=== PATIENT | male | born 1935 | race Caucasian/White ===

== ENCOUNTER → 2016-06-14 | Outpatient (CLI) | payer BC, MEDICARE ==
[2016-06-14 10:26] LABS: Calcium 9.3 mg/dL (8.4-10.2); Potassium 5.4 mmol/L (3.5-5.1)
== END | disposition home or self-care (01) ==
LOC: LABWHC1 09:25
PROVIDERS: ATTEND Internal Medicine
DX: E87.8 Other disorders of electrolyte and fluid balance, not elsewhere classified (principal)
CPT/HCPCS: 36415; 80048

== ENCOUNTER → 2016-09-10 | Outpatient (CLI) | payer MEDICARE ==
[2016-09-10 10:35] LABS: CH 29.8; HCT 34.2 % (39.0-53.0); HDW 2.62; HGB 11.4 gm/dL (13.0-17.5); MCH 29.5 pg (25.0-35.0); MCHC 33.5 g/dL (31.0-37.0); MCV 88.1 fL (80.0-100.0); Mean Platelet Volume 6.4; RBC 3.88 m/uL (4.30-5.90); WBC 6.5 k/uL (3.8-10.6)
[2016-09-10 10:54] LABS: Calcium 9.4 mg/dL (8.4-10.2); Potassium 4.5 mmol/L (3.5-5.1); Uric Acid 8.8 mg/dL (3.5-8.5)
[2016-09-10 13:24] LABS: Hemoglobin A1C 7.6 % (4.2-6.1)
== END | disposition home or self-care (01) ==
LOC: LABWHC1 09:38
PROVIDERS: ATTEND Internal Medicine
DX: E11.69 Type 2 diabetes mellitus with other specified complication (principal); E87.8 Other disorders of electrolyte and fluid balance, not elsewhere classified; R53.83 Other fatigue; R79.9 Abnormal finding of blood chemistry, unspecified
CPT/HCPCS: 36415; 80048; 83036; 84550; 85027

== ENCOUNTER → 2016-10-26 | Outpatient (CLI) | payer MEDICARE ==
[2016-10-26 12:44] LABS: Potassium 4.6 mmol/L (3.5-5.1)
== END ==
LOC: LABWHC1 11:23
PROVIDERS: ATTEND Internal Medicine Cardiovascular Disease
DX: R60.0 Localized edema (principal)
CPT/HCPCS: 36415; 80051; 82565; 83880; 84443; 84520

== ENCOUNTER → 2017-09-05 | Outpatient (CLI) | payer MEDICARE ==
[2017-09-05 10:54] LABS: Calcium 9.7 mg/dL (8.4-10.2); Potassium 4.7 mmol/L (3.5-5.1); Uric Acid 8.7 mg/dL (3.5-8.5)
== END | disposition home or self-care (01) ==
LOC: LABWHC1 09:07
PROVIDERS: ATTEND Internal Medicine
DX: E78.4 Other hyperlipidemia (principal); E87.8 Other disorders of electrolyte and fluid balance, not elsewhere classified; E11.69 Type 2 diabetes mellitus with other specified complication; M10.9 Gout, unspecified
CPT/HCPCS: 36415; 80048; 80061; 83036; 84550

== ENCOUNTER 2017-09-23 17:30 | Observation (INO) | payer MEDICARE ==
[2017-09-23] MEDS ORDERED: methylPREDNISolone SOD SUCCI 125 MG/2 ML VIAL IV STA ×2 (18:07→19:59)
[2017-09-23] MEDS ORDERED: FAMOTIDINE 20 MG/2 ML VIAL IV STA (18:08)
--- NOTE | 2017-09-23 18:15 | ED ---
General Adult HPI - General Chief complaint: Skin/Abscess/Foreign Body Stated complaint: Rash Time Seen by Provider: 09/23/17 17:42 Source: patient, RN notes reviewed Mode of arrival: ambulatory Limitations: no limitations - History of Present Illness Initial comments: Patient is an 82-year-old male presenting to the emergency room today with a chief complaint of a rash over the last 3 days. Patient does admit that he had a wound to the right garcia that he was started on antibiotics by the family doctor. He states he started clindamycin. He states that approximately 3 days ago noticed a small spot to his chest and some redness to the lower extremity. Patient states that the redness is increased. He states he now has diffuse rash throughout the body. He states it is a little itchy. He states is no pain. He denies any other complaints or symptoms. Patient denies any recent fever, chills, shortness of breath, chest pain, back pain, abdominal pain, nausea or vomiting, numbness or tingling, dysuria or hematuria, constipation or diarrhea, headaches or visual changes, or any other complaints. - Related Data Home Medications Medication Instructions Recorded Confirmed Allopurinol [Zyloprim] 100 mg PO DAILY 12/02/14 09/23/17 Aspirin 81 mg PO HS 12/02/14 09/23/17 Brimonidine Tartrate/Timolol 1 drop BOTH EYES Q12HR 12/02/14 09/23/17 [Combigan 0.2%/0.5% Ophth Soln] Doxazosin Mesylate 8 mg PO DAILY 12/02/14 09/23/17 Felodipine [Felodipine ER] 10 mg PO DAILY 12/02/14 09/23/17 Furosemide [Lasix] 20 mg PO DAILY 12/02/14 09/23/17 Lovastatin [Mevacor] 40 mg PO HS 12/02/14 09/23/17 Metolazone [Zaroxolyn] 2.5 mg PO DAILY 12/02/14 09/23/17 Ascorbic Acid [Vitamin C with [place] 500 mg PO DAILY 03/14/16 09/23/17 Hips] B Complex-Vit C-Vit E-Zinc [Z-Bec] 1 tab PO DAILY 03/14/16 09/23/17 Calcium Carbonate/Vitamin D3 1 each PO DAILY 03/14/16 09/23/17 [Calcium 600-Vit D3 800 Tab] Cinnamon Bark [Cinnamon] 500 mg PO DAILY 03/14/16 09/23/17 Krill/Om-3/Dha/Epa/Phospho/Ast 1 each PO DAILY 03/14/16 09/23/17 [[place]-3 Krill Oil 300 mg Sfgl] Multivit-Min/FA/Lycopen/Lutein 1 each PO DAILY 03/14/16 09/23/17 [Centrum Silver Tablet] Oral Chelation 1 tab PO DAILY 03/14/16 09/23/17 prednisoLONE ACETATE 1% OPHTH 1 drops RIGHT EYE WEEKLY 03/14/16 09/23/17 [Pred Forte 1%] Furosemide [Lasix] 40 mg PO DAILY 09/23/17 09/23/17 cloNIDine HCL 0.3 mg PO BID 09/23/17 09/23/17 Allergies Allergy/AdvReac Type Severity Reaction Status Date / Time cephalexin Allergy Rash/Hives Verified 03/14/16 08:12 clindamycin Allergy Rash/Hives Verified 09/23/17 17:38 sulfamethoxazole Allergy Unknown Verified 03/14/16 08:12 [From Bactrim] trimethoprim [From Bactrim] Allergy Unknown Verified 03/14/16 08:12 Review of Systems ROS Statement: Those systems with pertinent positive or pertinent negative responses have been documented in the HPI. ROS Other: All systems not noted in ROS Statement are negative. Past Medical History Past Medical History: Cancer, Hyperlipidemia, Hypertension, Prostate Disorder History of Any Multi-Drug Resistant Organisms: None Reported Past Surgical History: No Surgical Hx Reported Past Psychological History: No Psychological Hx Reported Smoking Status: Never smoker General Exam - General Exam Comments Initial Comments: General: The patient is awake and alert, in no distress, and does not appear acutely ill. Neck: The neck is supple, there is no tenderness or JVD. Cardiovascular: There is a regular rate and rhythm. No murmur, rub or gallop is appreciated. Respiratory: Lungs are clear to auscultation, respirations are non-labored, breath sounds are equal. No wheezes, stridor, rales, or rhonchi. Musculoskeletal: Full range motion. Sensation intact. Pulses equal bilaterally 2+. Strength 5/5 in all areas. Neurological: A&O x 3. CN II-XII intact, There are no obvious motor or sensory deficits. Coordination appears grossly intact. Speech is normal. Skin: Diffuse red raised rash throughout body worse to the lower extremities spreading up to the upper extremities and anterior trunk. Rash to the left lower extremity does not tony is petechial in nature. Rash to the remaining areas of body does tony. Psychiatric: Normal mood and affect. Limitations: no limitations Course Vital Signs 09/23/17 09/23/17 17:34 19:38 Temperature 100.5 F H 100.6 F H Pulse Rate 105 H 82 Respiratory 18 20 Rate Blood Pressure 151/70 165/78 O2 Sat by Pulse 98 96 Oximetry Medical Decision Making - Medical Decision Making Patient's labs been reviewed does show mild elevation of kidney function from previous. Patient's platelets stable. Coag stable. Patient does have a low grade fever here the emergency room. Given Tylenol. Patient ran started after taking clindamycin. Patient nontoxic appearing. Doing well at this time. Case discussed and seen by [facility] physician Dr. Bunn did discuss the case with Dr. Rosenbaum on-call for Dr. Sangita christopher but the patient. Will continue on steroids, Benadryl, Pepcid. - Lab Data Result diagrams: 09/23/17 18:35 09/23/17 18:35 Lab Results 09/23/17 09/23/17 09/23/17 Range/Units 18:35 18:35 18:35 WBC 8.7 (3.8-10.6) k/uL RBC 3.69 L (4.30-5.90) m/uL Hgb 10.7 L (13.0-17.5) gm/dL Hct 32.2 L (39.0-53.0) % MCV 87.3 (80.0-100.0) fL MCH 29.1 (25.0-35.0) pg MCHC 33.3 (31.0-37.0) g/dL RDW 14.3 (11.5-15.5) % Plt Count 251 (150-450) k/uL Neutrophils % 76 % Lymphocytes % 11 % Monocytes % 4 % Eosinophils % 7 % Basophils % 0 % Neutrophils # 6.6 (1.3-7.7) k/uL Lymphocytes # 0.9 L (1.0-4.8) k/uL Monocytes # 0.4 (0-1.0) k/uL Eosinophils # 0.6 (0-0.7) k/uL Basophils # 0.0 (0-0.2) k/uL PT 10.6 (9.0-12.0) sec INR 1.1 (<1.2) APTT 24.4 (22.0-30.0) sec Sodium 135 L (137-145) mmol/L Potassium 4.1 (3.5-5.1) mmol/L Chloride 99 (98-107) mmol/L Carbon Dioxide 22 (22-30) mmol/L Anion Gap 14 mmol/L BUN 68 H (9-20) mg/dL Creatinine 2.50 H (0.66-1.25) mg/dL Est GFR (CKD-EPI)AfAm 27 (>60 ml/min/1.73 sqM) Est GFR (CKD-EPI)NonAf 23 (>60 ml/min/1.73 sqM) Glucose 252 H (74-99) mg/dL Calcium 8.6 (8.4-10.2) mg/dL Total Bilirubin 1.0 (0.2-1.3) mg/dL AST 31 (17-59) U/L ALT 37 (21-72) U/L Alkaline Phosphatase 101 (38-126) U/L Total Protein 6.1 L (6.3-8.2) g/dL Albumin 3.6 (3.5-5.0) g/dL Disposition Clinical Impression: Allergic reaction caused by a drug Disposition: [facility] Condition: Stable Is patient prescribed a controlled substance at d/c from ED?: No Referrals: Gino Saxena MD [Primary Care Provider] - 1-2 days Time of Disposition: 19:58
[2017-09-23 19:04] LABS: Basophils % (A) 0 %; Eosinophils # (A) 0.6 k/uL (0-0.7); Eosinophils % (A) 7 %; HCT 32.2 % (39.0-53.0); HGB 10.7 gm/dL (13.0-17.5); Lymphocytes # (A) 0.9 k/uL (1.0-4.8); Lymphocytes % (A) 11 %; MCH 29.1 pg (25.0-35.0); MCHC 33.3 g/dL (31.0-37.0); MCV 87.3 fL (80.0-100.0); Mean Platelet Volume 6.1; Monocytes # (A) 0.4 k/uL (0-1.0); Monocytes % (A) 4 %; Neutrophils # (A) 6.6 k/uL (1.3-7.7); Neutrophils % (A) 76 %; Platelet Count 251 k/uL (150-450); RBC 3.69 m/uL (4.30-5.90); RDW 14.3 % (11.5-15.5); WBC 8.7 k/uL (3.8-10.6)
[2017-09-23 19:13] LABS: Albumin 3.6 g/dL (3.5-5.0); Calcium 8.6 mg/dL (8.4-10.2); Potassium 4.1 mmol/L (3.5-5.1); Total Protein 6.1 g/dL (6.3-8.2)
[2017-09-23] MEDS ORDERED: ACETAMINOPHEN TAB 325 MG TAB PO STA (19:38)
[2017-09-23 19:53] LABS: INR 1.1 (<1.2); Partial Thromboplastin Time 24.4 sec (22.0-30.0); Prothrombin Time 10.6 sec (9.0-12.0)
[2017-09-23] MEDS ORDERED: HYDROcodone/APAP 5-325MG 1 EACH TAB PO PRN (19:58)
[2017-09-23] MEDS ORDERED: SODIUM CHLORIDE 0.9% 1,000 ML IV ONE (19:58)
[2017-09-23] MEDS ORDERED: ACETAMINOPHEN TAB 325 MG TAB PO PRN (19:58)
[2017-09-23] MEDS ORDERED: NALOXONE 0.4 MG/ML 1 ML VIAL IV PRN (19:58)
[2017-09-23] MEDS ORDERED: ONDANSETRON 4 MG/2 ML VIAL IVP PRN (19:58)
[2017-09-23] MEDS: BRIMONIDINE TARTRATE 0.2% DROPS 5 ML BTL BOTH EYES SCH (22:37)
[2017-09-23] MEDS: TIMOLOL 0.5% OPHTH DROPS 5 ML BTL BOTH EYES SCH (22:37)
[2017-09-23 22:48] VITALS: BMI 34.7
--- NOTE | 2017-09-23 23:42 | HP ---
HISTORY AND PHYSICAL ATTENDING PHYSICIAN: Dr. Saxena. ADMITTING PHYSICIAN: Dr. Anibal Rosenbaum. CHIEF COMPLAINT: Rash. HISTORY OF PRESENT ILLNESS: This 82-year-old gentleman presents to the emergency room because of an itchy rash covering his body. His predominant lower legs. The patient has some swelling of the lower extremities. He does have a history of some chronic edema and chronic venous hypertension affecting the legs. He says he was admitted to the hospital for 9 days few years ago for swelling of the left leg. He does not know if he had a blood clot in that leg. The patient is a poor historian. His provides some of the details. The patient has had a skin lesion, nonhealing eschar on the right garcia for the past about 2-3 months. The patient was seen last week by Dr. Saxena and placed on clindamycin. The patient apparently had some drainage prior to that. He does not have any drainage now. It is a dried up area. Not much erythema around the Eschars. The patient, however, with this rash predominantly in the left leg and the whole body. Only the face is spared. He does have some rash on the palms. The patient denies any associated symptoms of wheezing, headaches, dizziness. No diarrhea. He has never had a rash like this previously. He has had rashes with other antibiotic allergies. He had a severe urticarial rash with bee stings. PAST MEDICAL HISTORY: Significant for aortic valve, mitral valve disease. 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 History of carcinoma of the prostate for which he had radiation therapy 3 years ago. Denies any history of liver disease, kidney disease, ulcers, TB, hepatitis. No history of any rheumatic fever, myocardial infarction or CVA. PAST SURGICAL HISTORY: Significant for cataracts only. PERSONAL HISTORY: Nonsmoker, had smoked for only a few years when he was in his 20s. Alcohol occasional. ALLERGIES: TO SULFA, KEFLEX, AND BEE STINGS. MEDICATIONS: Medications at present include: 1. Catapres 0.3 mg b.i.d. 2. Multivitamin daily. 3. Zaroxolyn 2.5 mg daily. 4. Mevacor 40 mg daily. 5. [place]-3 daily. 6. Lasix 60 mg daily. 7. Felodipine 10 mg daily. 8. 8 mg daily. 9. Cinnamon daily. 10.Calcium with vitamin D3. 11.He takes eye drops. 12.Aspirin 81 daily. 13.Vitamin C daily 500 mg daily. 14.Allopurinol 100 mg daily. SOCIAL HISTORY: Patient is , lives with his spouse. [place]. FAMILY MEDICAL HISTORY: Father in his 80s. He had a history of alcoholism. Mother in the 80s. Also, she had a history of CVA. The patient had 7 brothers, 5 , 1 had coronary artery disease. Other details not available. Two other brothers living in adequate health. One sister who had of cancer of the lung. He has 6 other sisters living. Health fair. He has 2 sons and 2 daughters living in good health. REVIEW OF SYSTEMS: NEURO: Denies any headaches, dizziness. No double vision blurred vision. No symptoms of TIA, syncope or seizures. Psych: No anxiety or depression. Cardiac: Denies chest pain, angina or palpitations. Respiratory: Denies shortness of breath. Does have chronic mild cough and chronic shortness of breath and chronic dyspnea on exertion, which is stable. GI: No nausea, vomiting, abdominal pain, diarrhea, constipation, hematochezia, melena. : Denies symptoms of dysuria, hematuria, urgency, frequency. EXTREMITIES: Denies pain. Does have edema. Constitutional: Feels feverish. No chills. Feels feverish and cold. Skin: Present rash. Musculoskeletal: Mild chronic arthritic pain. GI no nausea, vomiting, abdominal pain, diarrhea, constipation. no symptoms of dysuria or hematuria. No urgency or frequency. Extremities: Some edema. PHYSICAL EXAMINATION: Pleasant gentleman in no distress. Vital signs reveals a temperature 100.5, pulse rate 105, respiration 18, blood pressure 151/78, pulse ox 98% on room air. HEENT: Normocephalic. Neck no JVD. Pupils are reactive. Nostrils clear. Oral cavity dry. No lesions. Ears reveal no drainage. NECK reveals no JVD, carotid bruits, thyromegaly. CHEST EXAMINATION: Increased AP diameter. Generalized decreased air flow. No rhonchi or wheezing. CARDIAC distant heart sounds S1, S2 with no gallops. Regular rhythm. Systolic murmur 2/6, right second intercostal space radiating to the carotids. ABDOMEN: Soft. No palpable masses. Bowel sounds normal. No organomegaly. No abdominal bruits. EXTREMITIES: Revealed edema. Left leg greater than right. Hip is chronic edema, mild pitting edema. NEUROLOGICAL: Awake, alert, oriented x3 with well-coordinated movements both upper and lower extremities. Joints reveal no effusion. SKIN reveals diffuse macular rash including on the palms. The patient has lower extremities reveal some petechial areas, especially in the left lower leg. Right garcia has an eschar. Neurological awake, alert, oriented x3. Moves both upper and lower extremities well. LABORATORY ASSESSMENT: CBC which showed hemoglobin of 10.7, normal white count, platelet count, INR, PTT are normal. Sodium 135, BUN 68, creatinine 2.5, glucose was 252. ASSESSMENT: 1. Rash, suspect allergic reaction to clindamycin. 2. Anemia. 3. Acute on chronic renal failure. 4. Elevated blood sugars with no history of diabetes mellitus. 5. Hypertension. 6. Chronic obstructive pulmonary disease. 7. History of cancer of the prostate. PLAN: The patient is admitted to the hospital. This started on some steroids, antihistamines and Clindamycin discontinued. Monitor blood sugars control and cover with insulin as needed. The patient's general condition discussed with the patient. Prognosis guarded. MMODL / IJN: [id number] /
[2017-09-24] MEDS: methylPREDNISolone SOD SUCCI 40 MG/ML 1 ML VIAL IV SCH ×4 (02:30→23:04)
[2017-09-24 07:22] LABS: Basophils % (A) 0 %; Eosinophils % (A) 1 %; HCT 34.8 % (39.0-53.0); HGB 11.6 gm/dL (13.0-17.5); Lymphocytes # (A) 1.1 k/uL (1.0-4.8); Lymphocytes % (A) 15 %; MCH 29.7 pg (25.0-35.0); MCHC 33.4 g/dL (31.0-37.0); MCV 88.7 fL (80.0-100.0); Mean Platelet Volume 6.2; Monocytes # (A) 0.1 k/uL (0-1.0); Monocytes % (A) 1 %; Neutrophils # (A) 6.1 k/uL (1.3-7.7); Neutrophils % (A) 83 %; Platelet Count 267 k/uL (150-450); RBC 3.92 m/uL (4.30-5.90); RDW 14.3 % (11.5-15.5); WBC 7.3 k/uL (3.8-10.6)
[2017-09-24 07:27] LABS: Albumin 3.9 g/dL (3.5-5.0); Calcium 8.8 mg/dL (8.4-10.2); Potassium 4.1 mmol/L (3.5-5.1); Total Bilirubin 0.9 mg/dL (0.2-1.3); Total Protein 6.6 g/dL (6.3-8.2)
--- NOTE | 2017-09-24 08:02 | P.PN ---
Progress Note - Text The patient is a 82-year-old gentleman who was admitted yesterday with a diffuse erythematous rash covering most of his body. Patient had been prescribed clindamycin for a right leg ulceration and cellulitis prior to the rash developing. Patient does have other ALLERGIES to cephalexin and sulfa/ Bactrim. Patient did receive some corticosteroids. He does have other comorbidities that include his underlying diabetes, history of valvular heart disease, hypertension and COPD. He has had chronic venous insufficiency and has developed ulcerations in the past. This morning he states he does feel somewhat better. He denies any chest pain or shortness of breath. No nausea or vomiting. Vital signs reveal temperature 98.2 with a pulse of 80 and respirations 16. Temperature was elevated on admission. Blood pressure this morning is 181/81 and he is 93% saturated on room air. Lung and heart exam was clear. No wheezing. Abdomen is soft and nontender. He does have peripheral edema more on the left side than the right lower extremity. There is a 3-5 cm superficial ulceration with some eschar on the right garcia. No marked cellulitis associated with this at this time. There is a diffuse erythematous nonblanching rash which is not raised. More prominent on the lower extremities but does cover the trunk. He is alert and oriented without any neurological changes at this time. Laboratory White count 7.3 with a hemoglobin 11.6 and a platelet count of 267. Electrolytes unremarkable. BUN is 59 with creatinine of 2.26 given him a GFR of 26 which is mildly improved. Blood sugars 246. Impressions and plans Continue at this time with IV corticosteroids. Continue to monitor his blood sugars. Further recommendations pending clinical response as discussed with patient at bedside this morning.
[2017-09-24 08:16] LABS: Glucose,Whole Blood 351 mg/dL (75-99)
[2017-09-24] MEDS: amLODIPine 10 MG TAB PO SCH (08:17)
[2017-09-24] MEDS: B COMPLEX-VIT C-VIT E-ZINC 1 EACH TAB PO SCH (08:17)
[2017-09-24] MEDS: cloNIDine HCL 0.1 MG TAB PO SCH ×2 (08:18→20:28)
[2017-09-24] MEDS: DOXAZOSIN 4 MG TAB PO SCH (08:18)
[2017-09-24] MEDS: CALCIUM CARB-VIT D 500MG-200UN 1 EACH TAB PO SCH (08:18)
[2017-09-24] MEDS: FAMOTIDINE 20 MG/2 ML VIAL IV SCH (08:18)
[2017-09-24] MEDS: ASCORBIC ACID 500 MG TAB PO SCH (08:18)
[2017-09-24] MEDS: METOLAZONE 2.5 MG TAB PO SCH (08:18)
[2017-09-24] MEDS: ALLOPURINOL 100 MG TAB PO SCH (08:18)
[2017-09-24] MEDS: INSULIN ASPART 100 UNIT/ML 1 ML 10 ML VIAL SQ SCH ×4 (08:19→20:34)
[2017-09-24] MEDS: BRIMONIDINE TARTRATE 0.2% DROPS 5 ML BTL BOTH EYES SCH ×2 (08:32→20:27)
[2017-09-24] MEDS ORDERED: NON-FORMULARY DRUG (Cinnamon Bark [Cinnamon] 500 MG) PO SCH (09:00)
[2017-09-24] MEDS ORDERED: FUROSEMIDE 20 MG TAB PO SCH ×2 (09:00)
[2017-09-24] MEDS ORDERED: NON-FORMULARY DRUG (Krill/Om-3/Dha/Epa/Phospho/Ast [Omega-3 Krill Oil 300 Mg Sfgl] 1 EACH) PO SCH (09:00)
[2017-09-24] MEDS ORDERED: CHELATION PO SCH (09:00)
[2017-09-24 12:11] LABS: Iron Saturation 10.91 (15.00-50.00)
[2017-09-24 12:12] LABS: Glucose,Whole Blood 219 mg/dL (75-99)
[2017-09-24] MEDS: TIMOLOL 0.5% OPHTH DROPS 5 ML BTL BOTH EYES SCH ×2 (12:19→20:35)
[2017-09-24] MEDS: MULTIVITAMINS, THERA 1 EACH TAB PO SCH (12:19)
[2017-09-24] MEDS: FUROSEMIDE 40 MG TAB PO SCH (16:27)
[2017-09-24 18:04] LABS: Glucose,Whole Blood 236 mg/dL (75-99)
[2017-09-24] MEDS: diphenhydrAMINE 25 MG CAP PO PRN (20:27)
[2017-09-24 20:36] LABS: Glucose,Whole Blood 333 mg/dL (75-99)
[2017-09-24] MEDS ORDERED: ASPIRIN 81 MG PO SCH (21:00)
[2017-09-24] MEDS ORDERED: ATORVASTATIN 10 MG TAB PO SCH (21:00)
[2017-09-25 07:00] LABS: Glucose,Whole Blood 302 mg/dL (75-99)
[2017-09-25 07:16] LABS: Calcium 9.2 mg/dL (8.4-10.2); Potassium 4.6 mmol/L (3.5-5.1)
[2017-09-25 08:24] VITALS: BP 163/73; PULSE 85; RESP 18; TEMP 97.5
--- NOTE | 2017-09-25 08:24 | P.DS ---
Providers Date of admission: 09/23/17 20:59 Attending physician: Jose Miguel Rosenbaum Primary care physician: Gino Saxena The patient is a 82-year-old gentleman who presented to the emergency room 2 days previous a diffuse rash and elevated temperatures. Patient had been on clindamycin for a skin right lower leg ulceration with some surrounding cellulitis. He does have a previous history of ALLERGIES to cephalexin and sulfa. The rash involved all areas of the body. It was erythematous and not blanching. Temperatures were elevated up to 100.5 and 100.6 on a couple determinations. Patient also has multiple comorbidities with underlying chronic kidney disease stage 3-4 with a GFR presentation here down to 25. Patient also had elevated blood sugars in the 2-300 range. Other labs showed a sodium 139 with a potassium 4.1 and a CO2 content of 22. White count 7.3 with hemoglobin 11.6 and a platelet count of 267. Liver function tests were generally unremarkable. Iron saturation was slightly low at 10.9 with an INR of 30 and iron binding capacity of 275. Ferritin level elevated at 190. Blood culture has been no growth at 24 hours. Patient was treated with IV corticosteroids with improvement in his rash. It is still somewhat extensive but appears to be fading and is not pruritic or ulcerating at this time. The patient will remain off antibiotics as his cellulitis appears markedly improved from previous outpatient evaluation. Plans are for him to continue his previous home medications. Please see list. Prednisone 20 mg daily for 10 days will be sent in to his local [facility] pharmacy. He will continue to monitor his blood sugars and blood pressure at home and return to office and call if any concerns or problems. Discharge diagnoses. Acute ALLERGIC dermatitis associated with clindamycin. Also associated with elevated temperatures and weakness. Acute on chronic kidney disease stage IV Diabetes with hyperglycemia related to the skin rash and corticosteroids. Ulceration of the right lower garcia. History of ALLERGIES to Keflex, sulfa and bee stings. Hypertension Hyperlipidemia Obesity History of COPD History of prostate cancer History of mild aortic sclerosis based on transesophageal echocardiogram of 2016. Patient Condition at Discharge: Stable Plan - Discharge Summary New Discharge Prescriptions: No Action Aspirin 81 mg PO HS Doxazosin Mesylate 8 mg PO DAILY Allopurinol [Zyloprim] 100 mg PO DAILY Metolazone [Zaroxolyn] 2.5 mg PO DAILY Lovastatin [Mevacor] 40 mg PO HS Felodipine [Felodipine ER] 10 mg PO DAILY B Complex-Vit C-Vit E-Zinc [Z-Bec] 1 tab PO DAILY Oral Chelation 1 tab PO DAILY Multivit-Min/FA/Lycopen/Lutein [Centrum Silver Tablet] 1 tab PO DAILY Krill/Om-3/Dha/Epa/Phospho/Ast [[place]-3 Krill Oil 300 mg Sfgl] 1 each PO DAILY Cinnamon Bark [Cinnamon] 500 mg PO DAILY Calcium Carbonate/Vitamin D3 [Calcium 600-Vit D3 800 Tab] 1 tab PO DAILY Ascorbic Acid [Vitamin C with [place] Hips] 500 mg PO DAILY Furosemide [Lasix] 40 mg PO DAILY cloNIDine HCL 0.3 mg PO BID EPINEPHrine (Auto Inject) [Epipen] 0.3 mg IM ONCE PRN PRN Reason: Anaphylaxis Glimepiride [Amaryl] 1 mg PO AC-BRKFST Hydrocortisone Cream [Hydrocortisone 2.5% Cream] 1 applic TOPICAL BID PRN PRN Reason: Itching Discharge Medication List Allopurinol [Zyloprim] 100 mg PO DAILY 12/02/14 [History] Aspirin 81 mg PO HS 12/02/14 [History] Doxazosin Mesylate 8 mg PO DAILY 12/02/14 [History] Felodipine [Felodipine ER] 10 mg PO DAILY 12/02/14 [History] Lovastatin [Mevacor] 40 mg PO HS 12/02/14 [History] Metolazone [Zaroxolyn] 2.5 mg PO DAILY 12/02/14 [History] Ascorbic Acid [Vitamin C with [place] Hips] 500 mg PO DAILY 03/14/16 [History] B Complex-Vit C-Vit E-Zinc [Z-Bec] 1 tab PO DAILY 03/14/16 [History] Calcium Carbonate/Vitamin D3 [Calcium 600-Vit D3 800 Tab] 1 tab PO DAILY [History] Cinnamon Bark [Cinnamon] 500 mg PO DAILY 03/14/16 [History] Krill/Om-3/Dha/Epa/Phospho/Ast [[place]-3 Krill Oil 300 mg Sfgl] 1 each PO DAILY 03/14/16 [History] Multivit-Min/FA/Lycopen/Lutein [Centrum Silver Tablet] 1 tab PO DAILY 03/14/16 [ History] Oral Chelation 1 tab PO DAILY 03/14/16 [History] Furosemide [Lasix] 40 mg PO DAILY 09/23/17 [History] cloNIDine HCL 0.3 mg PO BID 09/23/17 [History] EPINEPHrine (Auto Inject) [Epipen] 0.3 mg IM ONCE PRN 09/24/17 [History] Glimepiride [Amaryl] 1 mg PO AC-BRKFST 09/24/17 [History] Hydrocortisone Cream [Hydrocortisone 2.5% Cream] 1 applic TOPICAL BID PRN [History] Follow up Appointment(s)/Referral(s): Gino Saxena MD [Primary Care Provider] - 1-2 days
[2017-09-25] MEDS: TIMOLOL 0.5% OPHTH DROPS 5 ML BTL BOTH EYES SCH (08:30)
[2017-09-25] MEDS: DOXAZOSIN 4 MG TAB PO SCH (08:31)
[2017-09-25] MEDS: METOLAZONE 2.5 MG TAB PO SCH (08:31)
[2017-09-25] MEDS: CALCIUM CARB-VIT D 500MG-200UN 1 EACH TAB PO SCH (08:31)
[2017-09-25] MEDS: B COMPLEX-VIT C-VIT E-ZINC 1 EACH TAB PO SCH (08:31)
[2017-09-25] MEDS: cloNIDine HCL 0.1 MG TAB PO SCH (08:31)
[2017-09-25] MEDS: ALLOPURINOL 100 MG TAB PO SCH (08:31)
[2017-09-25] MEDS: MULTIVITAMINS, THERA 1 EACH TAB PO SCH (08:31)
[2017-09-25] MEDS: amLODIPine 10 MG TAB PO SCH (08:31)
[2017-09-25] MEDS: FUROSEMIDE 40 MG TAB PO SCH (08:31)
[2017-09-25] MEDS: INSULIN ASPART 100 UNIT/ML 1 ML 10 ML VIAL SQ SCH ×2 (08:32→14:33)
[2017-09-25] MEDS: FAMOTIDINE 20 MG/2 ML VIAL IV SCH (08:32)
[2017-09-25] MEDS: methylPREDNISolone SOD SUCCI 40 MG/ML 1 ML VIAL IV SCH (08:32)
[2017-09-25] MEDS: BRIMONIDINE TARTRATE 0.2% DROPS 5 ML BTL BOTH EYES SCH (08:33)
[2017-09-25] MEDS: diphenhydrAMINE 25 MG CAP PO PRN (08:58)
[2017-09-25] MEDS: ASCORBIC ACID 500 MG TAB PO SCH (11:27)
[2017-09-25 12:09] LABS: Glucose,Whole Blood 275 mg/dL (75-99)
[2017-09-26] MEDS ORDERED: FAMOTIDINE 20 MG TAB PO SCH (09:00)
[2017-09-30] MEDS ORDERED: prednisoLONE ACETATE 1% OPHTH DROPS 5 ML BTL RIGHT EYE SCH (09:00)
== END 2017-09-25 14:50 | disposition home or self-care (01) ==
LOC: EC 17:30 → 3OBS 20:59
PROVIDERS: ADMIT Internal Medicine; ATTEND Internal Medicine
DX: L27.0 Generalized skin eruption due to drugs and medicaments taken internally (principal); T36.8X5A Adverse effect of other systemic antibiotics, initial encounter; D64.9 Anemia, unspecified; N17.9 Acute kidney failure, unspecified; I12.9 Hypertensive chronic kidney disease with stage 1 through stage 4 chronic kidney disease, or unspecified chronic kidney disease; N18.4 Chronic kidney disease, stage 4 (severe); E11.65 Type 2 diabetes mellitus with hyperglycemia; E11.22 Type 2 diabetes mellitus with diabetic chronic kidney disease; J44.9 Chronic obstructive pulmonary disease, unspecified; L97.919 Non-pressure chronic ulcer of unspecified part of right lower leg with unspecified severity; I87.311 Chronic venous hypertension (idiopathic) with ulcer of right lower extremity; L97.819 Non-pressure chronic ulcer of other part of right lower leg with unspecified severity; E78.5 Hyperlipidemia, unspecified; I08.0 Rheumatic disorders of both mitral and aortic valves; R53.1 Weakness; R50.9 Fever, unspecified; I70.0 Atherosclerosis of aorta; E66.9 Obesity, unspecified; Z68.34 Body mass index [BMI] 34.0-34.9, adult; I87.2 Venous insufficiency (chronic) (peripheral); Z79.82 Long term (current) use of aspirin; Z79.84 Long term (current) use of oral hypoglycemic drugs; Z79.52 Long term (current) use of systemic steroids; Z79.899 Other long term (current) drug therapy; Z88.1 Allergy status to other antibiotic agents; Z88.2 Allergy status to sulfonamides; Z91.030 Bee allergy status; Z87.891 Personal history of nicotine dependence; Z85.46 Personal history of malignant neoplasm of prostate; Z92.3 Personal history of irradiation; Z82.49 Family history of ischemic heart disease and other diseases of the circulatory system; Z81.1 Family history of alcohol abuse and dependence; Z80.1 Family history of malignant neoplasm of trachea, bronchus and lung; Z82.3 Family history of stroke
CPT/HCPCS: 99284 ×2; 96374 ×2; 96375 ×2; 96361 ×4; 96376 ×2; 36415; 80053 ×2; 80048; 82728; 83540; 83550; 85025 ×2; 85610; 85730; 87040; G0378 ×3; J2920 ×2; J2930

== ENCOUNTER 2017-10-14 11:43 | Emergency (ER) | payer MEDICARE ==
[2017-10-14 11:51] VITALS: RESP 18
--- NOTE | 2017-10-14 12:13 | ED ---
General Adult HPI - General Chief complaint: Extremity Problem,Nontraumatic Stated complaint: bilat leg weakness Time Seen by Provider: 10/14/17 12:02 Source: patient, family, RN notes reviewed Mode of arrival: wheelchair Limitations: no limitations - History of Present Illness Initial comments: Patient 82-year-old male presents to the emergency room today with multiple complaints. He does admit that he has had increased pain to the right lower extremity was some swelling. Does admit that there was an infection that he was on antibiotics for. States he had a reaction to the antibiotic was on steroids. She is currently not on any antibiotics. The last 2 days has had pain to the right leg with increased swelling. States he's had a use a cane when walking due to the pain in the right calf and behind the knee area. Patient also admits that since being on steroids approximately 2 weeks ago when he was admitted in the hospital he feels like he is not himself. States he's been confused at times. Gives example that when he was driving girlfriend's house he thought he was on the right road and being completely different road. States that he's had more of a temper lately. States had a difficult time sleeping. Patient denies any other complaints or symptoms. Patient denies any recent fever, chills, shortness of breath, chest pain, back pain, abdominal pain , nausea or vomiting, numbness or tingling, dysuria or hematuria, headaches or visual changes, or any other complaints. - Related Data Home Medications Medication Instructions Recorded Confirmed Allopurinol [Zyloprim] 100 mg PO DAILY 12/02/14 10/14/17 Aspirin 81 mg PO HS 12/02/14 10/14/17 Doxazosin Mesylate 8 mg PO DAILY 12/02/14 10/14/17 Felodipine [Felodipine ER] 10 mg PO DAILY 12/02/14 10/14/17 Lovastatin [Mevacor] 40 mg PO 12/02/14 10/14/17 Metolazone [Zaroxolyn] 2.5 mg PO DAILY 12/02/14 10/14/17 Ascorbic Acid [Vitamin C with [place] 500 mg PO DAILY 03/14/16 10/14/17 Hips] B Complex-Vit C-Vit E-Zinc [Z-Bec] 1 tab PO DAILY 03/14/16 10/14/17 Calcium Carbonate/Vitamin D3 1 tab PO DAILY 03/14/16 10/14/17 [Calcium 600-Vit D3 800 Tab] Cinnamon Bark [Cinnamon] 500 mg PO DAILY 03/14/16 10/14/17 Krill/Om-3/Dha/Epa/Phospho/Ast 1 each PO DAILY 03/14/16 10/14/17 [[place]-3 Krill Oil 300 mg Sfgl] Multivit-Min/FA/Lycopen/Lutein 1 tab PO DAILY 03/14/16 10/14/17 [Centrum Silver Tablet] Oral Chelation 1 tab PO DAILY 03/14/16 10/14/17 Furosemide [Lasix] 40 mg PO DAILY 09/23/17 10/14/17 cloNIDine HCL 0.3 mg PO BID 09/23/17 10/14/17 EPINEPHrine (Auto Inject) [Epipen] 0.3 mg IM ONCE PRN 09/24/17 10/14/17 Glimepiride [Amaryl] 1 mg PO AC-BRKFST 09/24/17 10/14/17 Hydrocortisone Cream 1 applic TOPICAL BID PRN 09/24/17 10/14/17 [Hydrocortisone 2.5% Cream] Allergies Allergy/AdvReac Type Severity Reaction Status Date / Time cephalexin Allergy Rash/Hives Verified 10/14/17 12:41 clindamycin Allergy Rash/Hives Verified 10/14/17 12:41 sulfamethoxazole Allergy Unknown Verified 10/14/17 12:41 [From Bactrim] trimethoprim [From Bactrim] Allergy Unknown Verified 10/14/17 12:41 Review of Systems ROS Statement: Those systems with pertinent positive or pertinent negative responses have been documented in the HPI. ROS Other: All systems not noted in ROS Statement are negative. Past Medical History Past Medical History: Cancer, Hyperlipidemia, Hypertension, Prostate Disorder Additional Past Medical History / Comment(s): prostate cancer History of Any Multi-Drug Resistant Organisms: None Reported Past Surgical History: Tonsillectomy Additional Past Surgical History / Comment(s): laser eye surgery Past Anesthesia/Blood Transfusion Reactions: No Reported Reaction Past Psychological History: No Psychological Hx Reported Smoking Status: Never smoker Past Alcohol Use History: Rare Past Drug Use History: None Reported General Exam - General Exam Comments Initial Comments: General: The patient is awake and alert, in no distress, and does not appear acutely ill. Eye: Pupils are equal, round and reactive to light, extra-ocular movements are intact. No nystagmus. There is normal conjunctiva bilaterally. No signs of icterus. Ears, nose, mouth and throat: There are moist mucous membranes and no oral lesions. Neck: The neck is supple, there is no tenderness or JVD. Cardiovascular: There is a regular rate and rhythm. No murmur, rub or gallop is appreciated. Respiratory: Lungs are clear to auscultation, respirations are non-labored, breath sounds are equal. No wheezes, stridor, rales, or rhonchi. Musculoskeletal: Normal ROM. Patient does have some moderate swelling located right lower extremity compared to left. There is a chronic wound and some chronic redness. No tenderness on exam. Negative Homans. Strength 5/5. Sensation intact. Pedal Pulses equal bilaterally 2+. Neurological: A&O x 3. CN II-XII intact, There are no obvious motor or sensory deficits. Coordination appears grossly intact. Speech is normal. Skin: Skin is warm and dry and no rashes or lesions are noted. Psychiatric: Cooperative, appropriate mood & affect, normal judgment. Limitations: no limitations Course Vital Signs 10/14/17 11:47 Temperature 98.5 F Pulse Rate 91 Respiratory 18 Rate Blood Pressure 171/88 O2 Sat by Pulse 97 Oximetry Medical Decision Making - Medical Decision Making The patient's labs been reviewed. His kidney function is stable compared to previous values. Patient's ultrasound is negative for any evidence of a DVT. Results were discussed with the patient. Case discussed in detail and seen by [facility] physician Dr. Lowery who did discuss the case with patient's PCP who recommended a psychiatric consult. Psych services has seen the patient and recommends outpatient therapy. There is concern that this is possibly related back to steroids that he was previously on. At this time patient soaks patient some discomfort to the right leg. Will be given information for both wound clinic and also Dr. Oneill as recommended by PCP. - Lab Data Result diagrams: 10/14/17 12:31 10/14/17 12:31 Lab Results 10/14/17 10/14/17 10/14/17 Range/Units 12:31 12:31 12:31 WBC 5.3 (3.8-10.6) k/uL RBC 4.01 L (4.30-5.90) m/uL Hgb 11.6 L (13.0-17.5) gm/dL Hct 34.2 L (39.0-53.0) % MCV 85.3 (80.0-100.0) fL MCH 29.0 (25.0-35.0) pg MCHC 33.9 (31.0-37.0) g/dL RDW 14.0 (11.5-15.5) % Plt Count 289 (150-450) k/uL Neutrophils % 59 % Lymphocytes % 27 % Monocytes % 7 % Eosinophils % 5 % Basophils % 1 % Neutrophils # 3.1 (1.3-7.7) k/uL Lymphocytes # 1.5 (1.0-4.8) k/uL Monocytes # 0.3 (0-1.0) k/uL Eosinophils # 0.3 (0-0.7) k/uL Basophils # 0.0 (0-0.2) k/uL PT 9.9 (9.0-12.0) sec INR 1.0 (<1.2) APTT 22.7 (22.0-30.0) sec Sodium 139 (137-145) mmol/L Potassium 4.5 (3.5-5.1) mmol/L Chloride 100 (98-107) mmol/L Carbon Dioxide 23 (22-30) mmol/L Anion Gap 16 mmol/L BUN 57 H (9-20) mg/dL Creatinine 2.18 H (0.66-1.25) mg/dL Est GFR (CKD-EPI)AfAm 32 (>60 ml/min/1.73 sqM) Est GFR (CKD-EPI)NonAf 28 (>60 ml/min/1.73 sqM) Glucose 123 H (74-99) mg/dL Calcium 9.8 (8.4-10.2) mg/dL Total Bilirubin 0.6 (0.2-1.3) mg/dL AST 46 (17-59) U/L ALT 49 (21-72) U/L Alkaline Phosphatase 98 (38-126) U/L Total Protein 7.3 (6.3-8.2) g/dL Albumin 4.4 (3.5-5.0) g/dL Urine Color Urine Appearance (Clear) Urine pH (5.0-8.0) Ur Specific [place] (1.001-1.035) Urine Protein (Negative) Urine Glucose (UA) (Negative) Urine Ketones (Negative) Urine Blood (Negative) Urine Nitrite (Negative) Urine Bilirubin (Negative) Urine Urobilinogen (<2.0) mg/dL Ur Leukocyte Esterase (Negative) 10/14/17 Range/Units 12:33 WBC (3.8-10.6) k/uL RBC (4.30-5.90) m/uL Hgb (13.0-17.5) gm/dL Hct (39.0-53.0) % MCV (80.0-100.0) fL MCH (25.0-35.0) pg MCHC (31.0-37.0) g/dL RDW (11.5-15.5) % Plt Count (150-450) k/uL Neutrophils % % Lymphocytes % % Monocytes % % Eosinophils % % Basophils % % Neutrophils # (1.3-7.7) k/uL Lymphocytes # (1.0-4.8) k/uL Monocytes # (0-1.0) k/uL Eosinophils # (0-0.7) k/uL Basophils # (0-0.2) k/uL PT (9.0-12.0) sec INR (<1.2) APTT (22.0-30.0) sec Sodium (137-145) mmol/L Potassium (3.5-5.1) mmol/L Chloride (98-107) mmol/L Carbon Dioxide (22-30) mmol/L Anion Gap mmol/L BUN (9-20) mg/dL Creatinine (0.66-1.25) mg/dL Est GFR (CKD-EPI)AfAm (>60 ml/min/1.73 sqM) Est GFR (CKD-EPI)NonAf (>60 ml/min/1.73 sqM) Glucose (74-99) mg/dL Calcium (8.4-10.2) mg/dL Total Bilirubin (0.2-1.3) mg/dL AST (17-59) U/L ALT (21-72) U/L Alkaline Phosphatase (38-126) U/L Total Protein (6.3-8.2) g/dL Albumin (3.5-5.0) g/dL Urine Color Light Yellow Urine Appearance Clear (Clear) Urine pH 5.5 (5.0-8.0) Ur Specific [place] 1.006 (1.001-1.035) Urine Protein Negative (Negative) Urine Glucose (UA) Negative (Negative) Urine Ketones Negative (Negative) Urine Blood Negative (Negative) Urine Nitrite Negative (Negative) Urine Bilirubin Negative (Negative) Urine Urobilinogen <2.0 (<2.0) mg/dL Ur Leukocyte Esterase Negative (Negative) Disposition Clinical Impression: Right leg pain, Adverse drug reaction Disposition: HOME SELF-CARE Condition: Good Instructions: Leg Pain (ED) Additional Instructions: Please follow-up the family doctor also vascular surgeon as discussed. Please return here to emergency room if any symptoms increase worsen or fail concerns. Is patient prescribed a controlled substance at d/c from ED?: No Referrals: Gino Saxena MD [Primary Care Provider] - 1-2 days Curtis Oneill DO [Doctor of Osteopathic Medicine] - 1-2 days Time of Disposition: 16:30
[2017-10-14 12:47] LABS: Basophils % (A) 1 %; Eosinophils # (A) 0.3 k/uL (0-0.7); Eosinophils % (A) 5 %; HCT 34.2 % (39.0-53.0); HGB 11.6 gm/dL (13.0-17.5); Lymphocytes # (A) 1.5 k/uL (1.0-4.8); Lymphocytes % (A) 27 %; MCHC 33.9 g/dL (31.0-37.0); MCV 85.3 fL (80.0-100.0); Mean Platelet Volume 6.4; Monocytes # (A) 0.3 k/uL (0-1.0); Monocytes % (A) 7 %; Neutrophils # (A) 3.1 k/uL (1.3-7.7); Neutrophils % (A) 59 %; Platelet Count 289 k/uL (150-450); RBC 4.01 m/uL (4.30-5.90); WBC 5.3 k/uL (3.8-10.6)
[2017-10-14 12:48] LABS: Appearance,Urine Clear (Clear); Bilirubin,Urine Negative (Negative); Blood,Urine Negative (Negative); Color,Urine Light Yellow; Glucose,Urine (UA) Negative (Negative); Ketones,Urine Negative (Negative); Leukocyte Esterase,Urine Negative (Negative); Nitrite,Urine Negative (Negative); PH, Urine 5.5 (5.0-8.0); Protein,Urine Negative (Negative); Specific Gravity,Urine 1.006 (1.001-1.035); Urobilinogen,Urine <2.0 mg/dL (<2.0)
[2017-10-14 12:55] LABS: Albumin 4.4 g/dL (3.5-5.0); Calcium 9.8 mg/dL (8.4-10.2); Potassium 4.5 mmol/L (3.5-5.1); Total Bilirubin 0.6 mg/dL (0.2-1.3); Total Protein 7.3 g/dL (6.3-8.2)
[2017-10-14 12:57] LABS: Partial Thromboplastin Time 22.7 sec (22.0-30.0); Prothrombin Time 9.9 sec (9.0-12.0)
--- NOTE | 2017-10-14 13:01 | CT ---
EXAMINATION TYPE: CT brain wo con DATE OF EXAM: 10/14/2017 HISTORY: Patient complains of right leg weakness. CT DLP: 797.5 mGycm. Automated Exposure Control for Dose Reduction was Utilized. TECHNIQUE: CT scan of the head is performed without contrast. COMPARISON: None. FINDINGS: There is no acute intracranial hemorrhage or midline shift identified. There is diffuse v entricular and sulcal prominence consistent with diffuse age-related cerebral atrophy. There is low- attenuation in the periventricular white matter consistent with chronic small vessel ischemic change. The globes are intact and the visualized sinuses are clear. IMPRESSION: No acute intracranial hemorrhage or midline shift. There is mild to moderate diffuse ag e-related cerebral atrophy and chronic small vessel ischemic change noted. If clinical concern for a cute stroke persists further investigation with MRI study may be warranted.
--- NOTE | 2017-10-14 14:04 | US ---
EXAMINATION TYPE: US venous doppler duplex LE RT DATE OF EXAM: 10/14/2017 12:10 PM COMPARISON: NONE CLINICAL HISTORY: Pain. SIDE PERFORMED: Right TECHNIQUE: The lower extremity deep venous system is examined utilizing real time linear array sonog rayne with graded compression, doppler sonography and color-flow sonography. VESSELS IMAGED: External Iliac Vein (EIV) Common Femoral Vein Deep Femoral Vein Greater Saphenous Vein * Femoral Vein Popliteal Vein Small Saphenous Vein * Proximal Calf Veins (* superficial vessels) Right Leg: Negative for DVT Grayscale, color doppler, spectral doppler imaging performed of the deep veins of the right lower ext remity. There is normal flow, compressibility, vascular waveforms. IMPRESSION: No ultrasound evidence for acute DVT in the right lower extremity.
[2017-10-14 17:05] VITALS: BP 189/81; PULSE 96; TEMP 98.4
== END 2017-10-14 17:02 | disposition home or self-care (01) ==
LOC: EC 11:43
DX: M79.604 Pain in right leg (principal); T50.905A Adverse effect of unspecified drugs, medicaments and biological substances, initial encounter; E78.5 Hyperlipidemia, unspecified; I10 Essential (primary) hypertension; Z85.46 Personal history of malignant neoplasm of prostate; Z79.82 Long term (current) use of aspirin; Z79.84 Long term (current) use of oral hypoglycemic drugs; Z79.899 Other long term (current) drug therapy; Z88.1 Allergy status to other antibiotic agents; Z88.2 Allergy status to sulfonamides
CPT/HCPCS: 36415; 70450; 80053; 81003; 82075; 85025; 85610; 85730; 99284

== ENCOUNTER → 2017-11-13 | Outpatient (CLI) | payer MEDICARE ==
[2017-11-13 16:24] LABS: HCT 33.6 % (39.0-53.0); HGB 11.1 gm/dL (13.0-17.5); MCH 29.2 pg (25.0-35.0); MCHC 33.2 g/dL (31.0-37.0); MCV 88.1 fL (80.0-100.0); Mean Platelet Volume 6.5; Platelet Count 257 k/uL (150-450); RBC 3.81 m/uL (4.30-5.90); WBC 7.3 k/uL (3.8-10.6)
[2017-11-13 16:36] LABS: Albumin 3.7 g/dL (3.5-5.0); Calcium 9.1 mg/dL (8.4-10.2); Potassium 4.6 mmol/L (3.5-5.1); Total Bilirubin 0.5 mg/dL (0.2-1.3); Total Protein 6.3 g/dL (6.3-8.2)
[2017-11-14 01:56] LABS: Hemoglobin A1C 7.5 % (4.0-6.0)
== END | disposition home or self-care (01) ==
LOC: LABWHC1 15:49
PROVIDERS: ATTEND Thoracic Surgery (Cardiothoracic Vascular Surgery)
DX: E13.621 Other specified diabetes mellitus with foot ulcer (principal); E63.8 Other specified nutritional deficiencies
CPT/HCPCS: 36415; 80053; 83036; 84134; 85027

== ENCOUNTER 2018-03-09 10:32 | Inpatient (IN) | payer MEDICARE ==
[2018-03-09] MEDS ORDERED: SODIUM CHLORIDE 0.9% 1,000 ML IV STA ×3 (10:35→11:47)
[2018-03-09 11:05] LABS: Basophils % (A) 0 %; Eosinophils # (A) 0.2 k/uL (0-0.7); Eosinophils % (A) 2 %; HCT 42.3 % (39.0-53.0); HGB 14.3 gm/dL (13.0-17.5); Lymphocytes % (A) 21 %; MCH 29.6 pg (25.0-35.0); MCHC 33.8 g/dL (31.0-37.0); MCV 87.5 fL (80.0-100.0); Monocytes # (A) 0.4 k/uL (0-1.0); Monocytes % (A) 4 %; Neutrophils # (A) 6.8 k/uL (1.3-7.7); Neutrophils % (A) 71 %; Platelet Count 230 k/uL (150-450); RBC 4.83 m/uL (4.30-5.90); RDW 14.6 % (11.5-15.5); WBC 9.5 k/uL (3.8-10.6)
--- NOTE | 2018-03-09 11:13 | ED ---
Weakness HPI - General Chief complaint: Weakness Stated complaint: weakness Time Seen by Provider: 03/09/18 10:35 Source: patient, RN notes reviewed, old records reviewed Mode of arrival: EMS Limitations: no limitations - History of Present Illness Initial comments: This is an 82-year-old male the ER for evaluation. Patient resents today for evaluation weakness generalized weakness not feeling well. Patient admits to mostly just depression, has not been feeling very happy for a few weeks now with resisted on antidepressants by family doctor does not know name. Patient is here with family today, denies homicidal or suicidal thoughts, no recent drug or alcohol use MD Complaint: generalized weakness, lack of energy -: week(s) Location: generalized Severity: mild Severity scale (1-10): 3 Quality: other (No pain) Consistency: intermittent Improves with: none Worsens with: none Context: depression Associated Symptoms: denies other symptoms - Related Data Home Medications Medication Instructions Recorded Confirmed Allopurinol [Zyloprim] 100 mg PO DAILY 12/02/14 03/09/18 Aspirin 81 mg PO HS 12/02/14 03/09/18 Doxazosin Mesylate 8 mg PO DAILY 12/02/14 03/09/18 Lovastatin [Mevacor] 40 mg PO HS 12/02/14 03/09/18 Metolazone [Zaroxolyn] 2.5 mg PO DAILY 12/02/14 03/09/18 Furosemide [Lasix] 40 mg PO DAILY 09/23/17 03/09/18 cloNIDine HCL 0.3 mg PO BID 09/23/17 03/09/18 EPINEPHrine (Auto Inject) [Epipen] 0.3 mg IM ONCE PRN 09/24/17 03/09/18 Brimonidine Tartrate [Alphagan P 1 drops LEFT EYE Q8H 11/13/17 03/09/18 0.2% Ophth Soln] Gatifloxacin/Prednisolone 1 drop BOTH EYES PERALTA 11/13/17 03/09/18 [prednisoLONE 1%-Gatiflox 0.5%] Glimepiride [Amaryl] 1 mg PO AC-BRKFST 11/13/17 03/09/18 PARoxetine [Paxil] 10 mg PO DAILY 03/09/18 03/09/18 Allergies Allergy/AdvReac Type Severity Reaction Status Date / Time cephalexin Allergy Rash/Hives Verified 03/09/18 10:58 clindamycin Allergy Rash/Hives Verified 03/09/18 10:58 sulfamethoxazole Allergy Unknown Verified 03/09/18 10:58 [From Bactrim] trimethoprim [From Bactrim] Allergy Unknown Verified 03/09/18 10:58 Review of Systems ROS Statement: Those systems with pertinent positive or pertinent negative responses have been documented in the HPI. ROS Other: All systems not noted in ROS Statement are negative. Past Medical History Past Medical History: Cancer, Diabetes Mellitus, Hyperlipidemia, Hypertension, Prostate Disorder Additional Past Medical History / Comment(s): prostate cancer,leg wounds,venous ulcers History of Any Multi-Drug Resistant Organisms: None Reported Past Surgical History: Tonsillectomy Additional Past Surgical History / Comment(s): laser eye surgery Past Anesthesia/Blood Transfusion Reactions: No Reported Reaction Past Psychological History: No Psychological Hx Reported Smoking Status: Former smoker Past Alcohol Use History: Rare Past Drug Use History: None Reported - Past Family History Mother Family Medical History: Diabetes Mellitus Father Additional Family Medical History / Comment(s): alcohol & due to liver issues General Exam Limitations: no limitations General appearance: alert, in no apparent distress Head exam: Present: atraumatic, normocephalic, normal inspection Eye exam: Present: normal appearance, PERRL, EOMI. Absent: scleral icterus, conjunctival injection, periorbital swelling ENT exam: Present: normal exam, mucous membranes moist Neck exam: Present: normal inspection. Absent: tenderness, meningismus, lymphadenopathy Respiratory exam: Present: normal lung sounds bilaterally. Absent: respiratory distress, wheezes, rales, rhonchi, stridor Cardiovascular Exam: Present: regular rate, normal rhythm, normal heart sounds. Absent: systolic murmur, diastolic murmur, rubs, gallop, clicks GI/Abdominal exam: Present: soft, normal bowel sounds. Absent: distended, tenderness, guarding, rebound, rigid Extremities exam: Present: normal inspection, full ROM, normal capillary refill. Absent: tenderness, pedal edema, joint swelling, calf tenderness Back exam: Present: normal inspection Neurological exam: Present: alert, oriented X3, CN II-XII intact Psychiatric exam: Present: normal affect, normal mood Skin exam: Present: warm, dry, intact, normal color. Absent: rash Course Vital Signs 03/09/18 03/09/18 03/09/18 10:35 11:10 11:30 Temperature 97.8 F Pulse Rate 91 69 70 Respiratory 16 13 15 Rate Blood Pressure 164/108 151/76 151/76 O2 Sat by Pulse 96 94 L 94 L Oximetry 03/09/18 03/09/18 03/09/18 12:30 13:30 14:00 Temperature Pulse Rate 69 65 64 Respiratory 10 L 17 10 L Rate Blood Pressure 164/78 150/76 142/70 O2 Sat by Pulse 96 96 93 L Oximetry 03/09/18 14:30 Temperature Pulse Rate 64 Respiratory 12 Rate Blood Pressure 136/66 O2 Sat by Pulse 95 Oximetry EKG Findings - EKG Comments: EKG Findings:: EKG shows sinus rhythm rate of 76, AR 160, QRS 96, QTc 418. EKG shows sinus rhythm rate of 72, AR 164, QRS 76, QTc 435, patient has no EKG changes or morphology changes Medical Decision Making - Medical Decision Making 82-year-old male the ER for evaluation of weakness, patient is weak dehydrated elevated troponin with elevated renal failure. Patient be admitted for IV hydration and further evaluation and management - Lab Data Result diagrams: 03/10/18 06:50 03/10/18 06:50 Lab Results 03/09/18 03/09/18 03/09/18 Range/Units 10:53 10:53 10:53 WBC 9.5 (3.8-10.6) k/uL RBC 4.83 (4.30-5.90) m/uL Hgb 14.3 (13.0-17.5) gm/dL Hct 42.3 (39.0-53.0) % MCV 87.5 (80.0-100.0) fL MCH 29.6 (25.0-35.0) pg MCHC 33.8 (31.0-37.0) g/dL RDW 14.6 (11.5-15.5) % Plt Count 230 (150-450) k/uL Neutrophils % 71 % Lymphocytes % 21 % Monocytes % 4 % Eosinophils % 2 % Basophils % 0 % Neutrophils # 6.8 (1.3-7.7) k/uL Lymphocytes # 2.0 (1.0-4.8) k/uL Monocytes # 0.4 (0-1.0) k/uL Eosinophils # 0.2 (0-0.7) k/uL Basophils # 0.0 (0-0.2) k/uL PT (9.0-12.0) sec INR (<1.2) APTT (22.0-30.0) sec Sodium 139 (137-145) mmol/L Potassium 3.9 (3.5-5.1) mmol/L Chloride 98 (98-107) mmol/L Carbon Dioxide 26 (22-30) mmol/L Anion Gap 15 mmol/L BUN 98 H (9-20) mg/dL Creatinine 3.31 H (0.66-1.25) mg/dL Est GFR (CKD-EPI)AfAm 19 (>60 ml/min/1.73 sqM) Est GFR (CKD-EPI)NonAf 17 (>60 ml/min/1.73 sqM) Glucose 164 H (74-99) mg/dL Plasma Lactic Acid Karlos (0.7-2.0) mmol/L Calcium 10.4 H (8.4-10.2) mg/dL Phosphorus 4.3 (2.5-4.5) mg/dL Magnesium 2.6 H (1.6-2.3) mg/dL Total Bilirubin 1.3 (0.2-1.3) mg/dL AST 34 (17-59) U/L ALT 57 (21-72) U/L Alkaline Phosphatase 129 H (38-126) U/L Total Creatine Kinase 26 L (55-170) U/L CK-MB (CK-2) 1.2 (0.0-2.4) ng/mL CK-MB (CK-2) Rel Index 4.6 Troponin I 0.167 H* (0.000-0.034) ng/mL Total Protein 7.4 (6.3-8.2) g/dL Albumin 4.1 (3.5-5.0) g/dL TSH 1.050 (0.465-4.680) mIU/L Urine Color Urine Appearance (Clear) Urine pH (5.0-8.0) Ur Specific [place] (1.001-1.035) Urine Protein (Negative) Urine Glucose (UA) (Negative) Urine Ketones (Negative) Urine Blood (Negative) Urine Nitrite (Negative) Urine Bilirubin (Negative) Urine Urobilinogen (<2.0) mg/dL Ur Leukocyte Esterase (Negative) 03/09/18 03/09/18 03/09/18 Range/Units 10:53 10:53 13:10 WBC (3.8-10.6) k/uL RBC (4.30-5.90) m/uL Hgb (13.0-17.5) gm/dL Hct (39.0-53.0) % MCV (80.0-100.0) fL MCH (25.0-35.0) pg MCHC (31.0-37.0) g/dL RDW (11.5-15.5) % Plt Count (150-450) k/uL Neutrophils % % Lymphocytes % % Monocytes % % Eosinophils % % Basophils % % Neutrophils # (1.3-7.7) k/uL Lymphocytes # (1.0-4.8) k/uL Monocytes # (0-1.0) k/uL Eosinophils # (0-0.7) k/uL Basophils # (0-0.2) k/uL PT 10.2 (9.0-12.0) sec INR 1.0 (<1.2) APTT 21.3 L (22.0-30.0) sec Sodium (137-145) mmol/L Potassium (3.5-5.1) mmol/L Chloride (98-107) mmol/L Carbon Dioxide (22-30) mmol/L Anion Gap mmol/L BUN (9-20) mg/dL Creatinine (0.66-1.25) mg/dL Est GFR (CKD-EPI)AfAm (>60 ml/min/1.73 sqM) Est GFR (CKD-EPI)NonAf (>60 ml/min/1.73 sqM) Glucose (74-99) mg/dL Plasma Lactic Acid Karlos 1.5 (0.7-2.0) mmol/L Calcium (8.4-10.2) mg/dL Phosphorus (2.5-4.5) mg/dL Magnesium (1.6-2.3) mg/dL Total Bilirubin (0.2-1.3) mg/dL AST (17-59) U/L ALT (21-72) U/L Alkaline Phosphatase (38-126) U/L Total Creatine Kinase (55-170) U/L CK-MB (CK-2) (0.0-2.4) ng/mL CK-MB (CK-2) Rel Index Troponin I (0.000-0.034) ng/mL Total Protein (6.3-8.2) g/dL Albumin (3.5-5.0) g/dL TSH (0.465-4.680) mIU/L Urine Color Yellow Urine Appearance Clear (Clear) Urine pH 5.5 (5.0-8.0) Ur Specific [place] 1.011 (1.001-1.035) Urine Protein Trace H (Negative) Urine Glucose (UA) Negative (Negative) Urine Ketones Trace H (Negative) Urine Blood Negative (Negative) Urine Nitrite Negative (Negative) Urine Bilirubin Negative (Negative) Urine Urobilinogen <2.0 (<2.0) mg/dL Ur Leukocyte Esterase Negative (Negative) Disposition Clinical Impression: Dehydration, Acute renal failure, Anorexia, Elevated troponin Disposition: ADMITTED IP TO THIS HOSP Condition: Fair Is patient prescribed a controlled substance at d/c from ED?: No
[2018-03-09 11:17] LABS: Albumin 4.1 g/dL (3.5-5.0); Calcium 10.4 mg/dL (8.4-10.2); Magnesium 2.6 mg/dL (1.6-2.3); Phosphorus 4.3 mg/dL (2.5-4.5); Potassium 3.9 mmol/L (3.5-5.1); Total Bilirubin 1.3 mg/dL (0.2-1.3); Total Protein 7.4 g/dL (6.3-8.2)
[2018-03-09 11:33] LABS: Prothrombin Time 10.2 sec (9.0-12.0)
[2018-03-09 11:38] LABS: Creatine Kinase MB 1.2 ng/mL (0.0-2.4)
[2018-03-09 11:39] LABS: Partial Thromboplastin Time 21.3 sec (22.0-30.0)
[2018-03-09 11:42] LABS: Troponin I 0.167 ng/mL (0.000-0.034)
[2018-03-09] MEDS ORDERED: SODIUM CHLORIDE 0.9% 500 ML 500 ML IV STA (11:47)
[2018-03-09 13:21] LABS: Appearance,Urine Clear (Clear); Bilirubin,Urine Negative (Negative); Blood,Urine Negative (Negative); Color,Urine Yellow; Glucose,Urine (UA) Negative (Negative); Ketones,Urine Trace (Negative); Leukocyte Esterase,Urine Negative (Negative); Nitrite,Urine Negative (Negative); PH, Urine 5.5 (5.0-8.0); Protein,Urine Trace (Negative); Specific Gravity,Urine 1.011 (1.001-1.035); Urobilinogen,Urine <2.0 mg/dL (<2.0)
[2018-03-09] MEDS ORDERED: NITROGLYCERIN SL TABS 0.4 MG TAB SUBLINGUAL PRN (13:58)
[2018-03-09] MEDS ORDERED: HEPARIN SODIUM,PORCINE 5,000 UNIT/ML 1 ML VIAL IV PRN (13:58)
[2018-03-09] MEDS ORDERED: HEPARIN SODIUM,PORCINE 5,000 UNIT/ML 1 ML VIAL IV ONE (13:58)
[2018-03-09] MEDS ORDERED: HEPARIN SOD,PORK IN 0.45% NACL 25,000 UNIT in 0.45% NACL 1 500ML.BAG IV SCH (14:00)
[2018-03-09] MEDS: CARVEDILOL 3.125 MG TAB PO SCH (17:56)
[2018-03-09 18:46] LABS: Troponin I 0.348 ng/mL (0.000-0.034)
[2018-03-09] MEDS: cloNIDine HCL 0.1 MG TAB PO SCH (20:17)
[2018-03-09 20:37] LABS: Glucose,Whole Blood 236 mg/dL (75-99)
[2018-03-09] MEDS ORDERED: NON-FORMULARY DRUG (Lovastatin 40 MG) PO SCH (21:00)
[2018-03-09] MEDS ORDERED: CLONIDINE HCL 0.3 MG PO SCH (21:00)
[2018-03-09] MEDS: BRIMONIDINE TARTRATE 0.2% DROPS 5 ML BTL LEFT EYE SCH ×2 (21:26→23:25)
--- NOTE | 2018-03-09 22:23 | HP ---
HISTORY AND PHYSICAL ATTENDING PHYSICIAN: Dr. Saxena. ADMITTING PHYSICIAN: Dr. Anibal Rosenbaum. CHIEF COMPLAINT: Weakness. HISTORY OF PRESENT ILLNESS: This 82-year-old gentleman who is a poor historian, presents to the emergency room with his and son. The and son provided some of the history. The patient apparently has been exhibiting some depression for the past few months. Prior to that, he was quite manic. He spent a lot of money, over $100,000.00. He bought a mobile home for about $106,000.00. He created significant debt. When he realized that he went into depression. The patient has been on antidepressant with not much change so far. There is no dragan at present. The patient has not been eating much and not drinking much. He is on diuretics. The patient has gotten quite weak in the past few days and in view of this, he was brought into the emergency room. The says every time he got up he got unsteady and lightheaded, and she could not hold onto him. No fall though. PAST MEDICAL HISTORY: Mainly significant for history of cardiac murmur. No clear history regarding cardiac status. He had significant edema of the lower extremities with venostasis ulcerations for which he said he had to go to the wound center for quite a while. Those are healed. He wears support stockings with help. His legs are not as swollen. He is, however, on 2 diuretics, both Zaroxolyn and Lasix. The patient denies any history of any renal disease. The does not know of any renal disease at all. The patient does have a history of carcinoma of the prostate for which he has been treated with radiation. No recurrence. He has a history of cardiac murmur as mentioned above. 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 No history of any lung disease, liver disease, kidney disease that the patient knows of, no history of any ulcers, TB, hepatitis. No history of any rheumatic fever, myocardial infarction or CVA. PAST SURGICAL HISTORY: Significant for cataract surgery only. PERSONAL HISTORY: Smoked when he was a young man, about 50 to 55 years ago. Alcohol none, he only drinks an occasional beer. ALLERGIES: KEFLEX, CLINDAMYCIN, which both cause a rash, BACTRIM, with unknown reactions. MEDICATIONS: At home include: 1. Aspirin 325 daily. 2. Atorvastatin 80 mg daily. 3. Nitrostat p.r.n. 4. Catapres 0.3 b.i.d. 5. Paxil 10 mg daily. 6. Metolazone 2.5 mg daily. 7. Lovastatin 40 mg daily. 8. Amaryl 5 mg daily. 9. Eye drops. 10.Gatifloxacin. 11.Prednisone both eyes. 12.Lasix 40 mg daily. 13.He has epinephrine at home for I am sure what exact reason. 14.Doxazosin 8 mg daily. 15.Alphagan 0.2% ophthalmic solution 1 drop each left eye every 8 hours. 16.Aspirin 81 mg daily. 17.Allopurinol 100 mg daily. SOCIAL HISTORY: The patient is , lives with his spouse. FAMILY MEDICAL HISTORY: Father at the age of 87. He had cirrhosis of the liver. Mother at the age of 85 of complications of diabetes mellitus. He had 7 brothers and 7 sisters, 2 of his brothers committed suicide, 1 sister has a history of bipolar disorder. Some of his siblings otherwise have passed. The patient himself has 2 sons, 1 son has a history a history of heart condition and multiple sclerosis, the other son is in adequate health except obesity, 2 daughters, 1 with chronic diarrhea. REVIEW OF SYSTEMS: NEURO: Denies any headaches, dizziness. No double vision or blurred vision. No symptoms of TIA, syncope, seizure. Does get episodes of dizziness. CARDIAC: Denies chest pain, angina, palpitations. RESPIRATORY: Denies shortness of breath, cough, hemoptysis. No orthopnea. GI: No nausea, vomiting, abdominal pain, diarrhea. Decreased appetite. : No symptoms of dysuria, hematuria. He has decreased urine output for the past few days. EXTREMITIES: Denies pain. Does have a history of chronic edema. CONSTITUTIONAL: No fevers or chills. HEMATOLOGICAL: No bleeding disorder. SKIN: No breakdown or rash. CONSTITUTIONAL: No fevers or chills. PHYSICAL EXAMINATION: An 82-year-old gentleman who appears younger than stated age. Vital signs reveals temperature 97.8, pulse 91, respirations 16, blood pressure was 164/108, pulse ox 96% on room air. Blood pressure at the time of evaluation was down to 136/66, pulse 64, respirations 12, pulse ox 95% on room air. HEENT: Normocephalic. NECK: Supple. Pupils are reactive. Nostrils clear. Oral cavity is dry. Ears reveal no drainage. NECK: Reveals no JVD. Left carotid bruit. No thyromegaly. No supraclavicular lymphadenopathy. CHEST: Clear to auscultation and percussion. CARDIAC: Normal S1, S2 with no gallop. Systolic murmur 2/6 at apex. ABDOMEN: Soft. Bowel sounds normal. No organomegaly. No bruits. EXTREMITIES: Trace edema. Chronic venostasis changes with no ulcerations. NEUROLOGIC: Awake, alert, oriented x3 with well-coordinated movements both upper and lower extremities. Plantars are equivocal. LABORATORY ASSESSMENT: CBC is normal. PT and PTT low at 21.3. Electrolytes are normal. BUN 98, creatinine 3.31, glucose 164, calcium was 10.4, magnesium 2.60, alkaline phosphatase 129. CK was 26, normal MB. Troponin 0.167. Thyroid functions are normal. Albumin 4.1. Urinalysis unremarkable. EKG reveals no acute changes. Occasional PVCs. Suggestion of possible previous anteroseptal UT. ASSESSMENT: 1. Acute on chronic renal failure. 2. Chronic kidney disease stage 3. 3. History of hypertension. 4. Major depression. 5. Mitral regurg murmur. 6. Elevated troponin, felt to be partly related to the renal failure. PLAN: Continue present medical regimen. We will obtain an echocardiogram of the patient. Ultrasound of the kidneys done and a chest x-ray obtained. The patient will be cautiously hydrated. Follow up renal status. The patient may require further evaluation by Nephrology. Meanwhile, prognosis remains guarded. The patient's condition is discussed with the patient, spouse and son. The patient is on Catapres, which may contribute significantly to the depression. Would recommend possible switching the medication. The patient also may require psych evaluation. MMODL / IJN: [id number] /
[2018-03-09] MEDS: HEPARIN SODIUM,PORCINE 5,000 UNIT/ML 1 ML VIAL SQ SCH (23:23)
[2018-03-09 23:48] LABS: Troponin I 0.344 ng/mL (0.000-0.034)
[2018-03-10 06:13] LABS: Glucose,Whole Blood 138 mg/dL (75-99)
[2018-03-10] MEDS: CARVEDILOL 3.125 MG TAB PO SCH ×2 (06:26→17:01)
[2018-03-10 07:25] LABS: Mean Platelet Volume 7.1; Platelet Count 230 k/uL (150-450)
[2018-03-10 07:34] LABS: Cholesterol 124 mg/dL (<200); HDL Cholesterol 37 mg/dL (40-60); LDL Cholesterol,Calculated 64 mg/dL (0-99); Triglycerides 114 mg/dL (<150)
--- NOTE | 2018-03-10 07:49 | P.PN ---
Progress Note - Text Mr. Ríos is a 82-year-old gentleman who was admitted yesterday. History and physical performed by Dr. Rosenbaum who was covering for me. The patient has been brought in for not eating or taking in much fluids. Apparently he has been very depressed. He had no prior history of psychiatric disorder but apparently a couple months ago he went through what appeared to be a manic phase. Spending a lot of money. Subsequently he became very depressed. He is not eating or drinking much fluids. He does have chronic kidney disease and that appears to have worsened over the interim. As mentioned he does have history of chronic kidney disease with a creatinine around 2.0. He does have chronic venous stasis. History of hypertension. History of a cardiac murmur. This morning he is lying in bed. States he feels somewhat better. Denies any chest pain or shortness of breath. States he has been passing some gas. Denies any abdominal pain. Last vital signs reveal a temperature 98.3 with a pulse of 72 and respirations 16. Blood pressure 142/70 and he is 95% saturated on room air. Lung and heart examination is clear except for a soft systolic murmur at the left sternal border. Abdomen is soft and nontender without rebound guarding or masses detected. Grade 2 edema bilaterally. That he is overall alert. Responds well to questioning. No focal weakness noted. Laboratory Blood sugars 138. Cholesterol was 124 with an LDL cholesterol 64. Troponins have been in the 0.34 range. Urinalysis was negative for infection. CBC unremarkable with a white count of 9.5 and hemoglobin 14.3 and a platelet count of 230. BUN on admission was 98 with a creatinine of 3.31 given him a GFR of 17. Calcium was 10.4. EKG showed a normal sinus rhythm. Chest x-ray report pending but I do not see any acute process. Impressions and plans This gentleman overall appears to have acute on chronic renal failure likely secondary to prerenal azotemia and acute tubular necrosis due to poor intake and dehydration. Do not see any evidence for sepsis. Troponins are elevated but no evidence of acute EKG changes. He does have underlying history of cardiac murmur. Hypertension and hypertensive heart disease. Venous insufficiency. Plan to be continuing hydration. Ultrasound the kidneys pending. Cardiology and nephrology consults. Repeat basic metabolic panel has been ordered for today. Further recommendations to follow. Psychiatric consult also has been place for his underlining depression. Echocardiogram also has been ordered.
--- NOTE | 2018-03-10 08:13 | XR ---
EXAMINATION TYPE: XR chest 2V DATE OF EXAM: 03/10/2018 COMPARISON: 04/01/2012 INDICATION: ASHD TECHNIQUE: Frontal and lateral views of the chest are obtained. FINDINGS: The heart size is normal. The pulmonary vasculature is slightly prominent. Some subsegmental atelectasis at the left base. Right perihilar vascular markings appear stable. IMPRESSION: 1. Mild subsegmental atelectasis left base.
[2018-03-10] MEDS: ASPIRIN 325 MG TAB PO SCH (08:18)
[2018-03-10 08:19] LABS: Calcium 9.4 mg/dL (8.4-10.2); Potassium 3.6 mmol/L (3.5-5.1)
[2018-03-10] MEDS: ALLOPURINOL 100 MG TAB PO SCH (08:19)
[2018-03-10] MEDS: ATORVASTATIN 80 MG TAB PO SCH (08:19)
[2018-03-10] MEDS: DOXAZOSIN 4 MG TAB PO SCH (08:19)
[2018-03-10] MEDS: HEPARIN SODIUM,PORCINE 5,000 UNIT/ML 1 ML VIAL SQ SCH ×2 (08:19→17:01)
--- NOTE | 2018-03-10 08:58 | P.CRDCN ---
History of Present Illness Consult date: 03/10/18 Requesting physician: Gino Saxena Reason for Consult (text): Abnormal troponin Chief complaint: Depression History of present illness: This is an 82-year-old gentleman who follows with Dr. Kelley in the office. He has known history of hypertension, hyperlipidemia and prior history of smoking, history of carcinoma prostate, who apparently has been quite depressed over the past couple of months. According to the patient he has not been eating or drinking at home for at least a month, is been feeling unsteady and lightheaded. Troponins were drawn in the emergency room which came back to be mildly abnormal and for this reason a cardiology consultation was requested. Patient states he does intermittently get a pressure sensation in the chest, and states that he feels short of breath at times but he says this has been going on for years, recently centers been no overt change in his symptoms. EKG on arrival here showed normal sinus rhythm with no acute changes. Subsequent EKG showed normal sinus rhythm with occasional PVCs. Chest x-ray showed mild atelectasis at the left base. Blood pressure on arrival here 164/108 with a heart rate in the 90s, temperature 97.8, 96% on room air. White blood cell count 9.5, hemoglobin 14.3, platelet count 2:30. Sodium 139, potassium 3.9, BUN 98 and creatinine 3.3 on admission, this morning sodium 142, potassium 3.6, BUN 74, and creatinine 2.4. Troponin .167, 0.34,.34. TSH 1.05. At the time of my examination this morning, patient denies any chest discomfort, breathing overall is stable. He does still appear to be quite depressed. Upon review of prior records, patient did have an echo performed in January 2016 which revealed an ejection fraction of 50-55%, moderate aortic stenosis subsequent to that at [facility] was performed which revealed a 3 leaflet aortic valve which is calcified with mild restriction in leaflet mobility, normal left ventricular systolic function, evidence of right to left shunt across into arterial septum. Past Medical History Past Medical History: Cancer, Diabetes Mellitus, Hyperlipidemia, Hypertension, Prostate Disorder Additional Past Medical History / Comment(s): prostate cancer 4 years ago,leg wounds,venous ulcers History of Any Multi-Drug Resistant Organisms: None Reported Past Surgical History: Tonsillectomy Additional Past Surgical History / Comment(s): laser eye surgery Past Anesthesia/Blood Transfusion Reactions: No Reported Reaction Past Psychological History: Anxiety, Depression Additional Psychological History / Comment(s): For 3 months depression Smoking Status: Former smoker Past Alcohol Use History: Rare Past Drug Use History: None Reported - Past Family History Mother Family Medical History: Diabetes Mellitus Father Additional Family Medical History / Comment(s): alcohol & due to liver issues Medications and Allergies Home Medications Medication Instructions Recorded Confirmed Type Allopurinol [Zyloprim] 100 mg PO DAILY 12/02/14 03/09/18 History Aspirin 81 mg PO HS 12/02/14 03/09/18 History Doxazosin Mesylate 8 mg PO DAILY 12/02/14 03/09/18 History Lovastatin [Mevacor] 40 mg PO HS 12/02/14 03/09/18 History Metolazone [Zaroxolyn] 2.5 mg PO DAILY 12/02/14 03/09/18 History Furosemide [Lasix] 40 mg PO DAILY 09/23/17 03/09/18 History cloNIDine HCL 0.3 mg PO BID 09/23/17 03/09/18 History EPINEPHrine (Auto Inject) [Epipen] 0.3 mg IM ONCE PRN 09/24/17 03/09/18 History Brimonidine Tartrate [Alphagan P 1 drops LEFT EYE Q8H 11/13/17 03/09/18 History 0.2% Ophth Soln] Gatifloxacin/Prednisolone 1 drop BOTH EYES PERALTA 11/13/17 03/09/18 History [prednisoLONE 1%-Gatiflox 0.5%] Glimepiride [Amaryl] 1 mg PO [id number]-[id number] 11/13/17 03/09/18 History PARoxetine [Paxil] 10 mg PO DAILY 03/09/18 03/09/18 History Allergies Allergy/AdvReac Type Severity Reaction Status Date / Time cephalexin Allergy Rash/Hives Verified 03/09/18 10:58 clindamycin Allergy Rash/Hives Verified 03/09/18 10:58 sulfamethoxazole Allergy Unknown Verified 03/09/18 10:58 [From Bactrim] trimethoprim [From Bactrim] Allergy Unknown Verified 03/09/18 10:58 Physical Exam Vitals: Vital Signs Temp Pulse Pulse Resp BP BP Pulse Ox 03/10/18 04:14 98.3 F 72 16 142/70 95 03/09/18 23:20 99.0 F 68 16 125/65 94 L 03/09/18 20:10 98.7 F 66 15 124/61 95 03/09/18 15:25 98.1 F 65 16 151/70 96 03/09/18 14:30 64 12 136/66 95 03/09/18 14:00 64 10 L 142/70 93 L 03/09/18 13:30 65 17 150/76 96 03/09/18 12:30 69 10 L 164/78 96 03/09/18 11:30 70 15 151/76 94 L 03/09/18 11:10 69 13 151/76 94 L 03/09/18 10:35 97.8 F 91 16 164/108 96 Intake and Output 03/09/18 03/10/18 03/10/18 22:59 06:59 14:59 Output Total 675 Balance -675 Output: Urine 675 Other: Voiding Method Urinal Urinal # Voids 1 1 Weight 86.5 kg PHYSICAL EXAMINATION: GENERAL: 82-year-old gentleman, appears quite depressed, in no acute distress at the time of my examination. HEENT: Head is atraumatic, normocephalic. Pupils equal, round. Sclera anicteric. Conjunctiva are clear. Mucous membranes of the mouth are moist. Neck is supple. There is no elevated jugular venous pressure. No carotid bruit is heard. HEART EXAMINATION: Heart S1 and S2 systolic ejection murmur is heard in the aortic valve area. CHEST EXAMINATION: Lungs are clear to auscultation and precussion. No chest wall tenderness is noted on palpation or with deep breathing. ABDOMEN: Soft, nontender. Bowel sounds are heard. No organomegaly noted. EXTREMITIES: 2+ peripheral pulses with trace edema, chronic venous stasis changes with no ulceration noted.. NEUROLOGIC patient is awake, alert and oriented X3. . Results 03/10/18 06:50 03/10/18 06:50 Cardiac Enzymes 03/09/18 03/09/18 03/09/18 Range/Units 10:53 10:53 17:31 AST 34 (17-59) U/L CK-MB (CK-2) 1.2 2.0 (0.0-2.4) ng/mL Troponin I 0.167 H* 0.348 H* (0.000-0.034) ng/mL 03/09/18 Range/Units 22:54 AST (17-59) U/L CK-MB (CK-2) 2.0 (0.0-2.4) ng/mL Troponin I 0.344 H* (0.000-0.034) ng/mL Coagulation 03/09/18 Range/Units 10:53 PT 10.2 (9.0-12.0) sec APTT 21.3 L (22.0-30.0) sec Lipids 03/10/18 Range/Units 06:50 Triglycerides 114 (<150) mg/dL Cholesterol 124 (<200) mg/dL HDL Cholesterol 37 L (40-60) mg/dL CBC 03/09/18 03/10/18 Range/Units 10:53 06:50 WBC 9.5 (3.8-10.6) k/uL RBC 4.83 (4.30-5.90) m/uL Hgb 14.3 (13.0-17.5) gm/dL Hct 42.3 (39.0-53.0) % Plt Count 230 230 (150-450) k/uL Comprehensive Metabolic Panel 03/09/18 03/10/18 Range/Units 10:53 06:50 Sodium 139 142 (137-145) mmol/L Potassium 3.9 3.6 (3.5-5.1) mmol/L Chloride 98 107 (98-107) mmol/L Carbon Dioxide 26 27 (22-30) mmol/L BUN 98 H 74 H (9-20) mg/dL Creatinine 3.31 H 2.42 H (0.66-1.25) mg/dL Glucose 164 H 150 H (74-99) mg/dL Calcium 10.4 H 9.4 (8.4-10.2) mg/dL AST 34 (17-59) U/L ALT 57 (21-72) U/L Alkaline Phosphatase 129 H (38-126) U/L Total Protein 7.4 (6.3-8.2) g/dL Albumin 4.1 (3.5-5.0) g/dL Current Medications Generic Name Dose Route Start Last Admin Trade Name Freq PRN Reason Stop Dose Admin Allopurinol 100 mg 03/10/18 09:00 03/10/18 08:19 Zyloprim PO 100 mg DAILY NESTOR Administration Aspirin 325 mg 03/10/18 09:00 03/10/18 08:18 Aspirin PO 325 mg DAILY NESTOR Administration Atorvastatin Calcium 80 mg 03/10/18 09:00 03/10/18 08:19 Lipitor PO 80 mg DAILY NETSOR Administration Brimonidine Tartrate 1 drops 03/09/18 16:45 03/09/18 23:25 Alphagan P 0.2% Ophth Soln LEFT EYE Not Given Q8H NESTOR Carvedilol 3.125 mg 03/09/18 17:30 03/10/18 06:26 Coreg PO 3.125 mg BID-W/MEALS NESTOR Administration Clonidine 0.1 mg 03/09/18 21:00 03/09/18 20:17 Catapres PO 0.1 mg HS NESTOR Administration Doxazosin Mesylate 8 mg 03/10/18 09:00 03/10/18 08:19 Cardura PO 8 mg DAILY NESTOR Administration Heparin Sodium (Porcine) 5,000 unit 03/10/18 00:00 03/10/18 08:19 Heparin SQ 5,000 unit Q8HR NESTOR Administration Nitroglycerin 0.4 mg 03/09/18 13:58 Nitrostat SUBLINGUAL Q5M PRN Chest Pain Intake and Output 03/09/18 03/10/18 03/10/18 22:59 06:59 14:59 Output Total 675 Balance -675 Output: Urine 675 Other: Voiding Method Urinal Urinal # Voids 1 1 Weight 86.5 kg 03/10/18 06:50 03/10/18 06:50 EKG Interpretations (text) EKG shows normal sinus rhythm with no acute changes. Assessment and Plan Plan: Assessment and plan #1 depression #2 acute on chronic renal failure #3 abnormal troponin, could be secondary to abnormal renal function. #4 aortic stenosis #5 hypertension #6 history of prostate cancer Plan We will obtain an echocardiogram with Doppler study. Patient is cautiously being hydrated and nephrology consultation is requested. We will decrease the aspirin to 81 mg daily. Further recommendations to follow. DNP note has been reviewed, I agree with a documented findings and plan of care. Patient was seen and examined.
[2018-03-10] MEDS ORDERED: ENOXAPARIN 40 MG/0.4 ML SYRINGE SQ SCH (09:00)
[2018-03-10] MEDS: BRIMONIDINE TARTRATE 0.2% DROPS 5 ML BTL LEFT EYE SCH ×2 (09:30→17:01)
--- NOTE | 2018-03-10 10:56 | ECHOF ---
Referral Reason:murmur MEASUREMENTS -------- HEIGHT: 175.3 cm WEIGHT: 83.0 kg BP: 142/70 RVIDd: 2.8 cm (< 3.3) IVSd: 1.4 cm (0.6 - 1.1) LVIDd: 4.0 cm (3.9 - 5.3) LVPWd: 1.8 cm (0.6 - 1.1) IVSs: 2.0 cm LVIDs: 3.0 cm LVPWs: 1.5 cm LA Diam: 4.2 cm (2.7 - 3.8) LAESV Index (A-L): 39.86 ml/m Ao Diam: 3.0 cm (2.0 - 3.7) LA Diam: 4.7 cm (2.7 - 3.8) MV EXCURSION: 19.783 mm (> 18.000) MV EF SLOPE: 71 mm/s (70 - 150) EPSS: 0.5 cm MV E Eusebio: 0.67 m/s MV DecT: 312 ms MV A Eusebio: 1.14 m/s MV E/A Ratio: 0.59 AV maxP.67 mmHg AV meanP.50 mmHg AR PHT: 356 ms RAP: 5.00 mmHg RVSP: 22.55 mmHg FINDINGS -------- Sinus rhythm. This was a technically adequate study. The left ventricular size is normal. There is moderate concentric left ventricular hypertrophy. O verall left ventricular systolic function is low-normal with, an EF between 50 - 55 %. The right ventricle is normal in size. The left atrium is mildly dilated. LA is moderately dilated 34-39 ml/m2 The right atrial size is normal. There is mild to moderate aortic valve sclerosis. There is mild aortic regurgitation. There is mo derate aortic stenosis present. Peak/mean gradient across the Aortic Valve is 46.67mmHg / 23.50mmHg . Mild mitral annular calcification present. Mild mitral regurgitation is present. Mild tricuspid regurgitation present. There is no evidence of pulmonary hypertension. The right v entricular systolic pressure, as measured by Doppler, is 22.55mmHg. Trace/mild (physiologic) pulmonic regurgitation. The aortic root size is normal. There is no pericardial effusion. CONCLUSIONS -------- 1. The left ventricular size is normal. 2. There is moderate concentric left ventricular hypertrophy. 3. Overall left ventricular systolic function is low-normal with, an EF between 50 - 55 %. 4. The right ventricle is normal in size. 5. The left atrium is mildly dilated. 6. LA is moderately dilated 34-39 ml/m2 7. The right atrial size is normal. 8. There is mild to moderate aortic valve sclerosis. 9. There is mild aortic regurgitation. 10. There is moderate aortic stenosis present. 11. Peak/mean gradient across the Aortic Valve is 46.67mmHg / 23.50mmHg. 12. Mild mitral annular calcification present. 13. Mild mitral regurgitation is present. 14. Mild tricuspid regurgitation present. 15. There is no evidence of pulmonary hypertension. 16. The right ventricular systolic pressure, as measured by Doppler, is 22.55mmHg. 17. Trace/mild (physiologic) pulmonic regurgitation. 18. The aortic root size is normal. 19. There is no pericardial effusion. GROUP SALES REPRESENTATIVE: Nisa Hilliard RDCS
[2018-03-10 11:41] LABS: Glucose,Whole Blood 253 mg/dL (75-99)
[2018-03-10] MEDS: INSULIN ASPART 100 UNIT/ML 1 ML 10 ML VIAL SQ SCH ×3 (12:20→21:39)
[2018-03-10 14:34] VITALS: BMI 28.1
--- NOTE | 2018-03-10 15:25 | P.CN ---
Psychiatric Consult - . Consult date: 03/10/18 Consult:: 03/10/18 14:27 Depression?? Assessment and Plan Assessment: This is an 82-year-old male the ER for evaluation. Patient resents today for evaluation weakness generalized weakness not feeling well. Patient admits to mostly just depression, has not been feeling very happy for a few weeks now with resisted on antidepressants by family doctor does not know name. Patient is here with family today, denies homicidal or suicidal thoughts, no recent drug or alcohol use. 03/09/18 note: Mr. Ríos is a 82-year-old gentleman who was admitted yesterday. History and physical performed by Dr. Rosenbaum who was covering for me. The patient has been brought in for not eating or taking in much fluids. Apparently he has been very depressed. He had no prior history of psychiatric disorder but apparently a couple months ago he went through what appeared to be a manic phase. Spending a lot of money. Subsequently he became very depressed. He is not eating or drinking much fluids. He does have chronic kidney disease and that appears to have worsened over the interim. This is an 82-year-old gentleman who follows with Dr. Kelley in the office. He has known history of hypertension, hyperlipidemia and prior history of smoking, history of carcinoma prostate, who apparently has been quite depressed over the past couple of months. According to the patient he has not been eating or drinking at home for at least a month, is been feeling unsteady and lightheaded. After talking with the and patient it appears that last summer so that in September what other people concerning manic episode is not. 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 Since he is not taking steroids now that's why does not look like he is hypomanic or manic. After the steroids psychosis after going to his family practice doctor who is trying to evaluate him he stormed out and decided to cope by a motor home. He put $20,000 down and motor home was repossessed due to lack of funds to pay for this item. Past Medical History Past Medical History: Cancer, Diabetes Mellitus, Hyperlipidemia, Hypertension, Prostate Disorder Additional Past Medical History / Comment(s): prostate cancer 4 years ago,leg wounds,venous ulcers History of Any Multi-Drug Resistant Organisms: None Reported Past Surgical History: Tonsillectomy Additional Past Surgical History / Comment(s): laser eye surgery Past Anesthesia/Blood Transfusion Reactions: No Reported Reaction Past Psychological History: Anxiety, Depression Additional Psychological History / Comment(s): For 3 months depression Smoking Status: Former smoker Past Alcohol Use History: Rare Past Drug Use History: None Reported - Past Family History Mother Family Medical History: Diabetes Mellitus Father Additional Family Medical History / Comment(s): alcohol & due to liver issues Medications and Allergies Home Medications Medication Instructions Recorded Confirmed Type Allopurinol [Zyloprim] 100 mg PO DAILY 12/02/14 03/09/18 History Aspirin 81 mg PO HS 12/02/14 03/09/18 History Doxazosin Mesylate 8 mg PO DAILY 12/02/14 03/09/18 History Lovastatin [Mevacor] 40 mg PO HS 12/02/14 03/09/18 History Metolazone [Zaroxolyn] 2.5 mg PO DAILY 12/02/14 03/09/18 History Furosemide [Lasix] 40 mg PO DAILY 09/23/17 03/09/18 History cloNIDine HCL 0.3 mg PO BID 09/23/17 03/09/18 History EPINEPHrine (Auto Inject) [Epipen] 0.3 mg IM ONCE PRN 09/24/17 03/09/18 History Brimonidine Tartrate [Alphagan P 1 drops LEFT EYE Q8H 11/13/17 03/09/18 History 0.2% Ophth Soln] Gatifloxacin/Prednisolone 1 drop BOTH EYES PERALTA 11/13/17 03/09/18 History [prednisoLONE 1%-Gatiflox 0.5%] Glimepiride [Amaryl] 1 mg PO AC-BRKFST 11/13/17 03/09/18 History PARoxetine [Paxil] 10 mg PO DAILY 03/09/18 03/09/18 History Mental Status Examination - General Appearance: [casual, bizarre, appears stated age] Speech/Language: [ slow, soft] Attitude/Behavior: [cooperative, Mood: [depressed 8 out of 10 with 10 being the worst depression, anxious, fearful, hopelessness] Affect: [ flat, blunted constricted] Orientation: [time, person, place situation] Thought Content: [wnl Risk Factors: [He is not suicidal (ideations, plan), and/or Homicidal (ideations , plan), other] Perception: [wnl, denies hallucinations (auditory, visual, tactile), other] Thought Processes: [goal-oriented] Concentration/Attention Span: [wnl] [Per observation and interview with the patient] Recent Memory: [wnl] [ 3 out of 3 in 3 minutes] Remote Memory: [wnl] [past events, as related history] Intelligence: [be average] [based on history, based on vocabulary, syntax, grammar, and content] Judgement: [fair] [per patient's behavior/history of present illness] Insight: [fair] [understanding severity of illness/history of present illness] Psychiatric impression and diagnosis: Major depressive disorder single episode moderate Psychiatric recommendations: Highly recommend not using Paxil since is not indicated an elderly. I wrote for Zoloft 12.5 mg at bedtime. He does not need a sitter and his is very supportive. He needs to be followed by psychiatry and outpatient basis. Thank you for the consult Augusto Herron D.O. PhD attending psychiatrist Sarah Grimm Time with Patient: Less than 30
[2018-03-10 16:20] LABS: Glucose,Whole Blood 81 mg/dL (75-99)
[2018-03-10] MEDS: SODIUM CHLORIDE 0.9% 1,000 ML IV SCH (17:02)
--- NOTE | 2018-03-10 20:14 | CONS ---
CONSULTATION REASON FOR CONSULT: Renal failure. HISTORY OF PRESENT ILLNESS: Patient is an 82-year-old male who was admitted to the hospital with complaints of feeling weak. The patient had apparently not been eating much for the past week or so. He has been feeling depressed. is concerned that there may be a component of a bipolar disorder as she stated that he had spent a large amount of money in the summer and since he has been in debt he has been feeling very depressed. She stated that there is a strong family history of bipolar disorder and she wants him to be checked out. There is no prior history of kidney disease. The patient had not had urine output for about 24 hours prior to admission. Serum creatinine was 3.3 on admission. Patient is maintained on IV fluids. His creatinine is down to 2.42. Previous creatinine was 1.7 in October and about 2.1 in September of 2017. Serum creatinine was elevated at 1.3 and 1.7 in in 2014. The patient denies use of any nonsteroidal anti- inflammatory agents prior to admission. He was maintained on diuretics including Lasix and Zaroxolyn prior to his admission, blood pressure was not low at admission. Currently patient is voiding. PAST MEDICAL HISTORY: Significant for type 2 diabetes, hypertension, history of prostatic of prostatic cancer status post radiation therapy. PAST SURGICAL HISTORY: Tonsillectomy, laser eye surgery. SOCIAL HISTORY: Patient is a former smoker. No history of drug abuse or alcohol abuse. MEDICATIONS: Prior to admission included Zyloprim, aspirin, Mevacor, doxazosin, Zaroxolyn, Lasix, clonidine, Amaryl, Paxil. ALLERGIES: Include CEPHALEXIN, CLINDAMYCIN, both of which cause rash and hives. BACTRIM, unknown. REVIEW OF SYSTEMS: As per HPI. Other systems negative. EXAMINATION: Patient is currently comfortable. He is awake. He is not in any acute distress. Blood pressure this morning when patient was seen was 126/65, heart rate 67 per minute. He is afebrile. Examination of the heart S1, S2. Examination lungs bilateral breath sounds are heard. Abdomen is soft, nontender. Examination lower extremities shows no significant edema. 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 LAB: Shows sodium 142, potassium 3.6, chloride 107, BUN 74, serum creatinine 2.42. Troponin 0.344 which is up from 0.167 on initial admission. UA shows trace protein, trace ketones, no blood is noted. ASSESSMENT: 1. Acute kidney injury, prerenal, currently improving with IV fluids. The patient has been voiding. I will continue with the IV hydration. There are no nephrotoxic agents on board. 2. Chronic kidney disease and NKF stage III, with previous creatinine about 1.5 to 1.7 mg/dL in August of 2017. Etiology is likely nephrosclerosis. 3. Moderate concentric LVH noted on echocardiogram with ejection fraction 50%-55%. 4. Hypertension, currently controlled. Blood pressure slightly on the lower side. Consider decreasing dose of Cardura. 5. History of prostatic cancer, status post radiation therapy. 6. Dyslipidemia. 7. Elevated troponin, being followed by Cardiology. 8. Possible underlying mood disorder. The patient has been evaluated by Psychiatry. The patient has been started on Zoloft and the Paxil has been discontinued. PLAN: Continue with IV fluids and repeat labs in a.m. Decrease Cardura if blood pressure remains low and continue to encourage increased oral intake. Thank you for this consultation. We will continue to follow the patient with you during his hospitalization. MMODL / IJN: [id number] /
[2018-03-10] MEDS: SERTRALINE 25 MG TAB PO SCH (20:23)
[2018-03-10] MEDS: cloNIDine HCL 0.1 MG TAB PO SCH (20:23)
[2018-03-10 21:27] LABS: Glucose,Whole Blood 226 mg/dL (75-99)
[2018-03-10 22:57] LABS: Hemoglobin A1C 7.6 % (4.0-6.0)
[2018-03-11] MEDS: HEPARIN SODIUM,PORCINE 5,000 UNIT/ML 1 ML VIAL SQ SCH ×3 (00:46→17:13)
[2018-03-11] MEDS: BRIMONIDINE TARTRATE 0.2% DROPS 5 ML BTL LEFT EYE SCH ×3 (00:46→17:14)
[2018-03-11 06:27] LABS: Basophils % (A) 1 %; Eosinophils # (A) 0.3 k/uL (0-0.7); Eosinophils % (A) 5 %; HCT 33.7 % (39.0-53.0); Lymphocytes # (A) 1.6 k/uL (1.0-4.8); Lymphocytes % (A) 23 %; MCHC 32.6 g/dL (31.0-37.0); MCV 88.8 fL (80.0-100.0); Monocytes # (A) 0.4 k/uL (0-1.0); Monocytes % (A) 6 %; Neutrophils # (A) 4.6 k/uL (1.3-7.7); Neutrophils % (A) 65 %; Platelet Count 233 k/uL (150-450); RBC 3.79 m/uL (4.30-5.90); RDW 14.9 % (11.5-15.5); WBC 7.1 k/uL (3.8-10.6)
[2018-03-11 06:29] LABS: Glucose,Whole Blood 151 mg/dL (75-99)
[2018-03-11] MEDS: CARVEDILOL 3.125 MG TAB PO SCH ×2 (06:29→17:14)
[2018-03-11] MEDS: INSULIN ASPART 100 UNIT/ML 1 ML 10 ML VIAL SQ SCH ×4 (06:29→21:14)
[2018-03-11] MEDS: SODIUM CHLORIDE 0.9% 1,000 ML IV SCH ×2 (06:29→21:37)
[2018-03-11 06:37] LABS: Potassium 3.8 mmol/L (3.5-5.1)
--- NOTE | 2018-03-11 07:21 | US ---
EXAMINATION TYPE: US kidneys/renal and bladder DATE OF EXAM: 03/10/2018 COMPARISON: US 12/14/2014 CLINICAL HISTORY: renal failure. EXAM MEASUREMENTS: Right Kidney: 9.7 x 5.1 x 5.2 cm Left Kidney: 9.6 x 5.4 x 5.1 cm Right Kidney: No hydronephrosis. Diminished corticomedullary differentiation. Small cystic areas, too small to classify, are visualized, largest measuring 0.8 x 0.8 x 0.8 cm. Possible small amount of f ree fluid visualized adjacent to the kidney Left Kidney: No hydronephrosis. Simple cystic area visualized, largest measuring 1.5 x 1.6 x 1.7 cm mid pole. Echogenic foci visualized measuring 1.0 cm upper pole may be a nonobstructing renal stone. Bladder: wnl Bilateral Jets seen: Left jet visualized IMPRESSION: 1. Bilateral renal cysts. The right renal cysts are 2 small classify as simple. 2. Nonobstructing renal stone mid pole left kidney.
--- NOTE | 2018-03-11 08:17 | P.PN ---
Progress Note - Text The patient is a 82-year-old gentleman was admitted 2 days ago over the weekend with acute on chronic renal failure. Apparently he is becoming more depressed at home and not eating or drinking. He was apparently still taking his medications at home including his diuretic and blood pressure pills. These have been held and he has been hydrated. He is growing gram-negative bacilli in his urine with final identification to follow. This morning he is easily aroused. States he feels somewhat better. Denies any chest pain or shortness of breath. No nausea or vomiting. Vital signs reveal a temperature of 98.6 with a pulse of 72 and respirations 16. Blood pressure 148/70 and he is 94% saturated on room air. Lung and heart examination is clear. Abdomen is soft and nontender. Extremities reveal no unusual edema. Neurologically he is alert and oriented without focal deficits. Laboratory White count 7.1 with a hemoglobin 11 and a platelet count of 233. Sodium is 143 with potassium 3.8. BUN is 60 with a creatinine 1.89 given him a GFR of 33. Improved from yesterday's value of 24. Calcium was 9.0 Echocardiogram Revealed an ejection fraction between 50 and 55%. Left Atrium upper limit of 39. Moderate aortic stenosis was present. Peak gradient across aortic valve was 46.67 Renal ultrasound Bilateral renal cysts. 2 small cysts classified as simple. Nonobstructing left mid pole renal stone. Kidney size appears unremarkable. No hydronephrosis. Impressions and plans Patient appeared to do well with physical therapy. Psychiatric, cardiology and nephrology notes were regarded. Patient has been started on Zoloft per psychiatry. Overall patient's renal function appears to be improving and we will continue with hydration. Levaquin for gram-negative rods will be added at a reduced dose. The patient clinically continues to improve today and if no further needed evaluation per specialists will anticipate likely discharge tomorrow back to home.
[2018-03-11] MEDS: ASPIRIN 325 MG TAB PO SCH (09:31)
[2018-03-11] MEDS: ALLOPURINOL 100 MG TAB PO SCH (09:31)
[2018-03-11] MEDS: LEVOFLOXACIN 250 MG TAB PO SCH (09:31)
[2018-03-11] MEDS: DOXAZOSIN 4 MG TAB PO SCH (09:31)
[2018-03-11] MEDS: ATORVASTATIN 80 MG TAB PO SCH (09:34)
[2018-03-11 11:19] LABS: Glucose,Whole Blood 218 mg/dL (75-99)
--- NOTE | 2018-03-11 12:59 | P.PN ---
Subjective Progress Note Date: 03/11/18 This is an 82-year-old gentleman who follows with Dr. Kelley in the office. He has known history of hypertension, hyperlipidemia and prior history of smoking, history of carcinoma prostate, who apparently has been quite depressed over the past couple of months. According to the patient he has not been eating or drinking at home for at least a month, is been feeling unsteady and lightheaded. Troponins were drawn in the emergency room which came back to be mildly abnormal and for this reason a cardiology consultation was requested. Patient states he does intermittently get a pressure sensation in the chest, and states that he feels short of breath at times but he says this has been going on for years, recently centers been no overt change in his symptoms. EKG on arrival here showed normal sinus rhythm with no acute changes. Subsequent EKG showed normal sinus rhythm with occasional PVCs. Chest x-ray showed mild atelectasis at the left base. Blood pressure on arrival here 164/108 with a heart rate in the 90s, temperature 97.8, 96% on room air. White blood cell count 9.5, hemoglobin 14.3, platelet count 2:30. Sodium 139, potassium 3.9, BUN 98 and creatinine 3.3 on admission, this morning sodium 142, potassium 3.6, BUN 74, and creatinine 2.4. Troponin .167, 0.34,.34. TSH 1.05. At the time of my examination this morning, patient denies any chest discomfort, breathing overall is stable. He does still appear to be quite depressed. Upon review of prior records, patient did have an echo performed in January 2016 which revealed an ejection fraction of 50-55%, moderate aortic stenosis subsequent to that at [facility] was performed which revealed a 3 leaflet aortic valve which is calcified with mild restriction in leaflet mobility, normal left ventricular systolic function, evidence of right to left shunt across into arterial septum. 03/11/2018 Patient was seen and examined this morning, appears much less depressed today. Eating and drinking more. Blood pressure 140/70 with a heart rate in the 70s, 94% on room air. White blood cell count 7.1, hemoglobin 11, platelet count 233. Sodium 143, potassium 3.8, BUN 60, creatinine 1.8. Objective - Vital Signs Vital signs: Vital Signs Temp 98.6 F 03/11/18 00:44 Pulse 72 03/11/18 03:55 Resp 16 03/11/18 03:55 BP 148/70 03/11/18 03:55 Pulse Ox 94 L 03/11/18 03:55 Intake & Output 03/10/18 03/11/18 03/11/18 18:59 06:59 18:59 Intake Total 1110 600 240 Output Total 225 400 500 Balance 885 200 -260 Weight 86.5 kg 88 kg Intake: Intake, IV Titration 450 600 Amount Sodium Chloride 0.9% 1, 600 000 ml @ 75 mls/hr IV . [id number] [facility] Rx#:[id number] Sodium Chloride 0.9% 1, 450 000 ml @ 75 mls/hr IV . [id number] [facility] Rx#:[id number] Oral 660 240 Output: Urine 225 400 500 Other: Voiding Method Urinal Urinal # Voids 1 - Exam PHYSICAL EXAMINATION: GENERAL: 82-year-old gentleman, appears quite depressed, in no acute distress at the time of my examination. HEENT: Head is atraumatic, normocephalic. Pupils equal, round. Sclera anicteric. Conjunctiva are clear. Mucous membranes of the mouth are moist. Neck is supple. There is no elevated jugular venous pressure. No carotid bruit is heard. HEART EXAMINATION: Heart S1 and S2 systolic ejection murmur is heard in the aortic valve area. CHEST EXAMINATION: Lungs are clear to auscultation and precussion. No chest wall tenderness is noted on palpation or with deep breathing. ABDOMEN: Soft, nontender. Bowel sounds are heard. No organomegaly noted. EXTREMITIES: 2+ peripheral pulses with trace edema, chronic venous stasis changes with no ulceration noted.. NEUROLOGIC patient is awake, alert and oriented X3. . - Labs CBC & Chem 7: 03/11/18 05:46 03/11/18 05:46 Labs: Abnormal Lab Results - Last 24 Hours (Table) 03/10/18 03/10/18 03/11/18 Range/Units 06:50 21:16 05:46 RBC 3.79 L (4.30-5.90) m/uL Hgb 11.0 L D (13.0-17.5) gm/dL Hct 33.7 L (39.0-53.0) % Chloride (98-107) mmol/L BUN (9-20) mg/dL Creatinine (0.66-1.25) mg/dL Glucose (74-99) mg/dL POC Glucose (mg/dL) 226 H (75-99) mg/dL Hemoglobin A1c 7.6 H (4.0-6.0) % 03/11/18 03/11/18 03/11/18 Range/Units 05:46 06:23 11:18 RBC (4.30-5.90) m/uL Hgb (13.0-17.5) gm/dL Hct (39.0-53.0) % Chloride 109 H (98-107) mmol/L BUN 60 H (9-20) mg/dL Creatinine 1.89 H (0.66-1.25) mg/dL Glucose 170 H (74-99) mg/dL POC Glucose (mg/dL) 151 H 218 H (75-99) mg/dL Hemoglobin A1c (4.0-6.0) % Microbiology - Last 24 Hours (Table) 03/09/18 13:10 Urine Culture - Final Urine,Voided Escherichia coli Assessment and Plan Plan: Assessment and plan #1 depression #2 acute on chronic renal failure #3 abnormal troponin, could be secondary to abnormal renal function. #4 aortic stenosis #5 hypertension #6 history of prostate cancer Plan Echocardiogram with Doppler study revealed a normal left ventricular systolic function. Moderate aortic stenosis. Creatinine is improving today. From cardiology's perspective, we'll follow this patient with you now on an as- needed basis only, please don't hesitate to call with any questions. DNP note has been reviewed, I agree with a documented findings and plan of care. Patient was seen and examined.
[2018-03-11 16:37] LABS: Glucose,Whole Blood 210 mg/dL (75-99)
[2018-03-11 21:12] LABS: Glucose,Whole Blood 144 mg/dL (75-99)
[2018-03-11] MEDS: SERTRALINE 25 MG TAB PO SCH (21:14)
[2018-03-11] MEDS: cloNIDine HCL 0.1 MG TAB PO SCH (21:14)
--- NOTE | 2018-03-11 21:55 | PN ---
PROGRESS NOTE HISTORY: Patient is seen for followup for acute kidney injury. His renal function has improved significantly. He is maintained on IV fluids. Serum creatinine is down to 1.89 from 3.31 on admission. Previous creatinine were about 1.5 to 1.6 mg/dL and about 2 in September of 2017. Currently the patient is voiding. PHYSICAL EXAMINATION: Blood pressure this morning was at 140/66, heart rate of 69 per minute. Patient is afebrile. Examination of the heart S1, S2. Exam of the lungs, bilateral breath sounds are heard. Abdomen is soft, nontender. Examination lower extremities shows no significant edema. 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 LABS: Sodium of 143, potassium 3.8, BUN 60, serum creatinine 1.89, hemoglobin 11.0 g/dL. ASSESSMENT: 1. Acute kidney injury, mainly prerenal, currently improving. 2. Chronic kidney disease, most likely secondary to nephrosclerosis with previous creatinine about 1.6 in 2017 and 2.1 in September of 2017. NKF stage 3B to 4. 3. Intravascular volume depletion. Currently maintained on IV fluids and improved. 4. History of prostatic cancer. 5. Status post radiation therapy. PLAN: Continue IV fluids. Maintain good oral intake. Repeat labs in a.m. Continue to avoid GHANSHYAM inhibitors and NSAIDs. MMODL / IJN: [id number] /
[2018-03-12] MEDS: BRIMONIDINE TARTRATE 0.2% DROPS 5 ML BTL LEFT EYE SCH ×2 (00:07→08:22)
[2018-03-12] MEDS: HEPARIN SODIUM,PORCINE 5,000 UNIT/ML 1 ML VIAL SQ SCH ×2 (00:07→08:21)
[2018-03-12 04:38] VITALS: PULSE 78; RESP 18
[2018-03-12 06:06] LABS: Glucose,Whole Blood 162 mg/dL (75-99)
[2018-03-12 06:25] LABS: Basophils % (A) 1 %; Eosinophils # (A) 0.3 k/uL (0-0.7); Eosinophils % (A) 5 %; HCT 35.2 % (39.0-53.0); HGB 11.3 gm/dL (13.0-17.5); Lymphocytes # (A) 1.5 k/uL (1.0-4.8); Lymphocytes % (A) 24 %; MCH 28.6 pg (25.0-35.0); MCV 89.5 fL (80.0-100.0); Mean Platelet Volume 6.9; Monocytes # (A) 0.3 k/uL (0-1.0); Monocytes % (A) 5 %; Neutrophils # (A) 3.9 k/uL (1.3-7.7); Neutrophils % (A) 64 %; Platelet Count 226 k/uL (150-450); RBC 3.94 m/uL (4.30-5.90); RDW 14.8 % (11.5-15.5); WBC 6.1 k/uL (3.8-10.6)
[2018-03-12] MEDS: CARVEDILOL 3.125 MG TAB PO SCH (06:36)
[2018-03-12] MEDS: INSULIN ASPART 100 UNIT/ML 1 ML 10 ML VIAL SQ SCH ×2 (06:36→12:13)
[2018-03-12] MEDS: DOXAZOSIN 4 MG TAB PO SCH (08:21)
[2018-03-12] MEDS: ATORVASTATIN 80 MG TAB PO SCH (08:21)
[2018-03-12] MEDS: ALLOPURINOL 100 MG TAB PO SCH (08:21)
[2018-03-12 08:26] VITALS: BP 159/76; TEMP 97.7
--- NOTE | 2018-03-12 08:35 | P.DS ---
Providers Date of admission: 03/09/18 13:58 Attending physician: Gino Saxena Consults: 03/09/18 13:58 Consult Physician Routine Consulting Provider: Augusto Herron Consult Reason/Comments: depression Do you want consulting provider notified?: Yes Consult Physician Stat Consulting Provider: Nadir Wagner Consult Reason/Comments: elevTrop Do you want consulting provider notified?: Yes 03/10/18 07:38 Consult Physician Routine Consulting Provider: Afua Nunn Consult Reason/Comments: acute on CKD Do you want consulting provider notified?: Yes Primary care physician: Gino Saxena The patient is an 82-year-old gentleman who was admitted with weakness. Not eating or drinking much fluid. Patient had been taking his Lasix and metolazone for his chronic lower extremity edema. Recent worsening of his depression. Found to be in acute on chronic renal failure on presentation as stage IV. Also found to have a urinary tract infection with gram-negative E. coli organisms. Hospital course: Initial laboratory revealed a blood sugar 134. White count of 9.5 with a hemoglobin 14.3 and a platelet count of 230. His BUN was 98 with a creatinine of 3.31 given him a GFR 17 and calcium was also elevated with his dehydration up to 10.4. Chest x-ray did not show any acute changes. Patient was treated with IV fluids and also antibiotics in the form of Levaquin. Consultation was obtained with nephrology, cardiology and psychiatric services, Dr Augusto Herron. Please refer to their notes. The patient was found to have some mild to moderate aortic stenosis with a peak gradient of 46.6/23.5 mmHg. Ejection fraction was 50-55%. Abdominal ultrasound showed rather normal kidney size with bilateral renal cysts felt to be simple and a nonobstructing left kidney stone. The patient was seen by psych services and his Paxil switched over to Zoloft 12.5 mg. Patient clinically improved. Appetite improved. He was stronger and able to ambulate in his room. His Lasix and metolazone was held. At this time we anticipate discharge to home. He will have follow-up with psych services along with follow-up with cardiology and nephrology as an outpatient. BUN improved to 60 with a creatinine 1.89 given him a GFR of 33. Calcium decreased on the 9.0. CBC remained stable. Today he is alert and oriented. Denies any chest pain or shortness of breath. Has been up ambulating in the room without difficulties. Vital signs reveal temperature of 97.7 with a pulse of 78 and respirations 18. Blood pressure 159/76 and he is 96% saturated on room air. Lung and heart examination is clear with a soft systolic murmur. Abdomen is soft and nontender. Patient has compression stockings in place without much slower edema. Neurologically he is alert and oriented without focal deficits. The patient will resume his home medications although he is to remain off of minoxidil and Lasix for now. He is also to hold his allopurinol. He will take clonidine 0.3 mg just once a day at night for his blood pressure. Continue doxazosin 8 mg daily Lovastatin 40 mg at at bedtime Amaryl 1 mg before breakfast Resume his eyedrops Alphagan P.2 percent one drop in the left eye 3 times a day Prednisolone 1% one drop both eyes Aspirin 81 mg daily. He will also be taken Levaquin 250 mg every other day for 4 more dosages. Sertraline 12.5 mg daily Carvedilol 3.125 twice a day with meals. [facility] Patient resume diet. Patient will have home nursing for follow-up. Also follow-up in the office next week. Outpatient follow-up with psychiatry, cardiology and nephrology. Discharge diagnoses 1. Acute on chronic renal failure stage 3-4 with underlying prerenal azotemia related to dehydration prehospitalization also associated with E. coli urinary tract infection associated with sepsis. 2. History of underlying depression 3. History of hypertension 4. Aortic sclerosis and stenosis. 5. Chronic venous insufficiency 6. Type 2 diabetes 7. History of previous prostate cancer treated with radiation. Previous cataract surgery. Patient Condition at Discharge: Fair Plan - Discharge Summary Discharge Rx Participant: No New Discharge Prescriptions: No Action Aspirin 81 mg PO HS Doxazosin Mesylate 8 mg PO DAILY Allopurinol [Zyloprim] 100 mg PO DAILY Lovastatin [Mevacor] 40 mg PO HS cloNIDine HCL 0.3 mg PO BID EPINEPHrine (Auto Inject) [Epipen] 0.3 mg IM ONCE PRN PRN Reason: Anaphylaxis Gatifloxacin/Prednisolone [prednisoLONE 1%-Gatiflox 0.5%] 1 drop BOTH EYES PERALTA Brimonidine Tartrate [Alphagan P 0.2% Ophth Soln] 1 drops LEFT EYE Q8H Glimepiride [Amaryl] 1 mg PO AC-BRKFST Discharge Medication List Allopurinol [Zyloprim] 100 mg PO DAILY 12/02/14 [History] Aspirin 81 mg PO HS 12/02/14 [History] Doxazosin Mesylate 8 mg PO DAILY 12/02/14 [History] Lovastatin [Mevacor] 40 mg PO HS 12/02/14 [History] cloNIDine HCL 0.3 mg PO BID 09/23/17 [History] EPINEPHrine (Auto Inject) [Epipen] 0.3 mg IM ONCE PRN 09/24/17 [History] Brimonidine Tartrate [Alphagan P 0.2% Ophth Soln] 1 drops LEFT EYE Q8H 11/13/17 [History] Gatifloxacin/Prednisolone [prednisoLONE 1%-Gatiflox 0.5%] 1 drop BOTH EYES PERALTA [History] Glimepiride [Amaryl] 1 mg PO AC-BRKFST 11/13/17 [History] Follow up Appointment(s)/Referral(s): [facility], [NON-STAFF] - Gino Saxena MD [Primary Care Provider] - 1-2 days
[2018-03-12] MEDS ORDERED: ASPIRIN 81 MG PO SCH (09:00)
[2018-03-12 10:29] LABS: Calcium 9.3 mg/dL (8.4-10.2)
[2018-03-12 11:15] LABS: Glucose,Whole Blood 228 mg/dL (75-99)
[2018-03-12] MEDS: LEVOFLOXACIN 250 MG TAB PO SCH (12:12)
--- NOTE | 2018-03-13 23:33 | PN ---
PROGRESS NOTE DATE OF SERVICE: 03/12/2018 Patient is seen for followup for acute kidney injury. He is currently doing well. Patient will likely be discharged today. His serum creatinine is down to 1.5 from 3.3 on initial admission. On examination this morning, patient is awake, comfortable. Blood pressure was 159/76, heart rate 78 per minute. He is afebrile. EXAMINATION OF THE HEART: S1, S2. EXAMINATION OF LUNGS: Bilateral breath sounds are heard. ABDOMEN: Soft, non-tender. Examination of lower extremities shows no significant edema. HUMAN RESOURCES DIRECTOR exam is grossly intact. Labs show sodium 145, potassium 4.0, chloride 114, BUN 39, serum creatinine 1.56. ASSESSMENT: 1. Acute kidney injury, mainly prerenal, currently improved. 2. Chronic kidney disease secondary to nephrosclerosis, NKF stage IIIB to IV. Baseline creatinine around 1.6 to 2.1 secondary to nephrosclerosis. 3. History of prostatic cancer, status post radiation therapy. PLAN: Patient is stable for discharge from nephrology standpoint. Follow up as outpatient for CKD. MMODL / IJN: [id number] /
--- NOTE | 2018-03-14 14:46 | CDI ---
Last Revision, March 2017 Documentation Clarification Form Date: 03/14/18 From: Erica Ritchie Phone: If you have question, contact Ninfa Graham, Marking Machine Tender at [phone] M-F 8:30 am to 6pm. Admit Date: 03/09/2018 1:58:00 PM Patient Name: Charles Ríos Visit Number: [id number] Discharge Date: 03/12/18 ATTENTION: The Clinical Documentation Specialists (CDI) and [facility] Coding Staff appreciate your assistance in clarifying documentation. Please respond to the clarification below the line at the bottom and electronically sign. The CDI & [facility] Coding staff will review the response and follow-up if needed. Please note: Queries are made part of the Legal Health Record. If you have any questions, please contact the author of this message via ITS. Dr. GAMBOA, Gino Rivera MD Conflicting documentation has been found in the medical record. Per the progress note dated 03/10 Impression do not see any evidence for sepsis . Vitals per the ED: T 97.8, Pulse 91, RR 16, WBC 9.5 Discharge summary diagnosis states: E. Coli urinary tract infection associated with sepsis. In your opinion what is the most clinically appropriate diagnosis for this patient? Sepsis, ruled in and POA Sepsis, ruled in and not POA Sepsis, ruled out Other explanation of clinical findings Unable to determine (no explanation for clinical findings) Sepsis ruled in and POA with ecoli UTI, associated with acute on chronic kidney disease and weakness. RRD. MTDD
== END 2018-03-12 12:56 | disposition home or self-care (01) | DRG 872 ==
LOC: EC 10:32 → 3SCARD 13:58
PROVIDERS: ADMIT Internal Medicine; ATTEND Internal Medicine
DX: A41.51 Sepsis due to Escherichia coli [E. coli] (principal); N17.9 Acute kidney failure, unspecified; N39.0 Urinary tract infection, site not specified; I12.9 Hypertensive chronic kidney disease with stage 1 through stage 4 chronic kidney disease, or unspecified chronic kidney disease; E86.0 Dehydration; E11.22 Type 2 diabetes mellitus with diabetic chronic kidney disease; E78.5 Hyperlipidemia, unspecified; F32.9 Major depressive disorder, single episode, unspecified; N20.0 Calculus of kidney; N28.1 Cyst of kidney, acquired; I08.0 Rheumatic disorders of both mitral and aortic valves; I49.3 Ventricular premature depolarization; I87.2 Venous insufficiency (chronic) (peripheral); I87.8 Other specified disorders of veins; I08.3 Combined rheumatic disorders of mitral, aortic and tricuspid valves; N18.3 Chronic kidney disease, stage 3 (moderate); Z79.82 Long term (current) use of aspirin; Z79.84 Long term (current) use of oral hypoglycemic drugs; Z82.0 Family history of epilepsy and other diseases of the nervous system; Z83.3 Family history of diabetes mellitus; Z85.46 Personal history of malignant neoplasm of prostate; Z87.891 Personal history of nicotine dependence; Z92.3 Personal history of irradiation
CPT/HCPCS: 36415; 71046; 76770; 80048; 80053; 80061; 81003; 82550; 82553; 83036; 83605; 83735; 84100; 84443; 84484; 85025; 85049; 85610; 85730; 87077; 87086; 87186; 93005; 93306; 96361; 96365; 96376; 99285

== ENCOUNTER 2018-07-05 18:06 | Inpatient (IN) | payer MEDICARE ==
[2018-07-05] MEDS ORDERED: SODIUM CHLORIDE 0.9% 500 ML 500 ML IV STA (19:01)
--- NOTE | 2018-07-05 19:13 | ED ---
GI Bleed HPI - General Chief complaint: GI Bleed Stated complaint: Rectal bleeding Time Seen by Provider: 07/05/18 18:39 Source: patient Mode of arrival: ambulatory Limitations: no limitations - History of Present Illness Initial comments: Patient is an 83-year-old male presenting for GI bleeding. The patient states that he does not take any blood thinners and since this morning, he has been has some dark red blood clots in it. He states that he does not have any significant abdominal discomfort but maybe every once a while, he'll get a little twinge of pain in the lower abdomen.. He had one episode of nausea and vomiting but no fevers or chills. Her cough/shortness breath. - Related Data Home Medications Medication Instructions Recorded Confirmed Allopurinol [Zyloprim] 100 mg PO DAILY 12/02/14 07/05/18 Aspirin 81 mg PO HS 12/02/14 07/05/18 Doxazosin Mesylate 8 mg PO HS 12/02/14 07/05/18 Lovastatin [Mevacor] 40 mg PO HS 12/02/14 07/05/18 cloNIDine HCL 0.3 mg PO BID 09/23/17 07/05/18 EPINEPHrine (Auto Inject) [Epipen] 0.3 mg IM ONCE PRN 09/24/17 07/05/18 Brimonidine Tartrate [Alphagan P 1 drops LEFT EYE Q8H 11/13/17 07/05/18 0.2% Ophth Soln] Gatifloxacin/Prednisolone 1 drop RIGHT EYE PERALTA 11/13/17 07/05/18 [prednisoLONE 1%-Gatiflox 0.5%] Glimepiride [Amaryl] 1 mg PO AC-BRKFST 11/13/17 07/05/18 Calcium Carbonate/Vitamin D3 1 tab PO DAILY 07/05/18 07/05/18 [Calcium 600-Vit D3 200 Tablet] Cyanocobalamin (Vitamin B-12) 5,000 mcg PO DAILY 07/05/18 07/05/18 [Vitamin B-12] Krill Oil 500 mg PO DAILY 07/05/18 07/05/18 Multivitamins, Thera [Multivitamin 1 tab PO DAILY 07/05/18 07/05/18 (formulary)] Sertraline [Zoloft] 50 mg PO HS 07/05/18 07/05/18 Super B-Comples W/ Biotin 1 tab PO DAILY 07/05/18 07/05/18 Ubidecarenone [Co Q-10] 400 mg PO DAILY 07/05/18 07/05/18 Previous Rx's Medication Instructions Recorded Carvedilol [Coreg] 3.125 mg PO BID #60 tablet 03/12/18 Allergies Allergy/AdvReac Type Severity Reaction Status Date / Time cephalexin Allergy Rash/Hives Verified 07/05/18 18:50 clindamycin Allergy Rash/Hives Verified 07/05/18 18:50 sulfamethoxazole Allergy Unknown Verified 07/05/18 18:50 [From Bactrim] trimethoprim [From Bactrim] Allergy Unknown Verified 07/05/18 18:50 Review of Systems ROS Statement: Those systems with pertinent positive or pertinent negative responses have been documented in the HPI. Constitutional: Negative for chills, fatigue and fever. HENT: Negative for congestion. Respiratory: Negative for chest tightness, shortness of breath and wheezing. Negative for cough Cardiovascular: Negative for chest pain and palpitations. Gastrointestinal: Positive for abdominal pain. Negative for abdominal distention, diarrhea, nausea and vomiting. Positive for blood in stools Genitourinary: Negative for dysuria. Musculoskeletal: Negative for back pain, neck pain and neck stiffness. Skin: Negative for color change. Neurological: Negative for dizziness, speech difficulty, weakness and light- headedness. Psychiatric/Behavioral: Negative for agitation and confusion. Negative for anxiety ROS Other: All systems not noted in ROS Statement are negative. Past Medical History Past Medical History: Cancer, Diabetes Mellitus, Hyperlipidemia, Hypertension, Prostate Disorder, Renal Disease Additional Past Medical History / Comment(s): prostate cancer,leg wounds,venous ulcers History of Any Multi-Drug Resistant Organisms: None Reported Past Surgical History: Tonsillectomy Additional Past Surgical History / Comment(s): laser eye surgery Past Anesthesia/Blood Transfusion Reactions: No Reported Reaction Past Psychological History: No Psychological Hx Reported Smoking Status: Former smoker Past Alcohol Use History: Rare Past Drug Use History: None Reported - Past Family History Mother Family Medical History: Diabetes Mellitus Father Additional Family Medical History / Comment(s): alcohol & due to liver issues General Exam - General Exam Comments Initial Comments: Constitutional: Pt appears well-developed and well-nourished. No distress. Head: Normocephalic and atraumatic. Eyes: EOM are normal. Neck: Normal range of motion. Neck supple. Cardiovascular: Normal rate, regular rhythm, S1 normal, S2 normal and normal heart sounds. Exam reveals no gallop and no friction rub. No murmur heard. Pulmonary/Chest: Effort normal and breath sounds normal. No tachypnea and no bradypnea. No respiratory distress. No wheezes or rales noted. Abdominal: Soft. Bowel sounds are normal. Pt exhibits no shifting dullness, no distension, no pulsatile liver, no fluid wave, no abdominal bruit and no ascite s. There is no rigidity, no rebound, no guarding, no tenderness at McBurney's point and negative Hahn's sign. There is no tenderness. Negative guaiac Musculoskeletal: Normal range of motion. Neurological: Pt is alert and oriented to person, place, and time. No cranial nerve deficit. Skin: Skin is warm and dry. No rash noted. Pt is not diaphoretic. No erythema. No pallor. Psychiatric: Pt has a normal mood and affect. Pt behavior is normal. Thought content normal. Limitations: no limitations Course Vital Signs 07/05/18 18:08 Temperature 97.6 F Pulse Rate 72 Respiratory 18 Rate Blood Pressure 154/63 O2 Sat by Pulse 98 Oximetry Medical Decision Making - Medical Decision Making Laboratory studies showed that there was no significant leukocytosis and electrolytes were relatively within normal limits. In regards to GI bleed, hemoglobin was at baseline and digital rectal exam was unremarkable as there is not a significant stool sample which could provide a reliable result. However, troponin was elevated 0.06 and therefore the patient will need to be admitted to hospital. Patient was not given aspirin as the story is reliable for GI bleed. Patient will also be given Protonix as it is assumed that there is an underlying GI bleed. Advance imaging such as computed tomography scan was not performed because there is no tenderness to palpation on physical exam. Explained all labs and diagnostic test results and that we will admit patient to hospital. Pt is agreeable to plan and case has been discussed with Dr. Saxena and they agree to accept the pt. - Lab Data Result diagrams: 07/05/18 19:45 07/05/18 19:45 Lab Results 07/05/18 07/05/18 07/05/18 Range/Units 19:45 19:45 19:45 WBC 8.5 (3.8-10.6) k/uL RBC 3.54 L (4.30-5.90) m/uL Hgb 10.3 L (13.0-17.5) gm/dL Hct 31.4 L (39.0-53.0) % MCV 88.6 (80.0-100.0) fL MCH 29.0 (25.0-35.0) pg MCHC 32.7 (31.0-37.0) g/dL RDW 14.2 (11.5-15.5) % Plt Count 202 (150-450) k/uL Neutrophils % 74 % Lymphocytes % 16 % Monocytes % 7 % Eosinophils % 2 % Basophils % 0 % Neutrophils # 6.3 (1.3-7.7) k/uL Lymphocytes # 1.4 (1.0-4.8) k/uL Monocytes # 0.6 (0-1.0) k/uL Eosinophils # 0.1 (0-0.7) k/uL Basophils # 0.0 (0-0.2) k/uL PT 11.6 (9.0-12.0) sec INR 1.1 (<1.2) APTT 24.7 (22.0-30.0) sec Sodium 132 L (137-145) mmol/L Potassium 4.5 (3.5-5.1) mmol/L Chloride 100 (98-107) mmol/L Carbon Dioxide 25 (22-30) mmol/L Anion Gap 7 mmol/L BUN 29 H (9-20) mg/dL Creatinine 1.44 H (0.66-1.25) mg/dL Est GFR (CKD-EPI)AfAm 52 (>60 ml/min/1.73 sqM) Est GFR (CKD-EPI)NonAf 45 (>60 ml/min/1.73 sqM) Glucose 140 H (74-99) mg/dL Calcium 9.3 (8.4-10.2) mg/dL Magnesium 1.6 (1.6-2.3) mg/dL Total Bilirubin 1.0 (0.2-1.3) mg/dL AST 21 (17-59) U/L ALT 32 (21-72) U/L Alkaline Phosphatase 79 (38-126) U/L Troponin I (0.000-0.034) ng/mL Total Protein 5.9 L (6.3-8.2) g/dL Albumin 3.4 L (3.5-5.0) g/dL Lipase 172 (23-300) U/L Blood Type Blood Type Confirm Blood Type Recheck Antibody Screen Spec Expiration Date 07/05/18 07/05/18 07/05/18 Range/Units 19:45 19:45 19:50 WBC (3.8-10.6) k/uL RBC (4.30-5.90) m/uL Hgb (13.0-17.5) gm/dL Hct (39.0-53.0) % MCV (80.0-100.0) fL MCH (25.0-35.0) pg MCHC (31.0-37.0) g/dL RDW (11.5-15.5) % Plt Count (150-450) k/uL Neutrophils % % Lymphocytes % % Monocytes % % Eosinophils % % Basophils % % Neutrophils # (1.3-7.7) k/uL Lymphocytes # (1.0-4.8) k/uL Monocytes # (0-1.0) k/uL Eosinophils # (0-0.7) k/uL Basophils # (0-0.2) k/uL PT (9.0-12.0) sec INR (<1.2) APTT (22.0-30.0) sec Sodium (137-145) mmol/L Potassium (3.5-5.1) mmol/L Chloride (98-107) mmol/L Carbon Dioxide (22-30) mmol/L Anion Gap mmol/L BUN (9-20) mg/dL Creatinine (0.66-1.25) mg/dL Est GFR (CKD-EPI)AfAm (>60 ml/min/1.73 sqM) Est GFR (CKD-EPI)NonAf (>60 ml/min/1.73 sqM) Glucose (74-99) mg/dL Calcium (8.4-10.2) mg/dL Magnesium (1.6-2.3) mg/dL Total Bilirubin (0.2-1.3) mg/dL AST (17-59) U/L ALT (21-72) U/L Alkaline Phosphatase (38-126) U/L Troponin I 0.062 H* (0.000-0.034) ng/mL Total Protein (6.3-8.2) g/dL Albumin (3.5-5.0) g/dL Lipase (23-300) U/L Blood Type O Negative Blood Type Confirm O Negative Blood Type Recheck CABO Indicated Antibody Screen NEGATIVE Spec Expiration Date 07/08/2018 - 2345 - EKG Data EKG Comments: EKG shows first-degree AV block with frequent PVCs. Rate of 86 bpm, CT interval 218, QRS 94, QTC 459. There are no significant ST depressions or elevations. Disposition Clinical Impression: GI bleed, Elevated troponin Disposition: ADMITTED IP TO THIS [facility] Condition: Fair Referrals: Gino Saxena MD [Primary Care Provider] - 1-2 days Time of Disposition: 20:59 Decision to Admit Reason: Admit from EC Decision Date: 07/05/18 Decision Time: 20:59
[2018-07-05 20:03] LABS: Basophils % (A) 0 %; Eosinophils # (A) 0.1 k/uL (0-0.7); Eosinophils % (A) 2 %; HCT 31.4 % (39.0-53.0); HGB 10.3 gm/dL (13.0-17.5); Lymphocytes # (A) 1.4 k/uL (1.0-4.8); Lymphocytes % (A) 16 %; MCHC 32.7 g/dL (31.0-37.0); MCV 88.6 fL (80.0-100.0); Mean Platelet Volume 6.8; Monocytes # (A) 0.6 k/uL (0-1.0); Monocytes % (A) 7 %; Neutrophils # (A) 6.3 k/uL (1.3-7.7); Neutrophils % (A) 74 %; Platelet Count 202 k/uL (150-450); RBC 3.54 m/uL (4.30-5.90); RDW 14.2 % (11.5-15.5); WBC 8.5 k/uL (3.8-10.6)
[2018-07-05 20:13] LABS: Albumin 3.4 g/dL (3.5-5.0); Calcium 9.3 mg/dL (8.4-10.2); Magnesium 1.6 mg/dL (1.6-2.3); Potassium 4.5 mmol/L (3.5-5.1); Total Protein 5.9 g/dL (6.3-8.2)
[2018-07-05 20:16] LABS: INR 1.1 (<1.2); Prothrombin Time 11.6 sec (9.0-12.0)
[2018-07-05 20:17] LABS: Partial Thromboplastin Time 24.7 sec (22.0-30.0)
[2018-07-05] MEDS ORDERED: MORPHINE SULFATE 4 MG/ML SYRINGE IV PRN (21:11)
[2018-07-05] MEDS ORDERED: ONDANSETRON 4 MG/2 ML VIAL IVP PRN (21:11)
[2018-07-05] MEDS ORDERED: NALOXONE 0.4 MG/ML 1 ML VIAL IV PRN (21:11)
[2018-07-05] MEDS ORDERED: PANTOPRAZOLE 40 MG/10 ML VIAL IVP ONE (21:24)
[2018-07-05] MEDS: SODIUM CHLORIDE 0.9% 1,000 ML IV SCH (22:23)
[2018-07-05 23:11] LABS: Glucose,Whole Blood 115 mg/dL (75-99)
[2018-07-06] MEDS ORDERED: GATIFLOXACIN RIGHT EYE SCH (00:15)
[2018-07-06] MEDS ORDERED: PREDNISOLONE RIGHT EYE SCH (00:15)
[2018-07-06] MEDS: DOXAZOSIN 4 MG TAB PO SCH ×2 (00:51→20:43)
[2018-07-06] MEDS: SERTRALINE 50 MG TAB PO SCH ×2 (00:51→20:43)
[2018-07-06] MEDS: cloNIDine HCL 0.1 MG TAB PO SCH ×3 (00:52→20:43)
[2018-07-06] MEDS: BRIMONIDINE TARTRATE 0.2% DROPS 5 ML BTL LEFT EYE SCH ×4 (01:25→23:31)
[2018-07-06 03:38] LABS: Basophils % (A) 0 %; Eosinophils # (A) 0.3 k/uL (0-0.7); Eosinophils % (A) 3 %; HCT 29.8 % (39.0-53.0); HGB 9.9 gm/dL (13.0-17.5); Lymphocytes # (A) 1.5 k/uL (1.0-4.8); Lymphocytes % (A) 19 %; MCH 29.7 pg (25.0-35.0); MCHC 33.3 g/dL (31.0-37.0); MCV 89.1 fL (80.0-100.0); Mean Platelet Volume 6.2; Monocytes # (A) 0.5 k/uL (0-1.0); Monocytes % (A) 7 %; Neutrophils # (A) 5.4 k/uL (1.3-7.7); Neutrophils % (A) 69 %; Platelet Count 195 k/uL (150-450); RBC 3.35 m/uL (4.30-5.90); WBC 7.9 k/uL (3.8-10.6)
[2018-07-06 06:18] LABS: Glucose,Whole Blood 132 mg/dL (75-99)
[2018-07-06] MEDS: GLIMEPIRIDE 1 MG TAB PO SCH (06:25)
[2018-07-06] MEDS: CARVEDILOL 3.125 MG TAB PO SCH ×2 (06:26→17:02)
[2018-07-06] MEDS ORDERED: [UNRECOGNIZED DRUG - OTHER] PO SCH (09:00)
[2018-07-06] MEDS ORDERED: NON-FORMULARY DRUG (Ubidecarenone [Co Q-10] 400 MG) PO SCH (09:00)
[2018-07-06] MEDS ORDERED: NON-FORMULARY DRUG (Krill Oil [Krill Oil] 500 MG) PO SCH (09:00)
[2018-07-06] MEDS ORDERED: EPINEPHrine 1 MG/ML 1 ML AMP IM PRN (09:00)
[2018-07-06] MEDS ORDERED: BIOTIN PO SCH (09:00)
[2018-07-06] MEDS: CYANOCOBALAMIN 500 MCG TAB PO SCH (09:30)
[2018-07-06] MEDS: ALLOPURINOL 100 MG TAB PO SCH (09:31)
[2018-07-06] MEDS: CALCIUM CARB-VIT D 500MG-200UN 1 EACH TAB PO SCH (09:31)
--- NOTE | 2018-07-06 09:55 | P.HPIM ---
History of Present Illness Chief complaint Blood per rectum History of present illness The patient is an 83-year-old gentleman who stated yesterday he had passed a lot of blood per rectum filling up at the toilet bowl at one point. He has felt somewhat weak. Some nausea but no hematemesis. Apparently he also had another bloody bowel movement while in the emergency room. He states he has had some abdominal discomfort but no marked pain. No fever or chills. The patient did have a previous colonoscopy by Dr. Alexey baker in 2013. At that time a small polyp was removed in the proximal ascending colon. The patient also did have some diverticular disease. The colon biopsy was positive for adenoma. Past medical history Patient was hospitalized here last year with acute on chronic renal failure associated with an E. coli urinary tract infection and sepsis at that time. History of chronic kidney disease stage III Hypertension Aortic sclerosis with heart murmur Type 2 diabetes Chronic venous insufficiency bilateral lower extremities. Prostate cancer with radiation treatments. History of gout and hyperuricemia Hyperlipidemia History of depression History of glaucoma Obesity ALLERGIES Cephalexin and clindamycin with rash and hives Reactions to Bactrim/sulfa unknown Home medications Zoloft 50 mg at at bedtime Lovastatin 40 mg at at bedtime Prednisolone eyedrops 1% with gatifloxacin 0.5% one drop in the right eye Cardura 8 mg at at bedtime Aspirin 81 mg at at bedtime Krill oil 500 mg daily Vitamin B12 5000 g daily Coenzyme Q 400 mg daily Super B complex vitamins 1 daily Clonidine 0.3 twice a day Multiple vitamin 1 daily Calcium carbonate with vitamin D 600/200 one daily Alphagan 0.2% one drop in the left eye every 8 hours Glimepiride 1 mg before breakfast Carvedilol 3.125 twice a day Allopurinol 100 mg daily Review of systems As mentioned in history present illness. No complaints of headaches or visual disturbances. No chest pain, cough or shortness of breath of an unusual nature. No fever or chills. Abdomen is mentioned above. Patient has chronic venous stasis edema with some erythema of the right garcia. No focal weakness. Social history Patient lives locally with his and family. A remote history of smoking. Only occasional alcohol. He is retired. Family history Father at age 87. Cirrhosis. Mother at age 85 with diabetes. He has had 7 brothers and 7 sisters. 2 brothers apparently committed suicide. One sister has bipolar disorder. Patient has a daughter with multiple sclerosis. A son with COPD. Physical examination Temperature is 98.4 with a pulse of 57 respirations 18. Blood pressure 156/72 and he is 95% saturated on room air. Head and neck exam unremarkable. Neck is not stiff. No carotid bruits or adenopathy. Lungs were clear to auscultation. Heart reveals a systolic murmur. Slightly irregular rhythm. Abdomen is obese but soft and nontender without rebound, guarding or masses detected. No organomegaly. Rectal exam per emergency room doctor was unremarkable. Chronic stasis edema with some erythema in the mid right garcia is noted. Not tender. He is alert and oriented. No cranial nerve deficits. No focal weakness noted. Laboratory Initial hemoglobin was 10.3 and did drop a bit to 9.9 this morning. White count was approximately 8 with a platelet count of 195,000. INR is 1.1 with a PTT of 24.7 Sodium is 132 with potassium 4.5. BUN of 29 with a creatinine 1.4 for given him a GFR 45. Initial blood sugar 140. Initial troponin was 0.062 and radha to 0.089. Albumin 3.4 with a total protein of 5.9. Lipase was 172. Occult blood is positive. EKG shows a sinus rhythm with frequent PACs. No definite acute ischemic changes noted. Impressions 1. Gastrointestinal bleeding. Likely lower GI bleeding. Could possibly be from diverticular disease seen previously. He did have a polyp in the ascending colon back in 2013. He does have problems with chronic constipation that has been getting worse. 2. Symptomatic anemia secondary to blood loss. Also component of anemia of chronic kidney disease. 3. Chronic kidney disease stage III. 4. Elevated troponin levels. No recent symptoms. Question related to underlying chronic kidney disease. 5. Other comorbidities as stated in the past medical history above. Plans At this time we'll continue to monitor his CBC. Consultation with gastroenterology. Consultation with cardiology in light of the elevated troponin levels. Await further recommendations from GI regarding further endoscopic workup. Will continue diet as clinically liquids for now. Continue most of his home medications but will hold on antiplatelet a gents/aspirin. Past Medical History Past Medical History: Cancer, Diabetes Mellitus, Hyperlipidemia, Hypertension, Prostate Disorder, Renal Disease Additional Past Medical History / Comment(s): prostate cancer,leg wounds,venous ulcers. GI bleed (06/2018) left eye almost blind History of Any Multi-Drug Resistant Organisms: None Reported Past Surgical History: Tonsillectomy Additional Past Surgical History / Comment(s): laser eye surgery Past Anesthesia/Blood Transfusion Reactions: No Reported Reaction Smoking Status: Former smoker - Past Family History Mother Family Medical History: Diabetes Mellitus Additional Family Medical History / Comment(s): "heart problems" Father Additional Family Medical History / Comment(s): alcohol & due to liver issues Medications and Allergies Home Medications Medication Instructions Recorded Confirmed Type Allopurinol [Zyloprim] 100 mg PO DAILY 12/02/14 07/05/18 History Aspirin 81 mg PO HS 12/02/14 07/05/18 History Doxazosin Mesylate 8 mg PO HS 12/02/14 07/05/18 History Lovastatin [Mevacor] 40 mg PO HS 12/02/14 07/05/18 History cloNIDine HCL 0.3 mg PO BID 09/23/17 07/05/18 History EPINEPHrine (Auto Inject) [Epipen] 0.3 mg IM ONCE PRN 09/24/17 07/05/18 History Brimonidine Tartrate [Alphagan P 1 drops LEFT EYE Q8H 11/13/17 07/05/18 History 0.2% Ophth Soln] Gatifloxacin/Prednisolone 1 drop RIGHT EYE PERALTA 11/13/17 07/05/18 History [prednisoLONE 1%-Gatiflox 0.5%] Glimepiride [Amaryl] 1 mg PO AC-BRKFST 11/13/17 07/05/18 History Carvedilol [Coreg] 3.125 mg PO BID #60 tablet 03/12/18 07/05/18 Rx Calcium Carbonate/Vitamin D3 1 tab PO DAILY 07/05/18 07/05/18 History [Calcium 600-Vit D3 200 Tablet] Cyanocobalamin (Vitamin B-12) 5,000 mcg PO DAILY 07/05/18 07/05/18 History [Vitamin B-12] Krill Oil 500 mg PO DAILY 07/05/18 07/05/18 History Multivitamins, Thera [Multivitamin 1 tab PO DAILY 07/05/18 07/05/18 History (formulary)] Sertraline [Zoloft] 50 mg PO HS 07/05/18 07/05/18 History Super B-Comples W/ Biotin 1 tab PO DAILY 07/05/18 07/05/18 History Ubidecarenone [Co Q-10] 400 mg PO DAILY 07/05/18 07/05/18 History Allergies Allergy/AdvReac Type Severity Reaction Status Date / Time cephalexin Allergy Rash/Hives Verified 07/05/18 18:50 clindamycin Allergy Rash/Hives Verified 07/05/18 18:50 sulfamethoxazole Allergy Unknown Verified 07/05/18 18:50 [From Bactrim] trimethoprim [From Bactrim] Allergy Unknown Verified 07/05/18 18:50 Physical Exam Vitals: Vital Signs Temp Pulse Pulse Resp BP BP Pulse Ox 07/06/18 03:45 60 18 07/06/18 03:44 98.2 F 60 18 161/80 96 07/06/18 00:00 98.5 F 62 17 152/80 95 07/05/18 23:35 98.5 F 63 18 171/77 93 L 07/05/18 21:37 60 20 161/75 94 L 07/05/18 18:08 97.6 F 72 18 154/63 98 Intake and Output 07/05/18 07/06/18 07/06/18 21:59 06:59 14:59 Intake Total Output Total Balance Intake: Amount of Fluid Infused ( ml) Intake, IV Titration Amount Sodium Chloride 0.9% 1, 000 ml @ 20 mls/hr IV . Q24H [facility] Rx#:[id number] Oral Output: Urine Other: Voiding Method Weight Results CBC & Chem 7: 07/06/18 03:07 07/05/18 19:45 Labs: Abnormal Lab Results - Last 24 Hours (Table) 07/05/18 07/05/18 07/05/18 Range/Units 19:45 19:45 19:45 RBC 3.54 L (4.30-5.90) m/uL Hgb 10.3 L (13.0-17.5) gm/dL Hct 31.4 L (39.0-53.0) % Sodium 132 L (137-145) mmol/L BUN 29 H (9-20) mg/dL Creatinine 1.44 H (0.66-1.25) mg/dL Glucose 140 H (74-99) mg/dL POC Glucose (mg/dL) (75-99) mg/dL Troponin I 0.062 H* (0.000-0.034) ng/mL Total Protein 5.9 L (6.3-8.2) g/dL Albumin 3.4 L (3.5-5.0) g/dL 07/05/18 07/06/18 07/06/18 Range/Units 23:10 03:07 03:07 RBC 3.35 L (4.30-5.90) m/uL Hgb 9.9 L (13.0-17.5) gm/dL Hct 29.8 L (39.0-53.0) % Sodium (137-145) mmol/L BUN (9-20) mg/dL Creatinine (0.66-1.25) mg/dL Glucose (74-99) mg/dL POC Glucose (mg/dL) 115 H (75-99) mg/dL Troponin I 0.089 H* (0.000-0.034) ng/mL Total Protein (6.3-8.2) g/dL Albumin (3.5-5.0) g/dL 07/06/18 Range/Units 06:16 RBC (4.30-5.90) m/uL Hgb (13.0-17.5) gm/dL Hct (39.0-53.0) % Sodium (137-145) mmol/L BUN (9-20) mg/dL Creatinine (0.66-1.25) mg/dL Glucose (74-99) mg/dL POC Glucose (mg/dL) 132 H (75-99) mg/dL Troponin I (0.000-0.034) ng/mL Total Protein (6.3-8.2) g/dL Albumin (3.5-5.0) g/dL Thrombosis Risk Factor Assmnt - Choose All That Apply Each Factor Represents 1 point: Swollen legs (current) Each Risk Factor Represents 3 Points: Age 75 years or older Other congenital or acquired thrombophilia - If yes, enter type in comment: No Thrombosis Risk Factor Assessment Total Risk Factor Score: 4 Thrombosis Risk Factor Assessment Level: Moderate Risk
[2018-07-06 11:28] LABS: Glucose,Whole Blood 165 mg/dL (75-99)
[2018-07-06] MEDS: MULTIVITAMINS, THERA 1 EACH TAB PO SCH (12:30)
[2018-07-06 16:26] LABS: Glucose,Whole Blood 124 mg/dL (75-99)
[2018-07-06] MEDS: PANTOPRAZOLE 40 MG TABLET PO SCH (17:02)
[2018-07-06 20:31] LABS: Glucose,Whole Blood 161 mg/dL (75-99)
[2018-07-06] MEDS: ATORVASTATIN 10 MG TAB PO SCH (20:43)
[2018-07-06] MEDS: SODIUM CHLORIDE 0.9% 1,000 ML IV SCH (20:44)
[2018-07-07 06:00] LABS: Glucose,Whole Blood 136 mg/dL (75-99)
[2018-07-07] MEDS: GLIMEPIRIDE 1 MG TAB PO SCH (06:34)
[2018-07-07] MEDS: CARVEDILOL 3.125 MG TAB PO SCH ×2 (06:34→17:05)
[2018-07-07] MEDS: PANTOPRAZOLE 40 MG TABLET PO SCH ×2 (06:34→17:05)
--- NOTE | 2018-07-07 08:08 | P.PN ---
Progress Note - Text The patient is a 83-year-old gentleman who was admitted over the weekend with gastrointestinal bleeding. Blood per rectum. The patient had some worsening of his anemia secondary to blood loss along with anemia of chronic kidney disease. Also had elevated troponins but has been asymptomatic. Has history of chronic kidney disease, hypertension, aortic valve sclerosis with murmur Type 2 diabetes Venous insufficiency History of prostate cancer Gout Hyperlipidemia Depression Obesity Of this morning he is sitting up in bed. Alert. Denies any chest pain or shortness of breath. Has not had any further blood per rectum through the night. Vital signs show temperature 98.2 with a pulse of 55 and respirations 18. Blood pressure 170/80 and a set saturation of 97 on room air. Lung and heart examination is clear and regular. Positive systolic murmur. Abdomen is generally soft and nontender without rebound, guarding or masses. No unusual neurological deficits. Laboratory Blood sugar 136. CBC and CMP are pending. Impressions and plans Patient with gastrointestinal bleeding. Blood per rectum. Possible lower GI site such as diverticular versus polyp this patient does have history of an ascending colon polyp about 5 years ago. Also possibility of upper GI bleed with rapid transit time. Asymptomatic elevated troponin values. Awaiting further consultation with gastroenterology and cardiology. Echocardiogram pending. Labs pending. Discussed with patient and staff this morning at bedside.
[2018-07-07] MEDS: BRIMONIDINE TARTRATE 0.2% DROPS 5 ML BTL LEFT EYE SCH ×2 (08:11→15:04)
[2018-07-07] MEDS: CALCIUM CARB-VIT D 500MG-200UN 1 EACH TAB PO SCH (08:12)
[2018-07-07] MEDS: ALLOPURINOL 100 MG TAB PO SCH (08:12)
[2018-07-07] MEDS: CYANOCOBALAMIN 500 MCG TAB PO SCH (08:13)
[2018-07-07] MEDS: cloNIDine HCL 0.1 MG TAB PO SCH ×2 (08:13→20:06)
--- NOTE | 2018-07-07 09:29 | ECHOF ---
Referral Reason:elevated troponins MEASUREMENTS -------- HEIGHT: 175.3 cm WEIGHT: 122.5 kg BP: 135/83 RVIDd: 3.5 cm (< 3.3) IVSd: 1.5 cm (0.6 - 1.1) LVIDd: 4.6 cm (3.9 - 5.3) LVPWd: 1.5 cm (0.6 - 1.1) IVSs: 1.8 cm LVIDs: 3.4 cm LVPWs: 1.8 cm LA Diam: 4.5 cm (2.7 - 3.8) LAESV Index (A-L): 41.05 ml/m Ao Diam: 3.1 cm (2.0 - 3.7) AV Cusp: 1.9 cm (1.5 - 2.6) MV EXCURSION: 21.866 mm (> 18.000) MV EF SLOPE: 84 mm/s (70 - 150) EPSS: 0.5 cm MV E Eusebio: 1.35 m/s MV DecT: 133 ms MV A Eusebio: 0.80 m/s MV E/A Ratio: 1.68 AV maxP.40 mmHg AV meanP.05 mmHg AR PHT: 503 ms RAP: 5.00 mmHg RVSP: 25.88 mmHg FINDINGS -------- Sinus rhythm. This was a technically good study. The left ventricular size is normal. There is moderate concentric left ventricular hypertrophy. O verall left ventricular systolic function is normal with, an EF between 55 - 60 %. The right ventricle is mildly enlarged. LA is severely dilated >40 ml/m2 The right atrium is normal in size. There is mild to moderate aortic valve sclerosis. There is moderate aortic regurgitation. There i s moderate aortic stenosis present. Peak/mean gradient across the Aortic Valve is 40.40mmHg / 23.05 mmHg. The mitral valve leaflets are mildly thickened. Mild mitral regurgitation is present. Mild tricuspid regurgitation present. Right ventricular systolic pressure is normal at < 35 mmHg. There is no evidence of pulmonary hypertension. There is no pulmonic regurgitation present. The aortic root size is normal. Normal inferior vena cava with normal inspiratory collapse consistent with estimated right atrial pre ssure of 5 mmHg. The inferior vena cava is mildly dilated. There is no pericardial effusion. CONCLUSIONS -------- 1. Sinus rhythm. 2. This was a technically good study. 3. The left ventricular size is normal. 4. There is moderate concentric left ventricular hypertrophy. 5. Overall left ventricular systolic function is normal with, an EF between 55 - 60 %. 6. The right ventricle is mildly enlarged. 7. LA is severely dilated >40 ml/m2 8. There is mild to moderate aortic valve sclerosis. 9. There is moderate aortic regurgitation. 10. There is moderate aortic stenosis present. 11. Peak/mean gradient across the Aortic Valve is 40.40mmHg / 23.05mmHg. 12. The mitral valve leaflets are mildly thickened. 13. Mild mitral regurgitation is present. 14. Mild tricuspid regurgitation present. 15. Right ventricular systolic pressure is normal at < 35 mmHg. 16. There is no pulmonic regurgitation present. 17. The aortic root size is normal. 18. Normal inferior vena cava with normal inspiratory collapse consistent with estimated right atrial pressure of 5 mmHg. 19. The inferior vena cava is mildly dilated. 20. There is no pericardial effusion. COURT STENOGRAPHER: Sharona Vazquez RDCS
[2018-07-07 09:51] LABS: HCT 29.6 % (39.0-53.0); HGB 9.9 gm/dL (13.0-17.5); MCH 29.8 pg (25.0-35.0); MCHC 33.3 g/dL (31.0-37.0); MCV 89.5 fL (80.0-100.0); Mean Platelet Volume 6.3; Platelet Count 203 k/uL (150-450); RBC 3.31 m/uL (4.30-5.90); WBC 7.1 k/uL (3.8-10.6)
[2018-07-07 10:02] LABS: Albumin 2.9 g/dL (3.5-5.0); Calcium 9.2 mg/dL (8.4-10.2); Potassium 4.3 mmol/L (3.5-5.1); Total Bilirubin 1.1 mg/dL (0.2-1.3); Total Protein 5.4 g/dL (6.3-8.2)
[2018-07-07 11:29] LABS: Glucose,Whole Blood 154 mg/dL (75-99)
[2018-07-07] MEDS: MULTIVITAMINS, THERA 1 EACH TAB PO SCH (12:25)
--- NOTE | 2018-07-07 12:34 | P.CRDCN ---
<Nicole Sargent E - Last Filed: 07/07/18 12:07> History of Present Illness Consult date: 07/07/18 Requesting physician: Gino Saxena Reason for Consult (text): Abnormal troponin Consult reason: hypertension Chief complaint: Lower GI bleed and weakness History of present illness: This is an 83-year-old gentleman who follows with Dr. Kelley in the office. He has a known history of hypertension, hyperlipidemia, diabetes, prior history of smoking, history of carcinoma of the prostate, depression, presented to the hospital on this occasion because of lower GI bleeding. Patient states that his stool was very dark in color, and he also noted clots in it. Cardiology consultation was requested because of abnormality in troponin as well as accelerated hypertension. Patient had an echo cardiac gram with Doppler study performed which revealed an ejection fraction of 55-60%. Moderate aortic stenosis. Blood pressure this morning 170/80 at 4 AM, 155/60 8 AM. Hemoglobin on admission 10.3, 9.9 this morning, platelet count 203. Sodium 134, potassium 4.3, BUN 20 and creatinine 1.3. Mag level I.6 ,troponin 0.062 and 0.08. At the time of my examination, patient patient is sitting up in the chair, his is at bedside. He denies having any chest discomfort, breathing overall is stable. He does state that he has a little more swelling in his legs than his usual, there is some redness noted to the right lower extremity as well to be chronic according to the . Past Medical History Past Medical History: Cancer, Diabetes Mellitus, Hyperlipidemia, Hypertension, Prostate Disorder, Renal Disease Additional Past Medical History / Comment(s): prostate cancer,leg wounds,venous ulcers. GI bleed (06/2018) left eye almost blind History of Any Multi-Drug Resistant Organisms: None Reported Past Surgical History: Tonsillectomy Additional Past Surgical History / Comment(s): laser eye surgery Past Anesthesia/Blood Transfusion Reactions: No Reported Reaction Smoking Status: Former smoker - Past Family History Mother Family Medical History: Diabetes Mellitus Additional Family Medical History / Comment(s): "heart problems" Father Additional Family Medical History / Comment(s): alcohol & due to liver issues Medications and Allergies Home Medications Medication Instructions Recorded Confirmed Type Allopurinol [Zyloprim] 100 mg PO DAILY 12/02/14 07/05/18 History Aspirin 81 mg PO HS 12/02/14 07/05/18 History Doxazosin Mesylate 8 mg PO HS 12/02/14 07/05/18 History Lovastatin [Mevacor] 40 mg PO HS 12/02/14 07/05/18 History cloNIDine HCL 0.3 mg PO BID 09/23/17 07/05/18 History EPINEPHrine (Auto Inject) [Epipen] 0.3 mg IM ONCE PRN 09/24/17 07/05/18 History Brimonidine Tartrate [Alphagan P 1 drops LEFT EYE Q8H 11/13/17 07/05/18 History 0.2% Ophth Soln] Gatifloxacin/Prednisolone 1 drop RIGHT EYE PERALTA 11/13/17 07/05/18 History [prednisoLONE 1%-Gatiflox 0.5%] Glimepiride [Amaryl] 1 mg PO AC-BRKFST 11/13/17 07/05/18 History Carvedilol [Coreg] 3.125 mg PO BID #60 tablet 03/12/18 07/05/18 Rx Calcium Carbonate/Vitamin D3 1 tab PO DAILY 07/05/18 07/05/18 History [Calcium 600-Vit D3 200 Tablet] Cyanocobalamin (Vitamin B-12) 5,000 mcg PO DAILY 07/05/18 07/05/18 History [Vitamin B-12] Krill Oil 500 mg PO DAILY 07/05/18 07/05/18 History Multivitamins, Thera [Multivitamin 1 tab PO DAILY 07/05/18 07/05/18 History (formulary)] Sertraline [Zoloft] 50 mg PO HS 07/05/18 07/05/18 History Super B-Comples W/ Biotin 1 tab PO DAILY 07/05/18 07/05/18 History Ubidecarenone [Co Q-10] 400 mg PO DAILY 07/05/18 07/05/18 History Allergies Allergy/AdvReac Type Severity Reaction Status Date / Time cephalexin Allergy Rash/Hives Verified 07/05/18 18:50 clindamycin Allergy Rash/Hives Verified 07/05/18 18:50 sulfamethoxazole Allergy Unknown Verified 07/05/18 18:50 [From Bactrim] trimethoprim [From Bactrim] Allergy Unknown Verified 07/05/18 18:50 Physical Exam Vitals: Vital Signs Temp Pulse Resp BP Pulse Ox 07/07/18 08:00 97.6 F 67 18 155/68 95 07/07/18 04:00 98.2 F 55 L 18 170/80 97 07/07/18 00:00 97.9 F 53 L 17 161/96 97 07/06/18 20:00 98.3 F 56 L 17 188/86 95 07/06/18 16:00 98.9 F 56 L 18 190/85 96 Intake and Output 07/06/18 07/07/18 07/07/18 22:59 06:59 14:59 Intake Total 500 820 240 Output Total 300 700 Balance 200 120 240 Intake: Intake, IV Titration 220 Amount Sodium Chloride 0.9% 1, 220 000 ml @ 20 mls/hr IV . Q24H [facility] Rx#:[id number] Oral 500 600 240 Output: Urine 300 700 Other: Voiding Method Urinal Urinal Urinal Weight 89.4 kg PHYSICAL EXAMINATION: GENERAL: 82-year-old gentleman, appears quite depressed, in no acute distress at the time of my examination. HEENT: Head is atraumatic, normocephalic. Pupils equal, round. Sclera anicteric. Conjunctiva are clear. Mucous membranes of the mouth are moist. Neck is supple. There is no elevated jugular venous pressure. No carotid bruit is heard. HEART EXAMINATION: Heart S1 and S2 systolic ejection murmur is heard in the aortic valve area. CHEST EXAMINATION: Lungs are clear to auscultation and precussion. No chest wall tenderness is noted on palpation or with deep breathing. ABDOMEN: Soft, nontender. Bowel sounds are heard. No organomegaly noted. EXTREMITIES: 2+ peripheral pulses with 1+ edema noted to the right lower extremity, chronic venous stasis changes redness to the right lower extremity with no ulceration noted. Race edema to the left lower extremity. NEUROLOGIC patient is awake, alert and oriented X3. Results 07/07/18 09:21 07/07/18 09:21 Cardiac Enzymes 07/07/18 Range/Units 09:21 AST 14 L (17-59) U/L CBC 07/07/18 Range/Units 09:21 WBC 7.1 (3.8-10.6) k/uL RBC 3.31 L (4.30-5.90) m/uL Hgb 9.9 L (13.0-17.5) gm/dL Hct 29.6 L (39.0-53.0) % Plt Count 203 (150-450) k/uL Comprehensive Metabolic Panel 07/07/18 Range/Units 09:21 Sodium 134 L (137-145) mmol/L Potassium 4.3 (3.5-5.1) mmol/L Chloride 103 (98-107) mmol/L Carbon Dioxide 25 (22-30) mmol/L BUN 20 (9-20) mg/dL Creatinine 1.37 H (0.66-1.25) mg/dL Glucose 186 H (74-99) mg/dL Calcium 9.2 (8.4-10.2) mg/dL AST 14 L (17-59) U/L ALT 28 (21-72) U/L Alkaline Phosphatase 67 (38-126) U/L Total Protein 5.4 L (6.3-8.2) g/dL Albumin 2.9 L (3.5-5.0) g/dL Current Medications Generic Name Dose Route Start Last Admin Trade Name Freq PRN Reason Stop Dose Admin Allopurinol 100 mg 07/06/18 09:00 07/07/18 08:12 Zyloprim PO 100 mg DAILY NESTOR Administration Atorvastatin Calcium 10 mg 07/06/18 21:00 07/06/18 20:43 Lipitor PO 10 mg HS NESTOR Administration Brimonidine Tartrate 1 drops 07/06/18 00:15 07/07/18 08:11 Alphagan P 0.2% Ophth Soln LEFT EYE 1 drops Q8HR NESTOR Administration Calcium Carbonate 1 each 07/06/18 09:00 07/07/18 08:12 Oscal 500+D PO 1 each DAILY NESTOR Administration Carvedilol 3.125 mg 07/06/18 07:30 07/07/18 06:34 Coreg PO 3.125 mg BID-W/MEALS NESTOR Administration Clonidine 0.3 mg 07/06/18 00:30 07/07/18 08:13 Catapres PO 0.3 mg BID NESTOR Administration Cyanocobalamin 5,000 mcg 07/06/18 09:00 07/07/18 08:13 Vitamin B-12 PO 5,000 mcg DAILY NESTOR Administration Doxazosin Mesylate 8 mg 07/06/18 00:15 07/06/18 20:43 Cardura PO 8 mg HS NESTOR Administration Epinephrine HCl 0.3 mg 07/06/18 09:00 Adrenalin IM ONCE PRN Anaphylaxis Glimepiride 1 mg 07/06/18 07:30 07/07/18 06:34 Amaryl PO 1 mg AC-BRKFST NESTOR Administration Sodium Chloride 1,000 mls @ 20 mls/hr 07/05/18 21:15 07/06/18 20:44 Saline 0.9% IV 20 mls/hr .Q24H NESTOR Administration Morphine Sulfate 4 mg 07/05/18 21:11 Morphine Sulfate (Inj) IV Q4HR PRN Severe Pain Multivitamins 1 each 07/06/18 12:00 07/06/18 12:30 Theragran PO 1 each DAILY@1200 NESTOR Administration Naloxone HCl 0.2 mg 07/05/18 21:11 Narcan IV Q2M PRN Opioid Reversal Non-Formulary Medication 1 drop 07/06/18 00:15 07/06/18 01:25 Gatifloxacin/Prednisolone [Prednisolone 1%-Gatiflox 0.5%] RIGHT EYE Not Given PERALTA NESTOR Ondansetron HCl 4 mg 07/05/18 21:11 Zofran IVP Q8HR PRN Nausea And Vomiting Pantoprazole Sodium 40 mg 07/06/18 17:30 07/07/18 06:34 Protonix PO 40 mg AC-BID NESTOR Administration Sertraline HCl 50 mg 07/06/18 00:15 07/06/18 20:43 Zoloft PO 50 mg HS NESTOR Administration Intake and Output 07/06/18 07/07/18 07/07/18 22:59 06:59 14:59 Intake Total 500 820 240 Output Total 300 700 Balance 200 120 240 Intake: Intake, IV Titration 220 Amount Sodium Chloride 0.9% 1, 220 000 ml @ 20 mls/hr IV . Q24H [facility] Rx#:[id number] Oral 500 600 240 Output: Urine 300 700 Other: Voiding Method Urinal Urinal Urinal Weight 89.4 kg 07/07/18 09:21 07/07/18 09:21 EKG Interpretations (text) EKG shows normal sinus rhythm with first-degree AV block and occasional PACs and PVCs, right bundle branch block pattern Assessment and Plan Plan: Assessment and plan #1 lower GI bleeding, could possibly be from diverticulitis. #2 acute on chronic kidney disease stage III #3 abnormal troponin , likely secondary to abnormal renal function. #4 hypertension #5 aortic I #6 diabetes #7 hyperlipidemia #8 chronic venous insufficiency of bilateral lower extremities #9 history of prostate cancer #10 history of depression #11 obesity Plan Echocardiogram with Doppler study revealed an ejection fraction of 55-60%, moderate aortic valve sclerosis with moderate aortic regurgitation. Troponin abnormality not consistent with acute coronary syndrome with no significant rise and fall pattern, likely secondary to abnormal renal function. Blood pressure 150/60 at this time, we'll continue current medications. DNP note has been reviewed, I agree with a documented findings and plan of care. Patient was seen and examined. <Demetrius Perez - Last Filed: 07/07/18 13:52> Physical Exam Vitals: Vital Signs Temp Pulse Resp BP Pulse Ox 07/07/18 12:00 97.6 F 59 L 16 169/65 96 07/07/18 08:00 97.6 F 67 18 155/68 95 07/07/18 04:00 98.2 F 55 L 18 170/80 97 07/07/18 00:00 97.9 F 53 L 17 161/96 97 07/06/18 20:00 98.3 F 56 L 17 188/86 95 07/06/18 16:00 98.9 F 56 L 18 190/85 96 Intake and Output 07/06/18 07/07/18 07/07/18 22:59 06:59 14:59 Intake Total 500 820 240 Output Total 300 700 300 Balance 200 120 -60 Intake: Intake, IV Titration 220 Amount Sodium Chloride 0.9% 1, 220 000 ml @ 20 mls/hr IV . Q24H [facility] Rx#:[id number] Oral 500 600 240 Output: Urine 300 700 300 Other: Voiding Method Urinal Urinal Urinal Weight 89.4 kg Results 07/07/18 09:21 07/07/18 09:21 Cardiac Enzymes 07/07/18 Range/Units 09:21 AST 14 L (17-59) U/L CBC 07/07/18 Range/Units 09:21 WBC 7.1 (3.8-10.6) k/uL RBC 3.31 L (4.30-5.90) m/uL Hgb 9.9 L (13.0-17.5) gm/dL Hct 29.6 L (39.0-53.0) % Plt Count 203 (150-450) k/uL Comprehensive Metabolic Panel 07/07/18 Range/Units 09:21 Sodium 134 L (137-145) mmol/L Potassium 4.3 (3.5-5.1) mmol/L Chloride 103 (98-107) mmol/L Carbon Dioxide 25 (22-30) mmol/L BUN 20 (9-20) mg/dL Creatinine 1.37 H (0.66-1.25) mg/dL Glucose 186 H (74-99) mg/dL Calcium 9.2 (8.4-10.2) mg/dL AST 14 L (17-59) U/L ALT 28 (21-72) U/L Alkaline Phosphatase 67 (38-126) U/L Total Protein 5.4 L (6.3-8.2) g/dL Albumin 2.9 L (3.5-5.0) g/dL Current Medications Generic Name Dose Route Start Last Admin Trade Name Freq PRN Reason Stop Dose Admin Allopurinol 100 mg 07/06/18 09:00 07/07/18 08:12 Zyloprim PO 100 mg DAILY NESTOR Administration Amlodipine Besylate 5 mg 07/08/18 09:00 Norvasc PO DAILY NESTOR Atorvastatin Calcium 10 mg 07/06/18 21:00 07/06/18 20:43 Lipitor PO 10 mg HS NESTOR Administration Brimonidine Tartrate 1 drops 07/06/18 00:15 07/07/18 08:11 Alphagan P 0.2% Ophth Soln LEFT EYE 1 drops Q8HR [facility] Administration Calcium Carbonate 1 each 07/06/18 09:00 07/07/18 08:12 Oscal 500+D PO 1 each DAILY NESTOR Administration Carvedilol 3.125 mg 07/06/18 07:30 07/07/18 06:34 Coreg PO 3.125 mg BID-W/MEALS NESTOR Administration Clonidine 0.3 mg 07/06/18 00:30 07/07/18 08:13 Catapres PO 0.3 mg BID NESTOR Administration Cyanocobalamin 5,000 mcg 07/06/18 09:00 07/07/18 08:13 Vitamin B-12 PO 5,000 mcg DAILY NESTOR Administration Doxazosin Mesylate 8 mg 07/06/18 00:15 07/06/18 20:43 Cardura PO 8 mg HS NESTOR Administration Epinephrine HCl 0.3 mg 07/06/18 09:00 Adrenalin IM ONCE PRN Anaphylaxis Glimepiride 1 mg 07/06/18 07:30 07/07/18 06:34 Amaryl PO 1 mg AC-BRKFST NESTOR Administration Sodium Chloride 1,000 mls @ 20 mls/hr 07/05/18 21:15 07/06/18 20:44 Saline 0.9% IV 20 mls/hr .Q24H [facility] Administration Morphine Sulfate 4 mg 07/05/18 21:11 Morphine Sulfate (Inj) IV Q4HR PRN Severe Pain Multivitamins 1 each 07/06/18 12:00 07/07/18 12:25 Theragran PO 1 each DAILY@1200 NESTOR Administration Naloxone HCl 0.2 mg 07/05/18 21:11 Narcan IV Q2M PRN Opioid Reversal Non-Formulary Medication 1 drop 07/06/18 00:15 07/06/18 01:25 Gatifloxacin/Prednisolone [Prednisolone 1%-Gatiflox 0.5%] RIGHT EYE Not Given PERALTA NESTOR Ondansetron HCl 4 mg 07/05/18 21:11 Zofran IVP Q8HR PRN Nausea And Vomiting Pantoprazole Sodium 40 mg 07/06/18 17:30 07/07/18 06:34 Protonix PO 40 mg AC-BID NESTOR Administration Sertraline HCl 50 mg 07/06/18 00:15 07/06/18 20:43 Zoloft PO 50 mg HS NESTOR Administration Intake and Output 07/06/18 07/07/18 07/07/18 22:59 06:59 14:59 Intake Total 500 820 240 Output Total 300 700 300 Balance 200 120 -60 Intake: Intake, IV Titration 220 Amount Sodium Chloride 0.9% 1, 220 000 ml @ 20 mls/hr IV . Q24H [facility] Rx#:[id number] Oral 500 600 240 Output: Urine 300 700 300 Other: Voiding Method Urinal Urinal Urinal Weight 89.4 kg 07/07/18 09:21 07/07/18 09:21 Assessment and Plan Plan: Patient's blood pressure is not well controlled. I will add Norvasc 5 mg once daily
[2018-07-07 16:56] LABS: Glucose,Whole Blood 145 mg/dL (75-99)
[2018-07-07] MEDS: DOXAZOSIN 4 MG TAB PO SCH (20:06)
[2018-07-07] MEDS: ATORVASTATIN 10 MG TAB PO SCH (20:06)
[2018-07-07] MEDS: SERTRALINE 50 MG TAB PO SCH (20:06)
[2018-07-07 20:52] LABS: Glucose,Whole Blood 129 mg/dL (75-99)
[2018-07-07] MEDS: SODIUM CHLORIDE 0.9% 1,000 ML IV SCH (21:00)
--- NOTE | 2018-07-07 21:15 | P.CONS ---
History of Present Illness - Reason for Consult Consult date: 07/06/18 Blood in stools - History of Present Illness The patient is an 83-year-old male with history of hypertension, hyperlipidemia, diabetes, prior history of smoking, history of carcinoma of the prostate, depression, presented to the hospital because of lower GI bleeding. Patient states that his stool was very dark in color, and he also noted clots in it. Hb on admission 10.3, 9.9 this morning, platelet count 203. Sodium 134, potassium 4.3, BUN 20 and creatinine 1.3. Mag level I.6 ,troponin 0.062 and 0.08. He denies having any chest discomfort or SOB. He does state that he has a little more swelling in his legs than his usual, there is some redness noted to the right lower extremity as well to be chronic according to the . The patient had colonoscopy and polypectomy with Dr. Blackburn 2013. He denied dysphagia, odynophagia or hematemesis. He did have some nausea during this illness but did not vomit. Review of Systems Constitutional: Denied fever, chills or unintentional weight loss Neurologic: No headaches, double vision or other sensory or motor changes Cardiopulmonary: No chest pains, shortness of breath or palpitations Gastrointestinal: See present illness above Genitourinary: No hematuria, dysuria or frequency Endocrine: No history of diabetes or thyroid disease Hematologic: No history of anemia or bleeding tendency Musculoskeletal: No joint pains or swelling Skin: No rashes Psychiatric: No anxiety or depression Past Medical History Past Medical History: Cancer, Diabetes Mellitus, Hyperlipidemia, Hypertension, Prostate Disorder, Renal Disease Additional Past Medical History / Comment(s): prostate cancer,leg wounds,venous ulcers. GI bleed (06/2018) left eye almost blind History of Any Multi-Drug Resistant Organisms: None Reported Past Surgical History: Tonsillectomy Additional Past Surgical History / Comment(s): laser eye surgery Past Anesthesia/Blood Transfusion Reactions: No Reported Reaction Smoking Status: Former smoker - Past Family History Mother Family Medical History: Diabetes Mellitus Additional Family Medical History / Comment(s): "heart problems" Father Additional Family Medical History / Comment(s): alcohol & due to liver issues Medications and Allergies Home Medications Medication Instructions Recorded Confirmed Type Allopurinol [Zyloprim] 100 mg PO DAILY 12/02/14 07/05/18 History Aspirin 81 mg PO HS 12/02/14 07/05/18 History Doxazosin Mesylate 8 mg PO HS 12/02/14 07/05/18 History Lovastatin [Mevacor] 40 mg PO HS 12/02/14 07/05/18 History cloNIDine HCL 0.3 mg PO BID 09/23/17 07/05/18 History EPINEPHrine (Auto Inject) [Epipen] 0.3 mg IM ONCE PRN 09/24/17 07/05/18 History Brimonidine Tartrate [Alphagan P 1 drops LEFT EYE Q8H 11/13/17 07/05/18 History 0.2% Ophth Soln] Gatifloxacin/Prednisolone 1 drop RIGHT EYE PERALTA 11/13/17 07/05/18 History [prednisoLONE 1%-Gatiflox 0.5%] Glimepiride [Amaryl] 1 mg PO AC-BRKFST 11/13/17 07/05/18 History Carvedilol [Coreg] 3.125 mg PO BID #60 tablet 03/12/18 07/05/18 Rx Calcium Carbonate/Vitamin D3 1 tab PO DAILY 07/05/18 07/05/18 History [Calcium 600-Vit D3 200 Tablet] Cyanocobalamin (Vitamin B-12) 5,000 mcg PO DAILY 07/05/18 07/05/18 History [Vitamin B-12] Krill Oil 500 mg PO DAILY 07/05/18 07/05/18 History Multivitamins, Thera [Multivitamin 1 tab PO DAILY 07/05/18 07/05/18 History (formulary)] Sertraline [Zoloft] 50 mg PO HS 07/05/18 07/05/18 History Super B-Comples W/ Biotin 1 tab PO DAILY 07/05/18 07/05/18 History Ubidecarenone [Co Q-10] 400 mg PO DAILY 07/05/18 07/05/18 History Allergies Allergy/AdvReac Type Severity Reaction Status Date / Time cephalexin Allergy Rash/Hives Verified 07/05/18 18:50 clindamycin Allergy Rash/Hives Verified 07/05/18 18:50 sulfamethoxazole Allergy Unknown Verified 07/05/18 18:50 [From Bactrim] trimethoprim [From Bactrim] Allergy Unknown Verified 07/05/18 18:50 Physical Exam Vitals: Vital Signs Temp Pulse Pulse Resp BP BP Pulse Ox 07/06/18 08:00 98.4 F 57 L 18 156/72 95 07/06/18 03:45 60 18 07/06/18 03:44 98.2 F 60 18 161/80 96 07/06/18 00:00 98.5 F 62 17 152/80 95 07/05/18 23:35 98.5 F 63 18 171/77 93 L 07/05/18 21:37 60 20 161/75 94 L 07/05/18 18:08 97.6 F 72 18 154/63 98 Intake and Output 07/05/18 07/06/18 07/06/18 21:59 06:59 14:59 Intake Total 200 Output Total Balance 200 Intake: Amount of Fluid Infused ( ml) Intake, IV Titration Amount Sodium Chloride 0.9% 1, 000 ml @ 20 mls/hr IV . Q24H [facility] Rx#:[id number] Oral 200 Output: Urine Other: Voiding Method Urinal Weight General: Appeared stated age, very pleasant in no acute distress Head and neck: Normocephalic and atraumatic, conjunctivae pink and sclerae not icteric, mucous membranes moist and pink. No masses in the neck or tracheal shifts Lungs: Clear to auscultation with no dullness to percussion Heart: Regular, no abnormal sounds, murmurs, gallops or friction rubs ABDOMEN: Soft no masses, organomegalies or tenderness. Bowel sounds present Extremities: No clubbing, cyanosis or edema Neurologic: Alert and oriented 3. Cranial nerves grossly intact. No gross sensory or motor other abnormalities Results CBC & Chem 7: 07/07/18 09:21 07/07/18 09:21 Labs: Abnormal Lab Results - Last 24 Hours (Table) 07/05/18 07/05/18 07/05/18 Range/Units 19:45 19:45 19:45 RBC 3.54 L (4.30-5.90) m/uL Hgb 10.3 L (13.0-17.5) gm/dL Hct 31.4 L (39.0-53.0) % Sodium 132 L (137-145) mmol/L BUN 29 H (9-20) mg/dL Creatinine 1.44 H (0.66-1.25) mg/dL Glucose 140 H (74-99) mg/dL POC Glucose (mg/dL) (75-99) mg/dL Troponin I 0.062 H* (0.000-0.034) ng/mL Total Protein 5.9 L (6.3-8.2) g/dL Albumin 3.4 L (3.5-5.0) g/dL 07/05/18 07/06/18 07/06/18 Range/Units 23:10 03:07 03:07 RBC 3.35 L (4.30-5.90) m/uL Hgb 9.9 L (13.0-17.5) gm/dL Hct 29.8 L (39.0-53.0) % Sodium (137-145) mmol/L BUN (9-20) mg/dL Creatinine (0.66-1.25) mg/dL Glucose (74-99) mg/dL POC Glucose (mg/dL) 115 H (75-99) mg/dL Troponin I 0.089 H* (0.000-0.034) ng/mL Total Protein (6.3-8.2) g/dL Albumin (3.5-5.0) g/dL 07/06/18 07/06/18 Range/Units 06:16 11:23 RBC (4.30-5.90) m/uL Hgb (13.0-17.5) gm/dL Hct (39.0-53.0) % Sodium (137-145) mmol/L BUN (9-20) mg/dL Creatinine (0.66-1.25) mg/dL Glucose (74-99) mg/dL POC Glucose (mg/dL) 132 H 165 H (75-99) mg/dL Troponin I (0.000-0.034) ng/mL Total Protein (6.3-8.2) g/dL Albumin (3.5-5.0) g/dL Assessment and Plan Assessment: GI bleeding could be related to upper GI source such as peptic ulcer disease. Certainly, with his history of polyps a lower GI source to be considered. The patient and his family appears to prefer that we approaches workup by first performing an upper endoscopy and deferring the colonoscopy until after we find out that this is not an upper GI source. Plan: I agree with your current management. He will continue on Protonix. We will plan on upper endoscopy Saturday or Saturday and plan accordingly.
[2018-07-08] MEDS: BRIMONIDINE TARTRATE 0.2% DROPS 5 ML BTL LEFT EYE SCH ×4 (00:02→23:09)
[2018-07-08] MEDS: cloNIDine HCL 0.1 MG TAB PO SCH ×2 (04:14→19:57)
[2018-07-08 06:13] LABS: Glucose,Whole Blood 150 mg/dL (75-99)
[2018-07-08 06:51] LABS: HCT 31.9 % (39.0-53.0); HGB 10.6 gm/dL (13.0-17.5); MCH 29.5 pg (25.0-35.0); MCHC 33.2 g/dL (31.0-37.0); Platelet Count 209 k/uL (150-450); RBC 3.59 m/uL (4.30-5.90)
[2018-07-08] MEDS: CARVEDILOL 3.125 MG TAB PO SCH ×2 (07:02→17:14)
[2018-07-08] MEDS: PANTOPRAZOLE 40 MG TABLET PO SCH ×2 (07:03→17:14)
[2018-07-08] MEDS: GLIMEPIRIDE 1 MG TAB PO SCH (07:03)
[2018-07-08] MEDS ORDERED: FUROSEMIDE 10 MG/ML 2 ML VIAL IV ONE (08:06)
[2018-07-08] MEDS: hydrALAZINE HCL 50 MG TAB PO SCH ×2 (08:21→19:57)
--- NOTE | 2018-07-08 08:37 | P.PN ---
Progress Note - Text The patient is an 83-year-old gentleman who presented with gastrointestinal bleeding with blood per rectum and anemia secondary to blood loss and anemia of chronic kidney disease. He has had some nausea but no vomiting. No further hematochezia. Patient also had elevated troponins on presentation. He does have comorbidities with chronic kidney disease, type 2 diabetes, venous insufficiency, history of prostate cancer and gout, hyperlipidemia and hypertension, depression and obesity. This morning he is sitting up in bed. Denies any chest pain or shortness of breath. No unusual abdominal pain at this time. Vital signs show temperature 97.5 with a pulse of 59 and blood pressure 194/84. He is 95% saturated on room air. Lung and heart exam is generally clear with a systolic murmur. Abdomen nontender. Chronic grade 1-2 edema. No new focal neurological changes. Laboratory White count is 7.0 with a hemoglobin 10.6 and a platelet count of 209. Blood sugar was 150. Echocardiogram Showed sinus rhythm. Normal LV size. Ejection fraction of 55-60%. Enlarged LA greater than 40 mm Moderate aortic which are just agitation moderate aortic stenosis present. Impressions and plans A cardiology note regarded. Echocardiogram appears stable. They do not feel troponins are indicative of any new ischemic changes. Gastroenterology anticipates upper endoscopy today. May also consider lower endoscopy if no apparent source of blood loss seen on upper. Norvasc has been added for blood pressure. In the past though calcium channel blockers seem to increase patient's lower leg edema. We will add Lasix and hydralazine. IV has been decreased to heparin well. Hopefully discharge over next 24 hours pending results of upper endoscopy and stabilization of blood pressure.
[2018-07-08] MEDS ORDERED: amLODIPine 5 MG TAB PO SCH (09:00)
[2018-07-08 11:45] LABS: Glucose,Whole Blood 151 mg/dL (75-99)
--- NOTE | 2018-07-08 14:12 | P.PN ---
Subjective Progress Note Date: 07/08/18 This is an 83-year-old gentleman who follows with Dr. Kelley in the office. He has a known history of hypertension, hyperlipidemia, diabetes, prior history of smoking, history of carcinoma of the prostate, depression, presented to the hospital on this occasion because of lower GI bleeding. Patient states that his stool was very dark in color, and he also noted clots in it. Cardiology consultation was requested because of abnormality in troponin as well as accelerated hypertension. Patient had an echo cardiac gram with Doppler study performed which revealed an ejection fraction of 55-60%. Moderate aortic stenosis. Blood pressure this morning 170/80 at 4 AM, 155/60 8 AM. Hemoglobin on admission 10.3, 9.9 this morning, platelet count 203. Sodium 134, potassium 4.3, BUN 20 and creatinine 1.3. Mag level I.6 ,troponin 0.062 and 0.08. At the time of my examination, patient patient is sitting up in the chair, his is at bedside. He denies having any chest discomfort, breathing overall is stable. He does state that he has a little more swelling in his legs than his usual, th ere is some redness noted to the right lower extremity as well to be chronic according to the . 07/08/2018 Patient seen and examined today, overall feeling well. Continues to have elevated blood pressure in the 200, 190 systolic range. Patient was initiated on 5 mg of Norvasc which we will increase today to 10 mg. Objective - Vital Signs Vital signs: Vital Signs Temp 97.5 F L 07/08/18 11:28 Pulse 55 L 07/08/18 11:28 Resp 18 07/08/18 11:28 BP 180/70 07/08/18 11:28 Pulse Ox 96 07/08/18 11:28 Intake & Output 07/07/18 07/08/18 07/08/18 18:59 06:59 18:59 Intake Total 480 160 Output Total 746 613 4270 Balance 180 -490 -1200 Weight 88.5 kg Intake: Intake, IV Titration 160 Amount Sodium Chloride 0.9% 1, 160 000 ml @ 20 mls/hr IV . Q24H [facility] Rx#:[id number] Oral 480 Output: Urine 526 [id number] Other: Voiding Method Urinal Urinal # Voids 1 2 # Bowel Movements 0 - Exam PHYSICAL EXAMINATION: GENERAL: 82-year-old gentleman, appears quite depressed, in no acute distress at the time of my examination. HEENT: Head is atraumatic, normocephalic. Pupils equal, round. Sclera anicteric. Conjunctiva are clear. Mucous membranes of the mouth are moist. Neck is supple. There is no elevated jugular venous pressure. No carotid bruit is heard. HEART EXAMINATION: Heart S1 and S2 systolic ejection murmur is heard in the aortic valve area. CHEST EXAMINATION: Lungs are clear to auscultation and precussion. No chest wall tenderness is noted on palpation or with deep breathing. ABDOMEN: Soft, nontender. Bowel sounds are heard. No organomegaly noted. EXTREMITIES: 2+ peripheral pulses with 1+ edema noted to the right lower extremity, chronic venous stasis changes redness to the right lower extremity with no ulceration noted. Race edema to the left lower extremity. NEUROLOGIC patient is awake, alert and oriented X3. - Labs CBC & Chem 7: 07/08/18 06:15 07/07/18 09:21 Labs: Abnormal Lab Results - Last 24 Hours (Table) 07/07/18 07/07/18 07/08/18 Range/Units 16:50 20:49 06:10 RBC (4.30-5.90) m/uL Hgb (13.0-17.5) gm/dL Hct (39.0-53.0) % POC Glucose (mg/dL) 145 H 129 H 150 H (75-99) mg/dL 07/08/18 07/08/18 Range/Units 06:15 11:33 RBC 3.59 L (4.30-5.90) m/uL Hgb 10.6 L (13.0-17.5) gm/dL Hct 31.9 L (39.0-53.0) % POC Glucose (mg/dL) 151 H (75-99) mg/dL Assessment and Plan Plan: Assessment and plan #1 lower GI bleeding, could possibly be from diverticulitis. #2 acute on chronic kidney disease stage III #3 abnormal troponin , likely secondary to abnormal renal function. #4 hypertension #5 aortic I #6 diabetes #7 hyperlipidemia #8 chronic venous insufficiency of bilateral lower extremities #9 history of prostate cancer #10 history of depression #11 obesity Plan Echocardiogram with Doppler study revealed an ejection fraction of 55-60%, moderate aortic valve sclerosis with moderate aortic regurgitation. Troponin abnormality not consistent with acute coronary syndrome with no significant rise and fall pattern, likely secondary to abnormal renal function. Blood pressure 200/90, we will increase the Norvasc to 10 mg daily, giving an additional dose of 5 now. Continue the rest of the patient's medications.
[2018-07-08] MEDS ORDERED: PROPOFOL 10 MG/ML 20 ML VIAL IV ONE (14:36)
[2018-07-08] MEDS ORDERED: LIDOCAINE 1% INJ 10MG/ML (20 ML MDV) ONE (14:36)
[2018-07-08] MEDS ORDERED: LACTATED RINGERS 1,000 ML IV ONE (14:39)
--- NOTE | 2018-07-08 15:04 | P.PCN ---
Date of Procedure: 07/08/18 Procedure(s) Performed: Procedure: Esophagogastroduodenoscopy and biopsy. Preoperative diagnosis: GI bleeding. Postoperative diagnosis: 1. Sliding hiatal hernia but no obvious esophagitis or complicated reflux disease. 2. Mild gastritis and duodenitis with no ulcers or active bleeding. Biopsies obtained from the antrum. Preparation and sedation: Was provided by anesthesia. Brief clinical history: The patient is an 83-year-old male with history of hypertension, hyperlipidemia, diabetes, prior history of smoking, history of carcinoma of the prostate, depression, presented to the hospital because of lower GI bleeding. Patient states that his stool was very dark in color, and he also noted clots in it. Hb on admission 10.3, 10.6 this morning, platelet count 203. Sodium 134, potassium 4.3, BUN 20 and creatinine 1.3. Mag level I.6 ,troponin 0.062 and 0.08. He denies having any chest discomfort or SOB. He does state that he has a little more swelling in his legs than his usual, there is some redness noted to the right lower extremity as well to be chronic according to the . The patient had colonoscopy and polypectomy with Dr. Blackburn 2013. He denied dysphagia, odynophagia or hematemesis. He did have some nausea during this illness but did not vomit. Other details are summarized in the history and physical and dictated consultation and progress notes. This evaluation is to assess for possible upper GI source of bleeding. Procedure: With the patient on his left lateral decubitus position and after informed consent and adequate sedation, I passed a Olympus-GIF H190 video upper endoscope through the cricopharyngeus down the esophagus. There was a small sliding hiatal hernia but no obvious esophagitis or complicated reflux disease. No mucosal tears, varices or bleeding. The endoscope was then passed into the stomach which was insufflated with air and inspected in detail including the retroflex view in the cardia. There was mottling, erythema and some friability especially in the antrum and prepyloric area but no ulcers or erosions. Pyloric channel did not show any ulcers. Duodenal bulb shows mottling, erythema and friability with no ulcers, erosions or bleeding. Post bulbar area and descending duodenum within normal limits. I obtained biopsies from the antrum then the endoscope was withdrawn. The patient tolerated the procedure well. Plan: Will restart clear liquid diet. I will consider performing a colonoscopy during this hospitalization once his overall cardiac status is stabilized. Otherwise, especially with his stable hemoglobin, consideration can be given for such an evaluation electively as outpatient after discharge. I will discuss fernando benitez.
[2018-07-08 17:04] LABS: Glucose,Whole Blood 132 mg/dL (75-99)
[2018-07-08] MEDS: MULTIVITAMINS, THERA 1 EACH TAB PO SCH (17:14)
[2018-07-08] MEDS: CYANOCOBALAMIN 500 MCG TAB PO SCH (17:14)
[2018-07-08] MEDS: ALLOPURINOL 100 MG TAB PO SCH (17:14)
[2018-07-08] MEDS: CALCIUM CARB-VIT D 500MG-200UN 1 EACH TAB PO SCH (17:14)
[2018-07-08 18:12] LABS: Calcium 9.9 mg/dL (8.4-10.2); Magnesium 1.2 mg/dL (1.6-2.3); Potassium 4.3 mmol/L (3.5-5.1)
[2018-07-08] MEDS ORDERED: Magnesium Replacement Protocol 1 EACH MISC MISCELLANE PRN (18:25)
[2018-07-08] MEDS: MAGNESIUM SULFATE-D5W PMX 1 GM in DEXTROSE/WATER 1 100ML.BAG IVPB SCH ×3 (18:51→22:02)
[2018-07-08] MEDS: DOXAZOSIN 4 MG TAB PO SCH (19:57)
[2018-07-08] MEDS: ATORVASTATIN 10 MG TAB PO SCH (19:57)
[2018-07-08] MEDS: SERTRALINE 50 MG TAB PO SCH (19:57)
[2018-07-08 20:36] LABS: Glucose,Whole Blood 167 mg/dL (75-99)
[2018-07-08] MEDS: SODIUM CHLORIDE 0.9% 1,000 ML IV SCH (22:03)
[2018-07-09 05:52] LABS: Glucose,Whole Blood 148 mg/dL (75-99)
[2018-07-09] MEDS: GLIMEPIRIDE 1 MG TAB PO SCH (06:27)
[2018-07-09] MEDS: CARVEDILOL 3.125 MG TAB PO SCH (06:27)
[2018-07-09] MEDS: PANTOPRAZOLE 40 MG TABLET PO SCH ×2 (06:27→17:28)
[2018-07-09 07:18] LABS: Basophils % (A) 1 %; Eosinophils # (A) 0.3 k/uL (0-0.7); Eosinophils % (A) 4 %; HCT 32.9 % (39.0-53.0); Lymphocytes # (A) 1.3 k/uL (1.0-4.8); Lymphocytes % (A) 19 %; MCH 29.6 pg (25.0-35.0); MCHC 33.5 g/dL (31.0-37.0); MCV 88.5 fL (80.0-100.0); Mean Platelet Volume 6.2; Monocytes # (A) 0.5 k/uL (0-1.0); Monocytes % (A) 7 %; Neutrophils # (A) 4.7 k/uL (1.3-7.7); Neutrophils % (A) 68 %; Platelet Count 217 k/uL (150-450); RBC 3.72 m/uL (4.30-5.90); RDW 14.1 % (11.5-15.5); WBC 6.8 k/uL (3.8-10.6)
[2018-07-09 07:30] LABS: Calcium 9.6 mg/dL (8.4-10.2); Magnesium 1.8 mg/dL (1.6-2.3); Potassium 4.1 mmol/L (3.5-5.1)
[2018-07-09] MEDS: cloNIDine HCL 0.1 MG TAB PO SCH ×2 (08:24→21:00)
[2018-07-09] MEDS: MULTIVITAMINS, THERA 1 EACH TAB PO SCH (08:24)
[2018-07-09] MEDS: amLODIPine 10 MG TAB PO SCH (08:24)
[2018-07-09] MEDS: ALLOPURINOL 100 MG TAB PO SCH (08:24)
[2018-07-09] MEDS: CALCIUM CARB-VIT D 500MG-200UN 1 EACH TAB PO SCH (08:24)
[2018-07-09] MEDS: hydrALAZINE HCL 50 MG TAB PO SCH ×2 (08:24→20:57)
[2018-07-09] MEDS: CYANOCOBALAMIN 500 MCG TAB PO SCH (08:24)
[2018-07-09] MEDS: BRIMONIDINE TARTRATE 0.2% DROPS 5 ML BTL LEFT EYE SCH ×3 (08:26→22:58)
--- NOTE | 2018-07-09 08:37 | P.PN ---
Progress Note - Text The patient is a 83-year-old gentleman who had the rectal bleeding and some element of blood loss anemia superimposed on anemia of chronic kidney disease. Initial troponins were elevated but this seemed to be related to his renal disease and not ischemic cardiac disease. The patient did have gastroscopy yesterday which did not reveal definitive source of bleeding. Plans are for colonoscopy. It appears that his cardiac status is stable for the procedure. Patient does have history of frequent PVCs and has some bigeminy but recent echocardiogram was good. This morning the patient is sitting up in bed. Denies any chest pain or shortness of breath. Patient does state he has been having some hallucinations. They are very difficult for him to describe. Patient has had them in the past. Likely a bit worsened by being in the hospital and out of his home environment. Vital signs show temperature 90.8 with a pulse of 63 and respirations 17. Blood pressure 180/70 and he is 94% saturated on room air. Lung and heart examination is clear. Abdomen nontender. Grade 2 edema but stasis changes are overall improved. No focal neurological deficits. Laboratory White count is 6.8 with a hemoglobin 11 and platelet count of 217. Sodium is 135 with potassium 4.1. BUN of 19 with creatinine 1.38 given him a GFR of 48. Blood sugar was 129. Magnesium has been replaced at 1.8. Impressions and plans Discussed with the cardiology nurse practitioner. Anticipate colonoscopy per gastroenterology. The patient does want to have this before going home. Concern regarding lower GI bleeding secondary to diverticular disease or recurrence of polyps in the lower area. Also patient bothered by worsening constipation. Blood pressure somewhat better controlled. Hopefully discharge soon after colonoscopy. Dr. Rosenbaum is medical transcription supervisor for me for today and tomorrow. Please call if any questions or concerns should arise.
--- NOTE | 2018-07-09 10:57 | P.PN ---
Subjective Progress Note Date: 07/09/18 Principal diagnosis: GI bleed Status post EGD for evaluation of anemia dark-colored bowel movements. Findings of a sliding hiatal hernia no evidence of complicated reflux disease no ulcers. Biopsies taken. Hemoglobin 11. Objective - Vital Signs Vital signs: Vital Signs Temp 98.0 F 07/09/18 08:00 Pulse 66 07/09/18 08:00 Resp 18 07/09/18 08:00 BP 196/86 07/09/18 08:00 Pulse Ox 93 L 07/09/18 08:00 Intake & Output 07/08/18 07/09/18 07/09/18 18:59 06:59 18:59 Intake Total 440 1220 Output Total 1750 700 Balance -1310 520 Weight 86.5 kg Intake: IV 200 Intake, IV Titration 520 Amount Magnesium Sulfate-D5w Pmx 300 1 gm In Dextrose/Water 1 100ml.bag @ 100 mls/hr IVPB Q1H [facility] Rx#: [id number] Sodium Chloride 0.9% 1, 220 000 ml @ 20 mls/hr IV . Q24H [facility] Rx#:[id number] Oral 240 700 Output: Urine 1750 700 Other: Voiding Method Toilet Urinal - Exam General appearance: The patient is alert, oriented, in no acute distress. HET: Head is normocephalic and atraumatic. Pupils are equal and reactive. Oropharynx is clear without lesions. Neck: Supple without lymphadenopathy. Trachea midline. Heart: S1 S2. Regular rate and rhythm. Lungs: No crackles or wheezes are heard. Abdomen: Soft, nontender, nondistended with bowel sounds. No peritoneal signs. No palpable organomegaly or masses. Extremities: Normal skin color and turgor. No cyanosis, rash, ulceration, clubbing, or edema. Radial and pedal pulses are 2/4 bilaterally. Neurological: No focal deficits. Strength and sensation are grossly intact. - Labs CBC & Chem 7: 07/09/18 05:48 07/09/18 05:48 Labs: Abnormal Lab Results - Last 24 Hours (Table) 07/08/18 07/08/18 07/08/18 Range/Units 11:33 16:54 17:43 RBC (4.30-5.90) m/uL Hgb (13.0-17.5) gm/dL Hct (39.0-53.0) % Sodium (137-145) mmol/L Creatinine 1.38 H (0.66-1.25) mg/dL Glucose 157 H (74-99) mg/dL POC Glucose (mg/dL) 151 H 132 H (75-99) mg/dL Magnesium 1.2 L (1.6-2.3) mg/dL 07/08/18 07/09/18 07/09/18 Range/Units 20:32 05:48 05:48 RBC 3.72 L (4.30-5.90) m/uL Hgb 11.0 L (13.0-17.5) gm/dL Hct 32.9 L (39.0-53.0) % Sodium 135 L (137-145) mmol/L Creatinine 1.38 H (0.66-1.25) mg/dL Glucose 129 H (74-99) mg/dL POC Glucose (mg/dL) 167 H (75-99) mg/dL Magnesium (1.6-2.3) mg/dL 07/09/18 Range/Units 05:50 RBC (4.30-5.90) m/uL Hgb (13.0-17.5) gm/dL Hct (39.0-53.0) % Sodium (137-145) mmol/L Creatinine (0.66-1.25) mg/dL Glucose (74-99) mg/dL POC Glucose (mg/dL) 148 H (75-99) mg/dL Magnesium (1.6-2.3) mg/dL Assessment and Plan (1) GI bleed Narrative/Plan: Status post EGD no evidence of complicated reflux disease no evidence of ulcers. Underlying colonic source cannot be excluded. Current Visit: Yes Status: Acute Code(s): K92.2 - GASTROINTESTINAL HEMORRHAGE, UNSPECIFIED SNOMED Code(s): 61575864 (2) History of carcinoma in situ of prostate Current Visit: Yes Status: Acute Code(s): Z86.008 - PERSONAL HISTORY OF IN- SITU NEOPLASM OF OTHER SITE SNOMED Code(s): 431576052 Plan: 1. Family patient requesting inpatient colonoscopy. Clear liquid diet. NPO after midnight. CBC monitoring. Colonoscopy tomorrow; cardiac clearance obtained. Assessment and plan a care discussed with Dr. Jain
[2018-07-09 11:36] LABS: Glucose,Whole Blood 125 mg/dL (75-99)
[2018-07-09] MEDS ORDERED: BISACODYL 5 MG TABLET.DR PO ONE (13:00)
--- NOTE | 2018-07-09 14:16 | P.PN ---
Subjective Progress Note Date: 07/09/18 This is an 83-year-old gentleman who follows with Dr. Kelley in the office. He has a known history of hypertension, hyperlipidemia, diabetes, prior history of smoking, history of carcinoma of the prostate, depression, presented to the hospital on this occasion because of lower GI bleeding. Patient states that his stool was very dark in color, and he also noted clots in it. Cardiology consultation was requested because of abnormality in troponin as well as accelerated hypertension. Patient had an echo cardiac gram with Doppler study performed which revealed an ejection fraction of 55-60%. Moderate aortic stenosis. Blood pressure this morning 170/80 at 4 AM, 155/60 8 AM. Hemoglobin on admission 10.3, 9.9 this morning, platelet count 203. Sodium 134, potassium 4.3, BUN 20 and creatinine 1.3. Mag level I.6 ,troponin 0.062 and 0.08. At the time of my examination, patient patient is sitting up in the chair, his is at bedside. He denies having any chest discomfort, breathing overall is stable. He does state that he has a little more swelling in his legs than his usual, th ere is some redness noted to the right lower extremity as well to be chronic according to the . 07/08/2018 Patient seen and examined today, overall feeling well. Continues to have elevated blood pressure in the 200, 190 systolic range. Patient was initiated on 5 mg of Norvasc which we will increase today to 10 mg. 07/09/2018 Patient seen and examined this morning, up ambulating in the hallway as tolerated. I pressure continues to be in the 200 systolic range. We will increase Coreg to 6.25 twice a day today. Patient will also be scheduled to undergo a colonoscopy tomorrow, we will continue to follow. Objective - Vital Signs Vital signs: Vital Signs Temp 98.0 F 07/09/18 08:00 Pulse 64 07/09/18 12:00 Resp 18 07/09/18 12:00 BP 198/76 07/09/18 12:00 Pulse Ox 96 07/09/18 12:00 Intake & Output 07/08/18 07/09/18 07/09/18 18:59 06:59 18:59 Intake Total 440 1220 240 Output Total 1750 700 Balance -1310 520 240 Weight 86.5 kg Intake: IV 200 Intake, IV Titration 520 Amount Magnesium Sulfate-D5w Pmx 300 1 gm In Dextrose/Water 1 100ml.bag @ 100 mls/hr IVPB Q1H [facility] B[facility]S AT [facility] Rx#: [id number] Sodium Chloride 0.9% 1, 220 000 ml @ 20 mls/hr IV . Q24H [facility] 234 [facility]S AT [facility] Rx#:[id number] Oral 240 700 240 Output: Urine 1750 700 Other: Voiding Method Toilet Urinal # Voids 2 # Bowel Movements 0 - Exam PHYSICAL EXAMINATION: GENERAL: 82-year-old gentleman, appears quite depressed, in no acute distress at the time of my examination. HEENT: Head is atraumatic, normocephalic. Pupils equal, round. Sclera anicteric. Conjunctiva are clear. Mucous membranes of the mouth are moist. Neck is supple. There is no elevated jugular venous pressure. No carotid bruit is heard. HEART EXAMINATION: Heart S1 and S2 systolic ejection murmur is heard in the aortic valve area. CHEST EXAMINATION: Lungs are clear to auscultation and precussion. No chest wall tenderness is noted on palpation or with deep breathing. ABDOMEN: Soft, nontender. Bowel sounds are heard. No organomegaly noted. EXTREMITIES: 2+ peripheral pulses with 1+ edema noted to the right lower extremity, chronic venous stasis changes redness to the right lower extremity with no ulceration noted. Race edema to the left lower extremity. NEUROLOGIC patient is awake, alert and oriented X3. - Labs CBC & Chem 7: 07/09/18 05:48 07/09/18 05:48 Labs: Abnormal Lab Results - Last 24 Hours (Table) 07/08/18 07/08/18 07/08/18 Range/Units 16:54 17:43 20:32 RBC (4.30-5.90) m/uL Hgb (13.0-17.5) gm/dL Hct (39.0-53.0) % Sodium (137-145) mmol/L Creatinine 1.38 H (0.66-1.25) mg/dL Glucose 157 H (74-99) mg/dL POC Glucose (mg/dL) 132 H 167 H (75-99) mg/dL Magnesium 1.2 L (1.6-2.3) mg/dL 07/09/18 07/09/18 07/09/18 Range/Units 05:48 05:48 05:50 RBC 3.72 L (4.30-5.90) m/uL Hgb 11.0 L (13.0-17.5) gm/dL Hct 32.9 L (39.0-53.0) % Sodium 135 L (137-145) mmol/L Creatinine 1.38 H (0.66-1.25) mg/dL Glucose 129 H (74-99) mg/dL POC Glucose (mg/dL) 148 H (75-99) mg/dL Magnesium (1.6-2.3) mg/dL 07/09/18 Range/Units 11:34 RBC (4.30-5.90) m/uL Hgb (13.0-17.5) gm/dL Hct (39.0-53.0) % Sodium (137-145) mmol/L Creatinine (0.66-1.25) mg/dL Glucose (74-99) mg/dL POC Glucose (mg/dL) 125 H (75-99) mg/dL Magnesium (1.6-2.3) mg/dL Assessment and Plan Plan: Assessment and plan #1 lower GI bleeding, could possibly be from diverticulitis. #2 acute on chronic kidney disease stage III #3 abnormal troponin , likely secondary to abnormal renal function. #4 hypertension #5 aortic I #6 diabetes #7 hyperlipidemia #8 chronic venous insufficiency of bilateral lower extremities #9 history of prostate cancer #10 history of depression #11 obesity Plan Echocardiogram with Doppler study revealed an ejection fraction of 55-60%, moderate aortic valve sclerosis with moderate aortic regurgitation. Troponin abnormality not consistent with acute coronary syndrome with no significant rise and fall pattern, likely secondary to abnormal renal function. Blood pressure 200/90, we'll increase dose of Coreg today. Patient may proceed with colonoscopy tomorrow. Continue the rest of the patient's medications. DNP note has been reviewed, I agree with a documented findings and plan of care. Patient was seen and examined.
[2018-07-09 14:35] VITALS: BMI 28.1
[2018-07-09] MEDS ORDERED: PEG 3350-NA SULF,BICARB,CL/KCL 4,000 ML BOTTLE PO ONE (15:00)
[2018-07-09 17:04] LABS: Glucose,Whole Blood 131 mg/dL (75-99)
[2018-07-09] MEDS: MAGNESIUM SULFATE-D5W PMX 1 GM in DEXTROSE/WATER 1 100ML.BAG IVPB SCH ×2 (17:25→18:30)
[2018-07-09] MEDS: CARVEDILOL 6.25 MG TAB PO SCH (17:28)
[2018-07-09 20:45] LABS: Glucose,Whole Blood 139 mg/dL (75-99)
[2018-07-09] MEDS: DOXAZOSIN 4 MG TAB PO SCH (20:59)
[2018-07-09] MEDS: ATORVASTATIN 10 MG TAB PO SCH (21:01)
[2018-07-09] MEDS: SODIUM CHLORIDE 0.9% 1,000 ML IV SCH (21:24)
[2018-07-09] MEDS: SERTRALINE 50 MG TAB PO SCH (22:58)
[2018-07-10 05:57] LABS: Glucose,Whole Blood 178 mg/dL (75-99)
[2018-07-10] MEDS: PANTOPRAZOLE 40 MG TABLET PO SCH ×2 (06:05→17:12)
[2018-07-10] MEDS: CARVEDILOL 6.25 MG TAB PO SCH ×2 (06:05→17:12)
[2018-07-10] MEDS: hydrALAZINE HCL 50 MG TAB PO SCH ×3 (09:08→22:51)
[2018-07-10] MEDS: cloNIDine HCL 0.1 MG TAB PO SCH (09:08)
[2018-07-10] MEDS: ALLOPURINOL 100 MG TAB PO SCH (09:09)
[2018-07-10] MEDS: amLODIPine 10 MG TAB PO SCH (09:09)
[2018-07-10 12:09] LABS: Glucose,Whole Blood 167 mg/dL (75-99)
[2018-07-10] MEDS ORDERED: PROPOFOL 10 MG/ML 20 ML VIAL IV ONE (13:36)
[2018-07-10] MEDS ORDERED: IV FLUID CONTINUATION 1,000 ML IV ONE (13:39)
--- NOTE | 2018-07-10 14:11 | P.PCN ---
Date of Procedure: 07/10/18 Procedure(s) Performed: Procedure: Total colonoscopy. Preoperative diagnosis: GI bleeding. Postoperative diagnosis: 1. 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 2. Poor preparation of the colon, otherwise, exam to the cecum showed no obvious abnormalities or bleeding. Preparation: GoLYTELY prep. Sedation: Was provided by anesthesia. Brief clinical history: The patient is an 83-year-old male with history of hypertension, hyperlipidemia, diabetes, prior history of smoking, history of carcinoma of the prostate, depression, presented to the hospital because of lower GI bleeding. Patient states that his stool was very dark in color, and he also noted clots in it. Hb on admission 10.3, 11 this morning, platelet count 203. Sodium 134, potassium 4.3, BUN 20 and creatinine 1.3. Mag level I.6 ,troponin 0.062 and 0.08. He denies having any chest discomfort or SOB. He does state that he has a little more swelling in his legs than his usual, there is some redness noted to the right lower extremity as well to be chronic according to the . The patient had colonoscopy and polypectomy with Dr. Blackburn 2013. He denied dysphagia, odynophagia or hematemesis. He did have some nausea during this illness but did not vomit. An upper endoscopy I performed July 08 showed minimal gastritis and duodenitis. Biopsies pending. Other details are summarized in the history and physical and dictated consultation and progress notes. This evaluation is to assess for possible the possibility lower GI source of bleeding. Procedure: With the patient on his left lateral decubitus position and after informed consent and adequate sedation, the perianal area was inspected and it did not show any fissures or fistulas. There were no masses felt on digital rectal examination. The Olympus CFH 190L video colonoscope was then inserted in the rectum in the usual fashion and advanced to the cecum. Unfortunately, the preparation was poor, however, there was no obvious tumors or bleeding. The rectum showed some erythema and telangiectasia and minimal friability consistent with radiation colitis but there was no spontaneous bleeding. The patient tolerated the procedure well. Plan: The patient and family were reassured. Will allow regular diet. Further plans based on his course. If he has any recurrence of fresh bleeding per rectum I would consider radiation proctitis as the cause and I would consider treating with argon plasma coagulation at that time.
[2018-07-10] MEDS: BRIMONIDINE TARTRATE 0.2% DROPS 5 ML BTL LEFT EYE SCH ×3 (15:11→22:51)
--- NOTE | 2018-07-10 15:14 | PN ---
PROGRESS NOTE Mr. Ríos is an 83-year-old gentleman with history of hypertension, hyperlipidemia, diabetes, and carcinoma of the prostate, who presented to the hospital with lower GI bleeding. Patient's blood pressure has been running high. We started him on Coreg 6.25 mg twice daily, yesterday. His blood pressure is still running in the 160 range. Patient had an upper endoscopy today, did not reveal any significant pathology. He is going to have colonoscopy. Patient has been stable. No complaints of any chest pain or shortness of breath. His echocardiogram showed normal LV function. His elevated troponins were felt to be noncardiac in nature. His blood pressure running about 130/60. Pulse is 86. His lab values showed a hemoglobin of 11 g yesterday. His creatinine was 1.38. IMPRESSION: 1. Lower gastrointestinal bleeding, waiting to have colonoscopy. 2. Hypertension, seem to be better controlled. 3. Renal failure. 4. Abnormal troponins, which appear to be noncardiac in nature. PLAN: Will continue current medical therapy. Continue monitor his blood pressure. Await further reports of the colonoscopy. MMODL / IJN: [id number] /
[2018-07-10 16:40] LABS: Glucose,Whole Blood 166 mg/dL (75-99)
[2018-07-10] MEDS: CYANOCOBALAMIN 500 MCG TAB PO SCH (17:12)
[2018-07-10] MEDS: GLIMEPIRIDE 1 MG TAB PO SCH (17:12)
[2018-07-10] MEDS: MULTIVITAMINS, THERA 1 EACH TAB PO SCH (17:12)
[2018-07-10] MEDS: CALCIUM CARB-VIT D 500MG-200UN 1 EACH TAB PO SCH (17:13)
[2018-07-10 20:54] LABS: Glucose,Whole Blood 313 mg/dL (75-99)
[2018-07-10] MEDS: SODIUM CHLORIDE 0.9% 1,000 ML IV SCH (21:06)
[2018-07-10] MEDS: ATORVASTATIN 10 MG TAB PO SCH (21:08)
[2018-07-10] MEDS: SERTRALINE 50 MG TAB PO SCH (21:08)
[2018-07-10] MEDS: DOXAZOSIN 4 MG TAB PO SCH (21:09)
[2018-07-10] MEDS: cloNIDine HCL 0.2 MG TAB PO SCH (21:09)
[2018-07-10] MEDS: INSULIN ASPART (NovoLOG) 100 UNIT/ML VIAL SQ SCH (21:21)
--- NOTE | 2018-07-10 23:00 | PN ---
PROGRESS NOTE Covering physician: Dr. Gayle Rosenbaum CHIEF COMPLAINT: Re-evaluation. HISTORY OF PRESENT ILLNESS: This 83-year-old gentleman was admitted to the hospital with lower GI bleeding. He was also noted to have elevated blood pressure, underlying chronic kidney disease. He also has a previous history of cancer of the prostate with radiation therapy. The patient had lower GI bleeding noted. He had an upper endoscopy done which did not reveal any significant bleeding. The patient in view of this is scheduled to have a colonoscopy done today. REVIEW OF SYSTEMS: NEURO: Denies any headaches, dizziness. PSYCH: No anxiety. CARDIAC: Denies chest pain, angina, palpitations. RESPIRATORY: Denies shortness of breath, cough. GI: No nausea, vomiting, abdominal pain, diarrhea. He had a preparation. Denied any blood in the stool. : No symptoms of dysuria or hematuria. EXTREMITIES: Denies pain, edema. CONSTITUTIONAL: No fever or chills. PHYSICAL EXAMINATION: [id number]-old gentleman who appears younger than his stated age, at present in no distress. Vital signs revealed temperature 97.9, pulse 63, respirations 20, blood pressure 162/72, 95% on room air. HEENT: Normocephalic. NECK: No JVD. CHEST: Clear to auscultation and percussion. CARDIAC: Normal S1, S2 with no gallop. Systolic murmur 2/6 at the right second intercostal space. ABDOMEN: Soft. No palpable masses. Bowel sounds normal. No organomegaly. Protuberant. Extremities reveal trace edema. NEUROLOGIC: Awake, alert, oriented to place. Moves both upper and lower extremities adequately. LABORATORY ASSESSMENT: Accu-Cheks: Blood sugar 170 this morning. The patient did have a colonoscopy done. Colonoscopy revealed evidence suggestive of radiation proctitis. No active bleeding. ASSESSMENT: 1. 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 2. History of carcinoma of the prostate. 3. Hypertension with elevated blood pressures. 4. Chronic kidney disease, stage III. 5. Diabetes mellitus. PLAN: The patient is stable. Continue present medical regimen. Patient's condition discussed with the patient. Prognosis remains guarded. Discharge planned for tomorrow. MMODL / IJN: [id number] /
[2018-07-11 05:53] LABS: Glucose,Whole Blood 80 mg/dL (75-99)
[2018-07-11] MEDS: INSULIN ASPART (NovoLOG) 100 UNIT/ML VIAL SQ SCH ×4 (06:01→21:00)
[2018-07-11 06:19] LABS: HGB 10.4 gm/dL (13.0-17.5); MCH 29.2 pg (25.0-35.0); MCHC 33.5 g/dL (31.0-37.0); MCV 87.1 fL (80.0-100.0); Mean Platelet Volume 6.3; Platelet Count 218 k/uL (150-450); RBC 3.57 m/uL (4.30-5.90); RDW 14.1 % (11.5-15.5); WBC 7.8 k/uL (3.8-10.6)
[2018-07-11 06:29] LABS: Calcium 9.5 mg/dL (8.4-10.2); Potassium 3.9 mmol/L (3.5-5.1)
[2018-07-11] MEDS: GLIMEPIRIDE 1 MG TAB PO SCH (06:54)
[2018-07-11] MEDS: PANTOPRAZOLE 40 MG TABLET PO SCH ×2 (06:54→16:52)
[2018-07-11] MEDS: CARVEDILOL 6.25 MG TAB PO SCH ×2 (06:54→16:52)
[2018-07-11] MEDS: CYANOCOBALAMIN 500 MCG TAB PO SCH (09:10)
[2018-07-11] MEDS: hydrALAZINE HCL 50 MG TAB PO SCH ×3 (09:10→20:59)
[2018-07-11] MEDS: CALCIUM CARB-VIT D 500MG-200UN 1 EACH TAB PO SCH (09:10)
[2018-07-11] MEDS: amLODIPine 10 MG TAB PO SCH (09:10)
[2018-07-11] MEDS: cloNIDine HCL 0.2 MG TAB PO SCH ×2 (09:10→20:59)
[2018-07-11] MEDS: ALLOPURINOL 100 MG TAB PO SCH (09:10)
[2018-07-11] MEDS: BRIMONIDINE TARTRATE 0.2% DROPS 5 ML BTL LEFT EYE SCH ×3 (09:10→23:22)
[2018-07-11] MEDS: SODIUM CHLORIDE 0.9% 1,000 ML IV SCH ×3 (09:39→21:03)
--- NOTE | 2018-07-11 10:21 | P.PN ---
Subjective Progress Note Date: 07/11/18 Principal diagnosis: GI bleed Status post EGD/colonoscopy for evaluation of anemia dark-colored bowel movements. Findings of a sliding hiatal hernia no evidence of complicated ref lux disease no ulcers, radiation proctitis no intervention necessary. Biopsies taken. Hemoglobin 10.4. Denies abdominal pain. No bleeding. Objective - Vital Signs Vital signs: Vital Signs Temp 96.9 F L 07/11/18 08:45 Pulse 73 07/11/18 08:45 Resp 16 07/11/18 08:45 BP 140/62 07/11/18 08:45 Pulse Ox 95 07/11/18 08:45 Intake & Output 07/10/18 07/11/18 07/11/18 18:59 06:59 18:59 Intake Total 500 480 Output Total 300 Balance 200 480 Weight 88.4 kg Intake: IV 300 Oral 200 480 Output: Urine 300 Other: Voiding Method Toilet Urinal # Voids 3 1 # Bowel Movements 1 - Exam General appearance: The patient is alert, oriented, in no acute distress. HET: Head is normocephalic and atraumatic. Pupils are equal and reactive. Oropharynx is clear without lesions. Neck: Supple without lymphadenopathy. Trachea midline. Heart: S1 S2. Regular rate and rhythm. Lungs: No crackles or wheezes are heard. Abdomen: Soft, nontender, nondistended with bowel sounds. No peritoneal signs. No palpable organomegaly or masses. Extremities: Normal skin color and turgor. No cyanosis, rash, ulceration, clubb ing, or edema. Radial and pedal pulses are 2/4 bilaterally. Neurological: No focal deficits. Strength and sensation are grossly intact. - Labs CBC & Chem 7: 07/11/18 06:04 07/11/18 06:04 Labs: Abnormal Lab Results - Last 24 Hours (Table) 07/10/18 07/10/18 07/10/18 Range/Units 12:08 16:28 20:52 RBC (4.30-5.90) m/uL Hgb (13.0-17.5) gm/dL Hct (39.0-53.0) % Sodium (137-145) mmol/L BUN (9-20) mg/dL Creatinine (0.66-1.25) mg/dL Glucose (74-99) mg/dL POC Glucose (mg/dL) 167 H 166 H 313 H (75-99) mg/dL 07/11/18 07/11/18 Range/Units 06:04 06:04 RBC 3.57 L (4.30-5.90) m/uL Hgb 10.4 L (13.0-17.5) gm/dL Hct 31.0 L (39.0-53.0) % Sodium 135 L (137-145) mmol/L BUN 28 H (9-20) mg/dL Creatinine 2.53 H (0.66-1.25) mg/dL Glucose 73 L (74-99) mg/dL POC Glucose (mg/dL) (75-99) mg/dL Assessment and Plan (1) GI bleed Narrative/Plan: Status post EGD colonoscopy no evidence of complicated reflux disease no evidence of ulcers. Radiation proctitis poor colonic prep. Current Visit: Yes Status: Acute Code(s): K92.2 - GASTROINTESTINAL HEMORRHAGE, UNSPECIFIED SNOMED Code(s): 76448728 (2) History of carcinoma in situ of prostate Current Visit: Yes Status: Acute Code(s): Z86.008 - PERSONAL HISTORY OF IN- SITU NEOPLASM OF OTHER SITE SNOMED Code(s): 671735103 (3) Radiation proctitis Current Visit: Yes Status: Acute Code(s): K62.7 - RADIATION PROCTITIS SNOMED Code(s): 117436361 Plan: 1. CBC monitoring. Diet as tolerated. Assessment and plan a care discussed with Dr. Jain
[2018-07-11 11:29] LABS: Glucose,Whole Blood 227 mg/dL (75-99)
[2018-07-11] MEDS: MULTIVITAMINS, THERA 1 EACH TAB PO SCH (12:22)
[2018-07-11 15:01] LABS: Hemoglobin A1C 5.2 % (4.0-6.0)
[2018-07-11 16:23] LABS: Glucose,Whole Blood 66 mg/dL (75-99)
[2018-07-11 16:32] LABS: Glucose,Whole Blood 72 mg/dL (75-99)
--- NOTE | 2018-07-11 18:49 | PN ---
PROGRESS NOTE Admitting physician Dr. Saxena. Covering physician Dr. Gayle Rosenbaum. CHIEF COMPLAINT: Re-evaluation. HISTORY OF PRESENT ILLNESS: This 83-year-old gentleman was admitted to the hospital because of GI bleeding. After workup it was found that the patient probably has lower GI bleeding from radiation proctitis. The patient has no active bleeding. He had colonoscopy yesterday. The patient actually feels fairly well. He is ready to go home. However, today's lab work came back showing that his creatinine has jumped up to 2.53. The patient has no associated symptoms of nausea or vomiting. He had a very good meal this morning. We will start the patient on IV hydration and repeat labs in the morning tomorrow to make sure the creatinine has not gone up any further. REVIEW OF SYSTEMS: NEURO: Denies any headaches, dizziness. PSYCH: No anxiety. CARDIAC: No chest pain, angina, palpitations. RESPIRATORY: Denies shortness of breath, cough. GI: No nausea, vomiting, abdominal pain, diarrhea. Does feel bloated. Has had no bowel movement, though, yet. : No symptoms of dysuria or hematuria. He says he has been voiding adequately. EXTREMITIES: Denies pain. Does have some trace edema. CONSTITUTIONAL: No fever or chills. PHYSICAL EXAMINATION: Pleasant gentleman in no distress. Vital signs reveal temperature 96.9, pulse 73, respirations 16, blood pressure 140/62, pulse ox 95% on room air. HEENT: Normocephalic. NECK: No JVD. Chest examination is clear to auscultation, percussion, with mild generalized decreased air flow. CARDIAC: Distant heart sounds S1, S2 with no gallop. Systolic murmur 2/6, right second intercostal space and the left sternal border. ABDOMEN: Soft. No palpable masses. Bowel sounds normal. No organomegaly. No abdominal bruits. EXTREMITIES: Trace edema. Neurologically awake, alert, oriented x3 with well-coordinated movements. LABORATORY ASSESSMENT: Sodium 135, potassium 3.9, CO2 content 26, anion gap 6, BUN of 28. Creatinine 2.53; significant jump up. Glucose was 73. GFR is 23. Hemoglobin 10.4, which is stable. ASSESSMENT: 1. Acute kidney injury. 2. Chronic kidney disease. 3. Anemia secondary to acute blood loss. 4. Radiation proctitis. 5. History of cancer of the prostate. 6. Aortic stenosis. 7. Diabetes mellitus. 8. Hypertension. PLAN: The patient at present is stable. Will start the patient on IV fluids. Repeat labs in the morning. The patient will not be discharged home today in view of his renal status. MMALYSHAL / SONYN: [id number] /
[2018-07-11 20:56] LABS: Glucose,Whole Blood 169 mg/dL (75-99)
[2018-07-11] MEDS: SERTRALINE 50 MG TAB PO SCH (20:59)
[2018-07-11] MEDS: DOXAZOSIN 4 MG TAB PO SCH (21:01)
[2018-07-11] MEDS: ATORVASTATIN 10 MG TAB PO SCH (21:02)
[2018-07-12 06:08] LABS: Glucose,Whole Blood 107 mg/dL (75-99)
[2018-07-12] MEDS: INSULIN ASPART (NovoLOG) 100 UNIT/ML VIAL SQ SCH ×2 (06:16→12:35)
[2018-07-12] MEDS: PANTOPRAZOLE 40 MG TABLET PO SCH (06:19)
[2018-07-12] MEDS: GLIMEPIRIDE 1 MG TAB PO SCH (06:19)
[2018-07-12] MEDS: CARVEDILOL 6.25 MG TAB PO SCH (06:19)
[2018-07-12 07:22] VITALS: PULSE 68; RESP 18
[2018-07-12] MEDS: CALCIUM CARB-VIT D 500MG-200UN 1 EACH TAB PO SCH (07:37)
[2018-07-12] MEDS: cloNIDine HCL 0.2 MG TAB PO SCH (07:37)
[2018-07-12] MEDS: ALLOPURINOL 100 MG TAB PO SCH (07:37)
[2018-07-12] MEDS: amLODIPine 10 MG TAB PO SCH (07:37)
[2018-07-12] MEDS: hydrALAZINE HCL 50 MG TAB PO SCH (07:37)
[2018-07-12 07:38] LABS: Calcium 8.8 mg/dL (8.4-10.2); Potassium 4.2 mmol/L (3.5-5.1)
[2018-07-12] MEDS: CYANOCOBALAMIN 500 MCG TAB PO SCH (07:40)
[2018-07-12] MEDS: BRIMONIDINE TARTRATE 0.2% DROPS 5 ML BTL LEFT EYE SCH (07:41)
[2018-07-12 11:36] LABS: Glucose,Whole Blood 242 mg/dL (75-99)
--- NOTE | 2018-07-12 11:43 | P.DS ---
Providers Date of admission: 07/05/18 21:00 Attending physician: Gino Saxena Consults: 07/06/18 07:00 Consult Physician Routine Consulting Provider: Duane Jain Consult Reason/Comments: blood in stool Do you want consulting provider notified?: Yes, Notify in am 07/06/18 07:52 Consult Physician Urgent Consulting Provider: Macario Kelley Consult Reason/Comments: elevated troponins Do you want consulting provider notified?: Yes Primary care physician: Gino Saxena The patient is a 83-year-old gentleman who presented with weakness and history of rectal bleeding with blood loss anemia superimposed on anemia of chronic kidney disease. Patient initially had also elevated troponin levels associated with marked ectopy with frequent PVCs on the monitor. He did not have chest pain. The patient was admitted. Monitored. Magnesium was found to be low and this was replaced. Laboratory values did reveal an initial drop in hemoglobin from 10.3 down to 9.9. Initial renal function revealed a BUN of 29 with creatinine 1.4 giving him a GFR of 45. Blood sugar was 140. Sodium was 132. Coagulation studies were normal. Albumin slightly low at 3.4. Liver function tests with enzymes were unremarkable. Initial troponin was 0.062 and radha to 0.089. The patient was seen in consult by cardiology and gastroenterology. Low magnesium was replaced. Initially because of the rectal bleeding blood pressure medications were held but these were reinstated as his blood pressures radha. Echocardiogram revealed sinus rhythm. Normal LV size. Ejection fraction of 55- 60%. LA was severely dilated greater than 40 mL. There was mild to moderate aortic valve sclerosis. Moderate aortic regurgitation. Moderate aortic stenosis present. Peak gradient 40/23 mmHg. RV systolic pressure was less than 35. After clearance from cardiology patient underwent upper gastroscopy which revealed mild chronic gastritis. No evidence for Helibacter pylori. Patient subsequently underwent total colonoscopy. The rectum showed some erythema and telangiectasias that were slightly friable and consistent with radiation colitis but no active bleeding. Patient's hemoglobin remained stable around the 10 range. He did not require t ransfusions. BUN radha to 42 with a creatinine 2.7 for a GFR of 21. This did stabilize with some IV rehydration. Patient generally is urinating satisfactory along with normal potassium and normal bowel movements without further bleeding. He is eating satisfactorily and plans are for patient to be discharged home today. He will call the office on Saturday and have follow-up appointment and follow-up labs during the week. I discussed at length with patient and . If recurrent episodes of bleeding persist he is to return to the emergency room. Home medications: Patient to hold aspirin for 1 more week before starting. 81 mg. Sertraline 50 mg at at bedtime Lovastatin 40 mg at at bedtime Gatifloxacin/prednisolone eyedrops 1 drop right eye on Saturday 1%-0.5% Dozazosin 8 mg at at bedtime to resume krill oil 50 mg daily Vitamin B12 500 g daily Patient takes co-every 10 400 mg daily Superimposed complex daily Clonidine 0.3 twice a day for blood pressure Multiple vitamin daily Calcium 600 with vitamin D3 200 one daily Patient has EpiPen 0.3 mg IM if needed for reaction/ALLERGIC Alphagan P eyedrops 0.2% one drop in the left eye every 8 hours Glimepiride 1 mg before breakfast Allopurinol 100 mg daily Hydralazine 50 mg 3 times a day Norvasc 10 mg daily Carvedilol 6.25 twice a day with meals. Discharge diagnoses 1. Acute lower gastrointestinal hemorrhage secondary to radiation proctitis. Resulting blood loss anemia. 2. 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 Also associated with anemia of chronic kidney disease. 3. Elevated troponin levels not related to ischemic cardiac injury. 4. Cardiac ectopy with frequent PVCs. 5. Hypertension 6. Aortic sclerosis with murmur 7. Type 2 diabetes 8. 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 History of gout and hyperuricemia 11. Hyperlipidemia 12. Glaucoma 13. History of depression 14. Obesity Patient to resume diet as tolerated. Gradual increase in activities as tolerated. Once again he will follow-up in the office by calling on Saturday to set up an appointment during the week. Return to emergency room if any persistent hemorrhage as discussed with patient and today. Patient Condition at Discharge: Fair Plan - Discharge Summary New Discharge Prescriptions: New hydrALAZINE HCL [Apresoline] 50 mg PO TID #90 tab Carvedilol [Coreg] 6.25 mg PO BID-W/MEALS #60 tab amLODIPine [Norvasc] 10 mg PO DAILY #30 tab Continue Aspirin 81 mg PO HS Doxazosin Mesylate 8 mg PO HS Allopurinol [Zyloprim] 100 mg PO DAILY Lovastatin [Mevacor] 40 mg PO HS cloNIDine HCL 0.3 mg PO BID EPINEPHrine (Auto Inject) [Epipen] 0.3 mg IM ONCE PRN PRN Reason: Anaphylaxis Gatifloxacin/Prednisolone [prednisoLONE 1%-Gatiflox 0.5%] 1 drop RIGHT EYE PERALTA Brimonidine Tartrate [Alphagan P 0.2% Ophth Soln] 1 drops LEFT EYE Q8H Glimepiride [Amaryl] 1 mg PO AC-BRKFST Krill Oil 500 mg PO DAILY Ubidecarenone [Co Q-10] 400 mg PO DAILY Super B-Comples W/ Biotin 1 tab PO DAILY Multivitamins, Thera [Multivitamin (formulary)] 1 tab PO DAILY Calcium Carbonate/Vitamin D3 [Calcium 600-Vit D3 200 Tablet] 1 tab PO DAILY Sertraline [Zoloft] 50 mg PO HS Cyanocobalamin (Vitamin B-12) [Vitamin B-12] 5,000 mcg PO DAILY Discontinued Carvedilol [Coreg] 3.125 mg PO BID #60 tablet Discharge Medication List Allopurinol [Zyloprim] 100 mg PO DAILY 12/02/14 [History] Aspirin 81 mg PO HS 12/02/14 [History] Doxazosin Mesylate 8 mg PO HS 12/02/14 [History] Lovastatin [Mevacor] 40 mg PO HS 12/02/14 [History] cloNIDine HCL 0.3 mg PO BID 09/23/17 [History] EPINEPHrine (Auto Inject) [Epipen] 0.3 mg IM ONCE PRN 09/24/17 [History] Brimonidine Tartrate [Alphagan P 0.2% Ophth Soln] 1 drops LEFT EYE Q8H 11/13/17 [History] Gatifloxacin/Prednisolone [prednisoLONE 1%-Gatiflox 0.5%] 1 drop RIGHT EYE PERALTA 11/13/17 [History] Glimepiride [Amaryl] 1 mg PO AC-BRKFST 11/13/17 [History] Calcium Carbonate/Vitamin D3 [Calcium 600-Vit D3 200 Tablet] 1 tab PO DAILY 07/05/18 [History] Cyanocobalamin (Vitamin B-12) [Vitamin B-12] 5,000 mcg PO DAILY 07/05/18 [History] Krill Oil 500 mg PO DAILY 07/05/18 [History] Multivitamins, Thera [Multivitamin (formulary)] 1 tab PO DAILY 07/05/18 [History] Sertraline [Zoloft] 50 mg PO HS 07/05/18 [History] Super B-Comples W/ Biotin 1 tab PO DAILY 07/05/18 [History] Ubidecarenone [Co Q-10] 400 mg PO DAILY 07/05/18 [History] Carvedilol [Coreg] 6.25 mg PO BID-W/MEALS #60 tab 07/11/18 [Rx] amLODIPine [Norvasc] 10 mg PO DAILY #30 tab 07/11/18 [Rx] hydrALAZINE HCL [Apresoline] 50 mg PO TID #90 tab 07/11/18 [Rx] Follow up Appointment(s)/Referral(s): [facility] [Provider Group] - 1 Week Duane Jain MD [STAFF PHYSICIAN] - 07/28/18 3:30 pm Gino Saxena MD [Primary Care Provider] - 07/17/18 11:00 am () Patient Instructions/Handouts: Gastrointestinal Bleeding (DC), Proctitis (DC), Diet for Stomach Ulcers and Gastritis (ED), Basic Carbohydrate Counting (DC), Hypertension (DC) Discharge Disposition: HOME SELF-CARE
[2018-07-12 12:10] VITALS: BP 131/58; TEMP 96.3
[2018-07-12] MEDS: MULTIVITAMINS, THERA 1 EACH TAB PO SCH (12:36)
--- NOTE | 2018-07-12 17:41 | PN ---
PROGRESS NOTE DATE OF SERVICE: 07/12/2018 Patient is an 83-year-old pleasant white male admitted to the hospital with GI bleed. He underwent an upper endoscopy by Dr. Jain on July 09 followed by a colonoscopy on July 10 that showed evidence of mild radiation proctitis. The patient is doing well. He denies any symptoms. No further episodes of bleeding. He had one bowel movement this morning that was brought in color. He reports no nausea, vomiting. On a regular diet, tolerating well. PHYSICAL EXAMINATION: Appears comfortable, in no apparent distress. Vital signs are stable, blood pressure is 150/68, pulse 59, temperature 98.6. HEENT examination unremarkable. Conjunctivae are pink, sclerae nonicteric. Oral cavity no lesions. NECK: No JVD or lymph node enlargement. Chest was clear to auscultation. HEART: Regular rate and rhythm. ABDOMEN: Soft. Bowel sounds are positive. No organomegaly. EXTREMITIES: No pedal edema. SKIN: No rashes. NEURO: Alert and oriented x3. No focal deficits. LABS: From yesterday, hemoglobin is 10.4, BUN is 42, creatinine is 2.75. IMPRESSION: 1. Acute gastrointestinal bleed, status post EGD colonoscopy by Dr. Jain 2 days ago that showed evidence of radiation proctitis. Patient clinically is stable. No further episodes of bleeding. Hemoglobin stable at 10.4 g/dL. 2. Acute kidney injury with mild elevation of BUN and creatinine, which are currently being followed closely. RECOMMENDATION: 1. Monitor hemoglobin. 2. Monitor CBC on a daily basis. 3. Advance diet as tolerated. 4. Repeat labs in the morning and will follow the patient closely during his hospital stay. Thank you for this consultation. MMODL / IJN: [id number] /
--- NOTE | 2018-07-12 18:50 | PN ---
PROGRESS NOTE Mr. Ríos is a gentleman who came in with GI bleed, elevated troponin which did not suggest myocardial ischemia, is doing well. Resting comfortably. Denies chest pain. Stable shortness of breath. S1, S2 heard normally. Ejection systolic murmur at the base is audible. Lungs are clear. Abdomen and lower extremity exam is unchanged. PLAN: Continue current medications and increase activity and hopefully he can be discharged soon. MMODL / IJN: [id number] /
[2018-07-13] MEDS ORDERED: CYANOCOBALAMIN 500 MCG TAB PO SCH ×2 (12:00)
== END 2018-07-12 14:00 | disposition home or self-care (01) | DRG 394 ==
LOC: EC 18:06 → 3SCARD 21:00
PROVIDERS: ADMIT Internal Medicine; ATTEND Internal Medicine
PROC: 0DB78ZX Excision of Stomach, Pylorus, Via Natural or Artificial Opening Endoscopic, Diagnostic (ICD-10-PCS; 2018-07-08)
PROC: 0DJD8ZZ Inspection of Lower Intestinal Tract, Via Natural or Artificial Opening Endoscopic (ICD-10-PCS; principal; 2018-07-10 12:55)
DX: K62.7 Radiation proctitis (principal); D62 Acute posthemorrhagic anemia; N17.9 Acute kidney failure, unspecified; K92.2 Gastrointestinal hemorrhage, unspecified; E11.22 Type 2 diabetes mellitus with diabetic chronic kidney disease; E11.39 Type 2 diabetes mellitus with other diabetic ophthalmic complication; I35.0 Nonrheumatic aortic (valve) stenosis; N18.3 Chronic kidney disease, stage 3 (moderate); D63.1 Anemia in chronic kidney disease; H42 Glaucoma in diseases classified elsewhere; E66.9 Obesity, unspecified; E78.5 Hyperlipidemia, unspecified; F32.9 Major depressive disorder, single episode, unspecified; H54.7 Unspecified visual loss; I12.9 Hypertensive chronic kidney disease with stage 1 through stage 4 chronic kidney disease, or unspecified chronic kidney disease; I49.3 Ventricular premature depolarization; I70.0 Atherosclerosis of aorta; I87.2 Venous insufficiency (chronic) (peripheral); K29.70 Gastritis, unspecified, without bleeding; K29.80 Duodenitis without bleeding; K44.9 Diaphragmatic hernia without obstruction or gangrene; K57.90 Diverticulosis of intestine, part unspecified, without perforation or abscess without bleeding; K59.09 Other constipation; M10.9 Gout, unspecified; R77.9 Abnormality of plasma protein, unspecified; Z79.82 Long term (current) use of aspirin; Z79.84 Long term (current) use of oral hypoglycemic drugs; Z79.899 Other long term (current) drug therapy; Z87.891 Personal history of nicotine dependence; Z85.46 Personal history of malignant neoplasm of prostate; Z92.3 Personal history of irradiation; Z88.1 Allergy status to other antibiotic agents; Z88.2 Allergy status to sulfonamides; Z68.29 Body mass index [BMI] 29.0-29.9, adult; Z81.8 Family history of other mental and behavioral disorders; Z83.3 Family history of diabetes mellitus; Z82.5 Family history of asthma and other chronic lower respiratory diseases; Z82.0 Family history of epilepsy and other diseases of the nervous system; Y84.2 Radiological procedure and radiotherapy as the cause of abnormal reaction of the patient, or of later complication, without mention of misadventure at the time of the procedure
CPT/HCPCS: 36415; 43239; 45378; 80048; 80053; 82272; 83036; 83690; 83735; 84484; 85025; 85027; 85610; 85730; 86850; 86900; 86901; 88305; 93005; 93306; 96361; 96374; 99285

== ENCOUNTER → 2019-03-11 | Outpatient (CLI) | payer MEDICARE | END | disposition home or self-care (01) | LOC: CPPFTMAIN 10:37 | PROVIDERS: ATTEND Internal Medicine Critical Care Medicine | DX: J44.9 Chronic obstructive pulmonary disease, unspecified (principal); R94.2 Abnormal results of pulmonary function studies | CPT/HCPCS: 94060; 94726; 94729 ==

== ENCOUNTER → 2019-11-28 | Outpatient (CLI) | payer MEDICARE ==
--- NOTE | 2019-11-28 12:23 | CT ---
EXAMINATION TYPE: CT chest wo con DATE OF EXAM: 11/28/2019 COMPARISON: 04/05/2012 HISTORY: ILD CT DLP: 697 mGycm High-resolution noncontrast CT of the chest was performed with the patient in the prone and supine po sitions. Lung and mediastinal window settings are submitted. Small bilateral pleural effusions noted right greater than left. Vague areas of groundglass density n oted within the upper lobes and midlung zones. Overall however there is significant improvement relat [place] to prior examination. Mild lower lobe bronchiectasis seen. I do not see evidence for fibrosis or significant emphysematous change. No evidence for airspace consolidation. Right lower lobe pulmonary nodule described previously is not reproduced on this examination. Moderately severe gynecomastia not ed bilaterally. Cardiomegaly with coronary artery calcifications. Ectasia thoracic aorta with atherom atous change. Small gallstones noted incidentally. IMPRESSION: 1. All pleural effusions right greater than left scattered vague groundglass densities noted much imp roved from prior study. 2. No evidence for pulmonary fibrosis. Mild lower lobe bronchiectasis persists.
== END | disposition home or self-care (01) ==
LOC: RADCTMAIN 11:31
PROVIDERS: ATTEND Internal Medicine Critical Care Medicine
DX: J90 Pleural effusion, not elsewhere classified (principal); J47.9 Bronchiectasis, uncomplicated; R91.8 Other nonspecific abnormal finding of lung field
CPT/HCPCS: 71250

== ENCOUNTER → 2020-01-26 | Outpatient (CLI) | payer MEDICARE | END | disposition home or self-care (01) | LOC: CPPFTMAIN 07:19 | PROVIDERS: ATTEND Internal Medicine Critical Care Medicine | DX: J44.9 Chronic obstructive pulmonary disease, unspecified (principal); R94.2 Abnormal results of pulmonary function studies | CPT/HCPCS: 94060; 94726; 94729 ==

== ENCOUNTER 2020-10-05 19:47 | Observation (INO) | payer MEDICARE ==
[2020-10-05] MEDS ORDERED: ONDANSETRON 4 MG/2 ML VIAL IVP STA (20:17)
--- NOTE | 2020-10-05 20:21 | ED ---
GI Bleed HPI - General Chief complaint: GI Bleed Stated complaint: rectal bleeding Time Seen by Provider: 10/05/20 19:54 Source: patient, family Mode of arrival: ambulatory Limitations: no limitations - History of Present Illness Initial comments: 85 year-old male patient presents to the emergency department today for evaluation of bloody stool. States he started this morning with watery diarrhea and dry heaves. States that he has been having frequent bowel movements with bright red blood and blood clots. States too many to count throughout the day. This evening symptoms persisted so he presented to be evaluated. He does take aspirin daily, denies any other blood thinners. States he has abdominal cramping prior to bowel movements. He reports associated weakness. Has history of chronic kidney disease and anemia. Did have GI bleed in the past. Last colonoscopy was 2018. Patient denies any recent rash, fever, chills, cough, shortness of breath, chest pain, abdominal pain, nausea, vomiting, diarrhea, constipation, back pain, numbness, tingling, dizziness, weakness, hematuria, dysuria, urinary urgency, urinary frequency, headache, visual changes, or any other complaints. - Related Data Home Medications Medication Instructions Recorded Confirmed Aspirin 81 mg PO HS 12/02/14 10/05/20 Doxazosin Mesylate 8 mg PO HS 12/02/14 10/05/20 Lovastatin [Mevacor] 40 mg PO HS 12/02/14 10/05/20 allopurinoL [Zyloprim] 100 mg PO DAILY 12/02/14 10/05/20 cloNIDine HCL [Catapres] 0.3 mg PO BID 09/23/17 10/05/20 EPINEPHrine (Auto Inject) [Epipen] 0.3 mg IM ONCE PRN 09/24/17 10/05/20 Glimepiride [Amaryl] 1 mg PO AC-BRKFST 11/13/17 10/05/20 Cyanocobalamin (Vitamin B-12) 5,000 mcg PO DAILY 07/05/18 10/05/20 [Vitamin B-12] Multivitamins, Thera [Multivitamin 1 tab PO DAILY 07/05/18 10/05/20 (formulary)] Ammonium Lactate Lotion 1 applic TOPICAL BID PRN 10/05/20 10/05/20 [Lac-Hydrin 12% Lotion] Cetirizine HCl [Zyrtec] 10 mg PO DAILY PRN 10/05/20 10/05/20 Docusate [Colace] 100 mg PO BID 10/05/20 10/05/20 Ergocalciferol (Vitamin D2) 1,250 mcg PO Q14D 10/05/20 10/05/20 [Drisdol (50,000 Iu)] Ferrous Sulfate [Feosol] 325 mg PO DAILY 10/05/20 10/05/20 Fluocinonide 0.05% Solution 1 applic TOPICAL HS PRN 10/05/20 10/05/20 Furosemide [Lasix] 20 mg PO DAILY 10/05/20 10/05/20 Ketoconazole 2% Shampoo [Nizoral] 1 applic TOPICAL DAILY PRN 10/05/20 10/05/20 Petrolatum, White [Aquaphor] 1 applic TOPICAL DAILY 10/05/20 10/05/20 Prednisolone Acetate/Pf 1 drop RIGHT EYE PERALTA 10/05/20 10/05/20 [Prednisolone Acet 1% Eye Drop] QUEtiapine FUMARATE [SEROquel XR] 50 mg PO HS 10/05/20 10/05/20 Sertraline HCl [Zoloft] 150 mg PO DAILY 10/05/20 10/05/20 amLODIPine [Norvasc] 5 mg PO DAILY 10/05/20 10/05/20 hydrALAZINE HCL [Apresoline] 50 mg PO TID-W/MEALS 10/05/20 10/05/20 Previous Rx's Medication Instructions Recorded carvediloL [Coreg] 6.25 mg PO BID-W/MEALS #60 tab 07/11/18 Allergies Allergy/AdvReac Type Severity Reaction Status Date / Time bee venom protein (honey bee) Allergy Unknown Verified 10/05/20 21:15 cephalexin Allergy Rash/Hives Verified 10/05/20 21:15 clindamycin Allergy Rash/Hives Verified 10/05/20 21:15 sulfamethoxazole Allergy Unknown Verified 10/05/20 21:15 [From Bactrim] trimethoprim [From Bactrim] Allergy Unknown Verified 10/05/20 21:15 Review of Systems ROS Statement: Those systems with pertinent positive or pertinent negative responses have been documented in the HPI. ROS Other: All systems not noted in ROS Statement are negative. Past Medical History Past Medical History: Cancer, Diabetes Mellitus, Hyperlipidemia, Hypertension, Prostate Disorder, Renal Disease Additional Past Medical History / Comment(s): prostate cancer,leg wounds,venous ulcers. GI bleed (06/2018) left eye almost blind History of Any Multi-Drug Resistant Organisms: None Reported Past Surgical History: Tonsillectomy Additional Past Surgical History / Comment(s): laser eye surgery Past Anesthesia/Blood Transfusion Reactions: No Reported Reaction Past Psychological History: Bipolar, Depression Smoking Status: Former smoker Past Alcohol Use History: Rare Past Drug Use History: None Reported - Past Family History Mother Family Medical History: Diabetes Mellitus Additional Family Medical History / Comment(s): "heart problems" Father Additional Family Medical History / Comment(s): alcohol & due to liver issues General Exam Limitations: no limitations General appearance: alert, in no apparent distress, other (Physical well- developed, well-nourished pale appearing adult male patient vital signs upon presentation temperature 97.6F, pulse 69, respirations 18, blood pressure 158/73, pulse ox 95% on room air.) Eye exam: Present: normal appearance, PERRL, EOMI. Absent: scleral icterus, conjunctival injection, periorbital swelling ENT exam: Present: normal exam, normal oropharynx, mucous membranes moist Respiratory exam: Present: normal lung sounds bilaterally. Absent: respiratory distress, wheezes, rales, rhonchi, stridor Cardiovascular Exam: Present: regular rate, normal rhythm, normal heart sounds. Absent: systolic murmur, diastolic murmur, rubs, gallop, clicks GI/Abdominal exam: Present: soft, tenderness (mild lower), normal bowel sounds. Absent: distended, guarding, rebound, rigid Neurological exam: Present: alert, oriented X3, CN II-XII intact Psychiatric exam: Present: normal affect, normal mood Skin exam: Present: warm, dry, intact, pallor. Absent: rash Course Vital Signs 10/05/20 10/05/20 19:48 21:01 Temperature 97.6 F Pulse Rate 69 Respiratory 18 Rate Blood Pressure 158/73 O2 Sat by Pulse 95 91 L Oximetry Medical Decision Making - Medical Decision Making 85-year-old male patient presents to the emergency department today for evaluation of multiple bloody bowel movements, generalized weakness, vomiting. Physical examination did reveal soft nontender abdomen. He did have a bowel movement while in the emergency department that did contain bright red blood. Labs reviewed and did reveal hemoglobin 11.5, platelets 195. Did have elevated BUN and creatinine which is consistent with his history of chronic kidney disease. Blood sugar is 201. Troponin 0.013. EKG showed sinus rhythm with no evidence for ischemia. He will be admitted to the hospital for serial CBCs and evaluation by GI. He is agreeable with this plan. Case discussed with my attending Dr. Valladares. - Lab Data Result diagrams: 10/05/20 20:33 10/05/20 20:33 Lab Results 10/05/20 10/05/20 10/05/20 Range/Units 20:33 20:33 20:33 WBC 7.9 (3.8-10.6) k/uL RBC 3.97 L (4.30-5.90) m/uL Hgb 11.5 L (13.0-17.5) gm/dL Hct 35.7 L (39.0-53.0) % MCV 90.0 (80.0-100.0) fL MCH 29.0 (25.0-35.0) pg MCHC 32.2 (31.0-37.0) g/dL RDW 15.7 H (11.5-15.5) % Plt Count 195 (150-450) k/uL MPV 6.8 Neutrophils % 80 % Lymphocytes % 13 % Monocytes % 5 % Eosinophils % 2 % Basophils % 0 % Neutrophils # 6.3 (1.3-7.7) k/uL Lymphocytes # 1.0 (1.0-4.8) k/uL Monocytes # 0.4 (0-1.0) k/uL Eosinophils # 0.1 (0-0.7) k/uL Basophils # 0.0 (0-0.2) k/uL PT 10.9 (9.0-12.0) sec INR 1.0 (<1.2) APTT 21.4 L (22.0-30.0) sec Sodium 135 L (137-145) mmol/L Potassium 4.9 (3.5-5.1) mmol/L Chloride 102 (98-107) mmol/L Carbon Dioxide 21 L (22-30) mmol/L Anion Gap 12 mmol/L BUN 61 H (9-20) mg/dL Creatinine 2.13 H (0.66-1.25) mg/dL Est GFR (CKD-EPI)AfAm 32 (>60 ml/min/1.73 sqM) Est GFR (CKD-EPI)NonAf 28 (>60 ml/min/1.73 sqM) Glucose 201 H (74-99) mg/dL Calcium 9.7 (8.4-10.2) mg/dL Total Bilirubin 0.6 (0.2-1.3) mg/dL AST 34 (17-59) U/L ALT 22 (4-49) U/L Alkaline Phosphatase 153 H (38-126) U/L Troponin I (0.000-0.034) ng/mL Total Protein 6.9 (6.3-8.2) g/dL Albumin 4.1 (3.5-5.0) g/dL Blood Type Blood Type Recheck Bld Type Recheck Status Antibody Screen Spec Expiration Date 10/05/20 10/05/20 Range/Units 20:33 20:33 WBC (3.8-10.6) k/uL RBC (4.30-5.90) m/uL Hgb (13.0-17.5) gm/dL Hct (39.0-53.0) % MCV (80.0-100.0) fL MCH (25.0-35.0) pg MCHC (31.0-37.0) g/dL RDW (11.5-15.5) % Plt Count (150-450) k/uL MPV Neutrophils % % Lymphocytes % % Monocytes % % Eosinophils % % Basophils % % Neutrophils # (1.3-7.7) k/uL Lymphocytes # (1.0-4.8) k/uL Monocytes # (0-1.0) k/uL Eosinophils # (0-0.7) k/uL Basophils # (0-0.2) k/uL PT (9.0-12.0) sec INR (<1.2) APTT (22.0-30.0) sec Sodium (137-145) mmol/L Potassium (3.5-5.1) mmol/L Chloride (98-107) mmol/L Carbon Dioxide (22-30) mmol/L Anion Gap mmol/L BUN (9-20) mg/dL Creatinine (0.66-1.25) mg/dL Est GFR (CKD-EPI)AfAm (>60 ml/min/1.73 sqM) Est GFR (CKD-EPI)NonAf (>60 ml/min/1.73 sqM) Glucose (74-99) mg/dL Calcium (8.4-10.2) mg/dL Total Bilirubin (0.2-1.3) mg/dL AST (17-59) U/L ALT (4-49) U/L Alkaline Phosphatase (38-126) U/L Troponin I 0.013 (0.000-0.034) ng/mL Total Protein (6.3-8.2) g/dL Albumin (3.5-5.0) g/dL Blood Type O Negative Blood Type Recheck O Neg Bld Type Recheck Status No Antibody Screen NEGATIVE Spec Expiration Date 10/08/20202332 - EKG Data -: EKG Interpreted by Ri EKG Comments: EKG obtained at 2018 shows normal sinus rhythm with a ventricular rate is 63, AK interval 184, QRS duration 96, QTc 412, QTC 421. No evidence of ST elevation or depression. Disposition Clinical Impression: GI bleed Disposition: ADMITTED IP TO THIS [facility] Condition: Good Decision to Admit Reason: Admit from EC Decision Date: 10/05/20 Decision Time: 22:08
[2020-10-05 20:44] LABS: Basophils % (A) 0 %; Eosinophils # (A) 0.1 k/uL (0-0.7); Eosinophils % (A) 2 %; HCT 35.7 % (39.0-53.0); HGB 11.5 gm/dL (13.0-17.5); Lymphocytes % (A) 13 %; MCHC 32.2 g/dL (31.0-37.0); Mean Platelet Volume 6.8; Monocytes # (A) 0.4 k/uL (0-1.0); Monocytes % (A) 5 %; Neutrophils # (A) 6.3 k/uL (1.3-7.7); Neutrophils % (A) 80 %; Platelet Count 195 k/uL (150-450); RBC 3.97 m/uL (4.30-5.90); RDW 15.7 % (11.5-15.5); WBC 7.9 k/uL (3.8-10.6)
[2020-10-05 20:55] LABS: Albumin 4.1 g/dL (3.5-5.0); Calcium 9.7 mg/dL (8.4-10.2); Total Bilirubin 0.6 mg/dL (0.2-1.3); Total Protein 6.9 g/dL (6.3-8.2)
[2020-10-05 20:58] LABS: Potassium 4.9 mmol/L (3.5-5.1)
[2020-10-05 21:19] LABS: Partial Thromboplastin Time 21.4 sec (22.0-30.0); Prothrombin Time 10.9 sec (9.0-12.0)
[2020-10-05] MEDS ORDERED: NALOXONE 0.4 MG/ML 1 ML VIAL IV PRN (22:02)
[2020-10-05] MEDS ORDERED: ONDANSETRON 4 MG/2 ML VIAL IVP PRN (22:02)
[2020-10-05 23:34] LABS: HGB 11.8 gm/dL (13.0-17.5); MCH 31.4 pg (25.0-35.0); MCHC 34.7 g/dL (31.0-37.0); MCV 90.6 fL (80.0-100.0); Mean Platelet Volume 7.3; Platelet Count 203 k/uL (150-450); RBC 3.75 m/uL (4.30-5.90); RDW 15.4 % (11.5-15.5); WBC 10.4 k/uL (3.8-10.6)
--- NOTE | 2020-10-06 00:16 | P.HPIM ---
History of Present Illness H&P Date: 10/06/20 The patient is an 82-year-old male with a PMH of type II DM, hypertension, hyperlipidemia, BPH, and chronic kidney disease presented to the emergency room with complaints of gently. The patient reports that after waking up this morning, he developed diarrhea along with some nausea. He initially had some watery stools which were then followed by grossly bloody stools. He reports having too many episodes to count, and subsequently became alarmed and came to the hospital. He reports that the abdominal pain is diffuse, cramping in nature, comes on with his bowel movements. He had an episode of GI bleeding back in 2019 where EGD and colonoscopies did not show any acute source. Reports that his last bloody bowel movement was an hour prior to the interview. He denied any abdominal pain at rest. Denied rectal pain at defecation. Denied history of hemorrhoids or anal fissures. Reports one episode of nonbloody vomiting earlier today. Denied being on any blood thinners. Does use baby aspirin daily at home Denied dizziness, chest pain, shortness of breath, fever, chills, cough. Also denied headaches, weakness, numbness, tingling, or visual disturbances. In the emergency room, EKG revealed normal sinus rhythm at [address]/T-wave changes noted and reviewed by me. Laboratory evaluation was remarkable for hemoglobin 11.8 (at baseline), sodium 135, BUN 61, creatinine 2.13, glucose 201, alk phos 153, and troponin 0.013. Review of systems: Pertinent positives and negatives as discussed in HPI, a complete review of systems was performed and all other systems are negative. Physical examination: General: non toxic, no distress, appears at stated age, normal weight Derm: no unusual rashes/lesions no unusual ecchymoses, warm, dry Head: atraumatic, normocephalic, symmetric Eyes: EOMI, no lid lag, anicteric sclera, pupils equal round reactive to light ENT: Nose and ears atraumatic, no thrush, no pharyngeal erythema Neck: No thyromegaly, no cervical lymphadenopathy, trachea midline, supple Mouth: no lip lesion, mucus membranes moist Cardiovascular: S1S2 reg, grade 4 systolic murmur appreciated, positive posterior tibial pulse bilateral, trace bilateral lower extremity pitting edema, capillary refill less than 2 seconds Lungs: CTA bilateral, no rhonchi, no rales , no accessory muscle use Abdominal: soft, nontender to palpation, no guarding, no appreciable org anomegaly, normal bowel sounds Ext: no gross muscle atrophy, muscle strength 5 out of 5 in all 4 extremities grossly, no contractures, Neuro: CN II-XI grossly intact, light touch intact all 4 extremities, finger to nose within normal limits, Psych: Alert, oriented, appropriate affect Assessment/plan Acute GI bleeding -Continue to monitor CBC -IV fluids -Continue Protonix IV -GI consult -Fall precautions Chronic conditions: Hypertension, hyperlipidemia, type II DM, BPH, chronic kidney disease -Continue with home medications -Insulin sliding scale and blood glucose monitoring -Check A1c DVT prophylaxis -IPCDs The patient is admitted with an anticipated less than 2 midnight stay for e valuation of acute GI bleeding CODE STATUS: FUll Code Discussed with: Patient Anticipated discharge date: in am Anticipated discharge place: Home A total of 40 minutes was spent on the care of this complex patient more than 50% of the time was spent in counseling and care coordination. Past Medical History Past Medical History: Cancer, Diabetes Mellitus, Hyperlipidemia, Hypertension, Prostate Disorder, Renal Disease Additional Past Medical History / Comment(s): prostate cancer,leg wounds,venous ulcers. GI bleed (06/2018) left eye almost blind History of Any Multi-Drug Resistant Organisms: None Reported Past Surgical History: Tonsillectomy Additional Past Surgical History / Comment(s): laser eye surgery Past Anesthesia/Blood Transfusion Reactions: No Reported Reaction Past Psychological History: Bipolar, Depression Smoking Status: Former smoker Past Alcohol Use History: Rare Past Drug Use History: None Reported - Past Family History Mother Family Medical History: Diabetes Mellitus Additional Family Medical History / Comment(s): "heart problems" Father Additional Family Medical History / Comment(s): alcohol & due to liver issues Medications and Allergies Home Medications Medication Instructions Recorded Confirmed Type Aspirin 81 mg PO HS 12/02/14 10/05/20 History Doxazosin Mesylate 8 mg PO HS 12/02/14 10/05/20 History Lovastatin [Mevacor] 40 mg PO HS 12/02/14 10/05/20 History allopurinoL [Zyloprim] 100 mg PO DAILY 12/02/14 10/05/20 History cloNIDine HCL [Catapres] 0.3 mg PO BID 09/23/17 10/05/20 History EPINEPHrine (Auto Inject) [Epipen] 0.3 mg IM ONCE PRN 09/24/17 10/05/20 History Glimepiride [Amaryl] 1 mg PO AC-BRKFST 11/13/17 10/05/20 History Cyanocobalamin (Vitamin B-12) 5,000 mcg PO DAILY 07/05/18 10/05/20 History [Vitamin B-12] Multivitamins, Thera [Multivitamin 1 tab PO DAILY 07/05/18 10/05/20 History (formulary)] carvediloL [Coreg] 6.25 mg PO BID-W/MEALS #60 tab 07/11/18 10/05/20 Rx Ammonium Lactate Lotion 1 applic TOPICAL BID PRN 10/05/20 10/05/20 History [Lac-Hydrin 12% Lotion] Cetirizine HCl [Zyrtec] 10 mg PO DAILY PRN 10/05/20 10/05/20 History Docusate [Colace] 100 mg PO BID 10/05/20 10/05/20 History Ergocalciferol (Vitamin D2) 1,250 mcg PO Q14D 10/05/20 10/05/20 History [Drisdol (50,000 Iu)] Ferrous Sulfate [Feosol] 325 mg PO DAILY 10/05/20 10/05/20 History Fluocinonide 0.05% Solution 1 applic TOPICAL HS PRN 10/05/20 10/05/20 History Furosemide [Lasix] 20 mg PO DAILY 10/05/20 10/05/20 History Ketoconazole 2% Shampoo [Nizoral] 1 applic TOPICAL DAILY PRN 10/05/20 10/05/20 History Petrolatum, White [Aquaphor] 1 applic TOPICAL DAILY 10/05/20 10/05/20 History Prednisolone Acetate/Pf 1 drop RIGHT EYE PERALTA 10/05/20 10/05/20 History [Prednisolone Acet 1% Eye Drop] QUEtiapine FUMARATE [SEROquel XR] 50 mg PO HS 10/05/20 10/05/20 History Sertraline HCl [Zoloft] 150 mg PO DAILY 10/05/20 10/05/20 History amLODIPine [Norvasc] 5 mg PO DAILY 10/05/20 10/05/20 History hydrALAZINE HCL [Apresoline] 50 mg PO TID-W/MEALS 10/05/20 10/05/20 History Allergies Allergy/AdvReac Type Severity Reaction Status Date / Time bee venom protein (honey bee) Allergy Unknown Verified 10/05/20 21:15 cephalexin Allergy Rash/Hives Verified 10/05/20 21:15 clindamycin Allergy Rash/Hives Verified 10/05/20 21:15 sulfamethoxazole Allergy Unknown Verified 10/05/20 21:15 [From Bactrim] trimethoprim [From Bactrim] Allergy Unknown Verified 10/05/20 21:15 Physical Exam Vitals: Vital Signs Temp Pulse Resp BP Pulse Ox 10/05/20 21:01 91 L 10/05/20 19:48 97.6 F 69 18 158/73 95 Intake and Output 10/05/20 10/05/20 10/06/20 14:59 22:59 06:59 Other: Weight 80.739 kg Results CBC & Chem 7: 10/05/20 22:48 10/05/20 20:33 Labs: Abnormal Lab Results - Last 24 Hours (Table) 10/05/20 10/05/20 10/05/20 Range/Units 20:33 20:33 20:33 RBC 3.97 L (4.30-5.90) m/uL Hgb 11.5 L (13.0-17.5) gm/dL Hct 35.7 L (39.0-53.0) % RDW 15.7 H (11.5-15.5) % APTT 21.4 L (22.0-30.0) sec Sodium 135 L (137-145) mmol/L Carbon Dioxide 21 L (22-30) mmol/L BUN 61 H (9-20) mg/dL Creatinine 2.13 H (0.66-1.25) mg/dL Glucose 201 H (74-99) mg/dL Alkaline Phosphatase 153 H (38-126) U/L 10/05/20 Range/Units 22:48 RBC 3.75 L (4.30-5.90) m/uL Hgb 11.8 L (13.0-17.5) gm/dL Hct 34.0 L (39.0-53.0) % RDW (11.5-15.5) % APTT (22.0-30.0) sec Sodium (137-145) mmol/L Carbon Dioxide (22-30) mmol/L BUN (9-20) mg/dL Creatinine (0.66-1.25) mg/dL Glucose (74-99) mg/dL Alkaline Phosphatase (38-126) U/L Thrombosis Risk Factor Assmnt - Choose All That Apply Each Risk Factor Represents 3 Points: Age 75 years or older Thrombosis Risk Factor Assessment Total Risk Factor Score: 3 Thrombosis Risk Factor Assessment Level: Moderate Risk
[2020-10-06] MEDS: SODIUM CHLORIDE 0.9% 1,000 ML IV SCH ×2 (00:30→11:55)
[2020-10-06] MEDS: PANTOPRAZOLE 40 MG/10 ML VIAL IVP SCH ×3 (01:25→19:57)
[2020-10-06 04:19] LABS: HCT 31.8 % (39.0-53.0); HGB 10.9 gm/dL (13.0-17.5); MCH 30.8 pg (25.0-35.0); MCHC 34.1 g/dL (31.0-37.0); MCV 90.1 fL (80.0-100.0); Platelet Count 182 k/uL (150-450); RBC 3.53 m/uL (4.30-5.90); RDW 15.2 % (11.5-15.5); WBC 9.3 k/uL (3.8-10.6)
[2020-10-06 04:40] LABS: Calcium 9.6 mg/dL (8.4-10.2); Potassium 4.2 mmol/L (3.5-5.1)
[2020-10-06 06:12] LABS: Glucose,Whole Blood 143 mg/dL (75-99)
[2020-10-06] MEDS: hydrALAZINE HCL 50 MG TAB PO SCH ×3 (06:20→16:56)
[2020-10-06] MEDS: INSULIN ASPART (NovoLOG) 100 UNIT/ML VIAL SQ SCH ×4 (06:20→19:50)
[2020-10-06] MEDS: carvediloL 6.25 MG TAB PO SCH ×2 (06:20→16:56)
[2020-10-06] MEDS: SERTRALINE 50 MG TAB PO SCH (09:00)
[2020-10-06] MEDS: cloNIDine HCL 0.1 MG TAB PO SCH ×2 (09:00→19:57)
[2020-10-06] MEDS: MULTIVITAMINS, THERA 1 EACH TAB PO SCH (09:00)
[2020-10-06] MEDS: amLODIPine 5 MG TAB PO SCH (09:00)
[2020-10-06 10:25] LABS: HCT 33.1 % (39.0-53.0); HGB 11.1 gm/dL (13.0-17.5); MCH 30.6 pg (25.0-35.0); MCHC 33.5 g/dL (31.0-37.0); MCV 91.2 fL (80.0-100.0); Mean Platelet Volume 6.9; Platelet Count 195 k/uL (150-450); RBC 3.62 m/uL (4.30-5.90); RDW 15.3 % (11.5-15.5); WBC 10.7 k/uL (3.8-10.6)
--- NOTE | 2020-10-06 11:27 | CT ---
EXAMINATION TYPE: CT abdomen pelvis wo con DATE OF EXAM: 10/06/2020 HISTORY: Abdominal pain, rectal bleeding. CT DLP: 639.8 mGycm. Automated Exposure Control for Dose Reduction was Utilized. TECHNIQUE: CT scan of the abdomen and pelvis is performed without oral or IV contrast. COMPARISON: NONE FINDINGS: Within the limitations of a non-contrast study, the following observations are made. LUNG BASES: [id number] left greater than right bibasilar linear scarring and/or atelectasis. Sl ightly elevated left hemidiaphragm. Coronary artery calcification is present. Moderate left atrial an d mild/moderate left ventricular dilatation. LIVER/GB: Small dependent calcified gallstones. PANCREAS: No significant abnormality is seen. SPLEEN: No significant abnormality is seen. ADRENALS: Slight low density right adrenal gland favors benign lipid rich hyperplasia seen. KIDNEYS: Cortical thinning both kidneys. Occasional scattered thin-walled cysts throughout the left k idney. Few lesions right kidney are more hyperdense and nonspecific favor proteinaceous cyst. Mild pe rinephric fluid bilaterally which is nonspecific finding. No hydronephrosis seen bilaterally. BOWEL: Suboptimal evaluation of bowel without enteric contrast. Stomach poorly distended and suboptim ally evaluated. Small size hiatal hernia. No suspicious small or large bowel dilatation. Mild to mode rate wall thickening in the transverse colon extending into the left colon where there is moderate wa ll thickening into the sigmoid colon with more mild to moderate wall thickening into the rectum. Mild fat stranding or level of the splenic flexure. Mild left-sided and pelvic vasa engorgement. No free air. GENITAL ORGANS: Enlarged prostate consistent with BPH bulging on bladder base. There are 3 gold thera py seeds noted. LYMPH NODES: No greater than 1cm abdominal or pelvic lymph nodes are appreciated. OSSEOUS STRUCTURES: Slight scoliotic curvature. Moderate multilevel spurring. Ppch-uc-kspjyayd disc s pace narrowing and vacuum disc phenomenon L4-L5 level. Moderate axial joint space loss and acetabular spurring in both hips. OTHER: Small fat-containing left inguinal hernia. Mild to moderate calcified plaque of the aorta exte nds into branch vessels. Mild diffuse soft tissue subcutaneous edema and/or anasarca. IMPRESSION: Suboptimal study, Mild to moderate acute fairly long segment of uncomplicated acute colit is felt present from hepatic flexure to rectum. Differential includes infectious and/or inflammatory etiologies. Correlate clinically.
[2020-10-06 11:35] LABS: Glucose,Whole Blood 135 mg/dL (75-99)
[2020-10-06] MEDS ORDERED: LEVOFLOXACIN 500MG-D5W PMX 500 MG in DEXTROSE/WATER 1 100ML.BAG IVPB ONE (14:00)
[2020-10-06 14:05] LABS: Hemoglobin A1C 5.3 % (4.0-6.0)
--- NOTE | 2020-10-06 14:50 | P.PN ---
Subjective Progress Note Date: 10/06/20 (delayed charting see at 0915 ) Principal diagnosis: bright red blood per rectum Patient is an 82-year-old male for history of diabetes mellitus type 2, hypertension, dyslipidemia, BPH, and chronic kidney disease stage III who presented to the ER with bright red blood per rectum. The ER he underwent an extensive evaluation. His find have mild anemia. He was reporting bright red blood per rectum and therefore was admitted for possible GI bleed. Hemoglobin was monitored but remained relatively stable from 11.8-11.1. He did continue to have some bright red blood. Patient seen and examined at bedside. He states he first started having some watery diarrhea and abdominal cramping, and diarrhea progressed he started having bright red blood per rectum. He reports that no one else at home is sick or ill. He has not ate out anywhere 8 anything unusual. He does have city water. He has not traveled recently. He has no history of symptoms similar to this in the past. General: non toxic, no distress, appears at stated age Derm: warm, dry Head: atraumatic, normocephalic, symmetric Eyes: EOMI, no lid lag, anicteric sclera Mouth: no lip lesion, mucus membranes moist Cardiovascular: S1-S2 with grade 2 systolic ejection murmur, positive posterior tibial pulse bilateral, Lungs: CTA bilateral, no rhonchi, no rales , no accessory muscle use Abdominal: soft, nontender to palpation, no guarding, no appreciable organomegaly Ext: no gross muscle atrophy, no edema, no contractures Neuro: CN II-XI grossly intact, no focal neuro deficits Psych: Alert, oriented, appropriate affect Bright red blood per rectum consistent with dysentery -Check CT abdomen and pelvis and start antibiotics if signs of colitis -Serial CBC -GI recommendations -Antiemetics Anemia, long-standing -Appears to be at or near baseline of 11 -Follow CBC Chronic kidney disease stage 3B/4 -Avoid nephrotoxic agents -Follow renal profile DM II - follow BS - hold orals - SSI HTN - follow CBC - coreg, norvasc, catapres, hydralazine HLD - statin DVT prophylaxis: SCDs Discussed with: jasvir gong Anticipated discharge: 1-[address]: home A total of 35 minutes was spent on the care of this complex patient more than 50% of the time was spent in counseling and care coordination. Objective - Vital Signs Vital signs: Vital Signs Temp 98.3 F 10/06/20 12:00 Pulse 57 L 10/06/20 12:00 Resp 16 10/06/20 12:00 BP 132/58 10/06/20 12:00 Pulse Ox 96 10/06/20 12:00 Intake & Output 10/05/20 10/06/20 10/06/20 18:59 06:59 18:59 Intake Total 1540 Balance 1540 Weight 78.9 kg Intake: IV 620 Invasive Line 1 20 Sodium Chloride 0.9% 1, 600 000 ml @ 75 mls/hr IV . [id number] [facility] Rx#:[id number] Oral 920 Other: # Bowel Movements 4 - Labs CBC & Chem 7: 10/06/20 09:40 10/06/20 03:54 Labs: Abnormal Lab Results - Last 24 Hours (Table) 10/05/20 10/05/20 10/05/20 Range/Units 20:33 20:33 20:33 WBC (3.8-10.6) k/uL RBC 3.97 L (4.30-5.90) m/uL Hgb 11.5 L (13.0-17.5) gm/dL Hct 35.7 L (39.0-53.0) % RDW 15.7 H (11.5-15.5) % APTT 21.4 L (22.0-30.0) sec Sodium 135 L (137-145) mmol/L Carbon Dioxide 21 L (22-30) mmol/L BUN 61 H (9-20) mg/dL Creatinine 2.13 H (0.66-1.25) mg/dL Glucose 201 H (74-99) mg/dL POC Glucose (mg/dL) (75-99) mg/dL Alkaline Phosphatase 153 H (38-126) U/L 10/05/20 10/06/20 10/06/20 Range/Units 22:48 03:54 03:54 WBC (3.8-10.6) k/uL RBC 3.75 L 3.53 L (4.30-5.90) m/uL Hgb 11.8 L 10.9 L (13.0-17.5) gm/dL Hct 34.0 L 31.8 L (39.0-53.0) % RDW (11.5-15.5) % APTT (22.0-30.0) sec Sodium (137-145) mmol/L Carbon Dioxide (22-30) mmol/L BUN 58 H (9-20) mg/dL Creatinine 2.08 H (0.66-1.25) mg/dL Glucose 155 H (74-99) mg/dL POC Glucose (mg/dL) (75-99) mg/dL Alkaline Phosphatase (38-126) U/L 10/06/20 10/06/20 10/06/20 Range/Units 06:10 09:40 11:34 WBC 10.7 H (3.8-10.6) k/uL RBC 3.62 L (4.30-5.90) m/uL Hgb 11.1 L (13.0-17.5) gm/dL Hct 33.1 L (39.0-53.0) % RDW (11.5-15.5) % APTT (22.0-30.0) sec Sodium (137-145) mmol/L Carbon Dioxide (22-30) mmol/L BUN (9-20) mg/dL Creatinine (0.66-1.25) mg/dL Glucose (74-99) mg/dL POC Glucose (mg/dL) 143 H 135 H (75-99) mg/dL Alkaline Phosphatase (38-126) U/L
[2020-10-06] MEDS: metroNIDAZOLE 500 MG TAB PO SCH ×2 (14:53→19:57)
[2020-10-06 16:12] LABS: HCT 30.2 % (39.0-53.0); MCH 30.1 pg (25.0-35.0); MCV 91.2 fL (80.0-100.0); Platelet Count 176 k/uL (150-450); RBC 3.31 m/uL (4.30-5.90); RDW 15.9 % (11.5-15.5); WBC 9.3 k/uL (3.8-10.6)
[2020-10-06 16:36] LABS: Glucose,Whole Blood 115 mg/dL (75-99)
[2020-10-06 19:48] LABS: Glucose,Whole Blood 124 mg/dL (75-99)
[2020-10-06] MEDS: QUEtiapine 25 MG TAB PO SCH (19:57)
[2020-10-06] MEDS ORDERED: DOXAZOSIN 4 MG TAB PO SCH (21:00)
[2020-10-07] MEDS: SODIUM CHLORIDE 0.9% 1,000 ML IV SCH (05:21)
[2020-10-07 06:12] VITALS: RESP 16
[2020-10-07 06:12] LABS: Glucose,Whole Blood 85 mg/dL (75-99)
[2020-10-07] MEDS: INSULIN ASPART (NovoLOG) 100 UNIT/ML VIAL SQ SCH ×2 (06:12→12:26)
[2020-10-07] MEDS: carvediloL 6.25 MG TAB PO SCH (06:26)
[2020-10-07] MEDS: hydrALAZINE HCL 50 MG TAB PO SCH ×2 (06:26→12:29)
[2020-10-07 08:26] VITALS: TEMP 98.6
[2020-10-07] MEDS: MULTIVITAMINS, THERA 1 EACH TAB PO SCH (08:28)
[2020-10-07] MEDS: amLODIPine 5 MG TAB PO SCH (08:28)
[2020-10-07] MEDS: PANTOPRAZOLE 40 MG/10 ML VIAL IVP SCH (08:28)
[2020-10-07] MEDS: SERTRALINE 50 MG TAB PO SCH (08:28)
[2020-10-07] MEDS: cloNIDine HCL 0.1 MG TAB PO SCH (08:28)
[2020-10-07] MEDS: metroNIDAZOLE 500 MG TAB PO SCH (08:29)
[2020-10-07] MEDS: QUEtiapine 25 MG TAB PO SCH (08:29)
[2020-10-07 08:43] LABS: HCT 30.7 % (39.0-53.0); HGB 10.2 gm/dL (13.0-17.5); MCH 30.6 pg (25.0-35.0); MCHC 33.2 g/dL (31.0-37.0); MCV 92.1 fL (80.0-100.0); Mean Platelet Volume 6.6; Platelet Count 172 k/uL (150-450); RBC 3.34 m/uL (4.30-5.90); RDW 15.5 % (11.5-15.5); WBC 7.9 k/uL (3.8-10.6)
--- NOTE | 2020-10-07 10:51 | P.CONS ---
History of Present Illness - Reason for Consult Consult date: 10/06/20 Blood per rectum Requesting physician: Lynette Cruz - Chief Complaint Blood per rectum - History of Present Illness 85-year-old male with a medical history significant for chronic kidney disease, diabetes mellitus, hypertension, hyperlipidemia and BPH who presented to the hospital with complaints of blood per rectum. The patient reports over 5 episodes of bright red blood per rectum. Patient states that there is still bleeding but that this is slowing down. Initially the patient had multiple episodes of loose watery diarrhea and subsequently saw bright red blood per rectum. The patient does take daily aspirin but denies any NSAID use. They deny any fevers, chills, sick contacts. The patient does report some cramping with the episode and nausea without vomiting. The patient also has a history of prostate cancer treated with radiation approximately 5 years ago. Patient does believe he had a similar episodes in the past. Last endoscopic evaluation in 06/2018 for GI bleed with colonoscopy showing radiation proctitis with no evidence of spontaneous bleeding at that time and poor prep in 2013 patient had a colonoscopy with the surgical service with polypectomy at that time an EGD in 06/2018 showing gastritis and duodenitis. CT scan of the abdomen ordered in evaluation was a suboptimal study but did show mild to moderate acute fairly long segment uncomplicated colitis from the hepatic flexure to the rectum. Testing for C. difficile negative on presentation with WBC 9.3, hemoglobin 10.9, platelets 182,000, total bilirubin 0.6, alkaline phosphatase 153, AST 34 and ALT 22. Review of Systems CONSTITUTIONAL: No recent weight loss. No fever, chills,night sweats. EYES: Vision unremarkable. EARS: No change in hearing or recent development of tinnitus. RESPIRATORY: No shortness of breath or wheezing. CARDIOVASCULAR: No chest pain, or palpitations. GENITOURINARY: No dysuria or hematuria. SKIN: Unremarkable, No new rashes or lesions. MUSCULOSKELETAL: No new weakness or acute joint issues.chronic back pain at baseline. NEUROLOGICAL: No new focal deficits or memory issues. BEHAVIORAL/PSYCH: No recent depression or anxiety. ENDOCRINE: History of diabetes mellitus. Past Medical History Past Medical History: Cancer, Diabetes Mellitus, Hyperlipidemia, Hypertension, Prostate Disorder, Renal Disease Additional Past Medical History / Comment(s): prostate cancer,leg wounds,venous ulcers. GI bleed (06/2018) left eye almost blind History of Any Multi-Drug Resistant Organisms: None Reported Past Surgical History: Tonsillectomy Additional Past Surgical History / Comment(s): laser eye surgery Past Anesthesia/Blood Transfusion Reactions: No Reported Reaction Past Psychological History: Bipolar, Depression Smoking Status: Former smoker Past Alcohol Use History: Rare Past Drug Use History: None Reported - Past Family History Mother Family Medical History: Diabetes Mellitus Additional Family Medical History / Comment(s): "heart problems" Father Additional Family Medical History / Comment(s): alcohol & due to liver issues Medications and Allergies Home Medications Medication Instructions Recorded Confirmed Type Aspirin 81 mg PO HS 12/02/14 10/05/20 History Doxazosin Mesylate 8 mg PO HS 12/02/14 10/05/20 History Lovastatin [Mevacor] 40 mg PO HS 12/02/14 10/05/20 History allopurinoL [Zyloprim] 100 mg PO DAILY 12/02/14 10/05/20 History cloNIDine HCL [Catapres] 0.3 mg PO BID 09/23/17 10/05/20 History EPINEPHrine (Auto Inject) [Epipen] 0.3 mg IM ONCE PRN 09/24/17 10/05/20 History Glimepiride [Amaryl] 1 mg PO AC-BRKFST 11/13/17 10/05/20 History Cyanocobalamin (Vitamin B-12) 5,000 mcg PO DAILY 07/05/18 10/05/20 History [Vitamin B-12] Multivitamins, Thera [Multivitamin 1 tab PO DAILY 07/05/18 10/05/20 History (formulary)] carvediloL [Coreg] 6.25 mg PO BID-W/MEALS #60 tab 07/11/18 10/05/20 Rx Ammonium Lactate Lotion 1 applic TOPICAL BID PRN 10/05/20 10/05/20 History [Lac-Hydrin 12% Lotion] Cetirizine HCl [Zyrtec] 10 mg PO DAILY PRN 10/05/20 10/05/20 History Docusate [Colace] 100 mg PO BID 10/05/20 10/05/20 History Ergocalciferol (Vitamin D2) 1,250 mcg PO Q14D 10/05/20 10/05/20 History [Drisdol (50,000 Iu)] Ferrous Sulfate [Feosol] 325 mg PO DAILY 10/05/20 10/05/20 History Fluocinonide 0.05% Solution 1 applic TOPICAL HS PRN 10/05/20 10/05/20 History Furosemide [Lasix] 20 mg PO DAILY 10/05/20 10/05/20 History Ketoconazole 2% Shampoo [Nizoral] 1 applic TOPICAL DAILY PRN 10/05/20 10/05/20 History Petrolatum, White [Aquaphor] 1 applic TOPICAL DAILY 10/05/20 10/05/20 History QUEtiapine FUMARATE [SEROquel XR] 50 mg PO HS 10/05/20 10/05/20 History Sertraline HCl [Zoloft] 150 mg PO DAILY 10/05/20 10/05/20 History amLODIPine [Norvasc] 5 mg PO DAILY 10/05/20 10/05/20 History hydrALAZINE HCL [Apresoline] 50 mg PO TID-W/MEALS 10/05/20 10/05/20 History Sulfacet-Prednis 10-0.23% Opht 1 drop RIGHT EYE PERALTA 10/06/20 10/06/20 History [Vasocidin Ophth Soln] Allergies Allergy/AdvReac Type Severity Reaction Status Date / Time bee venom protein (honey bee) Allergy Unknown Verified 10/05/20 21:15 cephalexin Allergy Rash/Hives Verified 10/05/20 21:15 clindamycin Allergy Rash/Hives Verified 10/05/20 21:15 sulfamethoxazole Allergy Unknown Verified 10/05/20 21:15 [From Bactrim] trimethoprim [From Bactrim] Allergy Unknown Verified 10/05/20 21:15 Physical Exam Vitals: Vital Signs Temp Pulse Pulse Resp BP BP Pulse Ox 10/06/20 12:00 98.3 F 57 L 16 132/58 96 10/06/20 08:58 98.3 F 63 17 144/66 94 L 10/06/20 04:00 64 17 152/68 10/05/20 23:00 98.5 F 62 19 176/71 95 10/05/20 21:01 91 L 10/05/20 19:48 97.6 F 69 18 158/73 95 Intake and Output 10/05/20 10/06/20 10/06/20 22:59 06:59 14:59 Intake Total 1540 Balance 1540 Intake: IV 620 Invasive Line 1 20 Sodium Chloride 0.9% 1, 600 000 ml @ 75 mls/hr IV . [id number] [facility] Rx#:[id number] Oral 920 Other: # Bowel Movements 4 Weight 80.739 kg 78.9 kg CONSTITUTIONAL: Patient appears comfortable in no apparent distress. NECK: No JVD or lymph node enlargement. HEET: Unremarkable, conjunctivae/corneas clear. Sclera anicteric. Oral cavity no lesions. RESPIRATORY: Clear to auscultation bilaterally. CARDIOVASCULAR: S1-S2 appreciated. GASTROINTESTINAL: soft, mildly tender, no organomegaly. Bowel sounds are positive. PSYCH: Denies any depression or anxiety. SKIN: No rashes NEUROLOGICAL: alert, oriented x 3, no focal deficits noted. Results CBC & Chem 7: 10/07/20 08:08 10/06/20 03:54 Labs: Abnormal Lab Results - Last 24 Hours (Table) 10/05/20 10/05/20 10/05/20 Range/Units 20:33 20:33 20:33 WBC (3.8-10.6) k/uL RBC 3.97 L (4.30-5.90) m/uL Hgb 11.5 L (13.0-17.5) gm/dL Hct 35.7 L (39.0-53.0) % RDW 15.7 H (11.5-15.5) % APTT 21.4 L (22.0-30.0) sec Sodium 135 L (137-145) mmol/L Carbon Dioxide 21 L (22-30) mmol/L BUN 61 H (9-20) mg/dL Creatinine 2.13 H (0.66-1.25) mg/dL Glucose 201 H (74-99) mg/dL POC Glucose (mg/dL) (75-99) mg/dL Alkaline Phosphatase 153 H (38-126) U/L 10/05/20 10/06/20 10/06/20 Range/Units 22:48 03:54 03:54 WBC (3.8-10.6) k/uL RBC 3.75 L 3.53 L (4.30-5.90) m/uL Hgb 11.8 L 10.9 L (13.0-17.5) gm/dL Hct 34.0 L 31.8 L (39.0-53.0) % RDW (11.5-15.5) % APTT (22.0-30.0) sec Sodium (137-145) mmol/L Carbon Dioxide (22-30) mmol/L BUN 58 H (9-20) mg/dL Creatinine 2.08 H (0.66-1.25) mg/dL Glucose 155 H (74-99) mg/dL POC Glucose (mg/dL) (75-99) mg/dL Alkaline Phosphatase (38-126) U/L 10/06/20 10/06/20 10/06/20 Range/Units 06:10 09:40 11:34 WBC 10.7 H (3.8-10.6) k/uL RBC 3.62 L (4.30-5.90) m/uL Hgb 11.1 L (13.0-17.5) gm/dL Hct 33.1 L (39.0-53.0) % RDW (11.5-15.5) % APTT (22.0-30.0) sec Sodium (137-145) mmol/L Carbon Dioxide (22-30) mmol/L BUN (9-20) mg/dL Creatinine (0.66-1.25) mg/dL Glucose (74-99) mg/dL POC Glucose (mg/dL) 143 H 135 H (75-99) mg/dL Alkaline Phosphatase (38-126) U/L CT scan - abdomen: report reviewed (CT scan of the abdomen ordered in evaluation was a suboptimal study but did show mild to moderate acute fairly long segment uncomplicated colitis from the hepatic flexure to the rectum. ) Assessment and Plan (1) Colitis Narrative/Plan: 85-year-old male with multiple medical comorbidities presenting to the hospital due to blood per rectum. Multiple episodes of bright red blood per rectum after multiple episodes of nonbloody diarrhea with some associated nausea and cramping. Hemoglobin stable at 10.9. Patient feels that the bleeding is slowing down. Patient does have a history of radiation proctitis on prior colonoscopy however on current admission CT scan of the abdomen showed mild to moderate acute long segment uncomplicated colitis from the hepatic flexure to rectum. Differential includes infectious or ischemic process with inflammatory etiology less likely given the acuity of symptoms. Current Visit: Yes Status: Acute Code(s): K52.9 - NONINFECTIVE GASTROENTERITIS AND COLITIS, UNSPECIFIED SNOMED Code(s): 06316270 (2) GI bleed Current Visit: Yes Status: Acute Code(s): K92.2 - GASTROINTESTINAL HEMORRHAGE, UNSPECIFIED SNOMED Code(s): 21787177 Plan: Supportive care clear liquid diet continue to monitor hemoglobin and hematocrit transfuse as needed continue to monitor BMP, LFTs continue broad-spectrum antibiotic therapy currently on Levaquin and Flagyl consider colonoscopy in 4 to 6 weeks to check for resolution of colitis after discharge home when medically stable hold any anticoagulation therapy at this time thank you for allowing us to participate in the care of the patient we will continue to follow
[2020-10-07 11:22] VITALS: BP 125/57; PULSE 55
[2020-10-07 11:53] LABS: Glucose,Whole Blood 119 mg/dL (75-99)
--- NOTE | 2020-10-07 13:48 | P.DS ---
Providers Date of admission: 10/07/20 10:55 Expected date of discharge: 10/07/20 Attending physician: Maury Rebollar MD Consults: 10/05/20 22:05 Consult Physician Routine Consulting Provider: Jose Mercado Consult Reason/Comments: GI bleed Do you want consulting provider notified?: Yes Primary care physician: Julee Castillo Hospital Course: Discharge Diagnosis: Dysentery due to colitis Anemia, long-standing and appears at baseline CKD 3B/4 Diabetes mellitus type 2 Hypertension Dyslipidemia Hospital Course: Patient is an 82-year-old male for history of diabetes mellitus type 2, hypertension, dyslipidemia, BPH, and chronic kidney disease stage III who presented to the ER with bright red blood per rectum. The ER he underwent an extensive evaluation. His find have mild anemia. He was reporting bright red blood per rectum and therefore was admitted for possible GI bleed. Hemoglobin was monitored but remained relatively stable from 11.8-11.1. He did continue to have some bright red blood. Patient then reported that he initially started with watery diarrhea that then became bloody associated with some abdominal cramping. He went for CT abdomen and pelvis which showed mild to moderate uncomplicated acute colitis from hepatic flexure to rectum with concern for infectious or inflammatory etiologies. He was started on Levaquin and Flagyl. His diarrhea and abdominal cramping resolved. He tolerated a regular diet. He was determined stable for discharge home. Follow-up: Dr. Castillo in 2-3 days, Dr. Mercado as needed if bleeding continues/reoccurs, complete a total of 7 days of Flagyl and Levaquin. Patient seen and examined at bedside. Abdominal cramping has resolved, diarrhea has resolved, no additional bleeding. Feeling well. Understands that he had an infection and will need to complete antibiotics. Vital signs reviewed and stable. General: non toxic, no distress, appears at stated age Derm: warm, dry Head: atraumatic, normocephalic, symmetric Eyes: EOMI, no lid lag, anicteric sclera Mouth: no lip lesion, mucus membranes moist Cardiovascular: S1S2 reg, no murmur, positive posterior tibial pulse bilateral, Lungs: CTA bilateral, no rhonchi, no rales , no accessory muscle use Abdominal: soft, nontender to palpation, no guarding, no appreciable organomegaly Ext: no gross muscle atrophy, no edema, no contractures Neuro: CN II-XI grossly intact, no focal neuro deficits Psych: Alert, oriented, appropriate affect A total of 35 minutes of time were spent preparing this complex discharge summary . Patient Condition at Discharge: Good Plan - Discharge Summary Discharge Rx Participant: No New Discharge Prescriptions: New carvediloL [Coreg] 3.125 mg PO BID-W/MEALS tab metroNIDAZOLE [Flagyl] 500 mg PO TID #18 tab Levofloxacin [Levaquin] 250 mg PO DAILY 6 Days #6 tablet Continue Doxazosin Mesylate 8 mg PO HS allopurinoL [Zyloprim] 100 mg PO DAILY Lovastatin [Mevacor] 40 mg PO HS cloNIDine HCL [Catapres] 0.3 mg PO BID EPINEPHrine (Auto Inject) [Epipen] 0.3 mg IM ONCE PRN PRN Reason: Anaphylaxis Glimepiride [Amaryl] 1 mg PO AC-BRKFST Multivitamins, Thera [Multivitamin (formulary)] 1 tab PO DAILY Cyanocobalamin (Vitamin B-12) [Vitamin B-12] 5,000 mcg PO DAILY Petrolatum, White [Aquaphor] 1 applic TOPICAL DAILY Ferrous Sulfate [Iron (65 MG Elemental)] 325 mg PO DAILY Ergocalciferol (Vitamin D2) [Drisdol (50,000 Iu)] 1,250 mcg PO Q14D Sertraline HCl [Zoloft] 150 mg PO DAILY QUEtiapine FUMARATE [SEROquel XR] 50 mg PO HS Ketoconazole 2% Shampoo [Nizoral] 1 applic TOPICAL DAILY PRN PRN Reason: DRY SCALP/FACE Ammonium Lactate Lotion [Lac-Hydrin 12% Lotion] 1 applic TOPICAL BID PRN PRN Reason: DRY SCALP Cetirizine HCl [Zyrtec] 10 mg PO DAILY PRN PRN Reason: Allergy Symptoms hydrALAZINE HCL [Apresoline] 50 mg PO TID-W/MEALS Furosemide [Lasix] 20 mg PO DAILY amLODIPine [Norvasc] 5 mg PO DAILY Fluocinonide 0.05% Solution 1 applic TOPICAL HS PRN PRN Reason: DRY SCALP/ IN HAIR Sulfacet-Prednis 10-0.23% Opht [Vasocidin Ophth Soln] 1 drop RIGHT EYE PERALTA Aspirin 81 mg PO HS #0 Discontinued carvediloL [Coreg] 6.25 mg PO BID-W/MEALS #60 tab Docusate [Colace] 100 mg PO BID Discharge Medication List Doxazosin Mesylate 8 mg PO HS 12/02/14 [History] Lovastatin [Mevacor] 40 mg PO HS 12/02/14 [History] allopurinoL [Zyloprim] 100 mg PO DAILY 12/02/14 [History] cloNIDine HCL [Catapres] 0.3 mg PO BID 09/23/17 [History] EPINEPHrine (Auto Inject) [Epipen] 0.3 mg IM ONCE PRN 09/24/17 [History] Glimepiride [Amaryl] 1 mg PO AC-BRKFST 11/13/17 [History] Cyanocobalamin (Vitamin B-12) [Vitamin B-12] 5,000 mcg PO DAILY 07/05/18 [History] Multivitamins, Thera [Multivitamin (formulary)] 1 tab PO DAILY 07/05/18 [History] Ammonium Lactate Lotion [Lac-Hydrin 12% Lotion] 1 applic TOPICAL BID PRN 10/05/20 [History] Cetirizine HCl [Zyrtec] 10 mg PO DAILY PRN 10/05/20 [History] Ergocalciferol (Vitamin D2) [Drisdol (50,000 Iu)] 1,250 mcg PO Q14D 10/05/20 [History] Ferrous Sulfate [Iron (65 MG Elemental)] 325 mg PO DAILY 10/05/20 [History] Fluocinonide 0.05% Solution 1 applic TOPICAL HS PRN 10/05/20 [History] Furosemide [Lasix] 20 mg PO DAILY 10/05/20 [History] Ketoconazole 2% Shampoo [Nizoral] 1 applic TOPICAL DAILY PRN 10/05/20 [History] Petrolatum, White [Aquaphor] 1 applic TOPICAL DAILY 10/05/20 [History] QUEtiapine FUMARATE [SEROquel XR] 50 mg PO HS 10/05/20 [History] Sertraline HCl [Zoloft] 150 mg PO DAILY 10/05/20 [History] amLODIPine [Norvasc] 5 mg PO DAILY 10/05/20 [History] hydrALAZINE HCL [Apresoline] 50 mg PO TID-W/MEALS 10/05/20 [History] Sulfacet-Prednis 10-0.23% Opht [Vasocidin Ophth Soln] 1 drop RIGHT EYE PERALTA 10/06/20 [History] Aspirin 81 mg PO HS #0 10/07/20 [Rx] Levofloxacin [Levaquin] 250 mg PO DAILY 6 Days #6 tablet 10/07/20 [Rx] carvediloL [Coreg] 3.125 mg PO BID-W/MEALS tab 10/07/20 [Rx] metroNIDAZOLE [Flagyl] 500 mg PO TID #18 tab 10/07/20 [Rx] Follow up Appointment(s)/Referral(s): Julee Castillo MD [Primary Care Provider] - 1-2 days Jose Mercado MD [STAFF PHYSICIAN] - As Needed Patient Instructions/Handouts: Metronidazole (By mouth), Levofloxacin (By mouth), Colitis (ED) Activity/Diet/Wound Care/Special Instructions: Activity: As tolerated Diet: Plan diet for 3 days and advance as tolerated Special Instructions: Follow-up with GI bleeding is not fully resolve once he has completed anti biotics. Discharge Disposition: HOME SELF-CARE
[2020-10-07] MEDS ORDERED: LEVOFLOXACIN 250MG-D5W PMX 250 MG in DEXTROSE/WATER 1 50ML.BAG IVPB SCH (14:00)
--- NOTE | 2020-10-07 16:02 | P.PN ---
Subjective Progress Note Date: 10/07/20 Principal diagnosis: rectal bleeding, colitis Patient seen and examined. He states still has abdominal cramping, but better. Small amount of diarrhea last night, thinks still had some blood in his stool. Denies nausea or vomiting, fever or chills. Objective - Vital Signs Vital signs: Vital Signs Temp 98.6 F 10/07/20 08:25 Pulse 61 10/07/20 08:25 Resp 16 10/07/20 08:25 BP 114/57 10/07/20 08:25 Pulse Ox 94 L 10/07/20 08:25 Intake & Output 10/06/20 10/07/20 10/07/20 18:59 06:59 18:59 Intake Total 2140 Balance 2140 Weight 80.8 kg Intake: IV 620 Invasive Line 1 20 Sodium Chloride 0.9% 1, 600 000 ml @ 75 mls/hr IV . [id number] [facility] Rx#:[id number] Oral 1520 Other: # Voids 1 - Exam General appearance: The patient is alert, oriented, appears in no acute dist ress. HET: Head is normocephalic and atraumatic. Conjunctiva pink. Sclera anicteric. Neck: Supple without lymphadenopathy. Abdomen: Soft, low abdominal tenderness, nondistended with bowel sounds. No guarding or rigidity. Extremities: Normal skin color and turgor. No pedal edema Skin: No rashes, no jaundice Neurological: No focal deficits. Alert and oriented 3. - Labs CBC & Chem 7: 10/07/20 08:08 10/06/20 03:54 Labs: Abnormal Lab Results - Last 24 Hours (Table) 10/06/20 10/06/20 10/06/20 Range/Units 09:40 11:34 15:57 WBC 10.7 H (3.8-10.6) k/uL RBC 3.62 L 3.31 L (4.30-5.90) m/uL Hgb 11.1 L 10.0 L (13.0-17.5) gm/dL Hct 33.1 L 30.2 L (39.0-53.0) % RDW 15.9 H (11.5-15.5) % POC Glucose (mg/dL) 135 H (75-99) mg/dL 10/06/20 10/06/2021 Range/Units 16:34 19:47 08:08 WBC (3.8-10.6) k/uL RBC 3.34 L (4.30-5.90) m/uL Hgb 10.2 L (13.0-17.5) gm/dL Hct 30.7 L (39.0-53.0) % RDW (11.5-15.5) % POC Glucose (mg/dL) 115 H 124 H (75-99) mg/dL Assessment and Plan (1) Colitis Narrative/Plan: 85-year-old male with multiple medical comorbidities presenting to the hospital due to blood per rectum. Multiple episodes of bright red blood per rectum after multiple episodes of nonbloody diarrhea with some associated nausea and cramping. Hemoglobin was stable at 10.9, currently at 10.2. Patient feels that the bleeding has slowed down. Patient does have a history of radiation proctitis on prior colonoscopy however on current admission computed tomography scan of the abdomen showed mild to moderate acute long segment uncomplicated colitis from the hepatic flexure to rectum. Differential includes infectious or ischemic process with inflammatory etiology is less likely given the acuity of symptoms. Current Visit: Yes Status: Acute Code(s): K52.9 - NONINFECTIVE GASTR OENTERITIS AND COLITIS, UNSPECIFIED SNOMED Code(s): 36728656 (2) GI bleed Current Visit: Yes Status: Acute Code(s): K92.2 - GASTROINTESTINAL HEMORRHAGE, UNSPECIFIED SNOMED Code(s): 36781171 Plan: 1. Continue symptomatic and supportive care 2. Advance diet as tolerated 3. Daily CBC 4. Continue Levaquin and Flagyl 5. No plans on endoscopic evaluation at this time, if patient continues to have diarrhea or rectal bleeding, can follow up outpatient for colonoscopy 6. If patient tolerates diet and rectal bleeding has improved, patient may be discharged home from a gastroenterology standpoint 7. If bleeding persists consider surgical consult Thank you for allowing us to participate in the care of the patient, the GI service will sign off, gastroenterology will not be available at the hospital this weekend and if further evaluation by gastroenterology is required the patient will need transfer as per the primary team's discretion. Dr. Mercado I agree with the dictator's note, documented as a scribe by Marylou Leigh.
== END 2020-10-07 17:05 | disposition home or self-care (01) ==
LOC: EC 19:47 → 3SCARD 21:59 → OBSVTOIN 10-07 10:55 → INTOOBSV 10-07 10:55 → UNDODISIN 10-07 17:05
PROVIDERS: ADMIT Internal Medicine; ATTEND Internal Medicine
DX: K52.9 Noninfective gastroenteritis and colitis, unspecified (principal); D64.9 Anemia, unspecified; I12.9 Hypertensive chronic kidney disease with stage 1 through stage 4 chronic kidney disease, or unspecified chronic kidney disease; E11.22 Type 2 diabetes mellitus with diabetic chronic kidney disease; N18.4 Chronic kidney disease, stage 4 (severe); E78.5 Hyperlipidemia, unspecified; N40.0 Benign prostatic hyperplasia without lower urinary tract symptoms; H54.7 Unspecified visual loss; F31.9 Bipolar disorder, unspecified; Z20.822 Contact with and (suspected) exposure to COVID-19; Z87.19 Personal history of other diseases of the digestive system; Z85.46 Personal history of malignant neoplasm of prostate; Z92.3 Personal history of irradiation; Z87.891 Personal history of nicotine dependence; Z86.010 Personal history of colon polyps; Z79.82 Long term (current) use of aspirin; Z79.899 Other long term (current) drug therapy; Z79.84 Long term (current) use of oral hypoglycemic drugs; Z88.2 Allergy status to sulfonamides; Z88.1 Allergy status to other antibiotic agents; Z91.030 Bee allergy status; Z83.3 Family history of diabetes mellitus; Z82.49 Family history of ischemic heart disease and other diseases of the circulatory system; Z83.79 Family history of other diseases of the digestive system
CPT/HCPCS: 96376 ×2; 96365; 96366; 96375 ×2; 99285; 36415; 93005; 86900; 86901; 80053; 80048; 84484; 85025; 85027 ×3; 85610; 85730; 86850; 87324; 83036; 87635; 74176; G0378 ×3; J2405; J1956 ×2; C9113 ×2; 96374

== ENCOUNTER → 2021-03-30 | Day surgery (SDC) | payer MEDICARE ==
[2021-03-27 10:47] VITALS: BMI 25.9
[~2021-03-30] MED LIST: .fentaNYL (PF) 50 MCG/ML AMP IV ONE; ALPRAZolam 0.25 MG TAB PO PRN; ALPRAZolam 0.5 MG TAB PO PRN; ASPIRIN 325 MG TAB PO STA; HEPARIN SODIUM 1,000 UN/ML (10ML VL) ONE; HEPARIN SODIUM,PORCINE 10,000 UNIT in SODIUM CHLORIDE 0.9% 1,000 ML IRRIGATION PRN; HEPARIN SODIUM,PORCINE 2,500 UNIT in SODIUM CHLORIDE 0.9% 250 ML IRRIGATION PRN; IOPAMIDOL-370 125ML BTL INJ ONE; IV FLUID CONTINUATION 1,000 ML IV ONE; LIDOCAINE 1% INJ 10MG/ML (20 ML MDV) SQ ONE; MIDAZOLAM 2 MG/2 ML VIAL IV ONE; NITROGLYCERIN SL TABS 0.4 MG TAB SUBLINGUAL PRN; RX INFO: IV CONTRAST WAS GIVEN 1 EACH MISC MISCELLANE PRN; SODIUM CHLORIDE 0.9% 1,000 ML IV ONE; SODIUM CHLORIDE 0.9% 1,000 ML IV SCH; SODIUM CHLORIDE 0.9% 1,000 ML in EMPTY BAG 1 BAG IV SCH; VERAPAMIL SYRINGE (5 MG/10 ML) INTRAARTER ONE
[2021-03-30 07:19] VITALS: TEMP 97.9
[2021-03-30 07:46] LABS: Glucose,Whole Blood 110 mg/dL (75-99)
[2021-03-30 09:03] VITALS: RESP 16
[2021-03-30] MEDS: BENZOCAINE SPRAY 1 CAN MUCOUS MEM ONE ×2 (09:05→09:08)
--- NOTE | 2021-03-30 16:54 | CC ---
CARDIAC CATHETERIZATION REPORT INDICATION: To rule out coronary artery disease in a patient with aortic stenosis. PROCEDURE NOTE: After obtaining informed consent, left heart catheterization and coronary angiogram were performed via the right radial artery using size 4 Sasha catheters. Patient tolerated the procedure well without any obvious immediate complications. Radial artery access was obtained using Seldinger technique and a guidewire was passed into the ascending aorta under fluoroscopic guidance, and catheters were exchanged in the ascending aorta. We could not cross the aortic valve with a pigtail catheter because of the aortic stenosis findings. Right coronary artery was subselectively visualized but is free of significant stenosis. Left main coronary artery appears calcified but is free of significant disease, divides into left anterior descending coronary artery and circumflex coronary artery. LAD shows moderate plaque in its mid portion and the ostial portion of the diagonal branch shows a 90% stenosis. Circumflex coronary artery is free of significant disease. CONCLUSIONS: Stenosis of 90% involving first diagonal branch and moderate stenosis involving mid LAD. PLAN: Patient needs TAVR. Reviewed angiographic data with Dr. Amelia Huerta, the telephone technician, who felt that patient's coronary artery disease is best managed with medical therapy. MMODL / IJN: [id number] /
[2021-03-30 18:17] VITALS: BP 146/73; PULSE 63
--- NOTE | 2021-03-31 08:30 | ECHOT ---
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 PROCEDURE NOTE: After obtaining informed consent, transesophageal echocardiogram is performed in left lateral position using an Omniplane probe. Local and IV sedation were obtained using Xylocaine spray, 2 mg of Versed and 25 mcg of fentanyl. Total sedation time was 6 minutes. FINDINGS: 1. Aortic valve is a 3-leaflet valve that is calcified with fusion of the right and left coronary cusps and severe restriction in leaflet mobility. By planimetry, the valve area is between 0.8 and 1.2 cm2. There is moderate aortic regurgitation noted. 2. Aortic root measures within normal limits. There is moderate atherosclerotic plaque in the ascending aorta. Mitral valve shows mitral annular calcification with mild mitral regurgitation. Tricuspid valve shows mild tricuspid regurgitation. 3. Interatrial septum: There is no evidence of [id number] shunt by agitated saline contrast study or [id number] shunt by color-flow Doppler. 4. Left atrium appears enlarged. Right atrium and right ventricle seem within normal limits. 5. Left ventricle has normal size and systolic function. CONCLUSIONS: 1. Moderate aortic regurgitation. 2. Severe aortic stenosis with calcified and restricted leaflet mobility. MMODL / IJN: [id number] /
== END ==
LOC: CATHCVL 06:37
PROVIDERS: ATTEND Internal Medicine Cardiovascular Disease
DX: Z01.810 Encounter for preprocedural cardiovascular examination (principal); I35.2 Nonrheumatic aortic (valve) stenosis with insufficiency; I25.10 Atherosclerotic heart disease of native coronary artery without angina pectoris; I10 Essential (primary) hypertension; E78.5 Hyperlipidemia, unspecified; F17.210 Nicotine dependence, cigarettes, uncomplicated; Q21.1 Atrial septal defect; Z79.82 Long term (current) use of aspirin; Z79.899 Other long term (current) drug therapy; Z20.822 Contact with and (suspected) exposure to COVID-19
CPT/HCPCS: 93312; 93320; 93325; 93454; 87635; C1894; J2250; J2001; J3010; J1644; Q9967

== ENCOUNTER 2021-04-12 13:19 | Outpatient (CLI) | payer MEDICARE ==
[2021-04-12 09:54] LABS: Basophils % (A) 1 %; Eosinophils # (A) 0.3 k/uL (0-0.7); Eosinophils % (A) 6 %; HCT 34.7 % (39.0-53.0); HGB 11.5 gm/dL (13.0-17.5); Lymphocytes # (A) 1.7 k/uL (1.0-4.8); Lymphocytes % (A) 35 %; MCH 30.1 pg (25.0-35.0); MCHC 33.1 g/dL (31.0-37.0); MCV 90.9 fL (80.0-100.0); Mean Platelet Volume 7.7; Monocytes # (A) 0.3 k/uL (0-1.0); Monocytes % (A) 6 %; Neutrophils # (A) 2.6 k/uL (1.3-7.7); Neutrophils % (A) 52 %; Platelet Count 146 k/uL (150-450); RBC 3.82 m/uL (4.30-5.90); WBC 4.9 k/uL (3.8-10.6)
[2021-04-12 10:04] LABS: INR 1.1 (<1.2); Partial Thromboplastin Time 25.2 sec (22.0-30.0); Prothrombin Time 11.1 sec (9.0-12.0)
[2021-04-12 10:07] LABS: ALT 24 U/L (4-49); AST 39 U/L (17-59); African American GFR (CKD) 36 (>60 ml/min/1.73 sqM); Albumin 3.9 g/dL (3.5-5.0); Alkaline Phosphatase 118 U/L (38-126); Anion Gap 6 mmol/L; Bilirubin, Delta 0.4 mg/dL (0.0-0.2); Bilirubin,Unconjugated 0.4 mg/dL (0.0-1.1); Blood Urea Nitrogen 45 mg/dL (9-20); Calcium 9.4 mg/dL (8.4-10.2); Carbon Dioxide 24 mmol/L (22-30); Chloride 107 mmol/L (98-107); Glucose 104 mg/dL (74-99); Magnesium 1.8 mg/dL (1.6-2.3); Non-African American GFR(CKD) 32 (>60 ml/min/1.73 sqM); Sodium 137 mmol/L (137-145); Total Bilirubin 0.8 mg/dL (0.2-1.3); Total Protein 6.9 g/dL (6.3-8.2)
[2021-04-12 10:15] LABS: Potassium 5.1 mmol/L (3.5-5.1)
[2021-04-12 13:01] LABS: Glucose,Whole Blood 108 mg/dL (75-99)
[2021-04-12 13:04] LABS: Appearance,Urine Clear (Clear); Bilirubin,Urine Negative (Negative); Blood,Urine Negative (Negative); Color,Urine Yellow; Glucose,Urine (UA) Negative (Negative); Ketones,Urine Negative (Negative); Leukocyte Esterase,Urine Negative (Negative); Mucus,Urine Rare /hpf; Nitrite,Urine Negative (Negative); Protein,Urine 2+ (Negative); RBC,Urine <1 /hpf (0-5); Specific Gravity,Urine 1.012 (1.001-1.035); Urobilinogen,Urine <2.0 mg/dL (<2.0)
--- NOTE | 2021-04-12 14:57 | CT ---
EXAMINATION TYPE: CT TAVR Planning DATE OF EXAM: 04/12/2021 HISTORY: TAVR planning CT DLP: 1916.1 mGycm Automated Exposure Control for Dose Reduction was Utilized. CONTRAST: CT scan of the chest, abdomen and pelvis is performed without and with IV Contrast, patient injected with 125cc mL of Isovue 370. COMPARISON: Chest CT November 28, 2019 TECHNIQUE: Helical imaging obtained through the chest, abdomen and pelvis during arterial phase mitchell eduardo administration of radiographic contrast intravenously. FINDINGS: See report from [facility] regarding preprocedural planning CHEST: Lower Neck and Thyroid: No significant findings Lungs: Tiny bilateral pleural effusions remain present. Mild emphysematous and pulmonary fibrotic zheng nges in the upper lungs bilaterally. Central Airway: No significant findings Pleura: No significant findings Pulmonary Arteries: Enlarged main pulmonary artery of 3.3 cm axial image 115 series 14 consistent wit h underlying pulmonary artery hypertension. Heart and Pericardium: Heart size upper limits of normal. Severe calcifications at level of the aorti c valve. Three-vessel coronary artery calcifications. Tiny pericardial effusion anterior-inferior asp ect Lymph Nodes: Prominent but subcentimeter scattered noncalcified lymph nodes. Prominent but calcified right hilar lymph nodes Mediastinum & Esophagus: No significant findings ABDOMEN/PELVIS: Please note arterial phase of the imaging limits detailed evaluation of the solid abdominal organs. Liver: No significant findings Spleen: No significant findings Kidneys: Scattered simple-appearing thin-walled cysts throughout both kidneys more numerous in the le ft kidney Adrenal Glands: No significant findings Pancreas: No significant findings Gallbladder: Dependent tiny calcified gallstones. Bowel and Mesentery: No significant findings Lymph Nodes: No significant findings Urinary Bladder: No significant findings Pelvic Organs: Enlarged prostate consistent with BPH Other: [id number] multilevel spurring in the spine. IMPRESSION: As above.
[2021-04-12 18:06] VITALS: RESP 18; TEMP 97
[2021-04-12 18:23] VITALS: BP 156/75; PULSE 65
[2021-04-12 20:48] LABS: Chol/HDL Ratio 2.93 Ratio; LDL Cholesterol,Calculated 87.2 mg/dL (0.0-131.0)
== END 2021-04-12 18:07 | disposition home or self-care (01) ==
LOC: CPPFTMAIN 13:19
PROVIDERS: ATTEND Thoracic Surgery (Cardiothoracic Vascular Surgery)
DX: I35.0 Nonrheumatic aortic (valve) stenosis (principal); E11.9 Type 2 diabetes mellitus without complications; E78.5 Hyperlipidemia, unspecified; N28.9 Disorder of kidney and ureter, unspecified; E07.9 Disorder of thyroid, unspecified; E87.8 Other disorders of electrolyte and fluid balance, not elsewhere classified; R35.0 Frequency of micturition; R58 Hemorrhage, not elsewhere classified; Z01.818 Encounter for other preprocedural examination; Z79.01 Long term (current) use of anticoagulants; Z79.899 Other long term (current) drug therapy; Z88.1 Allergy status to other antibiotic agents; Z91.030 Bee allergy status; Z87.891 Personal history of nicotine dependence
CPT/HCPCS: 84439; 83880; 80061; 80053; 84443; 82248; 83735; 85025; 85610; 85730; 81001; 87086; 83036; 87635; 71275; 74174; Q9967

== ENCOUNTER → 2021-05-22 | Outpatient (CLI) | payer MEDICARE ==
[2021-05-22 12:05] LABS: INR 1.1 (<1.2); Partial Thromboplastin Time 25.8 sec (22.0-30.0); Prothrombin Time 11.8 sec (9.0-12.0)
[2021-05-22 14:39] LABS: HCT 33.6 % (39.6-50.0); HGB 10.3 g/dL (13.0-17.0); MCH 27.7 pg (27.0-32.0); MCHC 30.7 g/dL (32.0-37.0); MCV 90.3 fL (80.0-97.0); Platelet Count 172 X 10*3/uL (140-440); RBC 3.72 X 10*6/uL (4.40-5.60); RDW 15.2 % (11.5-14.5); WBC 3.93 X 10*3/uL (4.50-10.00)
[2021-05-22 16:13] LABS: Albumin 3.9 g/dL (3.8-4.9); Albumin/Globulin Ratio 1.5 (1.60-3.17); Anion Gap 11.3 mmol/L (10.00-18.00); BUN/Creat Ratio 23.18 Ratio (12.00-20.00); Blood Urea Nitrogen 39.4 mg/dL (9.0-27.0); Calcium 9.1 mg/dL (8.7-10.3); Carbon Dioxide 21.7 mmol/L (20.0-27.5); Globulin 2.6 g/dL (1.6-3.3); Non-African American GFR(CKD) 36.2 (60.0-200.0); Potassium 4.7 mmol/L (3.5-5.5); Total Bilirubin 0.5 mg/dL (0.30-1.20); Total Protein 6.5 g/dL (6.2-8.2)
== END | disposition home or self-care (01) ==
LOC: LABWHC1 11:03
PROVIDERS: ATTEND Thoracic Surgery (Cardiothoracic Vascular Surgery)
DX: I35.0 Nonrheumatic aortic (valve) stenosis (principal)
CPT/HCPCS: 36415; 80053; 85027; 85610; 85730

== ENCOUNTER → 2021-07-21 | Outpatient (CLI) | payer MEDICARE ==
[2021-07-21 14:20] LABS: Creatinine,Urine Random 73.8 mg/dL; Protein/Creatinine Ratio,Urine 1.03
[2021-07-21 14:47] LABS: Appearance,Urine Clear (Clear); Bilirubin,Urine Negative (Negative); Blood,Urine Negative (Negative); Color,Urine Yellow; Glucose,Urine (UA) Negative (Negative); Hyaline Casts,Urine 4 /lpf (0-2); Ketones,Urine Negative (Negative); Leukocyte Esterase,Urine Negative (Negative); Mucus,Urine Rare /hpf; Nitrite,Urine Negative (Negative); PH, Urine 5.5 (5.0-8.0); Protein,Urine 1+ (Negative); RBC,Urine <1 /hpf (0-5); Specific Gravity,Urine 1.011 (1.001-1.035); Urobilinogen,Urine <2.0 mg/dL (<2.0); WBC,Urine <1 /hpf (0-5)
[2021-07-21 17:58] LABS: Basophils # (A) 0.02 X 10*3/uL (0.00-0.10); Basophils % (A) 0.4 %; Eosinophils # (A) 0.15 X 10*3/uL (0.04-0.35); Eosinophils % (A) 3.1 %; HCT 28.1 % (39.6-50.0); HGB 8.7 g/dL (13.0-17.0); Immature Grans, Automated 0.2 %; Lymphocytes # (A) 1.73 X 10*3/uL (0.90-5.00); Lymphocytes % (A) 35.4 %; MCH 27.8 pg (27.0-32.0); MCV 89.8 fL (80.0-97.0); Monocytes # (A) 0.39 X 10*3/uL (0.20-1.00); NRBC Per 100 WBC 0 /100 WBCS (0.0-0.0); Neutrophils # (A) 2.59 X 10*3/uL (1.80-7.70); Neutrophils % (A) 52.9 %; Platelet Count 148 X 10*3/uL (140-440); RBC 3.13 X 10*6/uL (4.40-5.60); RDW 16.5 % (11.5-14.5); WBC 4.89 X 10*3/uL (4.50-10.00)
[2021-07-21 18:15] LABS: % Iron Saturation 22.67 (15.00-50.00); African American GFR (CKD) 29.1 (60.0-200.0); BUN/Creat Ratio 31.26 Ratio (12.00-20.00); Blood Urea Nitrogen 71.9 mg/dL (9.0-27.0); Calcium 9.1 mg/dL (8.7-10.3); Magnesium 2.2 mg/dL (1.5-2.4); Non-African American GFR(CKD) 25.1 (60.0-200.0); Phosphorus 3.8 mg/dL (2.4-5.1); Potassium 4.7 mmol/L (3.5-5.5); Uric Acid 7.6 mg/dL (3.7-8.7)
== END | disposition home or self-care (01) ==
LOC: LABWHC1 11:43
PROVIDERS: ATTEND Thoracic Surgery (Cardiothoracic Vascular Surgery)
DX: I35.1 Nonrheumatic aortic (valve) insufficiency (principal); E55.9 Vitamin D deficiency, unspecified; D64.9 Anemia, unspecified; N25.81 Secondary hyperparathyroidism of renal origin; N39.0 Urinary tract infection, site not specified; N18.4 Chronic kidney disease, stage 4 (severe); M10.9 Gout, unspecified; R80.9 Proteinuria, unspecified
CPT/HCPCS: 36415; 80048; 81001; 82040; 82306; 82570; 82728; 83540; 83550; 83735; 83970; 84100; 84156; 84550; 85025

== ENCOUNTER → 2021-09-28 | Outpatient (CLI) | payer MEDICARE ==
--- NOTE | 2021-09-28 22:42 | US ---
EXAMINATION TYPE: US abdomen limited DATE OF EXAM: 09/28/2021 COMPARISON: CT abdomen and pelvis October 06, 2020 CLINICAL HISTORY: R19.00 ABDOMINAL MASS. lump LUQ Assess for hernia at location of: No abnormalities at area of concern. IMPRESSION: No focal hernia defect. No suspicious mass or fluid collection. Real-time scanning was performed by the account development specialist utilizing Valsalva and additional dynamic maneuve rs to assess for hernia.
== END | disposition home or self-care (01) ==
LOC: RADUSWWP 11:00
PROVIDERS: ATTEND Family Medicine
DX: R19.09 Other intra-abdominal and pelvic swelling, mass and lump (principal)
CPT/HCPCS: 76705

== ENCOUNTER → 2021-10-20 | Outpatient (CLI) | payer MEDICARE ==
[2021-10-20 14:17] LABS: Creatinine,Urine Random 120.4 mg/dL; Protein/Creatinine Ratio,Urine 0.93
[2021-10-20 18:04] LABS: % Iron Saturation 8.22 (15.00-50.00); African American GFR (CKD) 27.7 (60.0-200.0); BUN/Creat Ratio 28.5 Ratio (12.00-20.00); Blood Urea Nitrogen 68.4 mg/dL (9.0-27.0); Calcium 8.8 mg/dL (8.7-10.3); Magnesium 1.9 mg/dL (1.5-2.4); Non-African American GFR(CKD) 23.9 (60.0-200.0); Phosphorus 3.6 mg/dL (2.4-5.1); Potassium 4.7 mmol/L (3.5-5.5); Uric Acid 7.7 mg/dL (3.7-8.7)
[2021-10-20 18:13] LABS: Basophils # (A) 0.03 X 10*3/uL (0.00-0.10); Basophils % (A) 0.4 %; Eosinophils # (A) 0.22 X 10*3/uL (0.04-0.35); Eosinophils % (A) 3.2 %; HCT 31.2 % (39.6-50.0); HGB 9.7 g/dL (13.0-17.0); Immature Grans, Automated 0.6 %; Lymphocytes # (A) 1.27 X 10*3/uL (0.90-5.00); Lymphocytes % (A) 18.5 %; MCH 26.6 pg (27.0-32.0); MCHC 31.1 g/dL (32.0-37.0); MCV 85.7 fL (80.0-97.0); Mean Platelet Volume 10.6 fL (9.5-12.2); Monocytes # (A) 0.48 X 10*3/uL (0.20-1.00); NRBC Per 100 WBC 0 /100 WBCS (0.0-0.0); Neutrophils # (A) 4.81 X 10*3/uL (1.80-7.70); Neutrophils % (A) 70.3 %; Platelet Count 266 X 10*3/uL (140-440); RBC 3.64 X 10*6/uL (4.40-5.60); RDW 13.9 % (11.5-14.5); WBC 6.85 X 10*3/uL (4.50-10.00)
[2021-10-20 18:17] LABS: Appearance,Urine Clear (Clear); Bilirubin,Urine Negative (Negative); Blood,Urine Negative (Negative); Color,Urine Yellow (Yellow); Ketones,Urine Negative (Negative); Nitrite,Urine Negative (Negative); Specific Gravity,Urine 1.015 (1.001-1.030); Urobilinogen,Urine 0.2 (0.2,1.0)
[2021-10-20 18:27] LABS: Albumin 3.7 g/dL (3.8-4.9)
[2021-10-20 18:57] LABS: Bacteria,Urine None Seen /HPF (None Seen)
== END | disposition home or self-care (01) ==
LOC: LABWHC1 13:24
PROVIDERS: ATTEND Nurse Practitioner Family
DX: E55.9 Vitamin D deficiency, unspecified (principal); D64.9 Anemia, unspecified; N25.81 Secondary hyperparathyroidism of renal origin; M10.9 Gout, unspecified; N39.0 Urinary tract infection, site not specified; N18.4 Chronic kidney disease, stage 4 (severe); R80.9 Proteinuria, unspecified
CPT/HCPCS: 36415; 80048; 81001; 82040; 82306; 82570; 82728; 83540; 83550; 83735; 83970; 84100; 84156; 84550; 85025

== ENCOUNTER 2021-12-20 20:07 | Inpatient (IN) | payer MEDICARE ==
[2021-12-20] MEDS ORDERED: SODIUM CHLORIDE 0.9% 500 ML 500 ML IV STA (20:50)
[2021-12-20] MEDS ORDERED: ONDANSETRON 4 MG/2 ML VIAL IM STA (20:50)
[2021-12-20] MEDS ORDERED: MORPHINE SULFATE 4 MG/ML SYRINGE IVP STA (20:51)
--- NOTE | 2021-12-20 21:48 | CT ---
EXAMINATION TYPE: CT brain wo con CT DLP: 1159.4 mGycm, Automated exposure control for dose reduction was used. DATE OF EXAM: 12/20/2021 9:43 PM COMPARISON: None. CLINICAL INDICATION:Male, 86 years old with history of weakness, weakness, fall TECHNIQUE: Brain: Axial CT images of the brain were obtained with coronal and sagittal reformats created and rev iewed. Contrast used: None. Oral contrast used: None. FINDINGS: Brain: Extra-axial spaces: No abnormal extra-axial fluid collections. Ventricular system: Within normal limits Cerebral parenchyma: No acute intraparenchymal hemorrhage or mass effect. The mascorro-white junction is well differentiated. Cerebellum: Unremarkable. Mass effect: No evidence of midline shift. Intracranial vasculature: Atherosclerotic calcifications of the intracranial vessels. Soft tissues: Normal. Calvarium/osseous structures: No depressed skull fracture. Paranasal sinuses and mastoid air cells: Moderate scattered paranasal sinus disease. Visualized orbits: Orbital contents are intact. IMPRESSION: No acute intracranial process.
--- NOTE | 2021-12-20 22:19 | XR ---
EXAMINATION TYPE: XR elbow complete bilateral DATE OF EXAM: 12/20/2021 COMPARISON: NONE HISTORY: Elbow pain TECHNIQUE: 3 views each elbow FINDINGS: There is hypertrophic spurring on the olecranon process of the right elbow. There is a smal l spur on the olecranon process of the left elbow. There is no evidence of joint effusion. Joint spac es are fairly normal. There is some calcification in the soft tissues lateral to the lateral humeral condyle of the right humerus consistent with old injury. There are similar changes in the left elbow. No focal bone destruction. There is some soft tissue deformity consistent with a laceration at the p osterior aspect of the left elbow. IMPRESSION: No acute abnormality of the left and right elbow. No fracture. Olecranon process spur for mation. Evidence of degenerative phenomenon at the lateral humeral condyles bilaterally. Probable lac eration deformity of the left elbow. No foreign body seen.
--- NOTE | 2021-12-20 22:21 | XR ---
EXAMINATION TYPE: XR foot complete RT DATE OF EXAM: 12/20/2021 COMPARISON: NONE HISTORY: Foot pain TECHNIQUE: 3 views FINDINGS: Metatarsals are intact. There is osteopenia. There is Achilles calcaneal spurring. I see no fracture nor dislocation. The toes appear intact. There is spurring at the talonavicular joint. IMPRESSION: No acute abnormality of the right foot. No fracture.
--- NOTE | 2021-12-20 22:24 | XR ---
EXAMINATION TYPE: XR Hip LT and AP Pelvis DATE OF EXAM: 12/20/2021 COMPARISON: NONE HISTORY: Fall. Pain TECHNIQUE: 3 views FINDINGS: There is impacted subcapital fracture of the left femur. There is no dislocation. Pelvic ri ng is intact proximal right femur is intact. Sacroiliac joints are intact. IMPRESSION: Acute impacted subcapital fracture left femur.
--- NOTE | 2021-12-20 22:24 | XR ---
EXAMINATION TYPE: XR femur LT DATE OF EXAM: 12/20/2021 COMPARISON: NONE HISTORY: Fall. Pain TECHNIQUE: 4 views FINDINGS: There is an acute impacted subcapital fracture of the left femur. The knee joint is anatomi alyx patella is intact. There is vascular calcification IMPRESSION: Acute impacted femoral neck subcapital fracture.
--- NOTE | 2021-12-20 22:26 | XR ---
EXAMINATION TYPE: XR chest 1V DATE OF EXAM: 12/20/2021 COMPARISON: 05/25/2021 HISTORY: Hip fracture TECHNIQUE: Single view FINDINGS: There is coarse interstitial pulmonary density. Heart size is normal. There is surgery at t he aortic valve. No pleural effusion. There are chest leads. IMPRESSION: Interstitial fibrotic changes. Normal heart size. No pleural fluid seen to suggest heart failure. The interstitial infiltrates are increased compared to old exam.
--- NOTE | 2021-12-20 22:27 | XR ---
EXAMINATION TYPE: XR knee limited LT DATE OF EXAM: 12/20/2021 COMPARISON: NONE HISTORY: Fall. Pain TECHNIQUE: 2 views FINDINGS: There is some spurring of the medial tibial condyle. There is narrowing of medial joint spa ce. No evidence of knee joint effusion. I see no fracture nor dislocation. There is mild spurring on the patella. IMPRESSION: There is some mild osteoarthritis. No fracture.
[2021-12-20 22:36] LABS: Anisocytosis Slight; Basophils % (A) 0 %; Eosinophils # (A) 0.1 k/uL (0-0.7); Eosinophils % (A) 1 %; HCT 36.6 % (39.0-53.0); HGB 11.5 gm/dL (13.0-17.5); Lymphocytes # (A) 0.8 k/uL (1.0-4.8); Lymphocytes % (A) 7 %; MCH 27.8 pg (25.0-35.0); MCHC 31.4 g/dL (31.0-37.0); MCV 88.4 fL (80.0-100.0); Mean Platelet Volume 7.7; Monocytes # (A) 0.5 k/uL (0-1.0); Monocytes % (A) 5 %; Neutrophils # (A) 9.1 k/uL (1.3-7.7); Neutrophils % (A) 87 %; Platelet Count 144 k/uL (150-450); RBC 4.14 m/uL (4.30-5.90); RDW 17.4 % (11.5-15.5); WBC 10.5 k/uL (3.8-10.6)
[2021-12-20 22:38] LABS: Appearance,Urine Clear (Clear); Bilirubin,Urine Negative (Negative); Blood,Urine Negative (Negative); Color,Urine Yellow; Glucose,Urine (UA) Negative (Negative); Hyaline Casts,Urine 1 /lpf (0-2); Ketones,Urine Negative (Negative); Leukocyte Esterase,Urine Negative (Negative); Nitrite,Urine Negative (Negative); PH, Urine 5.5 (5.0-8.0); Protein,Urine 2+ (Negative); Specific Gravity,Urine 1.013 (1.001-1.035); Squamous Epithelial Cell,Urine <1 /hpf (0-4); Urobilinogen,Urine <2.0 mg/dL (<2.0); WBC,Urine 1 /hpf (0-5)
[2021-12-20 22:45] LABS: Partial Thromboplastin Time 25.4 sec (22.0-30.0); Prothrombin Time 11.3 sec (9.0-12.0)
[2021-12-20 22:51] LABS: Albumin 4.3 g/dL (3.5-5.0); Calcium 9.1 mg/dL (8.4-10.2); Magnesium 2.1 mg/dL (1.6-2.3); Total Bilirubin 0.7 mg/dL (0.2-1.3); Total Protein 7.2 g/dL (6.3-8.2)
[2021-12-20] MEDS ORDERED: MORPHINE SULFATE 4 MG/ML SYRINGE IVP PRN (23:08)
--- NOTE | 2021-12-20 23:19 | ED ---
General Adult HPI - General Chief complaint: Weakness Stated complaint: Weakness Time Seen by Provider: 12/20/21 20:40 Source: EMS, RN notes reviewed, old records reviewed Mode of arrival: EMS Limitations: altered mental status - History of Present Illness Initial comments: Patient is an 86-year-old male with past medical history remarkable for cancer, diabetes, hypertension, prostate disease, renal disease who presents to the emergency Department after a fall. Was found to be hypoxic on room air upon arrival with saturations at 84%. Currently endorses right big toe pain where he has been treated for a superficial infection. Patient states he was put in a boot and he stubbed this toe. This caused him to fall. Complained of left femur and hip pain following the fall. Denies hitting his head. Denies loss of consciousness. Is on Plavix. Denies any chest pain. Denies any shortness of breath. Endorses worsened lower extremity edema. Denies any fevers. Denies any worsening orthopnea. Denies any worsening dyspnea. Denies any cough. Has no known sick contacts. Was vaccinated for COVID-19. His no other acute complaints at this time. 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 Presents for further evaluation. - Related Data Home Medications Medication Instructions Recorded Confirmed Doxazosin Mesylate 8 mg PO HS 12/02/14 12/20/21 Lovastatin [Mevacor] 40 mg PO HS 12/02/14 12/20/21 allopurinoL [Zyloprim] 100 mg PO DAILY 12/02/14 12/20/21 cloNIDine HCL [Catapres] 0.3 mg PO BID 09/23/17 12/20/21 EPINEPHrine (Auto Inject) [Epipen] 0.3 mg IM ONCE PRN 09/24/17 12/20/21 Glimepiride [Amaryl] 0.5 mg PO AC-BRKFST 11/13/17 12/20/21 Cyanocobalamin (Vitamin B-12) 5,000 mcg PO DAILY 07/05/18 12/20/21 [Vitamin B-12] Ergocalciferol (Vitamin D2) 1,250 mcg PO Q14D 10/05/20 12/20/21 [Drisdol (50,000 Iu)] Furosemide [Lasix] 20 mg PO MOWEFR 10/05/20 12/20/21 Ketoconazole 2% Shampoo [Nizoral] 1 applic TOPICAL DIRECTED PRN 10/05/20 12/20/21 Sertraline HCl [Zoloft] 150 mg PO DAILY 10/05/20 12/20/21 amLODIPine [Norvasc] 5 mg PO DAILY 10/05/20 12/20/21 hydrALAZINE HCL [Apresoline] 50 mg PO BID-W/MEALS 10/05/20 12/20/21 Multivit-Min/FA/Lycopen/Lutein 1 tab PO DAILY 03/27/21 12/20/21 [Centrum Silver Men Tablet] Triamcinolone 0.1% Ointment 1 applic TOPICAL DIRECTED 03/27/21 12/20/21 [Kenalog 0.1% Ointment] carvediloL [Coreg] 3.125 mg PO BID-W/MEALS 03/27/21 12/20/21 prednisoLONE ACETATE 1% OPHTH 1 drop BOTH EYES PERALTA 03/27/21 12/20/21 [Pred Forte 1%] Ammonium Lactate Cream [Lac-Hydrin 1 applic TOPICAL BID 05/16/21 12/20/21 12% Cream] Isosorbide Mononitrate [Isosorbide 30 mg PO DAILY 05/16/21 12/20/21 Mononitrate ER] Petrolatum, White [Aquaphor] 1 applic TOPICAL DAILY 05/16/21 12/20/21 ALPRAZolam [Xanax] 0.25 mg PO HS PRN 12/20/21 12/20/21 Ferrous Sulfate [Feosol] 325 mg PO DAILY 12/20/21 12/20/21 Fluocinonide 0.05% Solution 1 applic TOPICAL DIRECTED 12/20/21 12/20/21 QUEtiapine [SEROquel] 25 mg PO HS 12/20/21 12/20/21 Tamsulosin [Flomax] 0.4 mg PO DAILY 12/20/21 12/20/21 metOLazone [Zaroxolyn] 2.5 mg PO DAILY 12/20/21 12/20/21 Previous Rx's Medication Instructions Recorded Aspirin 81 mg PO HS #0 10/07/20 Clopidogrel [Plavix] 75 mg PO DAILY #30 tab 05/25/21 Allergies Allergy/AdvReac Type Severity Reaction Status Date / Time bee venom protein (honey bee) Allergy Anaphylaxis Verified 12/20/21 23:37 cephalexin Allergy Rash/Hives Verified 12/20/21 23:37 clindamycin Allergy Rash/Hives Verified 12/20/21 23:37 sulfamethoxazole Allergy Unknown Verified 12/20/21 23:37 [From Bactrim] trimethoprim [From Bactrim] Allergy Unknown Verified 12/20/21 23:37 Review of Systems ROS Statement: Those systems with pertinent positive or pertinent negative responses have been documented in the HPI. Review of Systems: CONST: Denies fever EYES: Denies blurry vision ENT: Denies nasal congestion C/V: Denies Chest pain RESP: Denies shortness of breath GI: Denies abdominal pain : Denies dysuria SKIN: Denies rash. MSK: Endorses left hip pain NEURO: Denies headache ROS Other: All systems not noted in ROS Statement are negative. Past Medical History Past Medical History: Cancer, Diabetes Mellitus, Hyperlipidemia, Hypertension, Prostate Disorder, Renal Disease Additional Past Medical History / Comment(s): prostate cancer,leg wounds,venous ulcers. GI bleed (06/2018) left eye almost blind History of Any Multi-Drug Resistant Organisms: None Reported Past Surgical History: Tonsillectomy Additional Past Surgical History / Comment(s): laser eye surgery. VALVE REPLACEMENT Past Anesthesia/Blood Transfusion Reactions: No Reported Reaction Past Psychological History: Bipolar, Depression Additional Psychological History / Comment(s): For 3 months depression Smoking Status: Former smoker Past Alcohol Use History: Rare Additional Past Alcohol Use History / Comment(s): quits moking in late 20's Past Drug Use History: None Reported - Past Family History Mother Family Medical History: Diabetes Mellitus Additional Family Medical History / Comment(s): "heart problems" Father Additional Family Medical History / Comment(s): alcohol & due to liver issues General Exam - General Exam Comments Initial Comments: General: Appears in mild distress secondary to pain. HEAD: Normal with no signs of head trauma. EYES: PERRLA, EOMI, conjunctiva normal, no discharge. ENT: Hearing grossly intact, normal oropharynx. RESPIRATORY: Clear breath sounds bilaterally. No wheezes, rales, or rhonchi. No increased work of breathing. Hypoxic to 84% on room air, improved on 2-3 L nasal cannula. C/V: Regular rate and rhythm. S1 and S2 auscultated, 1+ bilateral pitting edema. Symmetrical., peripheral pulses 2+ and intact throughout ABD: Abd is soft, nontender, nondistended EXT: The rest palpation over the left femur. No tenderness to palpation of the midline spine. Pelvis appears stable. Reduced range of motion of the left hip secondary to pain in the left hip. Left leg is slightly shortened. SKIN: Skin tear over the left elbow. Clean wound over right plantar MTP NEURO: Alert and oriented 4. No focal sensory deficits. Strength deficits in the left lower extremity secondary to pain in the left hip.. Limitations: altered mental status Course Vital Signs 12/20/21 20:21 Temperature 97.8 F Pulse Rate 70 Respiratory 20 Rate Blood Pressure 156/70 O2 Sat by Pulse 84 L Oximetry Medical Decision Making - Medical Decision Making Based on the patient's presentation and physical exam, I'm concerned for acute traumatic injury the patient's left hip. Cannot rule out injury to the patient's bilateral elbows, where he is also tender. Like to obtain x-rays of the chest, left lower extremity, bilateral elbows. CT brain also be obtained. Unclear etiology the patient's hypoxia at this time. Recommended cardiopulmonary workup. He was in agreement with this plan. We will also obtain vital signs. Vital signs otherwise are within normal limits. EKG shows no signs of acute ischemia. Appears similar to prior EKGs. Chest x-ray shows bilateral infiltrates versus pulmonary vascular congestion. Patient CT shows no acute intracranial process. Extremity x-rays reveal no injuries of the bilateral elbows or right foot. Patient does have a left femur acute impacted subcapital fracture. Laboratory studies are remarkable for CK D, with an elevated BUN/creatinine which appears to be chronic. Troponin is elevated to 0.139 which is likely poly-factorial, considering the worsening CK D, likely prolonged hypoxia at home, in the absence of chest pain. There is a long delay in obtaining laboratory studies from lab.BNP is elevated to 2350. Covid and flu are still pending at this time. Due to patient's left hip fracture, I did speak with [facility], Dr. Lundberg who was in agreement with admitting to medicine, as patient will require clearance prior to surgery due to the hypoxia. He'll follow along as a consult. Patient does have a skin tear located over the left elbow that is bleeding. Cannot be closed. We'll apply pressure dressing. Tetanus was updated. I spoke with the admitting physician, Dr. Ruiz who accepted the patient. Was in agreement with the plan. We'll follow the troponins. Patiently started on subcutaneous heparin at this time as well as IV Lasix. Echo was ordered. Cardiology is consulted. Covid and flu swabs are still pending at this time. Updated the patient was in agreement this plan. - Lab Data Result diagrams: 12/20/21 22:10 12/20/21 22:10 Lab Results 12/20/21 12/20/21 12/20/21 Range/Units 22:10 22:10 22:10 WBC 10.5 (3.8-10.6) k/uL RBC 4.14 L (4.30-5.90) m/uL Hgb 11.5 L (13.0-17.5) gm/dL Hct 36.6 L (39.0-53.0) % MCV 88.4 (80.0-100.0) fL MCH 27.8 (25.0-35.0) pg MCHC 31.4 (31.0-37.0) g/dL RDW 17.4 H (11.5-15.5) % Plt Count 144 L (150-450) k/uL MPV 7.7 Neutrophils % 87 % Lymphocytes % 7 % Monocytes % 5 % Eosinophils % 1 % Basophils % 0 % Neutrophils # 9.1 H (1.3-7.7) k/uL Lymphocytes # 0.8 L (1.0-4.8) k/uL Monocytes # 0.5 (0-1.0) k/uL Eosinophils # 0.1 (0-0.7) k/uL Basophils # 0.0 (0-0.2) k/uL Anisocytosis Slight PT 11.3 (9.0-12.0) sec INR 1.0 (<1.2) APTT 25.4 (22.0-30.0) sec Sodium (137-145) mmol/L Potassium (3.5-5.1) mmol/L Chloride (98-107) mmol/L Carbon Dioxide (22-30) mmol/L Anion Gap mmol/L BUN (9-20) mg/dL Creatinine (0.66-1.25) mg/dL Est GFR (CKD-EPI)AfAm (>60 ml/min/1.73 sqM) Est GFR (CKD-EPI)NonAf (>60 ml/min/1.73 sqM) Glucose (74-99) mg/dL Plasma Lactic Acid Karlos (0.7-2.0) mmol/L Calcium (8.4-10.2) mg/dL Magnesium (1.6-2.3) mg/dL Total Bilirubin (0.2-1.3) mg/dL AST (17-59) U/L ALT (4-49) U/L Alkaline Phosphatase (38-126) U/L Troponin I (0.000-0.034) ng/mL NT-Pro-B Natriuret Pep pg/mL Total Protein (6.3-8.2) g/dL Albumin (3.5-5.0) g/dL Urine Color Yellow Urine Appearance Clear (Clear) Urine pH 5.5 (5.0-8.0) Ur Specific [place] 1.013 (1.001-1.035) Urine Protein 2+ H (Negative) Urine Glucose (UA) Negative (Negative) Urine Ketones Negative (Negative) Urine Blood Negative (Negative) Urine Nitrite Negative (Negative) Urine Bilirubin Negative (Negative) Urine Urobilinogen <2.0 (<2.0) mg/dL Ur Leukocyte Esterase Negative (Negative) Urine WBC 1 (0-5) /hpf Ur Squamous Epith Cells <1 (0-4) /hpf Hyaline Casts 1 (0-2) /lpf 12/20/21 12/20/21 12/20/21 Range/Units 22:10 22:10 22:10 WBC (3.8-10.6) k/uL RBC (4.30-5.90) m/uL Hgb (13.0-17.5) gm/dL Hct (39.0-53.0) % MCV (80.0-100.0) fL MCH (25.0-35.0) pg MCHC (31.0-37.0) g/dL RDW (11.5-15.5) % Plt Count (150-450) k/uL MPV Neutrophils % % Lymphocytes % % Monocytes % % Eosinophils % % Basophils % % Neutrophils # (1.3-7.7) k/uL Lymphocytes # (1.0-4.8) k/uL Monocytes # (0-1.0) k/uL Eosinophils # (0-0.7) k/uL Basophils # (0-0.2) k/uL Anisocytosis PT (9.0-12.0) sec INR (<1.2) APTT (22.0-30.0) sec Sodium 137 (137-145) mmol/L Potassium 5.0 (3.5-5.1) mmol/L Chloride 104 (98-107) mmol/L Carbon Dioxide 20 L (22-30) mmol/L Anion Gap 13 mmol/L BUN 90 H (9-20) mg/dL Creatinine 2.84 H (0.66-1.25) mg/dL Est GFR (CKD-EPI)AfAm 23 (>60 ml/min/1.73 sqM) Est GFR (CKD-EPI)NonAf 20 (>60 ml/min/1.73 sqM) Glucose 219 H (74-99) mg/dL Plasma Lactic Acid Karlos 0.7 (0.7-2.0) mmol/L Calcium 9.1 (8.4-10.2) mg/dL Magnesium 2.1 (1.6-2.3) mg/dL Total Bilirubin 0.7 (0.2-1.3) mg/dL AST 39 (17-59) U/L ALT 31 (4-49) U/L Alkaline Phosphatase 152 H (38-126) U/L Troponin I 0.139 H* (0.000-0.034) ng/mL NT-Pro-B Natriuret Pep pg/mL Total Protein 7.2 (6.3-8.2) g/dL Albumin 4.3 (3.5-5.0) g/dL Urine Color Urine Appearance (Clear) Urine pH (5.0-8.0) Ur Specific [place] (1.001-1.035) Urine Protein (Negative) Urine Glucose (UA) (Negative) Urine Ketones (Negative) Urine Blood (Negative) Urine Nitrite (Negative) Urine Bilirubin (Negative) Urine Urobilinogen (<2.0) mg/dL Ur Leukocyte Esterase (Negative) Urine WBC (0-5) /hpf Ur Squamous Epith Cells (0-4) /hpf Hyaline Casts (0-2) /lpf 12/20/21 Range/Units 22:10 WBC (3.8-10.6) k/uL RBC (4.30-5.90) m/uL Hgb (13.0-17.5) gm/dL Hct (39.0-53.0) % MCV (80.0-100.0) fL MCH (25.0-35.0) pg MCHC (31.0-37.0) g/dL RDW (11.5-15.5) % Plt Count (150-450) k/uL MPV Neutrophils % % Lymphocytes % % Monocytes % % Eosinophils % % Basophils % % Neutrophils # (1.3-7.7) k/uL Lymphocytes # (1.0-4.8) k/uL Monocytes # (0-1.0) k/uL Eosinophils # (0-0.7) k/uL Basophils # (0-0.2) k/uL Anisocytosis PT (9.0-12.0) sec INR (<1.2) APTT (22.0-30.0) sec Sodium (137-145) mmol/L Potassium (3.5-5.1) mmol/L Chloride (98-107) mmol/L Carbon Dioxide (22-30) mmol/L Anion Gap mmol/L BUN (9-20) mg/dL Creatinine (0.66-1.25) mg/dL Est GFR (CKD-EPI)AfAm (>60 ml/min/1.73 sqM) Est GFR (CKD-EPI)NonAf (>60 ml/min/1.73 sqM) Glucose (74-99) mg/dL Plasma Lactic Acid Karlos (0.7-2.0) mmol/L Calcium (8.4-10.2) mg/dL Magnesium (1.6-2.3) mg/dL Total Bilirubin (0.2-1.3) mg/dL AST (17-59) U/L ALT (4-49) U/L Alkaline Phosphatase (38-126) U/L Troponin I (0.000-0.034) ng/mL NT-Pro-B Natriuret Pep 2350 pg/mL Total Protein (6.3-8.2) g/dL Albumin (3.5-5.0) g/dL Urine Color Urine Appearance (Clear) Urine pH (5.0-8.0) Ur Specific [place] (1.001-1.035) Urine Protein (Negative) Urine Glucose (UA) (Negative) Urine Ketones (Negative) Urine Blood (Negative) Urine Nitrite (Negative) Urine Bilirubin (Negative) Urine Urobilinogen (<2.0) mg/dL Ur Leukocyte Esterase (Negative) Urine WBC (0-5) /hpf Ur Squamous Epith Cells (0-4) /hpf Hyaline Casts (0-2) /lpf Disposition Clinical Impression: Heart failure, Elevated troponin, Hypoxia, Closed right femoral fracture, Fall, CKD (chronic kidney disease), Volume overload Disposition: ADMITTED IP TO THIS HOSP Condition: Stable Time of Disposition: 00:10
[2021-12-20] MEDS ORDERED: ASPIRIN 81 MG PO STA (23:35)
[2021-12-20] MEDS ORDERED: HEPARIN SODIUM,PORCINE/PF 5,000 UNIT/0.5 ML SYRINGE SQ SCH (23:45)
[2021-12-20] MEDS ORDERED: NALOXONE 0.4 MG/ML 1 ML VIAL IV PRN (23:50)
[2021-12-20] MEDS ORDERED: ALPRAZolam 0.25 MG TAB PO PRN (23:55)
[2021-12-21] MEDS ORDERED: DIPH,PERTUS(ACELL)TETVAC-LF 0.5 ML VIAL IM ONE (00:19)
[2021-12-21] MEDS: FUROSEMIDE 10 MG/ML 4 ML VIAL IV SCH ×3 (00:26→20:51)
[2021-12-21] MEDS ORDERED: HEPARIN SODIUM 1,000 UN/ML (10ML VL) IV ONE (02:12)
[2021-12-21] MEDS ORDERED: HEPARIN SODIUM 1,000 UN/ML (10ML VL) IV PRN (02:12)
[2021-12-21] MEDS: HEPARIN SOD,PORK IN 0.45% NACL 25,000 UNIT in 0.45% NACL 1 250ML.BAG IV SCH (02:40)
[2021-12-21 03:13] LABS: Anisocytosis Slight; Basophils # (A) 0.1 k/uL (0-0.2); Basophils % (A) 0 %; Eosinophils # (A) 0.2 k/uL (0-0.7); Eosinophils % (A) 1 %; HCT 34.9 % (39.0-53.0); HGB 10.9 gm/dL (13.0-17.5); Lymphocytes # (A) 1.1 k/uL (1.0-4.8); Lymphocytes % (A) 8 %; MCHC 31.1 g/dL (31.0-37.0); MCV 89.8 fL (80.0-100.0); Mean Platelet Volume 7.3; Monocytes # (A) 0.4 k/uL (0-1.0); Monocytes % (A) 3 %; Neutrophils # (A) 11.6 k/uL (1.3-7.7); Neutrophils % (A) 87 %; Platelet Count 126 k/uL (150-450); RBC 3.89 m/uL (4.30-5.90); RDW 17.4 % (11.5-15.5); WBC 13.3 k/uL (3.8-10.6)
[2021-12-21 03:24] LABS: Calcium 8.9 mg/dL (8.4-10.2); Potassium 4.7 mmol/L (3.5-5.1)
[2021-12-21 04:07] LABS: INR 1.2 (<1.2); Prothrombin Time 12.7 sec (9.0-12.0)
[2021-12-21 04:09] LABS: Partial Thromboplastin Time 189.4 sec (22.0-30.0)
--- NOTE | 2021-12-21 04:31 | P.HPIM ---
History of Present Illness H&P Date: 12/21/21 Chief Complaint: Accidental fall 86-year-old male with coronary artery disease, chronic kidney disease, diabetes mellitus, hypertension Patient comes into the hospital after sustaining an accidental fall at home, he reports that he was recently been having callus over the base of his right big toe for which he is seen his foot doctor who gave him a big boot to offload pre ssure while wearing it today he stumped his big toe and fell denies any head injury denies any loss of consciousness initially family 8-10 to get back to the chair however later they found out that he couldn't stand up due to pain for which she was brought into the hospital upon arrival to the hospital he was found to be hypoxic with oxygen saturation at 84% she does not use any home oxygen at home however he does have history of pulmonary fibrosis. Patient denies any upper respiratory infection symptoms denies any chest pain or trouble breathing denies any coughing. Patient has very limited activity at home due to advanced age and easy fatigability. He recently had a TAB her surgery back in April 2021 before that he had a left heart cath showing 90% stenosis of the first diagonal branch and moderate stenosis of the mid LAD for which cardiology recommended medical management at that time March 2021. Patient denies any exertional dyspnea however he doesn't go far he only walks around home due to advanced age and easy fatigability. Family also report that he has depressed mood and has not been leaving the home. No reports of any history of blood clots or recent travel no reports of GI bleeding nor complaint of abdominal pain changes in bowel or urinary habits Upon further evaluation and imaging in the ED he was found to have left femoral acute impacted subcapital fracture. Other imaging did not reveal any other acute pathology CT of the brain was negative for any acute pathology chest x-ray suggested increased infiltrates compared to before this could be advancement of his pulmonary fibrosis Blood work showed elevated troponin which continue to trend up again patient denies any chest pain Patient doesn't take any blood thinners at home however he is on Plavix and aspirin Review of Systems Pertinent positives as noted in HPI. All other systems were reviewed and are negative Past Medical History Past Medical History: Cancer, Diabetes Mellitus, Hyperlipidemia, Hypertension, Prostate Disorder, Renal Disease Additional Past Medical History / Comment(s): prostate cancer,leg wounds,venous ulcers. GI bleed (06/2018) left eye almost blind History of Any Multi-Drug Resistant Organisms: None Reported Past Surgical History: Tonsillectomy Additional Past Surgical History / Comment(s): laser eye surgery. VALVE REPLACEMENT Past Anesthesia/Blood Transfusion Reactions: No Reported Reaction Past Psychological History: Bipolar, Depression Additional Psychological History / Comment(s): For 3 months depression Smoking Status: Former smoker Past Alcohol Use History: Rare Additional Past Alcohol Use History / Comment(s): quits moking in late Past Drug Use History: None Reported - Past Family History Mother Family Medical History: Diabetes Mellitus Additional Family Medical History / Comment(s): "heart problems" Father Additional Family Medical History / Comment(s): alcohol & due to li jordi issues Medications and Allergies Home Medications Medication Instructions Recorded Confirmed Type Doxazosin Mesylate 8 mg PO HS 12/02/14 12/20/21 History Lovastatin [Mevacor] 40 mg PO HS 12/02/14 12/20/21 History allopurinoL [Zyloprim] 100 mg PO DAILY 12/02/14 12/20/21 History cloNIDine HCL [Catapres] 0.3 mg PO BID 09/23/17 12/20/21 History EPINEPHrine (Auto Inject) [Epipen] 0.3 mg IM ONCE PRN 09/24/17 12/20/21 History Glimepiride [Amaryl] 0.5 mg PO AC-BRKFST 11/13/17 12/20/21 History Cyanocobalamin (Vitamin B-12) 5,000 mcg PO DAILY 07/05/18 12/20/21 History [Vitamin B-12] Ergocalciferol (Vitamin D2) 1,250 mcg PO Q14D 10/05/20 12/20/21 History [Drisdol (50,000 Iu)] Furosemide [Lasix] 20 mg PO MOWEFR 10/05/20 12/20/21 History Ketoconazole 2% Shampoo [Nizoral] 1 applic TOPICAL DIRECTED PRN 10/05/20 12/20/21 History Sertraline HCl [Zoloft] 150 mg PO DAILY 10/05/20 12/20/21 History amLODIPine [Norvasc] 5 mg PO DAILY 10/05/20 12/20/21 History hydrALAZINE HCL [Apresoline] 50 mg PO BID-W/MEALS 10/05/20 12/20/21 History Aspirin 81 mg PO HS #0 10/07/20 12/20/21 Rx Multivit-Min/FA/Lycopen/Lutein 1 tab PO DAILY 03/27/21 12/20/21 History [Centrum Silver Men Tablet] Triamcinolone 0.1% Ointment 1 applic TOPICAL DIRECTED 03/27/21 12/20/21 History [Kenalog 0.1% Ointment] carvediloL [Coreg] 3.125 mg PO BID-W/MEALS 03/27/21 12/20/21 History prednisoLONE ACETATE 1% OPHTH 1 drop BOTH EYES PERALTA 03/27/21 12/20/21 History [Pred Forte 1%] Ammonium Lactate Cream [Lac-Hydrin 1 applic TOPICAL BID 05/16/21 12/20/21 History 12% Cream] Isosorbide Mononitrate [Isosorbide 30 mg PO DAILY 05/16/21 12/20/21 History Mononitrate ER] Petrolatum, White [Aquaphor] 1 applic TOPICAL DAILY 05/16/21 12/20/21 History Clopidogrel [Plavix] 75 mg PO DAILY #30 tab 05/25/21 12/20/21 Rx ALPRAZolam [Xanax] 0.25 mg PO HS PRN 12/20/21 12/20/21 History Ferrous Sulfate [Feosol] 325 mg PO DAILY 12/20/21 12/20/21 History Fluocinonide 0.05% Solution 1 applic TOPICAL DIRECTED 12/20/21 12/20/21 History QUEtiapine [SEROquel] 25 mg PO HS 12/20/21 12/20/21 History Tamsulosin [Flomax] 0.4 mg PO DAILY 12/20/21 12/20/21 History metOLazone [Zaroxolyn] 2.5 mg PO DAILY 12/20/21 12/20/21 History Allergies Allergy/AdvReac Type Severity Reaction Status Date / Time bee venom protein (honey bee) Allergy Anaphylaxis Verified 12/20/21 23:37 cephalexin Allergy Rash/Hives Verified 12/20/21 23:37 clindamycin Allergy Rash/Hives Verified 12/20/21 23:37 sulfamethoxazole Allergy Unknown Verified 12/20/21 23:37 [From Bactrim] trimethoprim [From Bactrim] Allergy Unknown Verified 12/20/21 23:37 Physical Exam Vitals: Vital Signs Temp Pulse Resp BP Pulse Ox 12/21/21 02:01 92 L 12/21/21 00:30 63 20 155/73 93 L 12/20/21 23:30 68 20 151/71 93 L 12/20/21 20:21 97.8 F 70 20 156/70 84 L Intake and Output 12/20/21 12/20/21 12/21/21 14:59 22:59 06:59 Intake Total 14.07 Balance 14.07 Intake: Intake, IV Titration 14.07 Amount Heparin Sod,Pork in 0.45% 14.07 NaCl 25,000 unit In 0.45 % NaCl 1 250ml.bag @ 12 UNITS/KG/HR 8.981 mls/hr IV .Q24H [facility] Rx#: [id number] Other: Weight 74.843 kg Constitutional: No acute distress, conversant, pleasant, cooperative Eyes: Anicteric sclerae, moist conjunctiva, Pupils equal round reactive to light ENMT: NC/AT Oropharynx clear, no erythema, or exudates Neck: Supple, no masses, or JVD No carotid bruits No thyromegaly Lungs: Clear to auscultation Clear to percussion Normal respiratory effort, no accessory muscle use Cardiovascular: Heart regular in rate and rhythm, No murmurs, gallops, or rubs Trace bilateral peripheral edema Abdominal: Soft Nontender, no guarding, rebound or rigidity Abdomen moving with respiration Normoactive bowel sounds No hepatomegaly, No splenomegaly No palpable mass No abdominal wall hernia noted Skin: Skin sloughing over the left elbow secondary to the fall otherwise Normal temperature, tone, texture, turgor Callus over the base of the right big toe no drainage no open wounds Extremities: No digital cyanosis No clubbing Pedal pulses intact and symmetrical Radial pulses intact and symmetrical No calf tenderness Psychiatric: Alert and oriented to person, place Depressed affect Neuro Muscles Strength 4/5 in bilateral upper extremity, lower extremity was limited exam due to pain from his recent fall and fracture of the left hip Sensation to light touch grossly present throughout Cranial nerves II-XII grossly intact Lymphatics: no palpable cervical or supraclavicular , or inguinal lymph nodes Results CBC & Chem 7: 12/21/21 02:59 12/21/21 02:59 Labs: Abnormal Lab Results - Last 24 Hours (Table) 12/20/21 12/20/21 12/20/21 Range/Units 22:10 22:10 22:10 WBC (3.8-10.6) k/uL RBC 4.14 L (4.30-5.90) m/uL Hgb 11.5 L (13.0-17.5) gm/dL Hct 36.6 L (39.0-53.0) % RDW 17.4 H (11.5-15.5) % Plt Count 144 L (150-450) k/uL Neutrophils # 9.1 H (1.3-7.7) k/uL Lymphocytes # 0.8 L (1.0-4.8) k/uL PT (9.0-12.0) sec INR (<1.2) APTT (22.0-30.0) sec Carbon Dioxide 20 L (22-30) mmol/L BUN 90 H (9-20) mg/dL Creatinine 2.84 H (0.66-1.25) mg/dL Glucose 219 H (74-99) mg/dL Alkaline Phosphatase 152 H (38-126) U/L Troponin I (0.000-0.034) ng/mL Urine Protein 2+ H (Negative) 12/20/21 12/21/21 12/21/21 Range/Units 22:10 00:22 02:59 WBC (3.8-10.6) k/uL RBC (4.30-5.90) m/uL Hgb (13.0-17.5) gm/dL Hct (39.0-53.0) % RDW (11.5-15.5) % Plt Count (150-450) k/uL Neutrophils # (1.3-7.7) k/uL Lymphocytes # (1.0-4.8) k/uL PT (9.0-12.0) sec INR (<1.2) APTT (22.0-30.0) sec Carbon Dioxide (22-30) mmol/L BUN (9-20) mg/dL Creatinine (0.66-1.25) mg/dL Glucose (74-99) mg/dL Alkaline Phosphatase (38-126) U/L Troponin I 0.139 H* 0.256 H* 0.482 H* (0.000-0.034) ng/mL Urine Protein (Negative) 12/21/21 12/21/21 12/21/21 Range/Units 02:59 02:59 02:59 WBC 13.3 H (3.8-10.6) k/uL RBC 3.89 L (4.30-5.90) m/uL Hgb 10.9 L (13.0-17.5) gm/dL Hct 34.9 L (39.0-53.0) % RDW 17.4 H (11.5-15.5) % Plt Count 126 L (150-450) k/uL Neutrophils # 11.6 H (1.3-7.7) k/uL Lymphocytes # (1.0-4.8) k/uL PT 12.7 H (9.0-12.0) sec INR 1.2 H (<1.2) APTT 189.4 H* (22.0-30.0) sec Carbon Dioxide 20 L (22-30) mmol/L BUN 89 H (9-20) mg/dL Creatinine 2.87 H (0.66-1.25) mg/dL Glucose 207 H (74-99) mg/dL Alkaline Phosphatase (38-126) U/L Troponin I (0.000-0.034) ng/mL Urine Protein (Negative) Assessment and Plan Assessment: Acute hypoxic respiratory failure possibly related to advanced pulmonary fibrosis Supplemental oxygen as needed Breathing treatments as needed DuoNeb's Monitor vital signs Pulmonary consult Chronically elevated troponins however currently is trending up rule out acute coronary syndrome Cardiology consult Patient initiated on heparin drip Continue with aspirin and Plavix and statin compliance monitor Monitor vital signs Fall precautions Left femur acute impacted subcapital fracture secondary to accidental fall Orthopedic consult Pain control Mild anemia patient denies any GI bleeding Continue monitoring hemoglobin Chronic conditions Hypertension resume home blood pressure meds Diabetes mellitus hold oral hypoglycemic agents initiate insulin sliding scale History of coronary artery disease and she a TAVR History of prostate cancer Full code DVT prophylaxis: On heparin drip for ACS
[2021-12-21] MEDS ORDERED: GLIMEPIRIDE 0.5 MG TAB PO SCH (07:30)
[2021-12-21] MEDS: ISOSORBIDE MONONITRATE ER 30 MG TAB.ER.24H PO SCH (09:18)
[2021-12-21] MEDS: carvediloL 3.125 MG TAB PO SCH ×2 (09:18→17:31)
[2021-12-21] MEDS: TAMSULOSIN 0.4 MG CAP.ER.24H PO SCH (09:18)
[2021-12-21] MEDS: amLODIPine 5 MG TAB PO SCH (09:18)
[2021-12-21] MEDS: hydrALAZINE HCL 50 MG TAB PO SCH ×2 (09:19→17:31)
[2021-12-21] MEDS: cloNIDine HCL 0.2 MG TAB PO SCH ×2 (09:19→20:51)
[2021-12-21] MEDS: SERTRALINE 100 MG TAB PO SCH (09:19)
[2021-12-21] MEDS: CLOPIDOGREL 75 MG TAB PO SCH (09:20)
[2021-12-21] MEDS: allopurinoL 100 MG TAB PO SCH (09:20)
--- NOTE | 2021-12-21 10:52 | P.CNOR ---
History of Present Illness - [facility] Consult date: 12/21/21 Consult reason: fracture (Left hip) History of present illness: This is an 86-year-old gentleman evaluated in the emergency department. The patient states that he has been wearing a boot on his right foot for a large corn. The boot was prescribed by a uke operator. He states that the boot caused him to trip and fall, sustaining injury to his left hip. On exam and x-ray in the emergency department he was found to have a displaced femoral neck fracture. The patient was also hypoxic with elevated troponins on arrival to the emergency department. He denies using oxygen at home. He does have a history of cardiac issues in the past. He currently is on Plavix and aspirin. The patient is admitted to internal medicine and we are consulted for orthopedic evaluation of the left hip. Past Medical History Past Medical History: Cancer, Diabetes Mellitus, Hyperlipidemia, Hypertension, Prostate Disorder, Renal Disease Additional Past Medical History / Comment(s): prostate cancer,leg wounds,venous ulcers. GI bleed (06/2018) left eye almost blind History of Any Multi-Drug Resistant Organisms: None Reported Past Surgical History: Tonsillectomy Additional Past Surgical History / Comment(s): laser eye surgery. VALVE REPLACEMENT Past Anesthesia/Blood Transfusion Reactions: No Reported Reaction Past Psychological History: Bipolar, Depression Additional Psychological History / Comment(s): For 3 months depression Smoking Status: Former smoker Past Alcohol Use History: Rare Additional Past Alcohol Use History / Comment(s): quits moking in late Past Drug Use History: None Reported - Past Family History Mother Family Medical History: Diabetes Mellitus Additional Family Medical History / Comment(s): "heart problems" Father Additional Family Medical History / Comment(s): alcohol & due to liver issues Medications and Allergies Home Medications Medication Instructions Recorded Confirmed Type Doxazosin Mesylate 8 mg PO HS 12/02/14 12/20/21 History Lovastatin [Mevacor] 40 mg PO HS 12/02/14 12/20/21 History allopurinoL [Zyloprim] 100 mg PO DAILY 12/02/14 12/20/21 History cloNIDine HCL [Catapres] 0.3 mg PO BID 09/23/17 12/20/21 History EPINEPHrine (Auto Inject) [Epipen] 0.3 mg IM ONCE PRN 09/24/17 12/20/21 History Glimepiride [Amaryl] 0.5 mg PO AC-BRKFST 11/13/17 12/20/21 History Cyanocobalamin (Vitamin B-12) 5,000 mcg PO DAILY 07/05/18 12/20/21 History [Vitamin B-12] Ergocalciferol (Vitamin D2) 1,250 mcg PO Q14D 10/05/20 12/20/21 History [Drisdol (50,000 Iu)] Furosemide [Lasix] 20 mg PO MOWEFR 10/05/20 12/20/21 History Ketoconazole 2% Shampoo [Nizoral] 1 applic TOPICAL DIRECTED PRN 10/05/20 12/20/21 History Sertraline HCl [Zoloft] 150 mg PO DAILY 10/05/20 12/20/21 History amLODIPine [Norvasc] 5 mg PO DAILY 10/05/20 12/20/21 History hydrALAZINE HCL [Apresoline] 50 mg PO BID-W/MEALS 10/05/20 12/20/21 History Aspirin 81 mg PO HS #0 10/07/20 12/20/21 Rx Multivit-Min/FA/Lycopen/Lutein 1 tab PO DAILY 03/27/21 12/20/21 History [Centrum Silver Men Tablet] Triamcinolone 0.1% Ointment 1 applic TOPICAL Q48H 03/27/21 12/21/21 History [Kenalog 0.1% Ointment] carvediloL [Coreg] 3.125 mg PO BID-W/MEALS 03/27/21 12/20/21 History prednisoLONE ACETATE 1% OPHTH 1 drop BOTH EYES PERALTA 03/27/21 12/20/21 History [Pred Forte 1%] Ammonium Lactate Cream [Lac-Hydrin 1 applic TOPICAL BID 05/16/21 12/20/21 History 12% Cream] Isosorbide Mononitrate [Isosorbide 30 mg PO DAILY 05/16/21 12/20/21 History Mononitrate ER] Petrolatum, White [Aquaphor] 1 applic TOPICAL DAILY 05/16/21 12/20/21 History Clopidogrel [Plavix] 75 mg PO DAILY #30 tab 05/25/21 12/20/21 Rx ALPRAZolam [Xanax] 0.25 mg PO HS PRN 12/20/21 12/20/21 History Ferrous Sulfate [Feosol] 325 mg PO DAILY 12/20/21 12/20/21 History Fluocinonide 0.05% Solution 1 applic TOPICAL HS 12/20/21 12/21/21 History QUEtiapine [SEROquel] 25 mg PO HS 12/20/21 12/20/21 History Tamsulosin [Flomax] 0.4 mg PO DAILY 12/20/21 12/20/21 History metOLazone [Zaroxolyn] 2.5 mg PO DAILY 12/20/21 12/20/21 History Allergies Allergy/AdvReac Type Severity Reaction Status Date / Time bee venom protein (honey bee) Allergy Anaphylaxis Verified 12/20/21 23:37 cephalexin Allergy Rash/Hives Verified 12/20/21 23:37 clindamycin Allergy Rash/Hives Verified 12/20/21 23:37 sulfamethoxazole Allergy Unknown Verified 12/20/21 23:37 [From Bactrim] trimethoprim [From Bactrim] Allergy Unknown Verified 12/20/21 23:37 Physical Examination This is a pleasant 86-year-old gentleman in no acute distress. He is alert and oriented 3. He has difficulty hearing. Exam of the head and neck reveal no obvious deformity or injury. He has fairly good cervical spine motion without difficulty or pain. Exam of the upper extremities reveals no deformity or swelling. There is a dressed skin tear to the left elbow. He has fairly good motion to the elbows, wrists and fingers. Neurovascular status to the upper extremities is intact. Exam of the lower extremities reveals no obvious deformity. There is minimal shortening noted to the left lower extremity. There is pain with to the left hip with any motion of the left lower extremity. He has full foot and ankle motion bilaterally. Neurovascular status to the lower extremities is intact. Results X-rays of the pelvis and left hip reveal mildly displaced femoral neck fracture. No other fractures identified. Elbow x-rays are negative for fracture. - Labs Labs: Abnormal Lab Results - Last 24 Hours (Table) 12/20/21 12/20/21 12/20/21 Range/Units 22:10 22:10 22:10 WBC (3.8-10.6) k/uL RBC 4.14 L (4.30-5.90) m/uL Hgb 11.5 L (13.0-17.5) gm/dL Hct 36.6 L (39.0-53.0) % RDW 17.4 H (11.5-15.5) % Plt Count 144 L (150-450) k/uL Neutrophils # 9.1 H (1.3-7.7) k/uL Lymphocytes # 0.8 L (1.0-4.8) k/uL PT (9.0-12.0) sec INR (<1.2) APTT (22.0-30.0) sec Carbon Dioxide 20 L (22-30) mmol/L BUN 90 H (9-20) mg/dL Creatinine 2.84 H (0.66-1.25) mg/dL Glucose 219 H (74-99) mg/dL Alkaline Phosphatase 152 H (38-126) U/L Troponin I (0.000-0.034) ng/mL Urine Protein 2+ H (Negative) 12/20/21 12/21/21 12/21/21 Range/Units 22:10 00:22 02:59 WBC (3.8-10.6) k/uL RBC (4.30-5.90) m/uL Hgb (13.0-17.5) gm/dL Hct (39.0-53.0) % RDW (11.5-15.5) % Plt Count (150-450) k/uL Neutrophils # (1.3-7.7) k/uL Lymphocytes # (1.0-4.8) k/uL PT (9.0-12.0) sec INR (<1.2) APTT (22.0-30.0) sec Carbon Dioxide (22-30) mmol/L BUN (9-20) mg/dL Creatinine (0.66-1.25) mg/dL Glucose (74-99) mg/dL Alkaline Phosphatase (38-126) U/L Troponin I 0.139 H* 0.256 H* 0.482 H* (0.000-0.034) ng/mL Urine Protein (Negative) 12/21/21 12/21/21 12/21/21 Range/Units 02:59 02:59 02:59 WBC 13.3 H (3.8-10.6) k/uL RBC 3.89 L (4.30-5.90) m/uL Hgb 10.9 L (13.0-17.5) gm/dL Hct 34.9 L (39.0-53.0) % RDW 17.4 H (11.5-15.5) % Plt Count 126 L (150-450) k/uL Neutrophils # 11.6 H (1.3-7.7) k/uL Lymphocytes # (1.0-4.8) k/uL PT 12.7 H (9.0-12.0) sec INR 1.2 H (<1.2) APTT 189.4 H* (22.0-30.0) sec Carbon Dioxide 20 L (22-30) mmol/L BUN 89 H (9-20) mg/dL Creatinine 2.87 H (0.66-1.25) mg/dL Glucose 207 H (74-99) mg/dL Alkaline Phosphatase (38-126) U/L Troponin I (0.000-0.034) ng/mL Urine Protein (Negative) 12/21/21 Range/Units 06:04 WBC (3.8-10.6) k/uL RBC (4.30-5.90) m/uL Hgb (13.0-17.5) gm/dL Hct (39.0-53.0) % RDW (11.5-15.5) % Plt Count (150-450) k/uL Neutrophils # (1.3-7.7) k/uL Lymphocytes # (1.0-4.8) k/uL PT (9.0-12.0) sec INR (<1.2) APTT 63.3 H (22.0-30.0) sec Carbon Dioxide (22-30) mmol/L BUN (9-20) mg/dL Creatinine (0.66-1.25) mg/dL Glucose (74-99) mg/dL Alkaline Phosphatase (38-126) U/L Troponin I (0.000-0.034) ng/mL Urine Protein (Negative) H & H 12/20/21 12/21/21 Range/Units 22:10 02:59 Hgb 11.5 L 10.9 L (13.0-17.5) gm/dL Hct 36.6 L 34.9 L (39.0-53.0) % Coagulation 12/20/21 12/21/21 Range/Units 22:10 02:59 INR 1.0 1.2 H (<1.2) Result Diagrams: 12/21/21 02:59 12/21/21 02:59 Assessment and Plan (1) Fracture of femoral neck, left Current Visit: Yes Status: Acute Code(s): S72.002A - FRACTURE OF UNSP PART OF NECK OF LEFT FEMUR, INIT SNOMED Code(s): 9769622 (2) Fall Current Visit: Yes Status: Acute Code(s): W19.XXXA - UNSPECIFIED FALL, INITIAL ENCOUNTER SNOMED Code(s): 0279696 (3) Heart failure Current Visit: Yes Status: Acute Code(s): I50.9 - HEART FAILURE, UNSPECIFIED SNOMED Code(s): 48816169 (4) Hypoxia Current Visit: Yes Status: Acute Code(s): R09.02 - HYPOXEMIA SNOMED Code(s): 520887293 Plan: The clinical and x-ray findings are discussed with the patient. He is admitted to internal medicine. He is currently hypoxic secondary to heart failure. Internal medicine has asked for 24-48 hours to improve his cardiac function. We will tentatively schedule him for hemiarthroplasty of the left hip for tomorrow. If the patient is not cleared we will potentially board surgery for Saturday.
[2021-12-21 10:53] LABS: Glucose,Whole Blood 110 mg/dL (70-110)
[2021-12-21] MEDS: INSULIN ASPART (NovoLOG) 100 UNIT/ML VIAL SQ SCH ×4 (10:55→20:22)
--- NOTE | 2021-12-21 10:59 | P.CRDCN ---
History of Present Illness History of present illness: This is a 86 year old male with a past medical history of pulmonary fibrosis, severe aortic stenosis status post TAVR on 05/24/2021, coronary artery disease s/p PCI, chronic congestive heart failure with preserved ejection fraction. He follows in the office with Dr. Kelley. We have been consulted for elevated troponin and recent TAVR. Patient presents to the ER after a mechanical fall at home. Patient recently has been having callus over his right big toe, he did follow-up with a application architect manager who gave him offload shoe. He states he tripped and fell. Did not lose consciousness. He had significant pain and could not weight bear on his leg. He was brought to the emergency department, he was noted to be hypoxic with 84% on room air. Troponins were drawn in the emergency department and were elevated at 0.13, 0.25, 0.48. Patient denies any chest pain. He does endorse some shortness of breath. He denies any numbness, dizziness, syncope or near syncope. He denies any palpitations. He was also found to have left femur acute impacted subcapital fracture noted on x-ray. DIAGNOSTICS * EKG reveals sinus rhythm, heart 69, no STT wave abnormalities to suggest acute ischemia * Telemetry tracings indicate sinus rhythm * Chest xray interstitial fibrotic changes, heart size is normal, no acute heart failure noted. Interstitial infiltrates are increased compared to old exam * Laboratory reviewed, WBC 13.3, hemoglobin 10.9, platelets 126, sodium 138, potassium 4.7, BUN 89, serum creatinine 2.8, proBNP 2250 * Current home cardiac medications include Lasix 20 mg Saturday, clonidine 0.3 mg twice a day, Plavix 75 mg daily, carvedilol 3.125 mg twice a day, amlodipine 5 mg daily, aspirin 81 mg nightly * Echocardiogram 04/2021 revealed EF 5560 percent, mild mitral regurgitation of mild tricuspid regurgitation, maximum velocity across aortic valve is 2.63, maximum pressure gradient across the aortic valve 27.69 mmHg. REVIEW OF SYSTEMS At the time of my exam: CONSTITUTIONAL: Denies fever or chills. CARDIOVASCULAR: Denies chest pain, +shortness of breath, Denies orthopnea, PND or palpitations. RESPIRATORY: Denies cough. GASTROINTESTINAL: Denies abdominal pain, diarrhea, constipation, nausea or vomiting. MUSCULOSKELETAL: Left leg pain NEUROLOGIC: Denies numbness, tingling, headacbe or weakness. ENDOCRINE: Denies fatigue, weight change, polydipsia or polyurina. GENITOURINARY: Denies burning, hematuria or urgency with micturation. HEMATOLOGIC: Denies history of anemia or bleeding. PHYSICAL EXAMINATION Blood pressure 171/76, heart rate 66, afebrile, saturations 94% on 3 L nasal cannula CONSTITUTIONAL: No apparent distress. HEENT: Head is normocephalic. Pupils are equal, round. Sclerae anicteric. Mucous membranes of the mouth are moist. No JVD. No carotid bruit. CHEST EXAMINATION: Lungs are diminished to auscultation. No chest wall tenderness is noted on palpation or with deep breathing. HEART EXAMINATION: Regular rate and rhythm. S1, S2 heard. Systolic murmur noted. ABDOMEN: Soft, nontender. Positive bowel sounds. EXTREMITIES: 2+ peripheral pulses, no lower extremity edema and no calf tenderness. NEUROLOGIC EXAMINATION: Patient is awake, alert and oriented x3. ASSESSMENT Status post mechanical fall Left femur acute impacted subcapital fracture Shortness of breath, patient does not appear to be in acute heart failure exam Pulmonary fibrosis Elevated troponin, unclear significance, could be related to hypoxia, patient does not have any signs or symptoms of acute coronary syndrome Severe aortic stenosis status post TAVR on 05/24/2021 Coronary artery disease s/p PCI Chronic congestive heart failure with preserved ejection fraction PLAN Recommend stopping IV heparin drip Continue home cardiac medications No further inpatient workup Orthopedics consulted, if surgery is indicated, from a cardiology perspective there is no absolute contraindications to undergo surgery at this time. Patient is not able to perform >4METs level of activity and does not have any acute cardiac conditions. Patient is hemodynamically stable. Recommend cautious fluid administration and optimal BP control. Please re-consult if needed. Nurse practitioner note has been reviewed by physician. Signing provider agrees with the documented findings, assessment, and plan of care. Past Medical History Past Medical History: Cancer, Diabetes Mellitus, Hyperlipidemia, Hypertension, Prostate Disorder, Renal Disease Additional Past Medical History / Comment(s): prostate cancer,leg wounds,venous ulcers. GI bleed (06/2018) left eye almost blind History of Any Multi-Drug Resistant Organisms: None Reported Past Surgical History: Tonsillectomy Additional Past Surgical History / Comment(s): laser eye surgery. VALVE REPLACEMENT Past Anesthesia/Blood Transfusion Reactions: No Reported Reaction Past Psychological History: Bipolar, Depression Additional Psychological History / Comment(s): For 3 months depression Smoking Status: Former smoker Past Alcohol Use History: Rare Additional Past Alcohol Use History / Comment(s): quits moking in late Past Drug Use History: None Reported - Past Family History Mother Family Medical History: Diabetes Mellitus Additional Family Medical History / Comment(s): "heart problems" Father Additional Family Medical History / Comment(s): alcohol & due to liver issues Medications and Allergies Home Medications Medication Instructions Recorded Confirmed Type Doxazosin Mesylate 8 mg PO HS 12/02/14 12/20/21 History Lovastatin [Mevacor] 40 mg PO HS 12/02/14 12/20/21 History allopurinoL [Zyloprim] 100 mg PO DAILY 12/02/14 12/20/21 History cloNIDine HCL [Catapres] 0.3 mg PO BID 09/23/17 12/20/21 History EPINEPHrine (Auto Inject) [Epipen] 0.3 mg IM ONCE PRN 09/24/17 12/20/21 History Glimepiride [Amaryl] 0.5 mg PO AC-BRKFST 11/13/17 12/20/21 History Cyanocobalamin (Vitamin B-12) 5,000 mcg PO DAILY 07/05/18 12/20/21 History [Vitamin B-12] Ergocalciferol (Vitamin D2) 1,250 mcg PO Q14D 10/05/20 12/20/21 History [Drisdol (50,000 Iu)] Furosemide [Lasix] 20 mg PO MOWEFR 10/05/20 12/20/21 History Ketoconazole 2% Shampoo [Nizoral] 1 applic TOPICAL DIRECTED PRN 10/05/20 12/20/21 History Sertraline HCl [Zoloft] 150 mg PO DAILY 10/05/20 12/20/21 History amLODIPine [Norvasc] 5 mg PO DAILY 10/05/20 12/20/21 History hydrALAZINE HCL [Apresoline] 50 mg PO BID-W/MEALS 10/05/20 12/20/21 History Aspirin 81 mg PO HS #0 10/07/20 12/20/21 Rx Multivit-Min/FA/Lycopen/Lutein 1 tab PO DAILY 03/27/21 12/20/21 History [Centrum Silver Men Tablet] Triamcinolone 0.1% Ointment 1 applic TOPICAL Q48H 03/27/21 12/21/21 History [Kenalog 0.1% Ointment] carvediloL [Coreg] 3.125 mg PO BID-W/MEALS 03/27/21 12/20/21 History prednisoLONE ACETATE 1% OPHTH 1 drop BOTH EYES PERALTA 03/27/21 12/20/21 History [Pred Forte 1%] Ammonium Lactate Cream [Lac-Hydrin 1 applic TOPICAL BID 05/16/21 12/20/21 History 12% Cream] Isosorbide Mononitrate [Isosorbide 30 mg PO DAILY 05/16/21 12/20/21 History Mononitrate ER] Petrolatum, White [Aquaphor] 1 applic TOPICAL DAILY 05/16/21 12/20/21 History Clopidogrel [Plavix] 75 mg PO DAILY #30 tab 05/25/21 12/20/21 Rx ALPRAZolam [Xanax] 0.25 mg PO HS PRN 12/20/21 12/20/21 History Ferrous Sulfate [Feosol] 325 mg PO DAILY 12/20/21 12/20/21 History Fluocinonide 0.05% Solution 1 applic TOPICAL HS 12/20/21 12/21/21 History QUEtiapine [SEROquel] 25 mg PO HS 12/20/21 12/20/21 History Tamsulosin [Flomax] 0.4 mg PO DAILY 12/20/21 12/20/21 History metOLazone [Zaroxolyn] 2.5 mg PO DAILY 12/20/21 12/20/21 History Allergies Allergy/AdvReac Type Severity Reaction Status Date / Time bee venom protein (honey bee) Allergy Anaphylaxis Verified 12/20/21 23:37 cephalexin Allergy Rash/Hives Verified 12/20/21 23:37 clindamycin Allergy Rash/Hives Verified 12/20/21 23:37 sulfamethoxazole Allergy Unknown Verified 12/20/21 23:37 [From Bactrim] trimethoprim [From Bactrim] Allergy Unknown Verified 12/20/21 23:37 Physical Exam Vitals: Vital Signs Temp Pulse Resp BP Pulse Ox 12/21/21 06:36 60 18 169/74 93 L 12/21/21 02:01 92 L 12/21/21 00:30 63 20 155/73 93 L 12/20/21 23:30 68 20 151/71 93 L 12/20/21 20:21 97.8 F 70 20 156/70 84 L Intake and Output 12/20/21 12/21/21 12/21/21 22:59 06:59 14:59 Intake Total 14.07 Balance 14.07 Intake: Intake, IV Titration 14.07 Amount Heparin Sod,Pork in 0.45% 14.07 NaCl 25,000 unit In 0.45 % NaCl 1 250ml.bag @ 12 UNITS/KG/HR 8.981 mls/hr IV .Q24H [facility] Rx#: [id number] Other: Weight 74.843 kg Results 12/21/21 02:59 12/21/21 02:59 Cardiac Enzymes 12/20/21 12/20/21 12/21/21 Range/Units 22:10 22:10 00:22 AST 39 (17-59) U/L Troponin I 0.139 H* 0.256 H* (0.000-0.034) ng/mL 12/21/21 Range/Units 02:59 AST (17-59) U/L Troponin I 0.482 H* (0.000-0.034) ng/mL Coagulation 12/20/21 12/21/21 12/21/21 Range/Units 22:10 02:59 06:04 PT 11.3 12.7 H (9.0-12.0) sec APTT 25.4 189.4 H* 63.3 H (22.0-30.0) sec CBC 12/20/21 12/21/21 Range/Units 22:10 02:59 WBC 10.5 13.3 H (3.8-10.6) k/uL RBC 4.14 L 3.89 L (4.30-5.90) m/uL Hgb 11.5 L 10.9 L (13.0-17.5) gm/dL Hct 36.6 L 34.9 L (39.0-53.0) % Plt Count 144 L 126 L (150-450) k/uL Comprehensive Metabolic Panel 12/20/21 12/21/21 Range/Units 22:10 02:59 Sodium 137 138 (137-145) mmol/L Potassium 5.0 4.7 (3.5-5.1) mmol/L Chloride 104 105 (98-107) mmol/L Carbon Dioxide 20 L 20 L (22-30) mmol/L BUN 90 H 89 H (9-20) mg/dL Creatinine 2.84 H 2.87 H (0.66-1.25) mg/dL Glucose 219 H 207 H (74-99) mg/dL Calcium 9.1 8.9 (8.4-10.2) mg/dL AST 39 (17-59) U/L ALT 31 (4-49) U/L Alkaline Phosphatase 152 H (38-126) U/L Total Protein 7.2 (6.3-8.2) g/dL Albumin 4.3 (3.5-5.0) g/dL Current Medications Generic Name Dose Route Start Last Admin Trade Name Freq PRN Reason Stop Dose Admin Allopurinol 100 mg 12/21/21 09:00 Allopurinol 100 Mg Tab PO DAILY [facility] Alprazolam 0.25 mg 12/20/21 23:55 Alprazolam 0.25 Mg Tab PO HS PRN Anxiety Amlodipine Besylate 5 mg 12/21/21 09:00 Amlodipine 5 Mg Tab PO DAILY [facility] Aspirin 81 mg 12/21/21 21:00 Aspirin 81 Mg PO HS [facility] Atorvastatin Calcium 10 mg 12/21/21 21:00 Atorvastatin 10 Mg Tab PO HS [facility] Carvedilol 3.125 mg 12/21/21 07:30 Carvedilol 3.125 Mg Tab PO BID-W/MEALS [facility] Clonidine 0.3 mg 12/21/21 09:00 Clonidine Hcl 0.2 Mg Tab PO BID [facility] Clopidogrel Bisulfate 75 mg 12/21/21 09:00 Clopidogrel 75 Mg Tab PO DAILY [facility] Doxazosin Mesylate 8 mg 12/21/21 21:00 Doxazosin 4 Mg Tab PO HS [facility] Furosemide 40 mg 12/20/21 23:45 12/21/21 00:26 Furosemide 10 Mg/Ml 4 Ml Vial IV 40 mg Q12HR [facility] Administration Heparin Sodium (Porcine) 0 unit 12/21/21 02:12 Heparin Sodium 1,000 Un/Ml (10ml Vl) IV PER PROTOCOL PRN Low PTT Protocol Hydralazine HCl 50 mg 12/21/21 07:30 Hydralazine Hcl 50 Mg Tab PO BID-W/MEALS [facility] Heparin Sodium/Sodium Chloride 250 mls @ 8.981 mls/hr 12/21/21 02:15 12/21/21 04:18 25,000 unit/ Sodium Chloride IV 0 units/kg/hr .Q24H [facility] 0 mls/hr Titration Protocol 12 UNITS/KG/HR Insulin Aspart 0 unit 12/21/21 07:30 Insulin Aspart (Novolog) 100 Unit/Ml Vial SQ ACHS [facility] Protocol Isosorbide Mononitrate 30 mg 12/21/21 09:00 Isosorbide Mononitrate Er 30 Mg Tab.Er.24h PO DAILY [facility] Metolazone 2.5 mg 12/21/21 09:00 Metolazone 2.5 Mg Tab PO DAILY [facility] Morphine Sulfate 4 mg 12/20/21 23:08 12/21/21 00:26 Morphine Sulfate 4 Mg/Ml Syringe IVP 4 mg Q4HR PRN Administration Pain Naloxone HCl 0.2 mg 12/20/21 23:50 Naloxone 0.4 Mg/Ml 1 Ml Vial IV Q2M PRN Opioid Reversal Ondansetron HCl 4 mg 12/20/21 23:50 Ondansetron 4 Mg/2 Ml Vial IVP Q8HR PRN Nausea And Vomiting Prednisolone Acetate 1 drops 12/24/21 09:00 Prednisolone Acetate 1% Ophth Drops 5 Ml Btl BOTH EYES PERALTA [facility] Quetiapine Fumarate 25 mg 12/21/21 21:00 Quetiapine 25 Mg Tab PO HS [facility] Sertraline HCl 150 mg 12/21/21 09:00 Sertraline 100 Mg Tab PO DAILY [facility] Tamsulosin HCl 0.4 mg 12/21/21 09:00 Tamsulosin 0.4 Mg Cap.Er.24h PO DAILY [facility] Intake and Output 12/20/21 12/21/21 12/21/21 22:59 06:59 14:59 Intake Total 14.07 Balance 14.07 Intake: Intake, IV Titration 14.07 Amount Heparin Sod,Pork in 0.45% 14.07 NaCl 25,000 unit In 0.45 % NaCl 1 250ml.bag @ 12 UNITS/KG/HR 8.981 mls/hr IV .Q24H [facility] Rx#: [id number] Other: Weight 74.843 kg 12/21/21 02:59 12/21/21 02:59
--- NOTE | 2021-12-21 11:34 | CA ---
Transthoracic Echo Report Name: Charles Ríos Age: 86 Gender: M : 1935 Exam Date: 12/21/2021 08:02 Exam Location: [facility] Ht (in): 69 Wt (lb): 165 Ordering Physician: Giovani Jefferson MD Attending/Referring Phys: Senior Media Planner Nisa Hilliard RDCS Procedure CPT: Indications: hx of TAVR, eval for CHF Cardiac Hx: Technical Quality: Fair Contrast 1: Total Dose (mL): Contrast 2: Total Dose (mL): MEASUREMENTS (Male / Female) Normal Values 2D ECHO LV Diastolic Diameter PLAX 4.5 cm 4.2 - 5.9 / 3.9 - 5.3 cm LV Systolic Diameter PLAX 3.3 cm IVS Diastolic Thickness 1.4 cm 0.6 - 1.0 / 0.6 - 0.9 cm LVPW Diastolic Thickness 1.6 cm 0.6 - 1.0 / 0.6 - 0.9 cm LV Relative Wall Thickness 0.7 RV Internal Dim ED PLAX 2.6 cm LA Volume 96.8 cm??? 18 - 58 / 22 - 52 cm??? M-MODE MV E Point Septal Separation 0.6 cm DOPPLER AV Peak Velocity 195.2 cm/s AV Peak Gradient 15.2 mmHg AV Mean Velocity 136.3 cm/s AV Mean Gradient 8.2 mmHg AV Velocity Time Integral 44.0 cm LVOT Peak Velocity 112.4 cm/s LVOT Peak Gradient 5.1 mmHg MV Area PHT 6.1 cm??? Mitral E Point Velocity 83.2 cm/s Mitral A Point Velocity 111.3 cm/s Mitral E to A Ratio 0.7 MV Deceleration Time 125.0 ms MV E' Velocity 6.9 cm/s Mitral E to MV E' Ratio 12.0 TR Peak Velocity 382.6 cm/s TR Peak Gradient 58.6 mmHg Right Ventricular Systolic Press 62.5 mmHg FINDINGS Left Ventricle Left ventricular ejection fraction is estimated at 55-60%. Moderately increased left ventricular wall thickness. Right Ventricle Normal right ventricular size and function. Moderate to severe pulmonary hypertension. Right Atrium Normal right atrial size. Left Atrium Severely increased left atrial volume. Mildly increased left atrial area. Mitral Valve Mitral valve thickened. Mild mitral regurgitation. Aortic Valve Normally functioning bioprosthetic aortic valve without stenosis with of gradient 15 mmHg, mean 8 mmHg gradient Tricuspid Valve Structurally normal tricuspid valve.mild tricuspid regurgitation. Pulmonic Valve Pulmonic valve not well visualized. Pericardium Normal pericardium. Aorta Normal size aortic root and proximal ascending aorta. CONCLUSIONS 1. Normal left ventricle size and systolic function 2. Normal functioning bioprosthetic aortic valve 3. Mild mitral and tricuspid regurgitation with moderate to severe pulmonary hypertension Previewed by: Dr. Compa Alas MD (Electronically Signed) Final Date: 21 December 2021 11:34
[2021-12-21] MEDS: metOLazone 2.5 MG TAB PO SCH (11:38)
[2021-12-21 14:15] LABS: Glucose,Whole Blood 123 mg/dL (70-110)
[2021-12-21 16:58] LABS: Glucose,Whole Blood 226 mg/dL (70-110)
[2021-12-21 20:03] LABS: Glucose,Whole Blood 125 mg/dL (70-110)
[2021-12-21] MEDS: DOXAZOSIN 4 MG TAB PO SCH (20:50)
[2021-12-21] MEDS: ASPIRIN 81 MG PO SCH (20:51)
[2021-12-21] MEDS: QUEtiapine 25 MG TAB PO SCH (20:51)
[2021-12-21] MEDS: ATORVASTATIN 10 MG TAB PO SCH (20:51)
[2021-12-22 06:08] LABS: Glucose,Whole Blood 166 mg/dL (70-110)
[2021-12-22 06:29] LABS: Anisocytosis Slight; Basophils % (A) 1 %; Eosinophils # (A) 0.6 k/uL (0-0.7); Eosinophils % (A) 7 %; HCT 33.4 % (39.0-53.0); HGB 10.5 gm/dL (13.0-17.5); Lymphocytes % (A) 23 %; MCH 28.3 pg (25.0-35.0); MCHC 31.5 g/dL (31.0-37.0); MCV 89.8 fL (80.0-100.0); Mean Platelet Volume 8.3; Monocytes # (A) 0.4 k/uL (0-1.0); Monocytes % (A) 4 %; Neutrophils # (A) 5.6 k/uL (1.3-7.7); Neutrophils % (A) 65 %; Platelet Count 112 k/uL (150-450); RBC 3.72 m/uL (4.30-5.90); RDW 17.7 % (11.5-15.5); WBC 8.7 k/uL (3.8-10.6)
[2021-12-22 06:36] LABS: INR 1.1 (<1.2); Partial Thromboplastin Time 46.1 sec (22.0-30.0); Prothrombin Time 11.6 sec (9.0-12.0)
[2021-12-22] MEDS: INSULIN ASPART (NovoLOG) 100 UNIT/ML VIAL SQ SCH ×5 (06:44→20:36)
[2021-12-22] MEDS: hydrALAZINE HCL 50 MG TAB PO SCH ×2 (06:44→20:39)
[2021-12-22] MEDS: carvediloL 3.125 MG TAB PO SCH ×2 (06:44→20:38)
[2021-12-22] MEDS: CLOPIDOGREL 75 MG TAB PO SCH (09:46)
[2021-12-22] MEDS: SERTRALINE 100 MG TAB PO SCH (10:31)
[2021-12-22] MEDS: cloNIDine HCL 0.2 MG TAB PO SCH ×2 (10:31→20:45)
[2021-12-22] MEDS: amLODIPine 5 MG TAB PO SCH (10:32)
[2021-12-22] MEDS: TAMSULOSIN 0.4 MG CAP.ER.24H PO SCH (10:32)
[2021-12-22] MEDS: ISOSORBIDE MONONITRATE ER 30 MG TAB.ER.24H PO SCH (10:33)
[2021-12-22] MEDS: allopurinoL 100 MG TAB PO SCH (10:33)
[2021-12-22] MEDS: FUROSEMIDE 10 MG/ML 4 ML VIAL IV SCH ×2 (10:33→20:46)
[2021-12-22] MEDS: metOLazone 2.5 MG TAB PO SCH (10:33)
--- NOTE | 2021-12-22 11:11 | P.NPCON ---
History of Present Illness - Reason for Consult acute renal failure - History of Present Illness Patient is a 86-year-old male with history of coronary artery disease, type 2 diabetes, hypertension, CK D stage IV with baseline creatinine about 2.2-2.4 mg/dL as of August and September 2021. Patient was admitted to the hospital with history of fall. He states that he tripped on his boot which he was using due to wound on his right toe. Patient was found to have fracture of the left femoral neck and is the to be scheduled for surgery. He was in significant volume overload on initial admission and is currently maintained on IV Lasix. Patient states that he is breathing much more comfortably. He denies any significant shortness of breath currently. Serum creatinine at 2.8 mg/dL this admission. No significant hypotension noted. 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, constipation and diarrhea, past lower GI bleed, current R toe callus/infection/has mediboot, chronic venous insufficiency, past bilateral lower leg venous ulcers, lower legs are discolored, mild to moderate caratid disease, CKD stage IV, anemia, macular degeneration/L eye nearly blind History of Any Multi-Drug Resistant Organisms: None Reported Past Surgical History: Cardiac Valve Replacement, Heart Catheterization, Tonsillectomy Additional Past Surgical History / Comment(s): 05/24/21 TAVR, TEEs, colonoscopy, laser eye surgery for cataracts Past Anesthesia/Blood Transfusion Reactions: No Reported Reaction Smoking Status: Former smoker - Past Family History Mother Family Medical History: Diabetes Mellitus Additional Family Medical History / Comment(s): "heart problems" Father Family Medical History: Liver Disease Additional Family Medical History / Comment(s): alcohol & due to liver issues Medications and Allergies Home Medications Medication Instructions Recorded Confirmed Type Doxazosin Mesylate 8 mg PO HS 12/02/14 12/20/21 History Lovastatin [Mevacor] 40 mg PO HS 12/02/14 12/20/21 History allopurinoL [Zyloprim] 100 mg PO DAILY 12/02/14 12/20/21 History cloNIDine HCL [Catapres] 0.3 mg PO BID 09/23/17 12/20/21 History EPINEPHrine (Auto Inject) [Epipen] 0.3 mg IM ONCE PRN 09/24/17 12/20/21 History Glimepiride [Amaryl] 0.5 mg PO AC-BRKFST 11/13/17 12/20/21 History Cyanocobalamin (Vitamin B-12) 5,000 mcg PO DAILY 07/05/18 12/20/21 History [Vitamin B-12] Ergocalciferol (Vitamin D2) 1,250 mcg PO Q14D 10/05/20 12/20/21 History [Drisdol (50,000 Iu)] Furosemide [Lasix] 20 mg PO MOWEFR 10/05/20 12/20/21 History Ketoconazole 2% Shampoo [Nizoral] 1 applic TOPICAL DIRECTED PRN 10/05/20 12/20/21 History Sertraline HCl [Zoloft] 150 mg PO DAILY 10/05/20 12/20/21 History amLODIPine [Norvasc] 5 mg PO DAILY 10/05/20 12/20/21 History hydrALAZINE HCL [Apresoline] 50 mg PO BID-W/MEALS 10/05/20 12/20/21 History Aspirin 81 mg PO HS #0 10/07/20 12/20/21 Rx Multivit-Min/FA/Lycopen/Lutein 1 tab PO DAILY 03/27/21 12/20/21 History [Centrum Silver Men Tablet] Triamcinolone 0.1% Ointment 1 applic TOPICAL Q48H 03/27/21 12/21/21 History [Kenalog 0.1% Ointment] carvediloL [Coreg] 3.125 mg PO BID-W/MEALS 03/27/21 12/20/21 History prednisoLONE ACETATE 1% OPHTH 1 drop BOTH EYES PERALTA 03/27/21 12/20/21 History [Pred Forte 1%] Ammonium Lactate Cream [Lac-Hydrin 1 applic TOPICAL BID 05/16/21 12/20/21 History 12% Cream] Isosorbide Mononitrate [Isosorbide 30 mg PO DAILY 05/16/21 12/20/21 History Mononitrate ER] Petrolatum, White [Aquaphor] 1 applic TOPICAL DAILY 05/16/21 12/20/21 History Clopidogrel [Plavix] 75 mg PO DAILY #30 tab 05/25/21 12/20/21 Rx ALPRAZolam [Xanax] 0.25 mg PO HS PRN 12/20/21 12/20/21 History Ferrous Sulfate [Feosol] 325 mg PO DAILY 12/20/21 12/20/21 History Fluocinonide 0.05% Solution 1 applic TOPICAL HS 12/20/21 12/21/21 History QUEtiapine [SEROquel] 25 mg PO HS 12/20/21 12/20/21 History Tamsulosin [Flomax] 0.4 mg PO DAILY 12/20/21 12/20/21 History metOLazone [Zaroxolyn] 2.5 mg PO DAILY 12/20/21 12/20/21 History Allergies Allergy/AdvReac Type Severity Reaction Status Date / Time bee venom protein (honey bee) Allergy Anaphylaxis Verified 12/20/21 23:37 cephalexin Allergy Rash/Hives Verified 12/20/21 23:37 clindamycin Allergy Rash/Hives Verified 12/20/21 23:37 sulfamethoxazole Allergy Unknown Verified 12/20/21 23:37 [From Bactrim] trimethoprim [From Bactrim] Allergy Unknown Verified 12/20/21 23:37 Physical Exam Vitals: Vital Signs Temp Pulse Resp BP Pulse Ox 12/22/21 06:43 62 148/63 12/22/21 04:09 97.7 F 63 16 124/53 94 L 12/21/21 23:25 98.0 F 64 16 101/62 97 12/21/21 19:31 98.9 F 72 16 117/61 95 12/21/21 14:19 100.5 F H 71 18 155/78 96 Intake and Output 12/21/21 12/22/21 12/22/21 22:59 06:59 14:59 Intake Total 0 51.867 Output Total 600 Balance 0 -548.133 Intake: Intake, IV Titration 0 51.867 Amount Heparin Sod,Pork in 0.45% 0 51.867 NaCl 25,000 unit In 0.45 % NaCl 1 250ml.bag @ 12 UNITS/KG/HR 8.981 mls/hr IV .Q24H [facility] Rx#: [id number] Output: Urine 600 Other: Voiding Method External Catheter External Catheter Patient is comfortable, awake not in any acute distress Examination of the heart S1 and S2 Examination of the lungs bilateral breath sounds are heard Abdomen is soft nontender Examination of lower extremity shows no significant edema CLINICAL EDUCATION COORDINATOR exam grossly intact Results - Lab Results Most recent lab results Calcium 8.9 mg/dL (8.4-10.2) 12/21/21 02:59 Magnesium 2.1 mg/dL (1.6-2.3) 12/20/21 22:10 12/22/21 05:38 12/21/21 02:59 Assessment and Plan Assessment: 1. Chronic kidney disease NKF stage IV secondary to nephrosclerosis baseline creatinine about 2.4 mg/dL 2. Acute kidney injury mostly cardiorenal and associated with some degree of hypoperfusion 3. Status post fall with left hip fracture, for possible surgery today 4. History of BPH 5. Volume overload currently improved 6. Cardiomyopathy with ejection fraction at 55-60% 7. CHF acute mostly diastolic 8. Moderate to severe pulmonary hypertension Plan: Continue with current dose of IV Lasix May continue with the Zaroxolyn Avoid hypotension Check bladder scan and rule out urine retention in view of history of BPH. Decrease dose of clonidine particularly blood pressure remains below 130 mmHg systolic due to side effect of postural hypotension Thank you for the consultation, we'll continue to follow the patient with you during his hospitalization
[2021-12-22 12:04] LABS: Glucose,Whole Blood 135 mg/dL (70-110)
--- NOTE | 2021-12-22 12:57 | P.PN ---
Subjective Progress Note Date: 12/22/21 Patient looks significantly clinically improved from yesterday. His breathing is improved. He is requiring less oxygen and saturating higher. His edema has improved, his JVD has improved. Gen: awake, alert HEENT: normocephalic, atraumatic, good hearing acuity, moist mucous membranes Resp: good air exchange, breathing comfortably with no accessory muscle use, crackles in the bases CVS: good distal perfusion x 4, JVD present GI: soft, NTTP, ND : no SPT, no CVAT, jiang catheter not present MSK: no pitting edema, no clubbing Neuro: non-focal, moving all extremities Psych: cooperative, euthymic mood Assessment/plan: Acute hypoxic respiratory failure Acute on chronic diastolic heart failure exacerbation Chronic Kidney Disease, stage IIIb -Supplemental oxygen as needed -Breathing treatments as needed DuoNeb's -Monitor vital signs -cardiology consult -lasix IV, continue metolazone -echocardiogram demonstrates severe -okay to d/c heparin gtt -continue with ASA/Plavix -continue with statin -nephrology consult appreciated Preoperative clearance Left femur acute impacted subcapital fracture secondary to accidental fall -Pt has a MACE risk of 5.3% according to NSQIP risk calculator -Risks of surgery are outweighed by benefits and patient understands he is high risk for an intermediate risk procedure -Patients risk factors of volume overload and COPD have been optimized for his baseline clinical condition, okay to proceed to surgery without need of further testing -Orthopedic consult -Pain control Mild anemia patient denies any GI bleeding Continue monitoring hemoglobin Hypertension Diabetes mellitus History of coronary artery disease and she a TAVR History of prostate cancer -Home medications reviewed and reconciled Full code DVT prophylaxis: On heparin drip for ACS Objective - Vital Signs Vital signs: Vital Signs Temp 97.8 F 12/22/21 12:09 Pulse 72 12/22/21 12:09 Resp 17 12/22/21 12:09 BP 110/61 12/22/21 12:09 Pulse Ox 95 12/22/21 12:09 FiO2 Intake & Output 12/21/21 12/22/21 12/22/21 18:59 06:59 18:59 Intake Total 180 51.867 Output Total 600 950 Balance 180 -548.133 -950 Weight 74.843 kg Intake: Intake, IV Titration 0 51.867 Amount Heparin Sod,Pork in 0.45% 0 51.867 NaCl 25,000 unit In 0.45 % NaCl 1 250ml.bag @ 12 UNITS/KG/HR 8.981 mls/hr IV .Q24H [facility], [facility] Rx#: [id number] Oral 180 Output: Urine 600 950 Other: Voiding Method External Catheter External Catheter External Catheter # Voids 1 - Labs CBC & Chem 7: 12/22/21 05:38 12/21/21 02:59 Labs: Abnormal Lab Results - Last 24 Hours (Table) 12/21/21 12/21/21 12/21/21 Range/Units 14:13 16:57 20:02 RBC (4.30-5.90) m/uL Hgb (13.0-17.5) gm/dL Hct (39.0-53.0) % RDW (11.5-15.5) % Plt Count (150-450) k/uL APTT (22.0-30.0) sec POC Glucose (mg/dL) 123 H 226 H 125 H (70-110) mg/dL Troponin I (0.000-0.034) ng/mL 12/21/21 12/22/21 12/22/21 Range/Units 21:54 05:38 05:38 RBC 3.72 L (4.30-5.90) m/uL Hgb 10.5 L (13.0-17.5) gm/dL Hct 33.4 L (39.0-53.0) % RDW 17.7 H (11.5-15.5) % Plt Count 112 L (150-450) k/uL APTT 38.7 H 46.1 H (22.0-30.0) sec POC Glucose (mg/dL) (70-110) mg/dL Troponin I (0.000-0.034) ng/mL 12/22/21 12/22/21 12/22/21 Range/Units 06:07 07:56 11:56 RBC (4.30-5.90) m/uL Hgb (13.0-17.5) gm/dL Hct (39.0-53.0) % RDW (11.5-15.5) % Plt Count (150-450) k/uL APTT (22.0-30.0) sec POC Glucose (mg/dL) 166 H 135 H (70-110) mg/dL Troponin I 0.322 H* (0.000-0.034) ng/mL
[2021-12-22] MEDS ORDERED: LACTATED RINGERS 1,000 ML IV ONE (13:39)
[2021-12-22 13:46] LABS: Glucose,Whole Blood 146 mg/dL (70-110)
[2021-12-22] MEDS: ONDANSETRON 4 MG/2 ML VIAL IVP PRN (14:04)
[2021-12-22] MEDS ORDERED: ROCURONIUM 10 MG/ML (5 ML VIAL) IV ONE (14:45)
[2021-12-22] MEDS ORDERED: fentaNYL (PF) 50 MCG/ML 2 ML AMP ONE (14:45)
[2021-12-22] MEDS ORDERED: HYDROmorphone (PF) 1 MG/ML ONE (14:45)
[2021-12-22] MEDS ORDERED: GLYCOPYRROLATE 0.2 MG/ML 2 ML VIAL ONE (14:45)
[2021-12-22] MEDS ORDERED: TRANEXAMIC ACID IN NACL,ISO-OS 1,000 MG/100 ML BAG ONE (14:45)
[2021-12-22] MEDS ORDERED: PROPOFOL 10 MG/ML 20 ML VIAL IV ONE (14:45)
[2021-12-22] MEDS ORDERED: NEOSTIGMINE 1 MG/ML 10 ML VIAL ONE (14:45)
[2021-12-22] MEDS ORDERED: ROPIVACAINE/EPI/CLONIDINE/KET 50 ML SYRINGE MISCELLANE PRN (14:49)
--- NOTE | 2021-12-22 16:37 | XR ---
Intraoperative/procedural fluoroscopic services were provided. Total fluoroscopy time is 16 seconds w ith a total of 4 submitted images to PACS. Please see the operative/procedural note for further detai ls.
[2021-12-22] MEDS ORDERED: HYDROmorphone 0.5 MG/0.5 ML SYRINGE IVP PRN ×3 (16:58)
[2021-12-22] MEDS ORDERED: HYDROcodone/APAP 5-325MG 1 EACH TAB PO PRN (16:58)
--- NOTE | 2021-12-22 17:01 | P.OP ---
Date of Procedure: 12/22/21 Preoperative Diagnosis: 1. Left displaced subcapital femoral neck fracture 2. Coronary artery disease 3. Chronic kidney disease 4. Type 2 diabetes Postoperative Diagnosis: Same Procedure(s) Performed: Left direct anterior hip hemiarthroplasty Implants: 1. Chano accolade C size #6 standard offset femoral stem 2. Chano bipolar femoral head 50 mm outer diameter, 28 mm inner diameter +0 mm Anesthesia: GETA Surgeon: Harvinder Hay Sales Assistant #1: Prabhakar Sandoval Estimated Blood Loss (ml): 200 IV fluids (ml): 500 Pathology: other (Femoral head to pathology) Condition: stable Disposition: PACU Indications for Procedure: I met with the patient and their family to discuss treatment options. The patient has a displaced femoral neck fracture and based on their age, activity level, and medical comorbidities I recommended a hip hemiarthroplasty to facilitate early mobilization. My recommendation was to perform the hemiarthroplasty through a direct anterior approach to help lower the risk of dislocation and improve postoperative recovery and use cemented fixation of the femoral component to reduce the risk of fracture and postoperative thigh pain. We discussed the potential risks and complications of a hemiarthroplasty for displaced femoral neck fracture at length. Risks discussed include are certainly not limited to risks from anesthesia, superficial infection requiring local wound care and possibly surgical debridement, deep periprosthetic joint infection and the treatment for this, damage to local blood vessels or nerves particularly the lateral femoral cutaneous nerve, intraoperative fracture, postoperative periprosthetic fracture, leg length discrepancy, hip dislocation, aseptic loosening, groin pain, thigh pain, progression of arthritis requiring conversion to total hip arthroplasty, complications related to cementing the component, an inability to regain preinjury level of function, DVT, PE, acute coronary event, stroke, pneumonia, urinary tract infection, failure to thrive, and possibly . The patient and their family understand that while these are the most common complications other less common complications are possible. They provided their verbal and written consent to go forward with surgery. Operative Findings: Acute displaced femoral neck fracture with hemarthrosis. Severe osteopenia noted in the proximal femur. Description of Procedure: The patient was identified in the preoperative holding area and the correct hip was marked with my initials. I reviewed the procedure and consent with the patient. All of their questions were answered. The patient was then brought back into the operating room by anesthesia. While on the [facility] anesthesia was administered by the anesthesia team. Preoperative antibiotics and tranexamic acid were also given. After the patient was under anesthesia I examined their ankles to determine their preoperative leg length discrepancy. The skin over the anterior aspect of the hip was shaved to remove hair over the site of planned incision. Both feet and ankles were padded with webril and boots for the [place] were applied. The patient was then carefully transferred onto the [place] table. A perineal post was immediately placed. The arms were placed on arm holders and were well-padded. Both boots were secured to the spars on the [place] table. The patient was positioned so that the pelvis was centered over the post. Nonsterile drapes were applied. A timeout was performed identifying the correct patient, operative extremity, and procedure. At this point fluoroscopy was brought in to take preoperative images of the pelvis and operative hip. A metallic bar was used to create a bi-ischial line for use as a reference to leg length adjustments during the procedure. Global offset was also measured on both the operative and nonoperative leg. Fluoroscopy was then brought out and a pre-scrub using a chlorhexidine scrub brush was performed. The operative limb was then prepped and draped in the standard sterile fashion. An anterior longitudinal incision was made lateral and distal to the ASIS. The skin and subcutaneous tissues were incised sharply. The underlying tensor fascia was identified and incised in its midportion. The fascia was dissected free from the underlying muscle and the muscle belly was retracted. A blunt tip ped cobra retractor was placed over the superior neck under the muscle fibers of the gluteus minimus. The deep enveloping fascia of the tensor was incised. The anterior leash of vessels were then identified and cauterized. The fascia between the rectus and the capsule was then incised and the pre-capsular fat was excised. A second Cobra was placed inferior to the neck. The interval between the rectus and iliocapsularis and the hip capsule was developed and a retractor was placed carefully over the anterior rim of the acetabulum. A T-shaped anterior capsulotomy was performed. A hemarthrosis consistent with a femoral neck fracture was identified. The superior capsular leaflet was left in place in the inferior capsular flap was excised. The Cobra retractors were placed intracapsularly. A displaced femoral neck fracture was then identified. We then made a femoral neck osteotomy according to preoperative and intraoperative templating and confirmed the level of the osteotomy using fluoroscopic imaging. The femoral head was removed, passed off to the back table, and sized. The superior capsular flap was excised. On inspection of the acetabulum there were minimal degenerative changes with intact cartilage. Attention was then turned to the femur. The remnant dorsal lateral capsule was excised. The short external rotators were visible and protected. A bone hook was used to confirm appropriate translation of the trochanter away from the acetabulum. The leg was then extended and adducted and the bone hook was used to elevate the femur for broaching. A box osteotome and blunt tipped canal sound was then utilized to gain access to the femoral canal. We then sequentially broached the femur in appropriate anteversion until torsional stability was achieved and the implant was felt to have reached the appropriate size to allow trialing. The neck cut was brought flush to the trial broach with a calcar planar. A trial neck and head were then placed onto the broach and the hip was atraumatically reduced under direct visualization. External rotation to 90 was performed to assess stability. Fluoroscopy was brought in. An AP and lateral fluoroscopic image of the proximal femur was obtained to assess position and fill of the trial broach. An AP of the pelvis was then obtained and matched to the preoperative image taken. A bi-ischial bar was then placed and measurements were taken to assess changes in length and offset. The hip was then carefully dislocated, the proximal femur was exposed, and the trial implants were removed. The proximal femur was then prepared for cementing. The canal was thoroughly irrigated with pulsatile lavage to remove blood and marrow contents. A cement restrictor was placed to a depth just distal to the tip of the final implant. Epinephrine-soaked gauze was then packed into the proximal femur. 2 bags of cement with antibiotics were then mixed using a centrifuge and placed into a cement gun. Anesthesia was notified that cementing was about to commence to make sure the patient was appropriately ventilated and hydrated. Once the cement had reached appropriate consistency, the cement gun was used to fill the canal in a retrograde fashion starting at the restrictor. Cement was then pressurized into the canal with a blue tipped youth probation officer. The stem was then carefully introduced into the cement taking care to guide the implant into appropriate version. The stem was held in position until the cement had fully set. All extra cement was removed while the cement was hardening. The trunnion was cleansed and the final head was tapped into place to engage the Brady taper. The acetabulum was irrigated and visualized to be free of debris. The hip was carefully reduced. Stability was checked clinically with external rotation to 90 and there was no evidence of instability. Final fluoroscopic images were taken. The wound was then thoroughly irrigated with Irrisept. 3 L of sterile saline was irrigated through the wound using pulsatile lavage. Local anesthetic cocktail was injected into the soft tissues around the surgical field. The wound was then closed in layers. A sterile dressing was placed over the surgical incision. The drapes were taken down and the patient was carefully transferred off of the [place] table. Following removal of the boots the leg lengths felt acceptable. The patient was then taken to recovery room having tolerated the procedure well. Prabhakar Sandoval PA-C was required as a skilled multimedia production assistant for patient positioning, surgical exposure, retraction, placement of implants, and closure of the surgical wound. PLAN: The patient can weight-bear as tolerated on the operative extremity. 2 doses of postoperative antibiotics. DVT prophylaxis will defer to primary team. Physical therapy for gait training.
[2021-12-22] MEDS: HEPARIN SOD,PORK IN 0.45% NACL 25,000 UNIT in 0.45% NACL 1 250ML.BAG IV SCH (18:07)
[2021-12-22] MEDS: TRANEXAMIC ACID IN NACL,ISO-OS 1,000 MG in SALINE 1 100ML.BAG IVPB SCH ×2 (18:52→18:53)
[2021-12-22 19:49] LABS: Glucose,Whole Blood 198 mg/dL (70-110)
[2021-12-22] MEDS: SENNOSIDES-DOCUSATE SODIUM 1 EACH TAB PO SCH (20:46)
[2021-12-22] MEDS: ATORVASTATIN 10 MG TAB PO SCH (20:46)
[2021-12-22] MEDS: QUEtiapine 25 MG TAB PO SCH (20:46)
[2021-12-22] MEDS: DOXAZOSIN 4 MG TAB PO SCH (20:46)
[2021-12-22] MEDS: ASPIRIN 81 MG PO SCH (20:47)
[2021-12-23] MEDS: HEPARIN SOD,PORK IN 0.45% NACL 25,000 UNIT in 0.45% NACL 1 250ML.BAG IV SCH (01:41)
[2021-12-23] MEDS: hydrALAZINE HCL 50 MG TAB PO SCH ×2 (07:03→16:32)
[2021-12-23] MEDS: carvediloL 3.125 MG TAB PO SCH ×2 (07:03→16:32)
[2021-12-23 07:04] LABS: Glucose,Whole Blood 154 mg/dL (70-110)
[2021-12-23] MEDS: INSULIN ASPART (NovoLOG) 100 UNIT/ML VIAL SQ SCH ×4 (07:05→21:46)
[2021-12-23] MEDS: cloNIDine HCL 0.2 MG TAB PO SCH ×2 (09:42→23:29)
[2021-12-23] MEDS: TAMSULOSIN 0.4 MG CAP.ER.24H PO SCH (09:43)
[2021-12-23] MEDS: amLODIPine 5 MG TAB PO SCH (09:43)
[2021-12-23] MEDS: CLOPIDOGREL 75 MG TAB PO SCH (09:43)
[2021-12-23] MEDS: SERTRALINE 100 MG TAB PO SCH (09:43)
[2021-12-23] MEDS: allopurinoL 100 MG TAB PO SCH (09:43)
[2021-12-23] MEDS: ISOSORBIDE MONONITRATE ER 30 MG TAB.ER.24H PO SCH (09:43)
[2021-12-23] MEDS: FUROSEMIDE 10 MG/ML 4 ML VIAL IV SCH (09:44)
[2021-12-23] MEDS: metOLazone 2.5 MG TAB PO SCH (09:44)
--- NOTE | 2021-12-23 09:48 | P.PN ---
Subjective Progress Note Date: 12/23/21 Principal diagnosis: Status post left hip hemiarthroplasty This is a 86 year-old male post left hip hemiarthroplasty. This is post-op day 1. The patient was evaluated at the bedside today. The patient denies nausea, vomiting, abdominal pain, shortness of breath, and chest pain this morning. He states his pain is controlled at this time. The patient has been up with physic al therapy and is currently sitting in the recliner chair. Objective - Vital Signs Vital signs: Vital Signs Temp 98.6 F 12/23/21 07:56 Pulse 85 12/23/21 07:56 Resp 16 12/23/21 07:57 BP 125/56 12/23/21 07:56 Pulse Ox 93 L 12/23/21 07:56 FiO2 Intake & Output 12/22/21 12/23/21 12/23/21 18:59 06:59 18:59 Intake Total 550 160 10 Output Total 1150 Balance -600 160 10 Weight 74.843 kg Intake: IV 550 40 10 Invasive Line 1 20 10 Invasive Line 2 20 Oral 120 Output: Urine 950 Estimated Blood Loss 200 Other: Voiding Method External Catheter External Catheter External Catheter # Voids 1 - Exam The patient does not appear in acute distress. Alert and orientated x3. Dressing is clean dry and intact. No erythema or active drainage. Calf is soft and nontender. Good foot and ankle motion without difficulty. Sensation and circulatory status is intact. - Labs CBC & Chem 7: 12/22/21 05:38 12/21/21 02:59 Labs: Abnormal Lab Results - Last 24 Hours (Table) 12/22/21 12/22/21 12/22/21 Range/Units 11:56 13:45 19:48 POC Glucose (mg/dL) 135 H 146 H 198 H (70-110) mg/dL 12/23/21 Range/Units 07:02 POC Glucose (mg/dL) 154 H (70-110) mg/dL Assessment and Plan (1) Status post hip hemiarthroplasty Current Visit: Yes Status: Acute Code(s): Z96.649 - PRESENCE OF UNSPECIFIED ARTIFICIAL HIP JOINT SNOMED Code(s): 544986536 (2) Fall Current Visit: Yes Status: Acute Code(s): W19.XXXA - UNSPECIFIED FALL, INITIAL ENCOUNTER SNOMED Code(s): 3803677 (3) Fracture of femoral neck, left Current Visit: Yes Status: Acute Code(s): S72.002A - FRACTURE OF UNSP PART OF NECK OF LEFT FEMUR, INIT SNOMED Code(s): 1075725 Plan: 1. Continue pain control 2. Anticoagulation per internal medicine 3. Continue physical therapy and ambulation, weightbearing as tolerated with a walker. 4. Anticipate discharge to skilled rehab early next week.
--- NOTE | 2021-12-23 09:52 | P.PN ---
Subjective Patient is seen in follow-up for acute kidney injury and chronic kidney disease. Creatinine 2.87 dated 12/21/2021. No labs since. Receiving IV Lasix. Urine output documented is 1.1 L so far for 12/23/2021. Has an external catheter. Working with physical therapy. Denies chest pain or shortness of breath. On 3 L nasal cannula. Blood pressure stable. Vital signs are stable. General: Awake. No acute distress. HEENT: Head exam is unremarkable. LUNGS: Breath sounds decreased. HEART: Rate and Rhythm are regular. ABDOMEN: Soft, no distention. EXTREMITITES: Trace edema. Objective - Vital Signs Vital signs: Vital Signs Temp 98.6 F 12/23/21 07:56 Pulse 85 12/23/21 07:56 Resp 16 12/23/21 07:57 BP 125/56 12/23/21 07:56 Pulse Ox 93 L 12/23/21 07:56 FiO2 Intake & Output 12/22/21 12/23/21 12/23/21 18:59 06:59 18:59 Intake Total 550 160 10 Output Total 1150 Balance -600 160 10 Weight 74.843 kg Intake: IV 550 40 10 Invasive Line 1 20 10 Invasive Line 2 20 Oral 120 Output: Urine 950 Estimated Blood Loss 200 Other: Voiding Method External Catheter External Catheter External Catheter # Voids 1 - Labs CBC & Chem 7: 12/22/21 05:38 12/21/21 02:59 Labs: Abnormal Lab Results - Last 24 Hours (Table) 12/22/21 12/22/21 12/22/21 Range/Units 11:56 13:45 19:48 POC Glucose (mg/dL) 135 H 146 H 198 H (70-110) mg/dL 12/23/21 Range/Units 07:02 POC Glucose (mg/dL) 154 H (70-110) mg/dL Assessment and Plan Plan: Assessment: 1. Acute kidney injury secondary to ATN secondary to cardiorenal syndrome. 2. 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 3. Diabetes mellitus. 4. Acute on chronic diastolic CHF with moderate to severe pulmonary hypertension. 5. Left hip fracture status post hemiarthroplasty 12/22/2021. Plan: Maintain IV Lasix and metolazone for now. Follow-up labs from today. Continue to monitor renal function and urine output. Avoid nephrotoxins.
[2021-12-23 10:34] LABS: Calcium 8.7 mg/dL (8.4-10.2); Potassium 5.1 mmol/L (3.5-5.1)
--- NOTE | 2021-12-23 11:07 | P.PN ---
Subjective Progress Note Date: 12/23/21 Patient sitting in chair resting comfortably after surgery yesterday. Working with PT. Cr is elevated to 3.5 today. UOP 1.1L in last 24 hours. Gen: awake, alert HEENT: normocephalic, atraumatic, good hearing acuity, moist mucous membranes Resp: good air exchange, breathing comfortably with no accessory muscle use, crackles in the bases CVS: good distal perfusion x 4, JVD present GI: soft, NTTP, ND : no SPT, no CVAT, jiang catheter not present MSK: no pitting edema, no clubbing Neuro: non-focal, moving all extremities Psych: cooperative, euthymic mood Assessment/plan: Acute hypoxic respiratory failure Acute on chronic diastolic heart failure exacerbation Acute on Chronic Kidney Disease, stage IIIb -Supplemental oxygen as needed -Breathing treatments as needed DuoNeb's -Monitor vital signs -cardiology consult -lasix IV, continue metolazone -echocardiogram demonstrates severe pulm HTN -okay to d/c heparin gtt -continue with ASA/Plavix -continue with statin -nephrology consult appreciated Preoperative clearance Left femur acute impacted subcapital fracture secondary to accidental fall -Pt has a MACE risk of 5.3% according to NSQIP risk calculator -Risks of surgery are outweighed by benefits and patient understands he is high risk for an intermediate risk procedure -Patients risk factors of volume overload and COPD have been optimized for his baseline clinical condition, okay to proceed to surgery without need of further testing -Orthopedic consult -Pain control Mild anemia patient denies any GI bleeding Continue monitoring hemoglobin Hypertension Diabetes mellitus History of coronary artery disease and she a TAVR History of prostate cancer -Home medications reviewed and reconciled Full code DVT prophylaxis: On heparin drip for ACS Objective - Vital Signs Vital signs: Vital Signs Temp 98.6 F 12/23/21 07:56 Pulse 85 12/23/21 07:56 Resp 16 12/23/21 07:57 BP 125/56 12/23/21 07:56 Pulse Ox 93 L 12/23/21 07:56 FiO2 Intake & Output 12/22/21 12/23/21 12/23/21 18:59 06:59 18:59 Intake Total 550 160 10 Output Total 1150 Balance -600 160 10 Weight 74.843 kg Intake: IV 550 40 10 Invasive Line 1 20 10 Invasive Line 2 20 Oral 120 Output: Urine 950 Estimated Blood Loss 200 Other: Voiding Method External Catheter External Catheter External Catheter # Voids 1 - Labs CBC & Chem 7: 12/22/21 05:38 12/23/21 06:37 Labs: Abnormal Lab Results - Last 24 Hours (Table) 12/22/21 12/22/21 12/22/21 Range/Units 11:56 13:45 19:48 BUN (9-20) mg/dL Creatinine (0.66-1.25) mg/dL Glucose (74-99) mg/dL POC Glucose (mg/dL) 135 H 146 H 198 H (70-110) mg/dL 12/23/21 12/23/21 Range/Units 06:37 07:02 BUN 99 H (9-20) mg/dL Creatinine 3.74 H (0.66-1.25) mg/dL Glucose 152 H (74-99) mg/dL POC Glucose (mg/dL) 154 H (70-110) mg/dL
[2021-12-23 11:53] LABS: Glucose,Whole Blood 284 mg/dL (70-110)
[2021-12-23] MEDS ORDERED: SODIUM CHLORIDE 0.9% 500 ML 500 ML IV ONE (13:44)
--- NOTE | 2021-12-23 15:09 | CT ---
EXAMINATION TYPE: CT brain wo con DATE OF EXAM: 12/23/2021 COMPARISON: 12/20/2021 HISTORY: rule out cva CT DLP: 1154.4 mGycm Automated exposure control for dose reduction was used. There is cerebral cortical atrophy. There is no mass effect or midline shift. No sign of intracranial hemorrhage. There is minimal hypodensity in the periventricular white matter. Calvarium is intact. T here is some mucosal thickening left maxillary sinus. Skull base is intact. There is normal aeration of the mastoid sinuses. IMPRESSION: Cerebral atrophy and mild chronic small vessel ischemia. No change compared to recent exam.
--- NOTE | 2021-12-23 15:23 | XR ---
EXAMINATION TYPE: XR chest 1V DATE OF EXAM: 12/23/2021 COMPARISON: 3 views HISTORY: 12/20/2021 TECHNIQUE: Single view FINDINGS: There is some atelectasis left lung base with blunting left costophrenic angle. Heart size is normal. Thoracic aorta is atheromatous. There are chest leads. No heart failure. IMPRESSION: There is small left pleural effusion and left basilar atelectasis which is new compared t o the old exam. There is clearing of the pulmonary patchy edema compared to old exam.
[2021-12-23 16:52] LABS: Glucose,Whole Blood 180 mg/dL (70-110)
[2021-12-23 20:39] LABS: Glucose,Whole Blood 212 mg/dL (70-110)
[2021-12-23] MEDS: DOXAZOSIN 4 MG TAB PO SCH (21:45)
[2021-12-23] MEDS: ATORVASTATIN 10 MG TAB PO SCH (21:45)
[2021-12-23] MEDS: QUEtiapine 25 MG TAB PO SCH (21:45)
[2021-12-23] MEDS: ASPIRIN 81 MG PO SCH (21:45)
[2021-12-23] MEDS: SENNOSIDES-DOCUSATE SODIUM 1 EACH TAB PO SCH (21:45)
[2021-12-24] MEDS: HEPARIN SOD,PORK IN 0.45% NACL 25,000 UNIT in 0.45% NACL 1 250ML.BAG IV SCH (04:08)
[2021-12-24 06:10] LABS: Glucose,Whole Blood 141 mg/dL (70-110)
[2021-12-24] MEDS: INSULIN ASPART (NovoLOG) 100 UNIT/ML VIAL SQ SCH ×4 (06:20→21:01)
[2021-12-24 09:00] LABS: Calcium 8.2 mg/dL (8.4-10.2); Magnesium 2.1 mg/dL (1.6-2.3); Potassium 4.8 mmol/L (3.5-5.1)
[2021-12-24] MEDS ORDERED: prednisoLONE ACETATE 1% OPHTH DROPS 5 ML BTL BOTH EYES SCH (09:00)
--- NOTE | 2021-12-24 09:41 | P.PN ---
Subjective Patient is seen in follow-up for acute kidney injury and chronic kidney disease. Renal function worsening the last couple of days. Creatinine 4.36 today. Urine output documented is 1.1 L on 12/23/2021 and 375 mL so far today. He has an external catheter. Patient denies chest pain or shortness of breath. Currently on 2 L nasal cannula. Blood pressure has been on the lower side. Vital signs are stable. General: Awake. No acute distress. HEENT: Head exam is unremarkable. On nasal cannula. LUNGS: Breath sounds decreased. HEART: Rate and Rhythm are regular. ABDOMEN: Soft, no distention. EXTREMITITES: No edema. Chronic changes noted. Objective - Vital Signs Vital signs: Vital Signs Temp 98.1 F 12/24/21 08:21 Pulse 69 12/24/21 08:21 Resp 16 12/24/21 08:22 BP 106/52 12/24/21 08:21 Pulse Ox 96 12/24/21 08:21 FiO2 Intake & Output 12/23/21 12/24/21 12/24/21 18:59 06:59 18:59 Intake Total 620 160 20 Output Total 375 Balance 245 160 20 Intake: IV 20 40 20 Invasive Line 1 20 20 10 Invasive Line 2 20 10 Oral 600 120 Output: Urine 375 Other: Voiding Method External Catheter External Catheter External Catheter - Labs CBC & Chem 7: 12/22/21 05:38 12/24/21 07:24 Labs: Abnormal Lab Results - Last 24 Hours (Table) 12/23/21 12/23/21 12/23/21 Range/Units 06:37 11:50 16:49 Sodium (137-145) mmol/L BUN 99 H (9-20) mg/dL Creatinine 3.74 H (0.66-1.25) mg/dL Glucose 152 H (74-99) mg/dL POC Glucose (mg/dL) 284 H 180 H (70-110) mg/dL Calcium (8.4-10.2) mg/dL 12/23/21 12/24/21 12/24/21 Range/Units 20:37 06:08 07:24 Sodium 136 L (137-145) mmol/L BUN 105 H* (9-20) mg/dL Creatinine 4.36 H (0.66-1.25) mg/dL Glucose 117 H (74-99) mg/dL POC Glucose (mg/dL) 212 H 141 H (70-110) mg/dL Calcium 8.2 L (8.4-10.2) mg/dL Assessment and Plan Plan: Assessment: 1. Acute kidney injury secondary to ATN secondary to cardiorenal syndrome. Renal function worsening from diuresis. Creatinine 4.36 today. 2. 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 3. Diabetes mellitus. 4. Acute on chronic diastolic CHF with moderate to severe pulmonary hypertension. 5. Left hip fracture status post hemiarthroplasty 12/22/2021. 6. Urinary retention. On Flomax. Required straight catheterization yesterday. Plan: Diuretics discontinued. Last dose given 12/23/2021. Decrease dose of clonidine. Hold antihypertensives for systolic blood pressure less than 125. Continue to monitor renal function and urine output. Avoid nephrotoxins. Continue to assess daily for need for renal replacement therapy. No urgency at this time. Discussed potential need if GFR continues to decline. Normal saline at 50 mL an hour 5 hours. Monitor bladder scans closely and insert Hawkins catheter if persistently retaining more than 300 mL of urine.
[2021-12-24] MEDS ORDERED: SODIUM CHLORIDE 0.9% 1,000 ML IV SCH (09:45)
[2021-12-24] MEDS: ISOSORBIDE MONONITRATE ER 30 MG TAB.ER.24H PO SCH (10:11)
[2021-12-24] MEDS: allopurinoL 100 MG TAB PO SCH (10:11)
[2021-12-24] MEDS: CLOPIDOGREL 75 MG TAB PO SCH (10:11)
[2021-12-24] MEDS: TAMSULOSIN 0.4 MG CAP.ER.24H PO SCH (10:11)
[2021-12-24] MEDS: SERTRALINE 100 MG TAB PO SCH (10:11)
[2021-12-24] MEDS: cloNIDine HCL 0.1 MG TAB PO SCH ×2 (10:14→20:58)
[2021-12-24] MEDS: amLODIPine 5 MG TAB PO SCH (10:14)
[2021-12-24] MEDS: carvediloL 3.125 MG TAB PO SCH ×2 (10:15→17:53)
--- NOTE | 2021-12-24 10:22 | P.PN ---
Subjective Progress Note Date: 12/24/21 Principal diagnosis: Status post left hip hemiarthroplasty This is a 86 year-old male post left hip hemiarthroplasty. This is post-op day 2. The patient was evaluated at the bedside today. The patient denies nausea, vomiting, abdominal pain, shortness of breath, and chest pain this morning. He states his pain is controlled at this time. The patient was up in the recliner chair yesterday. The patient's nurse states his blood pressure has been running low since yesterday. Objective - Vital Signs Vital signs: Vital Signs Temp 98.1 F 12/24/21 08:21 Pulse 69 12/24/21 08:21 Resp 16 12/24/21 08:22 BP 106/52 12/24/21 08:21 Pulse Ox 96 12/24/21 08:21 FiO2 Intake & Output 12/23/21 12/24/21 12/24/21 18:59 06:59 18:59 Intake Total 620 160 260 Output Total 375 Balance 245 160 260 Intake: IV 20 40 20 Invasive Line 1 20 20 10 Invasive Line 2 20 10 Oral 600 120 240 Output: Urine 375 Other: Voiding Method External Catheter External Catheter External Catheter - Exam The patient does not appear in acute distress. Alert and orientated x3. Dressing is clean dry and intact. No erythema or active drainage. Calf is soft and nontender. Good foot and ankle motion without difficulty. Sensation and circulatory status is intact. - Labs CBC & Chem 7: 12/22/21 05:38 12/24/21 07:24 Labs: Abnormal Lab Results - Last 24 Hours (Table) 12/23/21 12/23/21 12/23/21 Range/Units 06:37 11:50 16:49 Sodium (137-145) mmol/L BUN 99 H (9-20) mg/dL Creatinine 3.74 H (0.66-1.25) mg/dL Glucose 152 H (74-99) mg/dL POC Glucose (mg/dL) 284 H 180 H (70-110) mg/dL Calcium (8.4-10.2) mg/dL 12/23/21 12/24/21 12/24/21 Range/Units 20:37 06:08 07:24 Sodium 136 L (137-145) mmol/L BUN 105 H* (9-20) mg/dL Creatinine 4.36 H (0.66-1.25) mg/dL Glucose 117 H (74-99) mg/dL POC Glucose (mg/dL) 212 H 141 H (70-110) mg/dL Calcium 8.2 L (8.4-10.2) mg/dL Assessment and Plan (1) Status post hip hemiarthroplasty Current Visit: Yes Status: Acute Code(s): Z96.649 - PRESENCE OF UNSPECIFIED ARTIFICIAL HIP JOINT SNOMED Code(s): 988256610 (2) Fall Current Visit: Yes Status: Acute Code(s): W19.XXXA - UNSPECIFIED FALL, INITIAL ENCOUNTER SNOMED Code(s): 5515362 (3) Fracture of femoral neck, left Current Visit: Yes Status: Acute Code(s): S72.002A - FRACTURE OF UNSP PART OF NECK OF LEFT FEMUR, INIT SNOMED Code(s): 6635905 Plan: 1. Continue pain control 2. Anticoagulation per internal medicine 3. Continue physical therapy and ambulation, weightbearing as tolerated with a walker. May edge on side of bed today if tolerated due to low BP. 4. Anticipate discharge to skilled rehab early next week when cleared medically.
[2021-12-24] MEDS: hydrALAZINE HCL 50 MG TAB PO SCH (11:07)
--- NOTE | 2021-12-24 11:13 | P.PN ---
Subjective Progress Note Date: 12/24/21 Patient sitting in chair resting comfortably after surgery yesterday. Working with PT. Cr is elevated again to 4.36 today. Last night dose of lasix was held. Pt started on IVF today. Gen: awake, alert HEENT: normocephalic, atraumatic, good hearing acuity, moist mucous membranes Resp: good air exchange, breathing comfortably with no accessory muscle use, crackles in the bases CVS: good distal perfusion x 4, JVD present GI: soft, NTTP, ND : no SPT, no CVAT, jiang catheter not present MSK: no pitting edema, no clubbing Neuro: non-focal, moving all extremities Psych: cooperative, euthymic mood Assessment/plan: Acute hypoxic respiratory failure Chronic diastolic heart failure exacerbation Acute on Chronic Kidney Disease, stage IIIb -Supplemental oxygen as needed -Breathing treatments as needed DuoNeb's -Monitor vital signs -cardiology consult -lasix held at this time, hold metolazone; gentle IVF -echocardiogram demonstrates severe pulm HTN -okay to d/c heparin gtt -continue with ASA/Plavix -continue with statin -nephrology consult appreciated Preoperative clearance Left femur acute impacted subcapital fracture secondary to accidental fall -Pt has a MACE risk of 5.3% according to NSQIP risk calculator -Risks of surgery are outweighed by benefits and patient understands he is high risk for an intermediate risk procedure -Patients risk factors of volume overload and COPD have been optimized for his baseline clinical condition, okay to proceed to surgery without need of further testing -Orthopedic consult -Pain control Mild anemia patient denies any GI bleeding Continue monitoring hemoglobin Hypertension Diabetes mellitus History of coronary artery disease and she a TAVR History of prostate cancer -Home medications reviewed and reconciled Full code DVT prophylaxis: On heparin drip for ACS Objective - Vital Signs Vital signs: Vital Signs Temp 98.1 F 12/24/21 08:21 Pulse 69 12/24/21 08:21 Resp 16 12/24/21 08:22 BP 106/52 12/24/21 08:21 Pulse Ox 96 12/24/21 08:21 FiO2 Intake & Output 12/23/21 12/24/21 12/24/21 18:59 06:59 18:59 Intake Total 620 160 260 Output Total 375 Balance 245 160 260 Intake: IV 20 40 20 Invasive Line 1 20 20 10 Invasive Line 2 20 10 Oral 600 120 240 Output: Urine 375 Other: Voiding Method External Catheter External Catheter External Catheter - Labs CBC & Chem 7: 12/22/21 05:38 12/24/21 07:24 Labs: Abnormal Lab Results - Last 24 Hours (Table) 12/23/21 12/23/21 12/23/21 Range/Units 11:50 16:49 20:37 Sodium (137-145) mmol/L BUN (9-20) mg/dL Creatinine (0.66-1.25) mg/dL Glucose (74-99) mg/dL POC Glucose (mg/dL) 284 H 180 H 212 H (70-110) mg/dL Calcium (8.4-10.2) mg/dL 12/24/21 12/24/21 Range/Units 06:08 07:24 Sodium 136 L (137-145) mmol/L BUN 105 H* (9-20) mg/dL Creatinine 4.36 H (0.66-1.25) mg/dL Glucose 117 H (74-99) mg/dL POC Glucose (mg/dL) 141 H (70-110) mg/dL Calcium 8.2 L (8.4-10.2) mg/dL
[2021-12-24 11:49] LABS: Glucose,Whole Blood 207 mg/dL (70-110)
[2021-12-24 16:40] LABS: Glucose,Whole Blood 177 mg/dL (70-110)
[2021-12-24 18:28] LABS: Anisocytosis Slight; Basophils % (A) 0 %; Eosinophils # (A) 0.4 k/uL (0-0.7); Eosinophils % (A) 5 %; HCT 24.7 % (39.0-53.0); Lymphocytes # (A) 1.3 k/uL (1.0-4.8); Lymphocytes % (A) 16 %; MCH 29.1 pg (25.0-35.0); MCHC 32.6 g/dL (31.0-37.0); MCV 89.2 fL (80.0-100.0); Mean Platelet Volume 8.1; Monocytes # (A) 0.5 k/uL (0-1.0); Monocytes % (A) 5 %; Neutrophils # (A) 6.2 k/uL (1.3-7.7); Neutrophils % (A) 73 %; Platelet Count 151 k/uL (150-450); RBC 2.77 m/uL (4.30-5.90); RDW 17.7 % (11.5-15.5); WBC 8.5 k/uL (3.8-10.6)
[2021-12-24] MEDS: HYDROcodone/APAP 5-325MG 1 EACH TAB PO PRN (18:39)
[2021-12-24 20:33] LABS: Glucose,Whole Blood 195 mg/dL (70-110)
[2021-12-24] MEDS: SENNOSIDES-DOCUSATE SODIUM 1 EACH TAB PO SCH (21:00)
[2021-12-24] MEDS: ATORVASTATIN 10 MG TAB PO SCH (21:01)
[2021-12-24] MEDS: QUEtiapine 25 MG TAB PO SCH (21:01)
[2021-12-24] MEDS: ASPIRIN 81 MG PO SCH (21:01)
[2021-12-25 06:10] LABS: Glucose,Whole Blood 130 mg/dL (70-110)
[2021-12-25] MEDS: INSULIN ASPART (NovoLOG) 100 UNIT/ML VIAL SQ SCH ×4 (06:11→21:40)
[2021-12-25] MEDS: carvediloL 3.125 MG TAB PO SCH ×2 (06:20→17:26)
[2021-12-25 08:25] LABS: Anisocytosis Slight; Basophils % (A) 0 %; Eosinophils # (A) 0.5 k/uL (0-0.7); Eosinophils % (A) 6 %; HCT 28.6 % (39.0-53.0); HGB 9.2 gm/dL (13.0-17.5); Lymphocytes # (A) 1.6 k/uL (1.0-4.8); Lymphocytes % (A) 21 %; MCH 29.2 pg (25.0-35.0); MCHC 32.3 g/dL (31.0-37.0); MCV 90.4 fL (80.0-100.0); Mean Platelet Volume 7.7; Monocytes # (A) 0.3 k/uL (0-1.0); Monocytes % (A) 4 %; Neutrophils # (A) 5.1 k/uL (1.3-7.7); Neutrophils % (A) 67 %; Platelet Count 158 k/uL (150-450); RBC 3.16 m/uL (4.30-5.90); RDW 17.7 % (11.5-15.5); WBC 7.6 k/uL (3.8-10.6)
[2021-12-25 08:38] LABS: Calcium 8.2 mg/dL (8.4-10.2); Phosphorus 5.7 mg/dL (2.5-4.5); Potassium 4.2 mmol/L (3.5-5.1)
[2021-12-25] MEDS: SERTRALINE 100 MG TAB PO SCH (09:14)
[2021-12-25] MEDS: cloNIDine HCL 0.1 MG TAB PO SCH ×2 (09:14→22:59)
[2021-12-25] MEDS: amLODIPine 5 MG TAB PO SCH (09:14)
[2021-12-25] MEDS: CLOPIDOGREL 75 MG TAB PO SCH (09:14)
[2021-12-25] MEDS: allopurinoL 100 MG TAB PO SCH (09:14)
[2021-12-25] MEDS: ISOSORBIDE MONONITRATE ER 30 MG TAB.ER.24H PO SCH (09:15)
[2021-12-25] MEDS: TAMSULOSIN 0.4 MG CAP.ER.24H PO SCH (09:15)
--- NOTE | 2021-12-25 09:52 | P.PN ---
Subjective Patient is seen in follow-up for acute kidney injury and chronic kidney disease. Renal function a little better today. Remains off diuretics. Nonoliguric. Denies chest pain or shortness of breath. On 3 L nasal cannula. Oral intake fair. Did vomit once this morning. Vital signs are stable. General: Awake. No acute distress. HEENT: Head exam is unremarkable. On nasal cannula. LUNGS: Breath sounds decreased. HEART: Rate and Rhythm are regular. ABDOMEN: Soft, no distention. EXTREMITITES: No edema. Chronic changes noted. Objective - Vital Signs Vital signs: Vital Signs Temp 98.0 F 12/25/21 04:00 Pulse 73 12/25/21 06:19 Resp 14 12/25/21 04:00 BP 151/72 12/25/21 06:19 Pulse Ox 97 12/25/21 08:25 FiO2 Intake & Output 12/24/21 12/25/21 12/25/21 18:59 06:59 18:59 Intake Total 654 740 Output Total 1000 Balance 654 -260 Intake: IV 60 Invasive Line 1 30 Invasive Line 2 30 Intake, IV Titration 200 Amount Sodium Chloride 0.9% 1, 200 000 ml @ 50 mls/hr IV . Q20H [facility] Rx#:[id number] Oral 594 540 Output: Urine 1000 Other: Voiding Method External Catheter External Catheter - Labs CBC & Chem 7: 12/25/21 07:37 12/25/21 07:37 Labs: Abnormal Lab Results - Last 24 Hours (Table) 12/24/21 12/24/21 12/24/21 Range/Units 11:46 16:29 17:31 RBC 2.77 L (4.30-5.90) m/uL Hgb 8.0 L D (13.0-17.5) gm/dL Hct 24.7 L (39.0-53.0) % RDW 17.7 H (11.5-15.5) % Carbon Dioxide (22-30) mmol/L BUN (9-20) mg/dL Creatinine (0.66-1.25) mg/dL Glucose (74-99) mg/dL POC Glucose (mg/dL) 207 H 177 H (70-110) mg/dL Calcium (8.4-10.2) mg/dL Phosphorus (2.5-4.5) mg/dL 12/24/21 12/25/21 12/25/21 Range/Units 20:28 06:09 07:37 RBC (4.30-5.90) m/uL Hgb (13.0-17.5) gm/dL Hct (39.0-53.0) % RDW (11.5-15.5) % Carbon Dioxide 20 L (22-30) mmol/L BUN 104 H* (9-20) mg/dL Creatinine 4.08 H (0.66-1.25) mg/dL Glucose 136 H (74-99) mg/dL POC Glucose (mg/dL) 195 H 130 H (70-110) mg/dL Calcium 8.2 L (8.4-10.2) mg/dL Phosphorus 5.7 H (2.5-4.5) mg/dL 12/25/21 Range/Units 07:37 RBC 3.16 L (4.30-5.90) m/uL Hgb 9.2 L (13.0-17.5) gm/dL Hct 28.6 L (39.0-53.0) % RDW 17.7 H (11.5-15.5) % Carbon Dioxide (22-30) mmol/L BUN (9-20) mg/dL Creatinine (0.66-1.25) mg/dL Glucose (74-99) mg/dL POC Glucose (mg/dL) (70-110) mg/dL Calcium (8.4-10.2) mg/dL Phosphorus (2.5-4.5) mg/dL Assessment and Plan Plan: Assessment: 1. Acute kidney injury secondary to ATN secondary to cardiorenal syndrome. Creatinine peaked at 4.36 on 12/16/2021 - 4.08 today. 2. 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 3. Diabetes mellitus. 4. Acute on chronic diastolic CHF with moderate to severe pulmonary hypertension. 5. Left hip fracture status post hemiarthroplasty 12/22/2021. 6. Urinary retention. On Flomax. 7. Anemia of chronic kidney disease. No active bleeding. Hemoglobin 9.2 today. 8. Metabolic acidosis secondary to acute kidney injury. Plan: Diuretics discontinued. Last dose given 12/23/2021. Hold antihypertensives for systolic blood pressure less than 125. Continue to monitor renal function and urine output. Avoid nephrotoxins. Continue to assess daily for need for renal replacement therapy. No urgency at this time. Discussed potential need if GFR continues to decline. Monitor bladder scans closely and insert Hawkins catheter if persistently retaining more than 300 mL of urine. Check iron studies. Add oral bicarbonate.
--- NOTE | 2021-12-25 10:40 | P.PN ---
Subjective Progress Note Date: 12/25/21 Pts Cr is slightly improved today, BUN remains high. Pt has had nausea/vomiting overnight. Still in pain. Gen: awake, alert HEENT: normocephalic, atraumatic, good hearing acuity, moist mucous membranes Resp: good air exchange, breathing comfortably with no accessory muscle use, crackles in the bases CVS: good distal perfusion x 4, JVD present GI: soft, NTTP, ND : no SPT, no CVAT, jiang catheter not present MSK: no pitting edema, no clubbing Neuro: non-focal, moving all extremities Psych: cooperative, euthymic mood Assessment/plan: Acute hypoxic respiratory failure Chronic diastolic heart failure exacerbation Acute on Chronic Kidney Disease, stage IIIb -Supplemental oxygen as needed -Breathing treatments as needed DuoNeb's -Monitor vital signs -cardiology consult -lasix held at this time, hold metolazone; gentle IVF -echocardiogram demonstrates severe pulm HTN -continue with ASA/Plavix -continue with statin -nephrology consult appreciated Preoperative clearance Left femur acute impacted subcapital fracture secondary to accidental fall -Pt has a MACE risk of 5.3% according to NSQIP risk calculator -Risks of surgery are outweighed by benefits and patient understands he is high risk for an intermediate risk procedure -Orthopedic consult -Pain control Mild anemia patient denies any GI bleeding Continue monitoring hemoglobin, start oral iron Hypertension Diabetes mellitus History of coronary artery disease and she a TAVR History of prostate cancer -Home medications reviewed and reconciled Full code DVT prophylaxis: On heparin drip for ACS Objective - Vital Signs Vital signs: Vital Signs Temp 98.0 F 12/25/21 04:00 Pulse 73 12/25/21 06:19 Resp 14 12/25/21 04:00 BP 151/72 12/25/21 06:19 Pulse Ox 97 12/25/21 08:25 FiO2 Intake & Output 12/24/21 12/25/21 12/25/21 18:59 06:59 18:59 Intake Total 654 740 Output Total 1000 Balance 654 -260 Intake: IV 60 Invasive Line 1 30 Invasive Line 2 30 Intake, IV Titration 200 Amount Sodium Chloride 0.9% 1, 200 000 ml @ 50 mls/hr IV . Q20H [facility] Rx#:[id number] Oral 594 540 Output: Urine 1000 Other: Voiding Method External Catheter External Catheter - Labs CBC & Chem 7: 08/29/22 07:37 12/25/21 07:37 Labs: Abnormal Lab Results - Last 24 Hours (Table) 12/24/21 12/24/21 12/24/21 Range/Units 11:46 16:29 17:31 RBC 2.77 L (4.30-5.90) m/uL Hgb 8.0 L D (13.0-17.5) gm/dL Hct 24.7 L (39.0-53.0) % RDW 17.7 H (11.5-15.5) % Carbon Dioxide (22-30) mmol/L BUN (9-20) mg/dL Creatinine (0.66-1.25) mg/dL Glucose (74-99) mg/dL POC Glucose (mg/dL) 207 H 177 H (70-110) mg/dL Calcium (8.4-10.2) mg/dL Phosphorus (2.5-4.5) mg/dL 12/24/21 12/25/21 12/25/21 Range/Units 20:28 06:09 07:37 RBC (4.30-5.90) m/uL Hgb (13.0-17.5) gm/dL Hct (39.0-53.0) % RDW (11.5-15.5) % Carbon Dioxide 20 L (22-30) mmol/L BUN 104 H* (9-20) mg/dL Creatinine 4.08 H (0.66-1.25) mg/dL Glucose 136 H (74-99) mg/dL POC Glucose (mg/dL) 195 H 130 H (70-110) mg/dL Calcium 8.2 L (8.4-10.2) mg/dL Phosphorus 5.7 H (2.5-4.5) mg/dL 12/25/21 Range/Units 07:37 RBC 3.16 L (4.30-5.90) m/uL Hgb 9.2 L (13.0-17.5) gm/dL Hct 28.6 L (39.0-53.0) % RDW 17.7 H (11.5-15.5) % Carbon Dioxide (22-30) mmol/L BUN (9-20) mg/dL Creatinine (0.66-1.25) mg/dL Glucose (74-99) mg/dL POC Glucose (mg/dL) (70-110) mg/dL Calcium (8.4-10.2) mg/dL Phosphorus (2.5-4.5) mg/dL
[2021-12-25 11:56] LABS: Glucose,Whole Blood 182 mg/dL (70-110)
[2021-12-25] MEDS: SODIUM BICARBONATE TAB 650 MG TAB PO SCH ×2 (13:09→23:01)
[2021-12-25] MEDS: FERROUS SULFATE 325 MG TAB PO SCH (13:09)
[2021-12-25] MEDS: ONDANSETRON 4 MG/2 ML VIAL IVP PRN ×2 (13:09→21:40)
--- NOTE | 2021-12-25 13:43 | P.PN ---
Subjective Progress Note Date: 12/25/21 This patient is an 86-year-old male who is status-post left hip hemiarthroplasty on 12/22/21. Today is post-operative day #3. The patient is examined bedside. He states the pain in his left hip is well controlled at this time. Patient is complaining of mild nausea this morning. He has no additional complaints at this time. Vital signs stable. Objective - Vital Signs Vital signs: Vital Signs Temp 97.5 F L 12/25/21 08:00 Pulse 75 12/25/21 08:00 Resp 16 12/25/21 08:00 BP 158/66 12/25/21 08:00 Pulse Ox 97 12/25/21 08:25 FiO2 Intake & Output 12/24/21 12/25/21 12/25/21 18:59 06:59 18:59 Intake Total 654 740 Output Total 1000 550 Balance 835 -260 550 Intake: IV 60 Invasive Line 1 30 Invasive Line 2 30 Intake, IV Titration 200 Amount Sodium Chloride 0.9% 1, 200 000 ml @ 50 mls/hr IV . Q20H [facility] Rx#:[id number] Oral 594 540 Output: Urine 1000 550 Other: Voiding Method External Catheter External Catheter External Catheter - Exam On inspection of the left hip, there is a clean, dry, and intact OpSite surgical dressing in place. No bleeding or drainage that the dressing. There is mild swelling of the thigh, the thigh is soft and compressible. Motor and sensory function is intact of the left lower extremity. Femoral nerve function intact. Dorsalis pedis pulse easily palpable, the left lower extremity is warm and well perfused. Calf is soft and nontender. - Labs CBC & Chem 7: 12/25/21 07:37 12/25/21 07:37 Labs: Abnormal Lab Results - Last 24 Hours (Table) 12/24/21 12/24/21 12/24/21 Range/Units 16:29 17:31 20:28 RBC 2.77 L (4.30-5.90) m/uL Hgb 8.0 L D (13.0-17.5) gm/dL Hct 24.7 L (39.0-53.0) % RDW 17.7 H (11.5-15.5) % Carbon Dioxide (22-30) mmol/L BUN (9-20) mg/dL Creatinine (0.66-1.25) mg/dL Glucose (74-99) mg/dL POC Glucose (mg/dL) 177 H 195 H (70-110) mg/dL Calcium (8.4-10.2) mg/dL Phosphorus (2.5-4.5) mg/dL 12/25/21 12/25/21 12/25/21 Range/Units 06:09 07:37 07:37 RBC 3.16 L (4.30-5.90) m/uL Hgb 9.2 L (13.0-17.5) gm/dL Hct 28.6 L (39.0-53.0) % RDW 17.7 H (11.5-15.5) % Carbon Dioxide 20 L (22-30) mmol/L BUN 104 H* (9-20) mg/dL Creatinine 4.08 H (0.66-1.25) mg/dL Glucose 136 H (74-99) mg/dL POC Glucose (mg/dL) 130 H (70-110) mg/dL Calcium 8.2 L (8.4-10.2) mg/dL Phosphorus 5.7 H (2.5-4.5) mg/dL 12/25/21 Range/Units 11:54 RBC (4.30-5.90) m/uL Hgb (13.0-17.5) gm/dL Hct (39.0-53.0) % RDW (11.5-15.5) % Carbon Dioxide (22-30) mmol/L BUN (9-20) mg/dL Creatinine (0.66-1.25) mg/dL Glucose (74-99) mg/dL POC Glucose (mg/dL) 182 H (70-110) mg/dL Calcium (8.4-10.2) mg/dL Phosphorus (2.5-4.5) mg/dL Assessment and Plan Assessment: Status-post left hip hemiarthroplasty on 12/22/21. Post-operative day #3. Plan: - Patient may weight-bear to tolerance on the operative extremity with a walker. Up with assistance. Fall precautions. - Physical therapy for gait and balance training. - Keep operative dressing intact. - Pain management as needed. - DVT prophylaxis per internal medicine. - We will follow patient closely as he remains inpatient.
[2021-12-25 16:36] LABS: Glucose,Whole Blood 249 mg/dL (70-110)
[2021-12-25 17:25] LABS: % Iron Saturation 11.13 (15.00-50.00)
[2021-12-25 20:08] LABS: Glucose,Whole Blood 247 mg/dL (70-110)
[2021-12-25] MEDS: ASPIRIN 81 MG PO SCH (22:59)
[2021-12-25] MEDS: SENNOSIDES-DOCUSATE SODIUM 1 EACH TAB PO SCH (22:59)
[2021-12-25] MEDS: ATORVASTATIN 10 MG TAB PO SCH (23:00)
[2021-12-25] MEDS: QUEtiapine 25 MG TAB PO SCH (23:00)
[2021-12-26] MEDS ORDERED: ONDANSETRON 4 MG/2 ML VIAL IVP STA (02:34)
[2021-12-26 06:19] LABS: Glucose,Whole Blood 187 mg/dL (70-110)
[2021-12-26] MEDS: INSULIN ASPART (NovoLOG) 100 UNIT/ML VIAL SQ SCH ×4 (06:35→21:38)
[2021-12-26] MEDS: carvediloL 3.125 MG TAB PO SCH ×2 (06:35→17:12)
[2021-12-26 07:40] LABS: Anisocytosis Slight; Basophils % (A) 0 %; Eosinophils # (A) 0.1 k/uL (0-0.7); Eosinophils % (A) 1 %; HCT 28.6 % (39.0-53.0); Lymphocytes # (A) 1.3 k/uL (1.0-4.8); Lymphocytes % (A) 14 %; MCHC 31.3 g/dL (31.0-37.0); MCV 89.4 fL (80.0-100.0); Mean Platelet Volume 8.1; Monocytes # (A) 0.4 k/uL (0-1.0); Monocytes % (A) 4 %; Neutrophils # (A) 7.1 k/uL (1.3-7.7); Neutrophils % (A) 80 %; Platelet Count 188 k/uL (150-450); RDW 17.4 % (11.5-15.5); WBC 8.9 k/uL (3.8-10.6)
[2021-12-26 08:06] LABS: Calcium 8.5 mg/dL (8.4-10.2); Potassium 4.1 mmol/L (3.5-5.1)
[2021-12-26 09:35] VITALS: BMI 24.3
--- NOTE | 2021-12-26 09:40 | P.PN ---
Subjective Progress Note Date: 12/26/21 This patient is an 86-year-old male who is status-post left hip hemiarthroplasty on 12/22/21. Today is post-operative day #4. The patient is examined bedside. He continues to experience nausea throughout the night. He states his hip pain is well- controlled. Nephrology is following. No new complaints today. Denies chest pain, shortness of breath. Vital signs stable. Objective - Vital Signs Vital signs: Vital Signs Temp 98.5 F 12/26/21 03:32 Pulse 78 12/26/21 06:34 Resp 16 12/26/21 03:32 BP 162/70 12/26/21 06:34 Pulse Ox 98 12/26/21 03:32 FiO2 Intake & Output 12/25/21 12/26/21 12/26/21 18:59 06:59 18:59 Intake Total 120 Output Total 550 1100 Balance -430 -1100 Weight 74.843 kg Intake: Oral 120 Output: Urine 550 1100 Other: Voiding Method External Catheter External Catheter - Exam On examination, the patient is sitting up in bed in no apparent distress. He is alert and answers questions appropriately. On inspection of the left hip, there is a clean, dry, and intact OpSite surgical dressing in place. No bleeding or drainage through the dressing. There is mild swelling of the thigh, the thigh is soft and compressible. Motor and sensory function is intact of the left lower extremity. Femoral nerve function intact. Dorsalis pedis pulse easily palpable, the left lower extremity is warm and well perfused. Calf is soft and nontender. - Labs CBC & Chem 7: 12/26/21 06:58 12/26/21 06:58 Labs: Abnormal Lab Results - Last 24 Hours (Table) 12/25/21 12/25/21 12/25/21 Range/Units 07:37 11:54 16:35 RBC (4.30-5.90) m/uL Hgb (13.0-17.5) gm/dL Hct (39.0-53.0) % RDW (11.5-15.5) % BUN (9-20) mg/dL Creatinine (0.66-1.25) mg/dL Glucose (74-99) mg/dL POC Glucose (mg/dL) 182 H 249 H (70-110) mg/dL Iron 20 L (65-175) ug/dL TIBC 181 L (228-460) ug/dL % Saturation 11.13 L (15.00-50.00) Transferrin 129.0 L (204.0-354.0) mg/dL Ferritin 685.0 H (22.0-322.0) ng/mL 12/25/21 12/26/21 12/26/21 Range/Units 20:07 06:18 06:58 RBC 3.20 L (4.30-5.90) m/uL Hgb 9.0 L (13.0-17.5) gm/dL Hct 28.6 L (39.0-53.0) % RDW 17.4 H (11.5-15.5) % BUN (9-20) mg/dL Creatinine (0.66-1.25) mg/dL Glucose (74-99) mg/dL POC Glucose (mg/dL) 247 H 187 H (70-110) mg/dL Iron (65-175) ug/dL TIBC (228-460) ug/dL % Saturation (15.00-50.00) Transferrin (204.0-354.0) mg/dL Ferritin (22.0-322.0) ng/mL 12/26/21 Range/Units 06:58 RBC (4.30-5.90) m/uL Hgb (13.0-17.5) gm/dL Hct (39.0-53.0) % RDW (11.5-15.5) % BUN 109 H* (9-20) mg/dL Creatinine 3.35 H (0.66-1.25) mg/dL Glucose 169 H (74-99) mg/dL POC Glucose (mg/dL) (70-110) mg/dL Iron (65-175) ug/dL TIBC (228-460) ug/dL % Saturation (15.00-50.00) Transferrin (204.0-354.0) mg/dL Ferritin (22.0-322.0) ng/mL Assessment and Plan Assessment: Status-post left hip hemiarthroplasty on 12/22/21. Post-operative day #4. Plan: - Patient may weight-bear to tolerance on the operative extremity with a walker. Up with assistance. Fall precautions. - Physical therapy for gait and balance training. - Keep operative dressing intact. - Pain management as needed. - DVT prophylaxis per internal medicine. - We will follow patient closely as he remains inpatient.
[2021-12-26] MEDS: cloNIDine HCL 0.1 MG TAB PO SCH ×3 (09:54→21:38)
[2021-12-26] MEDS: CLOPIDOGREL 75 MG TAB PO SCH (09:54)
[2021-12-26] MEDS: amLODIPine 5 MG TAB PO SCH (09:55)
[2021-12-26] MEDS: SERTRALINE 100 MG TAB PO SCH (09:55)
[2021-12-26] MEDS: SODIUM BICARBONATE TAB 650 MG TAB PO SCH ×2 (09:55→21:38)
[2021-12-26] MEDS: TAMSULOSIN 0.4 MG CAP.ER.24H PO SCH (09:55)
[2021-12-26] MEDS: ISOSORBIDE MONONITRATE ER 30 MG TAB.ER.24H PO SCH (09:55)
[2021-12-26] MEDS: allopurinoL 100 MG TAB PO SCH (09:55)
--- NOTE | 2021-12-26 10:09 | P.PN ---
Subjective Patient is seen in follow-up for acute kidney injury and chronic kidney disease. Renal function better. Remains off diuretics. Nonoliguric. Denies chest pain or shortness of breath. On 3 L nasal cannula. Oral intake fair. Did vomit last night. Vital signs are stable. General: Awake. No acute distress. HEENT: Head exam is unremarkable. On nasal cannula. LUNGS: Breath sounds decreased. HEART: Rate and Rhythm are regular. ABDOMEN: Soft, no distention. EXTREMITITES: No edema. Chronic changes noted. Objective - Vital Signs Vital signs: Vital Signs Temp 98.5 F 12/26/21 03:32 Pulse 78 12/26/21 06:34 Resp 16 12/26/21 03:32 BP 162/70 12/26/21 06:34 Pulse Ox 98 12/26/21 03:32 FiO2 Intake & Output 12/25/21 12/26/21 12/26/21 18:59 06:59 18:59 Intake Total 120 Output Total 550 1100 Balance -430 -1100 Weight 74.843 kg Intake: Oral 120 Output: Urine 550 1100 Other: Voiding Method External Catheter External Catheter - Labs CBC & Chem 7: 12/26/21 06:58 12/26/21 06:58 Labs: Abnormal Lab Results - Last 24 Hours (Table) 12/25/21 12/25/21 12/25/21 Range/Units 07:37 11:54 16:35 RBC (4.30-5.90) m/uL Hgb (13.0-17.5) gm/dL Hct (39.0-53.0) % RDW (11.5-15.5) % BUN (9-20) mg/dL Creatinine (0.66-1.25) mg/dL Glucose (74-99) mg/dL POC Glucose (mg/dL) 182 H 249 H (70-110) mg/dL Iron 20 L (65-175) ug/dL TIBC 181 L (228-460) ug/dL % Saturation 11.13 L (15.00-50.00) Transferrin 129.0 L (204.0-354.0) mg/dL Ferritin 685.0 H (22.0-322.0) ng/mL 12/25/21 12/26/21 12/26/21 Range/Units 20:07 06:18 06:58 RBC 3.20 L (4.30-5.90) m/uL Hgb 9.0 L (13.0-17.5) gm/dL Hct 28.6 L (39.0-53.0) % RDW 17.4 H (11.5-15.5) % BUN (9-20) mg/dL Creatinine (0.66-1.25) mg/dL Glucose (74-99) mg/dL POC Glucose (mg/dL) 247 H 187 H (70-110) mg/dL Iron (65-175) ug/dL TIBC (228-460) ug/dL % Saturation (15.00-50.00) Transferrin (204.0-354.0) mg/dL Ferritin (22.0-322.0) ng/mL 12/26/21 Range/Units 06:58 RBC (4.30-5.90) m/uL Hgb (13.0-17.5) gm/dL Hct (39.0-53.0) % RDW (11.5-15.5) % BUN 109 H* (9-20) mg/dL Creatinine 3.35 H (0.66-1.25) mg/dL Glucose 169 H (74-99) mg/dL POC Glucose (mg/dL) (70-110) mg/dL Iron (65-175) ug/dL TIBC (228-460) ug/dL % Saturation (15.00-50.00) Transferrin (204.0-354.0) mg/dL Ferritin (22.0-322.0) ng/mL Assessment and Plan Plan: Assessment: 1. Acute kidney injury secondary to ATN secondary to cardiorenal syndrome. Creatinine peaked at 4.36 on 12/16/2021 - 3.35 today. 2. 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 3. Diabetes mellitus. 4. Acute on chronic diastolic CHF with moderate to severe pulmonary hypertension. 5. Left hip fracture status post hemiarthroplasty 12/22/2021. 6. Urinary retention. On Flomax. 7. Anemia of chronic kidney disease. No active bleeding. Hemoglobin 9.0 today. Iron deficiency noted. 8. Metabolic acidosis secondary to acute kidney injury. On oral bicarb. Better. Plan: Diuretics discontinued. Last dose given 12/23/2021. Increase clonidine to 0.1 mg 3 times daily. Hold antihypertensives for systolic blood pressure less than 125. Continue to monitor renal function and urine output. Avoid nephrotoxins. Continue to assess daily for need for renal replacement therapy. No urgency at this time. Monitor bladder scans closely and insert Hawkins catheter if persistently retaining more than 300 mL of urine. Add IV iron. Check stool for occult blood.
[2021-12-26 12:02] LABS: Glucose,Whole Blood 209 mg/dL (70-110)
[2021-12-26] MEDS: SODIUM FERRIC GLUCONAT-SUCROSE 125 MG in SODIUM CHLORIDE 0.9% 100 ML IVPB SCH (13:07)
[2021-12-26] MEDS: FERROUS SULFATE 325 MG TAB PO SCH (13:08)
[2021-12-26] MEDS ORDERED: SODIUM CHLORIDE 0.9% 1,000 ML IV SCH (13:30)
--- NOTE | 2021-12-26 13:41 | P.PN ---
Subjective Progress Note Date: 12/26/21 Patient was seen and examined. No acute events overnight. Patient reports continued nausea and vomiting. CBC shows Hg 9.0, stable. BMP shows BUN 109, Cr 3.35. Iron studies show iron of 20, ferritin of 685. General: non toxic, no distress, appears at stated age Derm: warm, dry Head: atraumatic, normocephalic, symmetric Eyes: EOMI, no lid lag, anicteric sclera Mouth: no lip lesion, mucus membranes moist Cardiovascular: S1S2 reg, no murmur Lungs: CTA bilateral, crackles at the bases , no accessory muscle use Abdominal: soft, nontender to palpation Ext: no gross muscle atrophy, no edema, no contractures Neuro: no focal neuro deficits Psych: Alert, oriented, appropriate affect Assessment and Plan Acute hypoxic respiratory failure Chronic diastolic heart failure exacerbation Acute on Chronic Kidney Disease, stage IIIb -Supplemental oxygen as needed -DuoNeb as needed for shortness of breath and wheezing -Monitor vital signs -Cardiology consulted -Lasix held at this time, hold metolazone -Started on gently hydration (NS at 50 cc/hr for 1000 cc) -Echocardiogram demonstrates severe pulm HTN -Continue with ASA/Plavix -Continue with statin -Nephrology consulted Preoperative clearance Left femur acute impacted subcapital fracture secondary to accidental fall -Pt has a MACE risk of 5.3% according to NSQIP risk calculator -Risks of surgery are outweighed by benefits and patient understands he is high risk for an intermediate risk procedure -s/p left direct anterior hip hemiarthroplasty 12/22 -Orthopedic consulted -Pain control Anemia chronic disease -Patient started on ferric gluconate by nephrology Troponin elevation -ACS ruled out -Echocardiogram with no regional wall motion abnormalities Hypertension Diabetes mellitus History of coronary artery disease and she a TAVR History of prostate cancer -Home medications reviewed and reconciled Objective - Vital Signs Vital signs: Vital Signs Temp 97.8 F 12/26/21 08:00 Pulse 71 12/26/21 08:00 Resp 16 12/26/21 08:00 BP 137/77 12/26/21 08:00 Pulse Ox 98 12/26/21 08:00 FiO2 Intake & Output 12/25/21 12/26/21 12/26/21 18:59 06:59 18:59 Intake Total 120 Output Total 550 1100 Balance -430 -1100 Weight 74.843 kg Intake: Oral 120 Output: Urine 550 1100 Other: Voiding Method External Catheter External Catheter External Catheter - Labs CBC & Chem 7: 12/26/21 06:58 12/26/21 06:58 Labs: Abnormal Lab Results - Last 24 Hours (Table) 12/25/21 12/25/21 12/25/21 Range/Units 07:37 16:35 20:07 RBC (4.30-5.90) m/uL Hgb (13.0-17.5) gm/dL Hct (39.0-53.0) % RDW (11.5-15.5) % BUN (9-20) mg/dL Creatinine (0.66-1.25) mg/dL Glucose (74-99) mg/dL POC Glucose (mg/dL) 249 H 247 H (70-110) mg/dL Iron 20 L (65-175) ug/dL TIBC 181 L (228-460) ug/dL % Saturation 11.13 L (15.00-50.00) Transferrin 129.0 L (204.0-354.0) mg/dL Ferritin 685.0 H (22.0-322.0) ng/mL 12/26/21 12/26/21 12/26/21 Range/Units 06:18 06:58 06:58 RBC 3.20 L (4.30-5.90) m/uL Hgb 9.0 L (13.0-17.5) gm/dL Hct 28.6 L (39.0-53.0) % RDW 17.4 H (11.5-15.5) % BUN 109 H* (9-20) mg/dL Creatinine 3.35 H (0.66-1.25) mg/dL Glucose 169 H (74-99) mg/dL POC Glucose (mg/dL) 187 H (70-110) mg/dL Iron (65-175) ug/dL TIBC (228-460) ug/dL % Saturation (15.00-50.00) Transferrin (204.0-354.0) mg/dL Ferritin (22.0-322.0) ng/mL 12/26/21 Range/Units 11:44 RBC (4.30-5.90) m/uL Hgb (13.0-17.5) gm/dL Hct (39.0-53.0) % RDW (11.5-15.5) % BUN (9-20) mg/dL Creatinine (0.66-1.25) mg/dL Glucose (74-99) mg/dL POC Glucose (mg/dL) 209 H (70-110) mg/dL Iron (65-175) ug/dL TIBC (228-460) ug/dL % Saturation (15.00-50.00) Transferrin (204.0-354.0) mg/dL Ferritin (22.0-322.0) ng/mL
[2021-12-26 17:05] LABS: Glucose,Whole Blood 229 mg/dL (70-110)
[2021-12-26] MEDS: SENNOSIDES-DOCUSATE SODIUM 1 EACH TAB PO SCH (17:12)
[2021-12-26] MEDS: DOCUSATE 100 MG CAP PO SCH (17:13)
[2021-12-26] MEDS: ONDANSETRON 4 MG/2 ML VIAL IVP PRN (17:14)
[2021-12-26 20:13] LABS: Glucose,Whole Blood 221 mg/dL (70-110)
[2021-12-26] MEDS: ATORVASTATIN 10 MG TAB PO SCH (21:38)
[2021-12-26] MEDS: ASPIRIN 81 MG PO SCH (21:38)
[2021-12-26] MEDS: QUEtiapine 25 MG TAB PO SCH (21:38)
[2021-12-26 23:23] VITALS: RESP 18
[2021-12-26] MEDS: HYDROcodone/APAP 5-325MG 1 EACH TAB PO PRN (23:25)
[2021-12-27 06:11] LABS: Glucose,Whole Blood 137 mg/dL (70-110)
[2021-12-27] MEDS: INSULIN ASPART (NovoLOG) 100 UNIT/ML VIAL SQ SCH ×4 (06:18→22:14)
[2021-12-27] MEDS: carvediloL 3.125 MG TAB PO SCH ×2 (06:34→17:39)
[2021-12-27] MEDS: SERTRALINE 100 MG TAB PO SCH (08:28)
[2021-12-27] MEDS: CLOPIDOGREL 75 MG TAB PO SCH (08:29)
[2021-12-27] MEDS: SODIUM BICARBONATE TAB 650 MG TAB PO SCH ×2 (08:29→22:14)
[2021-12-27] MEDS: ISOSORBIDE MONONITRATE ER 30 MG TAB.ER.24H PO SCH (08:29)
[2021-12-27] MEDS: cloNIDine HCL 0.1 MG TAB PO SCH ×3 (08:29→22:13)
[2021-12-27] MEDS: SODIUM FERRIC GLUCONAT-SUCROSE 125 MG in SODIUM CHLORIDE 0.9% 100 ML IVPB SCH (08:29)
[2021-12-27] MEDS: TAMSULOSIN 0.4 MG CAP.ER.24H PO SCH (08:29)
[2021-12-27] MEDS: DOCUSATE 100 MG CAP PO SCH (08:29)
[2021-12-27] MEDS: allopurinoL 100 MG TAB PO SCH (08:29)
[2021-12-27] MEDS: amLODIPine 5 MG TAB PO SCH (08:29)
[2021-12-27 08:47] LABS: Calcium 8.5 mg/dL (8.4-10.2); Magnesium 2.1 mg/dL (1.6-2.3); Potassium 4.1 mmol/L (3.5-5.1)
[2021-12-27] MEDS ORDERED: hydrALAZINE HCL 20 MG/ML 1 ML VIAL IVP PRN (09:21)
--- NOTE | 2021-12-27 09:26 | P.PN ---
Subjective Patient is seen in follow-up for acute kidney injury and chronic kidney disease. Renal function continues to improve. Remains off diuretics. Nonoliguric. Denies chest pain or shortness of breath. On 2 L nasal cannula. Oral intake better. Currently having breakfast. Vital signs are stable. General: Awake. No acute distress. HEENT: Head exam is unremarkable. On nasal cannula. LUNGS: Breath sounds decreased. HEART: Rate and Rhythm are regular. ABDOMEN: Soft, no distention. EXTREMITITES: No edema. Chronic changes noted. Objective - Vital Signs Vital signs: Vital Signs Temp 96.2 F L 12/27/21 08:00 Pulse 74 12/27/21 08:00 Resp 18 12/27/21 08:00 BP 187/77 12/27/21 08:00 Pulse Ox 97 12/27/21 08:00 FiO2 Intake & Output 12/26/21 12/27/21 12/27/21 18:59 06:59 18:59 Intake Total 200 118 Output Total 500 550 Balance 200 -500 -432 Weight 71.8 kg Intake: Intake, IV Titration 200 Amount Sodium Chloride 0.9% 1, 100 000 ml @ 50 mls/hr IV . Q20H [facility] Rx#:[id number] Sodium Ferric Gluconat- 100 Sucrose 125 mg In Sodium Chloride 0.9% 100 ml @ 100 mls/hr IVPB DAILY [facility] Rx#:[id number] Oral 118 Output: Urine 500 550 Other: Voiding Method External Catheter External Catheter - Labs CBC & Chem 7: 12/26/21 06:58 12/27/21 07:19 Labs: Abnormal Lab Results - Last 24 Hours (Table) 12/26/21 12/26/21 12/26/21 Range/Units 11:44 17:01 20:12 BUN (9-20) mg/dL Creatinine (0.66-1.25) mg/dL Glucose (74-99) mg/dL POC Glucose (mg/dL) 209 H 229 H 221 H (70-110) mg/dL 12/27/21 12/27/21 Range/Units 06:06 07:19 BUN 105 H* (9-20) mg/dL Creatinine 3.06 H (0.66-1.25) mg/dL Glucose 125 H (74-99) mg/dL POC Glucose (mg/dL) 137 H (70-110) mg/dL Assessment and Plan Plan: Assessment: 1. Acute kidney injury secondary to ATN secondary to cardiorenal syndrome. Creatinine peaked at 4.36 on 12/16/2021 - 3.06 today. Elevated BUN secondary to acute kidney injury. Not on steroids. No active bleeding. 2. 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 3. Diabetes mellitus. 4. Acute on chronic diastolic CHF with moderate to severe pulmonary hypertension. Hx of TAVR. 5. Left hip fracture status post hemiarthroplasty 12/22/2021. 6. Urinary retention. On Flomax. 7. Anemia of chronic kidney disease. No active bleeding. Hemoglobin 9.0 yesterday. Iron deficiency noted. 8. Metabolic acidosis secondary to acute kidney injury. On oral bicarb. Stab le. 9. Hypertension with chronic kidney disease. Blood pressure has been labile. Plan: Remains off diuretics. Last dose given 12/23/2021. Add hydralazine 10 mg IV every 6 hours as needed for systolic blood pressure greater than 160. Continue to monitor renal function and urine output. Avoid nephrotoxins. Maintain IV iron. Patient receiving IV fluids per primary team. Would advise caution due to underlying CHF. Monitor volume status closely. Follow-up stool for occult blood. Check hemoglobin today.
[2021-12-27 10:05] LABS: Anisocytosis Slight; HCT 28.2 % (39.0-53.0); HGB 8.9 gm/dL (13.0-17.5); Hypochromasia Slight; MCH 28.8 pg (25.0-35.0); MCHC 31.5 g/dL (31.0-37.0); MCV 91.5 fL (80.0-100.0); Mean Platelet Volume 7.7; Platelet Count 202 k/uL (150-450); RBC 3.09 m/uL (4.30-5.90); RDW 17.2 % (11.5-15.5); WBC 9.1 k/uL (3.8-10.6)
[2021-12-27 11:37] LABS: Glucose,Whole Blood 311 mg/dL (70-110)
[2021-12-27] MEDS: FERROUS SULFATE 325 MG TAB PO SCH (12:41)
[2021-12-27] MEDS ORDERED: bisacodyL 10 MG SUPP RECTAL STA (13:20)
--- NOTE | 2021-12-27 13:55 | P.PN ---
Subjective Progress Note Date: 12/27/21 Patient was seen and examined. No acute events overnight. Patient reports no more nausea and vomiting. CBC shows Hg 8.9, stable. BMP shows BUN 105, Cr 3.06. General: non toxic, no distress, appears at stated age Derm: warm, dry Head: atraumatic, normocephalic, symmetric Eyes: EOMI, no lid lag, anicteric sclera Mouth: no lip lesion, mucus membranes moist Cardiovascular: S1S2 reg, no murmur Lungs: CTA bilateral, crackles at the bases , no accessory muscle use Abdominal: soft, nontender to palpation Ext: no gross muscle atrophy, no edema, no contractures Neuro: no focal neuro deficits Psych: Alert, oriented, appropriate affect Assessment and Plan Acute hypoxic respiratory failure Chronic diastolic heart failure exacerbation Acute on Chronic Kidney Disease, stage IIIb -Supplemental oxygen as needed -DuoNeb as needed for shortness of breath and wheezing -Monitor vital signs -Cardiology consulted -Lasix held at this time, hold metolazone -Hydrated overnight with NS at 55 cc/hr, now discontinued -Echocardiogram demonstrates severe pulm HTN -Continue with ASA/Plavix -Continue with statin -Nephrology consulted Constipation -Started on Colace and Dulcolax suppository today Preoperative clearance Left femur acute impacted subcapital fracture secondary to accidental fall -Pt has a MACE risk of 5.3% according to NSQIP risk calculator -Risks of surgery are outweighed by benefits and patient understands he is high risk for an intermediate risk procedure -s/p left direct anterior hip hemiarthroplasty 12/22 -Orthopedic consulted -Pain control Anemia chronic disease -Patient started on ferric gluconate by nephrology Troponin elevation -ACS ruled out -Echocardiogram with no regional wall motion abnormalities Hypertension Diabetes mellitus History of coronary artery disease and she a TAVR History of prostate cancer -Home medications reviewed and reconciled Renal function is stable. Nephrology on board. Needs to have a bowel movement. Discussed with case management, anticipate DC to SNF today or tomorrow. He will need BMP within 3 days of discharge. Objective - Vital Signs Vital signs: Vital Signs Temp 96.2 F L 12/27/21 08:00 Pulse 86 12/27/21 12:00 Resp 18 12/27/21 12:00 BP 147/64 12/27/21 12:00 Pulse Ox 97 12/27/21 12:00 FiO2 Intake & Output 12/26/21 12/27/21 12/27/21 18:59 06:59 18:59 Intake Total 200 118 Output Total 500 550 Balance 200 -500 -432 Weight 71.8 kg Intake: Intake, IV Titration 200 Amount Sodium Chloride 0.9% 1, 100 000 ml @ 50 mls/hr IV . Q20H [facility] Rx#:[id number] Sodium Ferric Gluconat- 100 Sucrose 125 mg In Sodium Chloride 0.9% 100 ml @ 100 mls/hr IVPB DAILY [facility] Rx#:[id number] Oral 118 Output: Urine 500 550 Other: Voiding Method External Catheter External Catheter - Labs CBC & Chem 7: 12/27/21 09:44 12/27/21 07:19 Labs: Abnormal Lab Results - Last 24 Hours (Table) 12/26/21 12/26/21 12/27/21 Range/Units 17:01 20:12 06:06 RBC (4.30-5.90) m/uL Hgb (13.0-17.5) gm/dL Hct (39.0-53.0) % RDW (11.5-15.5) % BUN (9-20) mg/dL Creatinine (0.66-1.25) mg/dL Glucose (74-99) mg/dL POC Glucose (mg/dL) 229 H 221 H 137 H (70-110) mg/dL 12/27/21 12/27/21 12/27/21 Range/Units 07:19 09:44 11:35 RBC 3.09 L (4.30-5.90) m/uL Hgb 8.9 L (13.0-17.5) gm/dL Hct 28.2 L (39.0-53.0) % RDW 17.2 H (11.5-15.5) % BUN 105 H* (9-20) mg/dL Creatinine 3.06 H (0.66-1.25) mg/dL Glucose 125 H (74-99) mg/dL POC Glucose (mg/dL) 311 H (70-110) mg/dL
[2021-12-27 17:00] LABS: Glucose,Whole Blood 243 mg/dL (70-110)
[2021-12-27] MEDS ORDERED: bisacodyL 10 MG SUPP RECTAL PRN (17:08)
[2021-12-27 21:05] LABS: Glucose,Whole Blood 228 mg/dL (70-110)
[2021-12-27] MEDS: ASPIRIN 81 MG PO SCH (22:10)
[2021-12-27] MEDS: SENNOSIDES-DOCUSATE SODIUM 1 EACH TAB PO SCH (22:13)
[2021-12-27] MEDS: HYDROcodone/APAP 5-325MG 1 EACH TAB PO PRN (22:13)
[2021-12-27] MEDS: ATORVASTATIN 10 MG TAB PO SCH (22:14)
[2021-12-27] MEDS: QUEtiapine 25 MG TAB PO SCH (22:14)
[2021-12-28 05:05] LABS: Calcium 8.9 mg/dL (8.4-10.2); Potassium 3.8 mmol/L (3.5-5.1)
[2021-12-28 06:09] LABS: Glucose,Whole Blood 151 mg/dL (70-110)
[2021-12-28] MEDS: carvediloL 3.125 MG TAB PO SCH (07:02)
[2021-12-28] MEDS: INSULIN ASPART (NovoLOG) 100 UNIT/ML VIAL SQ SCH ×2 (07:02→12:28)
[2021-12-28] MEDS: cloNIDine HCL 0.1 MG TAB PO SCH (09:19)
[2021-12-28] MEDS: amLODIPine 5 MG TAB PO SCH (09:19)
[2021-12-28] MEDS: allopurinoL 100 MG TAB PO SCH (09:19)
[2021-12-28] MEDS: DOCUSATE 100 MG CAP PO SCH (09:19)
[2021-12-28] MEDS: SODIUM FERRIC GLUCONAT-SUCROSE 125 MG in SODIUM CHLORIDE 0.9% 100 ML IVPB SCH (09:19)
[2021-12-28] MEDS: ISOSORBIDE MONONITRATE ER 30 MG TAB.ER.24H PO SCH (09:19)
[2021-12-28] MEDS: TAMSULOSIN 0.4 MG CAP.ER.24H PO SCH (09:19)
[2021-12-28] MEDS: SERTRALINE 100 MG TAB PO SCH (09:19)
[2021-12-28] MEDS: SODIUM BICARBONATE TAB 650 MG TAB PO SCH (09:19)
[2021-12-28] MEDS: CLOPIDOGREL 75 MG TAB PO SCH (09:19)
[2021-12-28] MEDS: FERROUS SULFATE 325 MG TAB PO SCH (09:20)
[2021-12-28] MEDS ORDERED: hydrALAZINE HCL 50 MG TAB PO SCH (09:30)
--- NOTE | 2021-12-28 09:48 | P.DS ---
Providers Date of admission: 12/20/21 23:51 Expected date of discharge: 12/28/21 Attending physician: Fabrice Ruiz MD Consults: 12/20/21 23:46 Consult Physician Routine Consulting Provider: Brenden Lundberg Consult Reason/Comments: left subcapital femur fracture Do you want consulting provider notified?: Already Contacted 12/20/21 23:50 Consult Physician Routine Consulting Provider: [facility] Consult Reason/Comments: elevated troponin, TAVR history Do you want consulting provider notified?: Yes, Notify in am 12/21/21 14:08 Consult Physician Routine Consulting Provider: Afua Nunn Consult Reason/Comments: CKD IIIb Do you want consulting provider notified?: Yes Primary care physician: [facility] Course: 86-year-old male with coronary artery disease, chronic kidney disease, diabetes mellitus, hypertension Patient comes into the hospital after sustaining an accidental fall at home, he reports that he was recently been having callus over the base of his right big toe for which he is seen his foot doctor who gave him a big boot to offload pressure while wearing it today he stumped his big toe and fell denies any head injury denies any loss of consciousness initially family 8-10 to get back to the chair however later they found out that he couldn't stand up due to pain for which she was brought into the hospital upon arrival to the hospital he was found to be hypoxic with oxygen saturation at 84% she does not use any home oxygen at home however he does have history of pulmonary fibrosis. Patient denies any upper respiratory infection symptoms denies any chest pain or trouble breathing denies any coughing. Patient has very limited activity at home due to advanced age and easy fatigability. He recently had a TAB her surgery back in April 2021 before that he had a left heart cath showing 90% stenosis of the first diagonal branch and moderate stenosis of the mid LAD for which cardiology recommended medical management at that time March 2021. Patient denies any exertional dyspnea however he doesn't go far he only walks around home due to advanced age and easy fatigability. Family also report that he has depressed mood and has not been leaving the home. No reports of any history of blood clots or recent travel no reports of GI bleeding nor complaint of abdominal pain changes in bowel or urinary habits Upon further evaluation and imaging in the ED he was found to have left femoral acute impacted subcapital fracture. Other imaging did not reveal any other acute pathology CT of the brain was negative for any acute pathology chest x-ray suggested increased infiltrates compared to before this could be advancement of his pulmonary fibrosis Blood work showed elevated troponin which continue to trend up again patient denies any chest pain Patient doesn't take any blood thinners at home however he is on Plavix and aspirin With regard to his elevated troponins, patient was started on a heparin drip. He was started on IV Lasix for concerns of diastolic CHF exacerbation. Acute coronary syndrome was ruled out. Cardiology was consulted and recommended stopping heparin drip. He was cleared for surgery from a cardiology perspective. Nephrology was also consulted for chronic kidney disease. Echocardiogram was done which showed normal left ventricular size and systolic function, moderately increased LV wall thickness, normal functioning bioprosthetic aortic valve, mild mitral and tricuspid regurgitation with moderate to severe pulmonary hypertension. Patient underwent left direct anterior hip hemiarthroplasty on 12/22/2021. Repeat chest x-ray on 12/23/2021 showed a small left pleural effusion with left basilar atelectasis. Nephrology was reconsulted due to worsening renal function. They recommended discontinuing metolazone and Lasix. His creatinine peaked at 4.36 on 12/24/2021. Creatinine was 2.74 at the time of discharge. The case was discussed with Dr. Goldman, who recommended discontinuing all diuretics on discharge and repeat BMP within 3 days. Patient was seen and examined on 12/28/2021. Patient reports 2 bowel movements since yesterday and generally feeling well. He had no complaints. General: non toxic, no distress, appears at stated age Derm: warm, dry Head: atraumatic, normocephalic, symmetric Eyes: EOMI, no lid lag, anicteric sclera Mouth: no lip lesion, mucus membranes moist Cardiovascular: S1S2 reg, no murmur Lungs: CTA bilateral, crackles at the bases , no accessory muscle use Abdominal: soft, nontender to palpation Ext: no gross muscle atrophy, no edema, no contractures Neuro: no focal neuro deficits Psych: Alert, oriented, appropriate affect Discharge Diagnosis: Acute hypoxic respiratory failure Chronic diastolic heart failure exacerbation Acute on Chronic Kidney Disease, stage IIIb Constipation Preoperative clearance Left femur acute impacted subcapital fracture secondary to accidental fall Anemia chronic disease Troponin elevation Hypertension Diabetes mellitus History of coronary artery disease and she a TAVR History of prostate cancer This complex discharge took about 45 minutes to complete. Pertinent Studies: CT brain Elbow, foot, hip, femur, chest, knee x-ray Echocardiogram Chest x-ray Procedures: Hip arthroplasty Patient Condition at Discharge: Stable Plan - Discharge Summary Discharge Rx Participant: No New Discharge Prescriptions: New Docusate [Colace] 100 mg PO DAILY cap Sennosides-Docusate Sodium [Senokot-S] 2 each PO HS tab cloNIDine HCL [Catapres] 0.1 mg PO TID tab HYDROcodone/APAP 5-325MG [[place] 5-325] 1 each PO Q6HR PRN #12 tab PRN Reason: Pain Scale 1 To 5 Sodium Bicarbonate Tab 650 mg PO BID tab ALPRAZolam [Xanax] 0.25 mg PO HS PRN #3 tab PRN Reason: Anxiety hydrALAZINE HCL [Apresoline] 50 mg PO BID tab Continue allopurinoL [Zyloprim] 100 mg PO DAILY Lovastatin [Mevacor] 40 mg PO HS EPINEPHrine (Auto Inject) [Epipen] 0.3 mg IM ONCE PRN PRN Reason: Anaphylaxis Glimepiride [Amaryl] 0.5 mg PO AC-BRKFST Cyanocobalamin (Vitamin B-12) [Vitamin B-12] 5,000 mcg PO DAILY Ergocalciferol (Vitamin D2) [Drisdol (50,000 Iu)] 1,250 mcg PO Q14D Sertraline HCl [Zoloft] 150 mg PO DAILY carvediloL [Coreg] 3.125 mg PO BID-W/MEALS Triamcinolone 0.1% Ointment [Kenalog 0.1% Ointment] 1 applic TOPICAL Q48H prednisoLONE ACETATE 1% OPHTH [Pred Forte 1%] 1 drop BOTH EYES PERALTA Petrolatum, White [Aquaphor] 1 applic TOPICAL DAILY Ketoconazole 2% Shampoo [Nizoral] 1 applic TOPICAL DIRECTED PRN PRN Reason: DRY SCALP/FACE amLODIPine [Norvasc] 5 mg PO DAILY Aspirin 81 mg PO HS #0 Multivit-Min/FA/Lycopen/Lutein [Centrum Silver Men Tablet] 1 tab PO DAILY Ammonium Lactate Cream [Lac-Hydrin 12% Cream] 1 applic TOPICAL BID Isosorbide Mononitrate [Isosorbide Mononitrate ER] 30 mg PO DAILY Clopidogrel [Plavix] 75 mg PO DAILY #30 tab Tamsulosin [Flomax] 0.4 mg PO DAILY QUEtiapine [SEROquel] 25 mg PO HS Ferrous Sulfate [Iron (65 MG Elemental)] 325 mg PO DAILY Fluocinonide 0.05% Solution 1 applic TOPICAL HS Discontinued Doxazosin Mesylate 8 mg PO HS cloNIDine HCL [Catapres] 0.3 mg PO BID metOLazone [Zaroxolyn] 2.5 mg PO DAILY ALPRAZolam [Xanax] 0.25 mg PO HS PRN PRN Reason: Anxiety hydrALAZINE HCL [Apresoline] 50 mg PO BID-W/MEALS Furosemide [Lasix] 20 mg PO MOWEFR Discharge Medication List Lovastatin [Mevacor] 40 mg PO HS 12/02/14 [History] allopurinoL [Zyloprim] 100 mg PO DAILY 12/02/14 [History] EPINEPHrine (Auto Inject) [Epipen] 0.3 mg IM ONCE PRN 09/24/17 [History] Glimepiride [Amaryl] 0.5 mg PO AC-BRKFST 11/13/17 [History] Cyanocobalamin (Vitamin B-12) [Vitamin B-12] 5,000 mcg PO DAILY 07/05/18 [History] Ergocalciferol (Vitamin D2) [Drisdol (50,000 Iu)] 1,250 mcg PO Q14D 10/05/20 [History] Ketoconazole 2% Shampoo [Nizoral] 1 applic TOPICAL DIRECTED PRN 10/05/20 [History] Sertraline HCl [Zoloft] 150 mg PO DAILY 10/05/20 [History] amLODIPine [Norvasc] 5 mg PO DAILY 10/05/20 [History] Aspirin 81 mg PO HS #0 10/07/20 [Rx] Multivit-Min/FA/Lycopen/Lutein [Centrum Silver Men Tablet] 1 tab PO DAILY 03/27/21 [History] Triamcinolone 0.1% Ointment [Kenalog 0.1% Ointment] 1 applic TOPICAL Q48H 03/27/21 [History] carvediloL [Coreg] 3.125 mg PO BID-W/MEALS 03/27/21 [History] prednisoLONE ACETATE 1% OPHTH [Pred Forte 1%] 1 drop BOTH EYES PERALTA 03/27/21 [History] Ammonium Lactate Cream [Lac-Hydrin 12% Cream] 1 applic TOPICAL BID 05/16/21 [History] Isosorbide Mononitrate [Isosorbide Mononitrate ER] 30 mg PO DAILY 05/16/21 [History] Petrolatum, White [Aquaphor] 1 applic TOPICAL DAILY 05/16/21 [History] Clopidogrel [Plavix] 75 mg PO DAILY #30 tab 05/25/21 [Rx] Ferrous Sulfate [Iron (65 MG Elemental)] 325 mg PO DAILY 12/20/21 [History] Fluocinonide 0.05% Solution 1 applic TOPICAL HS 12/20/21 [History] QUEtiapine [SEROquel] 25 mg PO HS 12/20/21 [History] Tamsulosin [Flomax] 0.4 mg PO DAILY 12/20/21 [History] ALPRAZolam [Xanax] 0.25 mg PO HS PRN #3 tab 12/28/21 [Rx] Docusate [Colace] 100 mg PO DAILY cap 12/28/21 [Rx] HYDROcodone/APAP 5-325MG [[place] 5-325] 1 each PO Q6HR PRN #12 tab 12/28/21 [Rx] Sennosides-Docusate Sodium [Senokot-S] 2 each PO HS tab 12/28/21 [Rx] Sodium Bicarbonate Tab 650 mg PO BID tab 12/28/21 [Rx] cloNIDine HCL [Catapres] 0.1 mg PO TID tab 12/28/21 [Rx] hydrALAZINE HCL [Apresoline] 50 mg PO BID tab 12/28/21 [Rx] Follow up Appointment(s)/Referral(s): Afua Nunn MD [STAFF PHYSICIAN] - 1 Week Tai Gerardo [Primary Care Provider] - 1-2 days Harvinder Hay MD [Medical Doctor] - 2 Weeks Ambulatory/Diagnostic Orders: Basic Metabolic Panel [LAB.AMB] Time Frame: 3 Days, Location: None Selected Activity/Diet/Wound Care/Special Instructions: Weight bear to tolerance on operative hip with a walker. Up with assistance. Keep operative dressings intact. May shower over dressings. Continue anti-coagulation per internal medicine recommendations. Follow-up in the office in two weeks with Dr. Hay at [facility], Repeat BMP in 3 days. Follow-up with PCP within 1-2 days of discharge. Follow-up with nephrology within 1 week of discharge. Take all medications as advised. Discharge Disposition: TRANSFER TO SNF/ECF
--- NOTE | 2021-12-28 10:18 | P.PN ---
Subjective Patient is seen in follow-up for acute kidney injury and chronic kidney disease. Renal function continues to improve. Remains off diuretics. Nonoliguric. Denies chest pain or shortness of breath. On 2 L nasal cannula. Oral intake is good. No active complaints. Vital signs are stable. Blood pressure on the higher side. General: Awake. No acute distress. HEENT: Head exam is unremarkable. On nasal cannula. LUNGS: Breath sounds decreased. HEART: Rate and Rhythm are regular. ABDOMEN: Soft, no distention. EXTREMITITES: No edema. Chronic changes noted. Objective - Vital Signs Vital signs: Vital Signs Temp 97.9 F 12/28/21 09:14 Pulse 73 12/28/21 09:14 Resp 18 12/28/21 09:14 BP 182/74 12/28/21 09:14 Pulse Ox 98 12/28/21 09:14 FiO2 Intake & Output 12/27/21 12/28/21 12/28/21 18:59 06:59 18:59 Intake Total 354 120 Output Total 1150 1800 Balance -796 -1800 120 Intake: Oral 354 120 Output: Urine 1150 1800 Other: Voiding Method External Catheter # Bowel Movements 1 1 - Labs CBC & Chem 7: 12/27/21 09:44 12/28/21 04:27 Labs: Abnormal Lab Results - Last 24 Hours (Table) 12/27/21 12/27/21 12/27/21 Range/Units 11:35 16:51 21:03 BUN (9-20) mg/dL Creatinine (0.66-1.25) mg/dL Glucose (74-99) mg/dL POC Glucose (mg/dL) 311 H 243 H 228 H (70-110) mg/dL 12/28/21 12/28/21 Range/Units 04:27 06:08 BUN 98 H (9-20) mg/dL Creatinine 2.74 H (0.66-1.25) mg/dL Glucose 124 H (74-99) mg/dL POC Glucose (mg/dL) 151 H (70-110) mg/dL Assessment and Plan Plan: Assessment: 1. Acute kidney injury secondary to ATN secondary to cardiorenal syndrome. Creatinine peaked at 4.36 on 12/16/2021 - 2.74 today. Elevated BUN secondary to acute kidney injury - trending down. Not on steroids. No active bleeding. 2. 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 3. Diabetes mellitus. 4. Acute on chronic diastolic CHF with moderate to severe pulmonary hypertension. Hx of TAVR. 5. Left hip fracture status post hemiarthroplasty 12/22/2021. 6. Urinary retention. On Flomax. 7. Anemia of chronic kidney disease. No active bleeding. Hemoglobin stable at 8.9 yesterday Iron deficiency noted. 8. Metabolic acidosis secondary to acute kidney injury. On oral bicarb. Stable. 9. Hypertension with chronic kidney disease. Blood pressure has been labile. Plan: Remains off diuretics. Last dose given 12/23/2021. Increase dose of clonidine to 0.2 mg 3 times daily. Hold for systolic blood pressure less than 125. Continue to monitor renal function and urine output. Avoid nephrotoxins. Maintain IV iron. Possibly going to rehab today. Repeat BMP and magnesium level 2-3 days postdischarge. Follow up outpatient in 1 week.
[2021-12-28 11:54] LABS: Glucose,Whole Blood 252 mg/dL (70-110)
[2021-12-28 12:30] VITALS: BP 147/64; PULSE 92; TEMP 97.2
[2021-12-28] MEDS ORDERED: cloNIDine HCL 0.2 MG TAB PO SCH (16:00)
== END 2021-12-28 15:48 | DRG 521 ==
LOC: EC 20:07 → 3SCARD 23:51
PROVIDERS: ADMIT Internal Medicine; ATTEND Internal Medicine
PROC: 0SRS0J9 Replacement of Left Hip Joint, Femoral Surface with Synthetic Substitute, Cemented, Open Approach (ICD-10-PCS; principal; 2021-12-22 14:00)
DX: S72.012A Unspecified intracapsular fracture of left femur, initial encounter for closed fracture (principal); I50.33 Acute on chronic diastolic (congestive) heart failure; J96.01 Acute respiratory failure with hypoxia; N17.0 Acute kidney failure with tubular necrosis; E87.2 Acidosis; I13.0 Hypertensive heart and chronic kidney disease with heart failure and stage 1 through stage 4 chronic kidney disease, or unspecified chronic kidney disease; I42.9 Cardiomyopathy, unspecified; J98.11 Atelectasis; N18.4 Chronic kidney disease, stage 4 (severe); W01.0XXA Fall on same level from slipping, tripping and stumbling without subsequent striking against object, initial encounter; N40.1 Benign prostatic hyperplasia with lower urinary tract symptoms; R33.8 Other retention of urine; D63.1 Anemia in chronic kidney disease; E11.22 Type 2 diabetes mellitus with diabetic chronic kidney disease; D50.9 Iron deficiency anemia, unspecified; E78.5 Hyperlipidemia, unspecified; F32.A Depression, unspecified; H54.62 Unqualified visual loss, left eye, normal vision right eye; I35.0 Nonrheumatic aortic (valve) stenosis; I25.10 Atherosclerotic heart disease of native coronary artery without angina pectoris; I27.20 Pulmonary hypertension, unspecified; J44.9 Chronic obstructive pulmonary disease, unspecified; J84.10 Pulmonary fibrosis, unspecified; Z20.822 Contact with and (suspected) exposure to COVID-19; K59.00 Constipation, unspecified; M85.80 Other specified disorders of bone density and structure, unspecified site; Z79.02 Long term (current) use of antithrombotics/antiplatelets; Z79.82 Long term (current) use of aspirin; Z79.899 Other long term (current) drug therapy; Z83.3 Family history of diabetes mellitus; Z85.46 Personal history of malignant neoplasm of prostate; Z87.891 Personal history of nicotine dependence; Z95.3 Presence of xenogenic heart valve; Z98.61 Coronary angioplasty status; Z95.2 Presence of prosthetic heart valve
CPT/HCPCS: 36415; 70450; 71045; 73501; 73502; 80048; 80053; 81001; 82728; 83540; 83550; 83605; 83735; 83880; 84100; 84484; 85025; 85027; 85610; 85730; 86850; 86900; 86901; 87635; 87636; 88305; 88311; 90471; 90715; 93005; 93306; 94760; 96365; 96366; 96372; 96375; 96376; 99285

== ENCOUNTER → 2022-02-27 | Outpatient (CLI) | payer MEDICARE ==
--- NOTE | 2022-02-28 06:34 | CT ---
EXAMINATION TYPE: CT chest wo con DATE OF EXAM: 02/27/2022 COMPARISON: Chest CT November 28, 2019 and older study 2011. Most recent chest x-ray December 23, 2021. CT aorta April 12, 2021 HISTORY: Interstitial pulmonary disease CT DLP: 809.60 mGycm. Automated Exposure Control for Dose Reduction was Utilized. TECHNIQUE: CT scan of the thorax is performed without IV contrast. High resolution protocol with 1 mm sequences obtained in supine and prone technique at full inspirati on and expiration. FINDINGS: LUNGS: Mild underlying emphysematous change is redemonstrated. Scattered areas of reticulation and in tralobular septal thickening throughout bilateral lungs with more prominent involvement in the lower lungs is redemonstrated. Stable subcentimeter posterior right basilar nodule series 4 image 212. No p leural effusion or pneumothorax seen bilaterally. No honeycombing is evident. No bronchiectasis. MEDIASTINUM: Lack of IV contrast and technique are noted to limit evaluation for mediastinal and caden cially hilar adenopathy. There are no definitive greater than 1 cm mediastinal lymph nodes. Prominent pulmonary arteries consistent with underlying pulmonary artery hypertension. There is a new metallic stent graft at the aortic root now identified. Severe three-vessel coronary artery calcification aga in seen. Stable small to tiny pericardial effusion. No cardiomegaly. Moderate left atrial dilatation redemonstrated. Calcified right hilar lymph nodes again seen. OTHER: Bilateral gynecomastia redemonstrated. Exophytic 2.0 cm simple appearing thin-walled cyst ante riorly left kidney redemonstrated. IMPRESSION: Mild to moderate bilateral parenchymal fibrosis greatest in the lower lungs on background mild emphysematous change redemonstrated. No significant interval progression from most recent CT st udies.
== END | disposition home or self-care (01) ==
LOC: RADCTMAIN 17:05
PROVIDERS: ATTEND Internal Medicine Critical Care Medicine
DX: J84.9 Interstitial pulmonary disease, unspecified (principal)
CPT/HCPCS: 71250

== ENCOUNTER 2022-08-30 11:16 | Day surgery (SDC) | payer MEDICARE ==
[2022-08-27 11:07] VITALS: BMI 24.9
[~2022-08-30 11:16] MED LIST changes: -.fentaNYL (PF) 50 MCG/ML AMP IV ONE; +ACETAMINOPHEN TAB 500 MG TAB PO PRN; -ALPRAZolam 0.25 MG TAB PO PRN; -ALPRAZolam 0.5 MG TAB PO PRN; -ASPIRIN 325 MG TAB PO STA; +DEXAMETHASONE SOD PHOSPHATE 4 MG/ML 1 ML VIAL IV ONE; -HEPARIN SODIUM 1,000 UN/ML (10ML VL) ONE; -HEPARIN SODIUM,PORCINE 10,000 UNIT in SODIUM CHLORIDE 0.9% 1,000 ML IRRIGATION PRN; -HEPARIN SODIUM,PORCINE 2,500 UNIT in SODIUM CHLORIDE 0.9% 250 ML IRRIGATION PRN; +HEPARIN SODIUM,PORCINE/PF 5,000 UNIT/0.5 ML SYRINGE SQ PRN; +HYDROmorphone 0.5 MG/0.5 ML SYRINGE IVP PRN; -IOPAMIDOL-370 125ML BTL INJ ONE; -IV FLUID CONTINUATION 1,000 ML IV ONE; +LACTATED RINGERS 1,000 ML IV SCH; -LIDOCAINE 1% INJ 10MG/ML (20 ML MDV) SQ ONE; -MIDAZOLAM 2 MG/2 ML VIAL IV ONE; -NITROGLYCERIN SL TABS 0.4 MG TAB SUBLINGUAL PRN; +ONDANSETRON 4 MG/2 ML VIAL IVP ONE; -RX INFO: IV CONTRAST WAS GIVEN 1 EACH MISC MISCELLANE PRN; -SODIUM CHLORIDE 0.9% 1,000 ML IV ONE; -SODIUM CHLORIDE 0.9% 1,000 ML IV SCH; -SODIUM CHLORIDE 0.9% 1,000 ML in EMPTY BAG 1 BAG IV SCH; -VERAPAMIL SYRINGE (5 MG/10 ML) INTRAARTER ONE
--- NOTE | 2022-08-30 12:03 | P.HPADDEND ---
H&P Addendum H&P Addendum Date: 08/30/22 Patient here today for elective peritoneal dialysis catheter placement. Patient was seen in the office late July. After leaving the office a call back to schedule the surgery. No changes to that history and physical.
[2022-08-30 12:07] LABS: Glucose,Whole Blood 97 mg/dL (70-110)
[2022-08-30] MEDS ORDERED: BUPIVACAIN-EPI 0.25%-1:200,000 30 ML VIAL SQ ONE ×2 (12:23→13:00)
[2022-08-30 12:28] LABS: Albumin 3.9 g/dL (3.5-5.0); Calcium 8.2 mg/dL (8.4-10.2); Potassium 4.9 mmol/L (3.5-5.1); Total Bilirubin 0.7 mg/dL (0.2-1.3); Total Protein 6.8 g/dL (6.3-8.2)
[2022-08-30 13:31] VITALS: TEMP 97.1
[2022-08-30] MEDS ORDERED: ACETAMINOPHEN TAB 325 MG TAB PO PRN (13:32)
[2022-08-30] MEDS ORDERED: NALOXONE 0.4 MG/ML 1 ML VIAL IV PRN (13:32)
--- NOTE | 2022-08-30 13:33 | P.OP ---
Date of Procedure: 08/30/22 Procedure(s) Performed: PREOPERATIVE DIAGNOSIS: Renal failure POSTOPERATIVE DIAGNOSIS: Same PROCEDURE: Peritoneal dialysis catheter insertion SURGEON: Mariposa EBL: Minimal ANESTHESIA: Sedation plus local COMPLICATIONS: None OPERATIVE PROCEDURE: The patient was placed in the operative table in the supine position. The abdomen was prepped and draped in usual sterile fashion. A small vertical incision was made in the left periumbilical location. Dissection down through the subcutaneous tissues took place using electrocautery. The anterior rectus was divided vertically using the scalpel. The rectus was bluntly. The posterior rectus was visualized. An 0 Vicryl pursestring was placed. A small opening in the posterior rectus fascia and peritoneum took place using a Metzenbaum scissors. There were no adhesions to the suture that was placed. The pigtail catheter was advanced into the pelvis over a stylette. No resistance was met. The inner cuff was secured to the fascia using the 0 Vicryl pursestring that was placed. The catheter was tunneled to an exit site in the left lateral lower quadrant. The catheter was connected to the 1 L bag of saline and approximated 800 mL of saline was easily introduced into the peritoneal cavity. The fluid was then allowed to evacuate. The majority of the fluid was returned. The anterior rectus fascia was then reapproximated using a running 0 Vicryl stitch. The subcutaneous tissues reprepped using 3-0 Vicryl sutures and the skin using 4-0 Monocryl sutures. The outpatient dialysis adapter was applied to the end of the catheter. Sterile dressings were then applied after skin glue was placed over the incision. DISPOSITION: Stable to recovery room
[2022-08-30 13:40] LABS: Glucose,Whole Blood 100 mg/dL (70-110)
[2022-08-30 14:15] VITALS: RESP 20
[2022-08-30 14:47] VITALS: BP 166/71; PULSE 66
== END 2022-08-30 15:09 | disposition home or self-care (01) ==
LOC: OR 11:16
PROVIDERS: ATTEND Surgery
DX: N19 Unspecified kidney failure (principal); F41.9 Anxiety disorder, unspecified; F32.A Depression, unspecified; D64.9 Anemia, unspecified; I25.10 Atherosclerotic heart disease of native coronary artery without angina pectoris; I10 Essential (primary) hypertension; E78.5 Hyperlipidemia, unspecified; J44.9 Chronic obstructive pulmonary disease, unspecified; K21.9 Gastro-esophageal reflux disease without esophagitis; Z90.89 Acquired absence of other organs; Z79.899 Other long term (current) drug therapy; Z98.890 Other specified postprocedural states
CPT/HCPCS: 80053

== ENCOUNTER → 2023-06-17 | Outpatient (CLI) | payer MEDICARE ==
--- NOTE | 2023-06-18 09:00 | XR ---
EXAMINATION TYPE: XR ribs bilateral DATE OF EXAM: 06/17/2023 5:46 PM CLINICAL INDICATION:Male, 88 years old with history of S23.41XA,M25.551,M25.552; [facility] COMPARISON: 12/23/2021. TECHNIQUE: XR ribs bilateral; Frontal and oblique views of the ribs with frontal chest radiograph. FINDINGS: No evidence for acute rib fracture. There is no evidence of left-sided lower rib injury wit h callus formation. The remaining osseous structures are intact. Post aortic valve repair changes. M ild pulmonary vascular congestion. The heart is enlarged for size. There is high riding right humerus and the glenoid. Degeneration changes of the left shoulder. IMPRESSION: 1. No acute osseous pathology. 2. Suspected full-thickness right rotator cuff tear. 3. Mild pulmonary vascular congestion and cardiomegaly for congestive heart failure.
--- NOTE | 2023-06-18 09:01 | XR ---
EXAMINATION TYPE: XR Hip Bilateral Complete DATE OF EXAM: 06/17/2023 5:46 PM CLINICAL INDICATION:Male, 88 years old with history of S23.41XA,M25.551,M25.552; [facility] COMPARISON: None. TECHNIQUE: XR Hip Bilateral Complete; hip was examined in the frontal and lateral projections and a A P pelvis. FINDINGS: No evidence for acute process, joint dislocation or significant soft tissue swelling. Osteo phyte formation of the superior acetabulum of the hip. Left hip arthroplasty appears intact. IMPRESSION: 1. No evidence for acute process. 2. Mild to moderate right hip osteoarthrosis. 3. Left hip arthroplasty appears intact.
== END | disposition home or self-care (01) ==
LOC: RADXRMAIN 17:15
PROVIDERS: ATTEND Physician Assistant
DX: S23.41XA Sprain of ribs, initial encounter (principal); M25.551 Pain in right hip; M25.552 Pain in left hip; M16.11 Unilateral primary osteoarthritis, right hip; I51.7 Cardiomegaly; I50.9 Heart failure, unspecified; Z96.642 Presence of left artificial hip joint
CPT/HCPCS: 71110; 73521

== ENCOUNTER → 2023-06-18 | Outpatient (CLI) | payer MEDICARE ==
--- NOTE | 2023-06-18 12:52 | CT ---
EXAMINATION TYPE: CT brain wo con CT DLP: 1150 mGycm, Automated exposure control for dose reduction was used. DATE OF EXAM: 06/18/2023 12:29 PM COMPARISON: CT 12/23/2021. CLINICAL INDICATION:Male, 88 years old with history of S09.90XA head injury, trauma TECHNIQUE: Brain: Axial CT images of the brain were obtained with coronal and sagittal reformats created and rev iewed. Contrast used: None. Oral contrast used: None. FINDINGS: Extra-axial spaces: No abnormal extra-axial fluid collections. Ventricular system: Ventricles appear dilated in proportion to the degree of cerebral atrophy. Cerebral parenchyma: No increased attenuation to suggest acute intraparenchymal hemorrhage. The gra y-white matter interface appears maintained. Mild generalized brain atrophy. Scattered hypoattenuat ing areas are seen within the cerebral white matter, nonspecific but most often seen with chronic eduardo rovascular ischemic changes; mild in degree. Old lacunar infarcts of the bilateral basal ganglia. Cerebellum: No acute abnormality. Mass effect: No evidence of mass effect or midline shift. Intracranial vasculature: Atherosclerotic calcifications of the larger arteries near the skull base. Soft tissues: No acute or concerning abnormality. Visualized orbits: Orbital contents appear grossly intact. There has likely been previous lens surg moira. Calvarium/osseous structures: No evidence of calvarial fracture. Paranasal sinuses and mastoid air cells: Mucosal thickening left maxillary sinus. Probable postop zheng nge in the medial sinus wall. Nasal septal deviation towards the right with small osseous spur. Masto id air cells are clear. MRI is more sensitive for detecting acute processes such as infarct, and may be considered if clinica lly warranted. IMPRESSION: No acute intracranial CT abnormality.
== END | disposition home or self-care (01) ==
LOC: RADCTMAIN 12:09
PROVIDERS: ATTEND Internal Medicine Geriatric Medicine
DX: S09.90XA Unspecified injury of head, initial encounter (principal)
CPT/HCPCS: 70450

== ENCOUNTER 2023-09-12 12:55 | Inpatient (IN) | payer MEDICARE ==
--- NOTE | 2023-09-12 13:10 | ED ---
General Adult HPI - General Chief complaint: Abdominal Pain Stated complaint: GI issue Time Seen by Provider: 09/12/23 13:00 Source: patient, EMS, RN notes reviewed, old records reviewed Mode of arrival: EMS Limitations: no limitations - History of Present Illness Initial comments: This is an 88-year-old male who presents to the emergency department for nausea and vomiting for the last 4 days. Patient states the vomit is very dark and very malodorous. Patient states he is peritoneal dialysis patient and he gets it twice a day. Patient states he does not get it till 5:00 this evening. Patient denies any fever or chills. Patient states he does have some epigastric abdominal pain. Patient denies any chest pain difficulty breathing shortness of breath. Patient denies any back pain. Patient denies any injury or trauma. - Related Data Home Medications Medication Instructions Recorded Confirmed Lovastatin [Mevacor] 40 mg PO HS 12/02/14 09/12/23 allopurinoL [Zyloprim] 100 mg PO DAILY 12/02/14 09/12/23 Glimepiride [Amaryl] 1 mg PO AC-BRKFST 11/13/17 09/12/23 Ergocalciferol (Vitamin D2) 1,250 mcg PO PERALTA 10/05/20 09/12/23 [Drisdol (50,000 Iu)] Sertraline HCl [Zoloft] 150 mg PO DAILY 10/05/20 09/12/23 Mv-Min/Folic/K1/Lycopen/Lutein 1 tab PO DAILY@1700 03/27/21 09/12/23 [Centrum Silver Men Tablet] prednisoLONE ACETATE 1% OPHTH 1 drop RIGHT EYE PERALTA 03/27/21 09/12/23 [Pred Forte 1%] ALPRAZolam [Xanax] 0.25 mg PO DAILY PRN 08/27/22 09/12/23 Docusate [Colace] 100 mg PO W/BRKFST 08/27/22 09/12/23 Isosorbide Mononitrate ER [Imdur] 30 mg PO DAILY 08/27/22 09/12/23 Pantoprazole [Protonix] 40 mg PO DAILY PRN 08/27/22 09/12/23 Sennosides-Docusate Sodium 1 tab PO HS 08/27/22 09/12/23 [Senokot-S] Tamsulosin HCl [Flomax] 0.4 mg PO DAILY 08/27/22 09/12/23 calcitrioL 0.25 mcg PO Q14D 08/27/22 09/12/23 Albuterol Sulfate [Albuterol 2 puff PO RT-Q4H PRN 09/12/23 09/12/23 Sulfate Hfa] Ammonium Lactate Cream [Lac-Hydrin 1 applic TOPICAL BID 09/12/23 09/12/23 12% Cream] Calcium Acetate [Phoslo] 1,334 mg PO W/BRKFST 09/12/23 09/12/23 Calcium Acetate [Phoslo] 2,001 mg PO W/SUPPER 09/12/23 09/12/23 Calcium Acetate [Phoslo] 667 mg PO DAILY PRN 09/12/23 09/12/23 EPINEPHrine (Auto Inject) [Epipen] 0.3 mg IM ONCE PRN 09/12/23 09/12/23 Furosemide [Lasix] 40 mg PO BID@0900,1600 09/12/23 09/12/23 Iron 28mg Tablet 1 tab PO DAILY@1700 09/12/23 09/12/23 Lactulose [Constulose] 10 gm PO BID PRN 09/12/23 09/12/23 Petrolatum, White [Aquaphor] 1 applic TOPICAL DAILY 09/12/23 09/12/23 QUEtiapine [SEROquel] 50 mg PO HS 09/12/23 09/12/23 Sodium Bicarbonate Tab 650 mg PO BID-W/MEALS 09/12/23 09/12/23 cloNIDine HCL [Catapres] 0.1 mg PO BID-W/MEALS PRN 09/12/23 09/12/23 lisinopriL [Zestril] 5 mg PO BID 09/12/23 09/12/23 Previous Rx's Medication Instructions Recorded Aspirin 81 mg PO HS #0 10/07/20 Clopidogrel [Plavix] 75 mg PO DAILY #30 tab 05/25/21 hydrALAZINE HCL [Apresoline] 50 mg PO BID tab 12/28/21 Allergies Allergy/AdvReac Type Severity Reaction Status Date / Time bee venom protein (honey bee) Allergy Anaphylaxis Verified 09/12/23 15:56 cephalexin Allergy Rash/Hives Verified 09/12/23 15:56 clindamycin Allergy Rash/Hives Verified 09/12/23 15:56 sulfamethoxazole Allergy Unknown Verified 09/12/23 15:56 [From Bactrim] trimethoprim [From Bactrim] Allergy Unknown Verified 09/12/23 15:56 Review of Systems ROS Statement: Those systems with pertinent positive or pertinent negative responses have been documented in the HPI. ROS Other: All systems not noted in ROS Statement are negative. Past Medical History Past Medical History: Coronary Artery Disease (CAD), Cancer, COPD, Diabetes Mellitus, GERD/Reflux, GI Bleed, Hearing Disorder / Deafness, Hyperlipidemia, Hypertension, Osteoarthritis (OA), Prostate Disorder, Renal Disease, Respiratory Disorder Additional Past Medical History / Comment(s): prostate cancer (radiation tx), BPH., hx of GI bleed., chronic kidney disease, anemia, constipation., PVD with hx of venous ulcers & wounds- currently has wound on right lower leg., port gamble, hx of fall with fx left hip (11/2021)-uses wheeled walker., left eye almost blind, pulmonary fibrosis, hx of aortic stenosis with TAVR(04/2021) History of Any Multi-Drug Resistant Organisms: None Reported Past Surgical History: Heart Catheterization, Orthopedic Surgery, Tonsillectomy Additional Past Surgical History / Comment(s): laser eye surgery, left hip fx surgery (11/2021). , thumb surgery., heart cath 03/2021. TAVR (04/2021), Past Anesthesia/Blood Transfusion Reactions: No Reported Reaction Past Psychological History: Anxiety, Bipolar, Depression Smoking Status: Former smoker - Past Family History Mother Family Medical History: Diabetes Mellitus Additional Family Medical History / Comment(s): "heart problems" Father Family Medical History: Liver Disease Additional Family Medical History / Comment(s): alcohol & due to liver issues General Exam - General Exam Comments Initial Comments: GENERAL: Patient is well-developed and well-nourished. Patient is nontoxic and well- hydrated and is in mild distress. ENT: Neck is soft and supple. No significant lymphadenopathy is noted. Oropharynx is clear. Moist mucous membranes. Neck has full range of motion without eliciting any pain. EYES: The sclera were anicteric and conjunctiva were pink and moist. Extraocular movements were intact and pupils were equal round and reactive to light. Eyelids were unremarkable. PULMONARY: Unlabored respirations. Good breath sounds bilaterally. No audible rales rhonchi or wheezing was noted. CARDIOVASCULAR: There is a regular rate and rhythm without any murmurs gallops or rubs. ABDOMEN: Mid abdominal pain SKIN: Skin is clear with no lesions or rashes and otherwise unremarkable. NEUROLOGIC: Patient is alert and oriented x3. Cranial nerves II through XII are grossly intact. Motor and sensory are also intact. Normal speech, volume and content. Symmetrical smile. MUSCULOSKELETAL: Normal extremities with adequate strength and full range of motion. LYMPHATICS: No significant lymphadenopathy is noted PSYCHIATRIC: Normal psychiatric evaluation. Limitations: no limitations Course Vital Signs 09/12/23 09/12/23 09/12/23 12:59 14:23 16:16 Temperature 97.9 F Pulse Rate 100 95 90 Respiratory 18 16 188 H Rate Blood Pressure 105/53 100/37 104/52 O2 Sat by Pulse 96 95 92 L Oximetry Medical Decision Making - Medical Decision Making EKG is interpreted by myself. EKG shows sinus tachycardia at 100 bpm parables 165 QRS is 92 QT interval 370 QTc is 427. Patient's EKG shows no ST segment ovation or depression. Was pt. sent in by a medical professional or institution (, PA, INTERACTIVE MARKETING STRATEGIST, urgent care, hospital, or prison...) When possible be specific @ -[No] Did you speak to anyone other than the patient for history (EMS, parent, family, police, friend...)? What history was obtained from this source @ -Patient's gave quite a bit of the history in particular about his umbilical hernia and the fact that he has not had a bowel movement in 2 days. Did you review nursing and triage notes (agree or disagree)? Why? @ -[I reviewed and agree with nursing and triage notes] Were old charts reviewed (outside hosp., previous admission, EMS record, old EKG, old radiological studies, urgent care reports/EKG's, prison records)? Report findings @ -I compared today's labs with labs from his inpatient stay and there were no acute changes. Differential Diagnosis (chest pain, altered mental status, abdominal pain women, abdominal pain men, vaginal bleeding, weakness, fever, dyspnea, syncope, headache, dizziness, GI bleed, back pain, seizure, CVA, palpatations, mental health, musculoskeletal)? @ -Differential Abdominal Pain Men: Appendicitis, cholecystitis, diverticulosis, ischemic bowel, pancreatitis, hepatitis, UTI, gastroenteritis, AAA, incarcerated hernia, bowel obstruction, constipation, inflammatory bowel, hepatitis, peptic ulcer disease, splenic in farction, perforated viscus, testicular torsion, this is not meant to be an all- inclusive list EKG interpreted by me (3pts min.). @ -[As above] X-rays interpreted by me (1pt min.). @ -[None done] CT interpreted by me (1pt min.). @ -CT of the abdomen pelvis shows a umbilical hernia causing a small bowel obstruction U/S interpreted by me (1pt. min.). @ -[None done] What testing was considered but not performed or refused? (CT, X-rays, U/S, labs)? Why? @ -[None] What meds were considered but not given or refused? Why? @ -[None] Did you discuss the management of the patient with other professionals (professionals i.e. , PA, INTERACTIVE MARKETING STRATEGIST, lab, RT, psych nurse, outreach and education social worker, roll finisher, teacher, boat officer, piano case and bench assembler)? Give summary @ -I spoke with Dr. Monge he agreed to see the patient in consult. I spoke with Dr. Richmond he agreed to admit the patient. Was smoking cessation discussed for >3mins.? @ -[No] Was critical care preformed (if so, how long)? @ -[No] Were there social determinants of health that impacted care today? How? (Homelessness, low income, unemployed, alcoholism, drug addiction, transportation, low edu. Level, literacy, decrease access to med. care, long term, rehab)? @ -[No] Was there de-escalation of care discussed even if they declined (Discuss DNR or withdrawal of care, Hospice)? DNR status @ -[No] What co-morbidities impacted this encounter? (DM, HTN, Smoking, COPD, CAD, Cancer, CVA, ARF, Chemo, Hep., AIDS, mental health diagnosis, sleep apnea, morbid obesity)? @ -[None] Was patient admitted / discharged? Hospital course, mention meds given and route, prescriptions, significant lab abnormalities, going to OR and other pertinent info. @ -Patient is umbilical hernia was easily reducible. However patient has a small bowel obstruction secondary to that hernia and I spoke with Dr. Monge he was in agreement to consult on the patient and Dr. Richmond will admit the patient. I will consult Dr. Nunn for the peritoneal dialysis. Undiagnosed new problem with uncertain prognosis? @ -[No] Drug Therapy requiring intensive monitoring for toxicity (Heparin, Nitro, Insulin, Cardizem)? @ -[No] Were any procedures done? @ -[No] Diagnosis/symptom? @ -Small bowel obstruction Acute, or Chronic, or Acute on Chronic? @ -Acute Uncomplicated (without systemic symptoms) or Complicated (systemic symptoms)? @ -Uncomplicated Side effects of treatment? @ -[No] Exacerbation, Progression, or Severe Exacerbation? @ -[No] Poses a threat to life or bodily function? How? (Chest pain, USA, ID, pneumonia, PE, COPD, DKA, ARF, appy, cholecystitis, CVA, Diverticulitis, Homicidal, Suicidal, threat to staff... and all critical care pts) @ -Yes this can lead to dehydration and endorgan dysfunction Diagnosis/symptom? @ -Umbilical hernia Acute, or Chronic, or Acute on Chronic? @ -Acute Uncomplicated (without systemic symptoms) or Complicated (systemic symptoms)? @ -Complicated Side effects of treatment? @ -[none] Exacerbation, Progression, or Severe Exacerbation] @ -[no] Poses a threat to life or bodily function? @ -Yes this could lead to strangulation and bowel and sepsis. - Lab Data Result diagrams: 09/12/23 13:23 09/12/23 13:23 Lab Results 09/12/23 09/12/23 09/12/23 Range/Units 13:23 13:23 13:23 WBC 8.7 (3.8-10.6) k/uL RBC 4.20 L (4.30-5.90) m/uL Hgb 12.9 L (13.0-17.5) gm/dL Hct 40.0 (39.0-53.0) % MCV 95.3 (80.0-100.0) fL MCH 30.7 (25.0-35.0) pg MCHC 32.2 (31.0-37.0) g/dL RDW 14.9 (11.5-15.5) % Plt Count 305 (150-450) k/uL MPV 8.2 Neutrophils % 73 % Lymphocytes % 14 % Monocytes % 11 % Eosinophils % 1 % Basophils % 0 % Neutrophils # 6.3 (1.3-7.7) k/uL Lymphocytes # 1.2 (1.0-4.8) k/uL Monocytes # 1.0 (0-1.0) k/uL Eosinophils # 0.1 (0-0.7) k/uL Basophils # 0.0 (0-0.2) k/uL PT 11.5 (10.0-12.5) sec INR 1.1 (<1.2) APTT 22.5 (22.0-30.0) sec Sodium 132 L (137-145) mmol/L Potassium 4.0 (3.5-5.1) mmol/L Chloride 92 L (98-107) mmol/L Carbon Dioxide 25 (22-30) mmol/L Anion Gap 15 mmol/L BUN 88 H (9-20) mg/dL Creatinine 6.91 H (0.66-1.25) mg/dL Est GFR (CKD-EPI)AfAm 8 (>60 ml/min/1.73 sqM) Est GFR (CKD-EPI)NonAf 7 (>60 ml/min/1.73 sqM) Glucose 184 H (74-99) mg/dL Lactic Ac Sepsis Rflx Plasma Lactic Acid Karlos (0.7-2.0) mmol/L Calcium 7.2 L (8.4-10.2) mg/dL Total Bilirubin 0.6 (0.2-1.3) mg/dL AST 25 (17-59) U/L ALT 18 (4-49) U/L Alkaline Phosphatase 129 H (38-126) U/L Total Protein 5.5 L (6.3-8.2) g/dL Albumin 2.9 L (3.5-5.0) g/dL Lipase 87 (23-300) U/L 09/12/23 09/12/23 09/12/23 Range/Units 13:23 14:26 16:52 WBC (3.8-10.6) k/uL RBC (4.30-5.90) m/uL Hgb (13.0-17.5) gm/dL Hct (39.0-53.0) % MCV (80.0-100.0) fL MCH (25.0-35.0) pg MCHC (31.0-37.0) g/dL RDW (11.5-15.5) % Plt Count (150-450) k/uL MPV Neutrophils % % Lymphocytes % % Monocytes % % Eosinophils % % Basophils % % Neutrophils # (1.3-7.7) k/uL Lymphocytes # (1.0-4.8) k/uL Monocytes # (0-1.0) k/uL Eosinophils # (0-0.7) k/uL Basophils # (0-0.2) k/uL PT (10.0-12.5) sec INR (<1.2) APTT (22.0-30.0) sec Sodium (137-145) mmol/L Potassium (3.5-5.1) mmol/L Chloride (98-107) mmol/L Carbon Dioxide (22-30) mmol/L Anion Gap mmol/L BUN (9-20) mg/dL Creatinine (0.66-1.25) mg/dL Est GFR (CKD-EPI)AfAm (>60 ml/min/1.73 sqM) Est GFR (CKD-EPI)NonAf (>60 ml/min/1.73 sqM) Glucose (74-99) mg/dL Lactic Ac Sepsis Rflx Y Plasma Lactic Acid Karlos 2.7 H* 1.4 (0.7-2.0) mmol/L Calcium (8.4-10.2) mg/dL Total Bilirubin (0.2-1.3) mg/dL AST (17-59) U/L ALT (4-49) U/L Alkaline Phosphatase (38-126) U/L Total Protein (6.3-8.2) g/dL Albumin (3.5-5.0) g/dL Lipase (23-300) U/L Disposition Clinical Impression: Small bowel obstruction, Umbilical hernia Disposition: ADMITTED IP TO THIS [facility] Referrals: Buzz Richmond MD [Primary Care Provider] - 1-2 days Time of Disposition: 17:46
[2023-09-12 14:08] LABS: ALT 18 U/L (4-49); AST 25 U/L (17-59); African American GFR (CKD) 8 (>60 ml/min/1.73 sqM); Albumin 2.9 g/dL (3.5-5.0); Alkaline Phosphatase 129 U/L (38-126); Anion Gap 15 mmol/L; Blood Urea Nitrogen 88 mg/dL (9-20); Calcium 7.2 mg/dL (8.4-10.2); Carbon Dioxide 25 mmol/L (22-30); Chloride 92 mmol/L (98-107); Glucose 184 mg/dL (74-99); Lipase 87 U/L (23-300); Non-African American GFR(CKD) 7 (>60 ml/min/1.73 sqM); Sodium 132 mmol/L (137-145); Total Bilirubin 0.6 mg/dL (0.2-1.3); Total Protein 5.5 g/dL (6.3-8.2)
[2023-09-12 14:13] LABS: Basophils % (A) 0 %; Eosinophils # (A) 0.1 k/uL (0-0.7); Eosinophils % (A) 1 %; HGB 12.9 gm/dL (13.0-17.5); Lymphocytes # (A) 1.2 k/uL (1.0-4.8); Lymphocytes % (A) 14 %; MCH 30.7 pg (25.0-35.0); MCHC 32.2 g/dL (31.0-37.0); MCV 95.3 fL (80.0-100.0); Mean Platelet Volume 8.2; Monocytes % (A) 11 %; Neutrophils # (A) 6.3 k/uL (1.3-7.7); Neutrophils % (A) 73 %; Platelet Count 305 k/uL (150-450); RDW 14.9 % (11.5-15.5); WBC 8.7 k/uL (3.8-10.6)
[2023-09-12] MEDS: ONDANSETRON 4 MG/2 ML VIAL IVP STA (14:22)
[2023-09-12 14:41] LABS: INR 1.1 (<1.2); Partial Thromboplastin Time 22.5 sec (22.0-30.0); Prothrombin Time 11.5 sec (10.0-12.5)
--- NOTE | 2023-09-12 15:46 | CT ---
EXAMINATION TYPE: CT abdomen pelvis wo con DATE OF EXAM: 09/12/2023 COMPARISON: 10/06/2020 HISTORY: Abdominal pain. CT DLP: 581.2 mGycm Examination of the solid and hollow viscera is limited given the lack of contrast. FINDINGS: LUNG BASES: No evidence for nodule. No evidence for infiltrate. LIVER/GB: Small layering gallstones noted. No space-occupying hepatic lesion. PANCREAS: No pancreatic mass identified. No inflammatory process seen. SPLEEN: No evidence for splenomegaly. No intrasplenic lesions seen. Incidental splenic granulomas. ADRENALS: No adrenal nodules identified. No evidence for thickening. KIDNEYS: Atrophic changes of the kidneys. Renal cystic changes noted. No nephrolithiasis. No hydronep hrosis. BOWEL: There is small bowel obstruction secondary to incarcerated hernia umbilical region. Strangulat ion is not excluded as there is surrounding fluid. Dilated loops of bowel measure up to 4.1 cm. Scatt ered air-fluid levels seen. The colon appears to be somewhat decompressed. Intraoperative dialysis ca theter seen in place. No evidence for free air or abscess. Lymph nodes: No evidence for adenopathy greater than 1 cm. Abdominal aorta: Atheromatous changes seen. No evidence for aneurysm. Genital organs: No significant abnormality. Other: Left hip prosthesis. Severe degenerative change lumbar spine. IMPRESSION: 1.There is small bowel obstruction secondary to incarcerated hernia umbilical region. Strangulation i s not excluded as there is surrounding fluid. Dilated loops of bowel measure up to 4.1 cm. Scattered air-fluid levels seen.
[2023-09-12] MEDS ORDERED: cloNIDine HCL 0.1 MG TAB PO PRN (17:53)
[2023-09-12] MEDS ORDERED: ALPRAZolam 0.25 MG TAB PO PRN (17:53)
[2023-09-12] MEDS ORDERED: PANTOPRAZOLE 40 MG TABLET PO PRN (17:53)
[2023-09-12] MEDS: SODIUM CHLORIDE 0.9% 1,000 ML IV ONE (18:42)
[2023-09-12] MEDS ORDERED: LACTULOSE 20 GM/30 ML CUP PO PRN (19:04)
[2023-09-12] MEDS ORDERED: CALCIUM ACETATE 667 MG TAB PO PRN (19:04)
[2023-09-12 20:30] LABS: Glucose,Whole Blood 97 mg/dL (70-110)
[2023-09-12] MEDS: INSULIN ASPART (NovoLOG) 100 UNIT/ML VIAL SQ SCH (20:30)
[2023-09-12] MEDS ORDERED: INSULIN ASPART (NovoLOG) 100 UNIT/ML VIAL SQ SCH (21:00)
[2023-09-12] MEDS: ASPIRIN 81 MG PO SCH (21:01)
[2023-09-12] MEDS: hydrALAZINE HCL 50 MG TAB PO SCH (21:01)
[2023-09-12] MEDS: lisinopriL 5 MG TAB PO SCH (21:01)
[2023-09-12] MEDS: ATORVASTATIN 10 MG TAB PO SCH (21:01)
[2023-09-12] MEDS: QUEtiapine 50 MG TAB PO SCH (21:01)
[2023-09-12] MEDS: SENNOSIDES-DOCUSATE SODIUM 1 EACH TAB PO SCH (21:02)
[2023-09-13] MEDS: MIDODRINE 5 MG TAB PO STA (02:12)
[2023-09-13] MEDS: DIALYSIS (PERIT 1.5%) 2,500 ML 37.5 G/2,500 ML BAG INTRAPERIT SCH (02:14)
[2023-09-13 06:53] LABS: Glucose,Whole Blood 126 mg/dL (70-110)
--- NOTE | 2023-09-13 07:51 | P.HPIM ---
History of Present Illness H&P Date: 09/12/23 HISTORY OF PRESENT ILLNESS: 88-year-old office patient with active medical history of coronary artery disease, COPD, type 2 diabetes, severe GERD, chronic anemia, hypertension, hyperlipidemia, history of pulmonary fibrosis, history of aortic stenosis with TAVR back in 2021, history of PAD, chronic kidney disease with end-stage kidney disease on PD with seen nephrology on more regular basis also had chronic history of PVD with venous ulcer and wound on both legs. Chronic edema and anasarca. He presented to the emergency department at [facility] today with abdo shabnam discomfort with intractable nausea and vomiting for the last 4 days not able to stop not able to eat or drink has been having persistent symptoms. His vomiting bile and darker secretion some of it sometimes undigested food. He denies any difficulty in breathing. Still doing his PD on time without any difficulty but has been slightly bit more painful and discomfort. Workup in the ER shows normal white blood cell with hemoglobin of 12.9, his lactic acid of 2.7 and dropped down to 1.4 after treatment. Kidney function with bun of 88 creatinine of 6.91 as a typical for end-stage renal disease. Suspicion for bowel obstruction ended up having CAT scan of the abdomen and pelvis which shows small bowel obstruction secondary to incarcerated hernia in the umbilical region with strangulation is not excluded as there is surrounding fluid dilated loop of bowel measure up to 4.1 cm with scattered air-fluid level seen. Apparently Dr. Sanchez was called with the current symptoms he believes he can fix his umbilical hernia and release part of the obstruction at this point. Patient will be kept n.p.o. admit to the hospital hydrated consult nephrology have him continue his PD dialysis and time till the procedure is done. REVIEW OF SYSTEMS: CONSTITUTIONAL: Well-developed no acute respiratory distress. EYES: No icterus sclerae, no conjunctivitis. EARS, NOSE, MOUTH, THROAT, and FACE: No sore throat, lymphadenopathy, carotid bruits or deformity. RESPIRATORY: Positive slight shortness of breath no cough or wheezes. CARDIOVASCULAR: Positive PND orthopnea palpitation no angina. GASTROINTESTINAL: Significant abdominal discomfort with distention with hyper bowel with positive bowel sounds slight tenderness and discomfort in the mid abdominal region area with slight ascites typical for his PD. GENITOURINARY: Negative for Hematuria or UTI, no kidney stones. INTEGUMENT/BREAST: Negative for any muscular injury with mild osteoarthritis.. HEMATOLOGIC/LYMPHATIC: Negative for bleed or purpura. MUSCULOSKELTAL: Negative for Myalgia or arthralgia. NEURLOGICAL: No LOC, Sz or syncope, blurred vision dizziness or abnormality.. BEHAVIORAL/PSYCH: Negative. ENDOCRINE: Negative. PHYSICAL EXAMINATION: General Appearance: Alert, cooperative, no distress, appears stated age. Neck HEENT: Supple, no lymphadenopathy, no thyroid enlargement, no carotid bruits. Lungs: Decreased breath sound bilaterally with fine rhonchi positive mild expiratory wheezes. Chest Wall: Decreased expansion with deep inspiration no tenderness and no deformity was found on exam, no costochondral pain or discomfort. Heart: Regular rate and rhythm, S1, S2 normal, no murmur, rub or gallop. Back: Symmetric, no curvature, ROM normal, no CVA tenderness. Abdomen: Soft, Distended, slight tenderness in the mid abdominal region area in the right upper quadrant area with hyper bowel sound and slight ascites as well with significant tenderness around the umbilical area. Extremities: Extremities normal, atraumatic, no cyanosis or edema. Pulses: 2+ and symmetric. Skin: Skin color, texture, tugor normal, no rashes or lesions. Neurologic: Alert oriented x3 cranial nerves II through XII intact, no motor deficit, no abnormal balance or gait. ASSESSMENT AND PLAN: _Severe abdominal pain secondary to obstruction from incarcerated hernia in the umbilical area causing small bowel strangulation with quite distention up to 4.1 cm dilated loop of bowel, continue supportive care for now will consult general surgery keep patient n.p.o. _Intractable nausea and vomiting, continue hydration. _End-stage renal disease on peritoneal dialysis will consult nephrology continue dialysis. might need to switch to HD for few weeks. _Atherosclerotic heart disease with advanced cardiac disease post multiple IN still seeing cardiology on regular basis has been on medical management currently. _Aortic stenosis post TAVR has been doing well since. _Ischemic heart disease with cardiomyopathy, remain on isosorbide, furosemide, l isinopril and beta-angel. _Type 2 diabetes: Remain on glimepiride NovoLog with Accu-Chek with sliding scales coverage. _Hypertension: Remain on clonidine point 1 mg twice a day along with lisinopril 5 mg twice a day continue isosorbide. _BPH: With no sign of obstruction still on Flomax patient does not make much urine. _Chronic iron deficiency anemia remain on iron along with Procrit. _COPD: Continue DuoNeb continue supportive oxygen. _Hyperlipidemia: Will resume Mevacor at 40 mg daily. _Hyperuricemia: With no gout flareup lately still on allopurinol 100 mg daily. _Chronic depression anxiety attacks remain on Zoloft 150 mg daily along with Xanax 0.25 mg twice a day as needed and Seroquel 50 mg at bedtime. _Severe GERD/GI prophylaxis: Continue pantoprazole. _DVT prophylaxis: Early mobilization along with knee-high ANGELA hose if needed will use heparin subcutaneous. CODE STATUS: Full code. Admit patient to the inpatient service for more than 2 night stay. Past Medical History Past Medical History: Coronary Artery Disease (CAD), Cancer, COPD, Diabetes Mellitus, GERD/Reflux, GI Bleed, Hearing Disorder / Deafness, Hyperlipidemia, Hypertension, Osteoarthritis (OA), Prostate Disorder, Renal Disease, Respiratory Disorder Additional Past Medical History / Comment(s): prostate cancer (radiation tx), BPH., hx of GI bleed., chronic kidney disease, anemia, constipation., PVD with hx of venous ulcers & wounds- currently has wound on right lower leg., [place], hx of fall with fx left hip (11/2021)-uses wheeled walker., left eye almost blind, pulmonary fibrosis, hx of aortic stenosis with TAVR(04/2021) History of Any Multi-Drug Resistant Organisms: None Reported Past Surgical History: Heart Catheterization, Orthopedic Surgery, Tonsillectomy Additional Past Surgical History / Comment(s): laser eye surgery, left hip fx surgery (11/2021). , thumb surgery., heart cath 03/2021. TAVR (04/2021), Past Anesthesia/Blood Transfusion Reactions: No Reported Reaction Past Psychological History: Anxiety, Bipolar, Depression Smoking Status: Former smoker - Past Family History Mother Family Medical History: Diabetes Mellitus Additional Family Medical History / Comment(s): "heart problems" Father Family Medical History: Liver Disease Additional Family Medical History / Comment(s): alcohol & due to liver issues Medications and Allergies Home Medications Medication Instructions Recorded Confirmed Type Lovastatin [Mevacor] 40 mg PO HS 12/02/14 09/12/23 History allopurinoL [Zyloprim] 100 mg PO DAILY 12/02/14 09/12/23 History Glimepiride [Amaryl] 1 mg PO AC-BRKFST 11/13/17 09/12/23 History Ergocalciferol (Vitamin D2) 1,250 mcg PO PERALTA 10/05/20 09/12/23 History [Drisdol (50,000 Iu)] Sertraline HCl [Zoloft] 150 mg PO DAILY 10/05/20 09/12/23 History Aspirin 81 mg PO HS #0 10/07/20 09/12/23 Rx Mv-Min/Folic/K1/Lycopen/Lutein 1 tab PO DAILY@1700 03/27/21 09/12/23 History [Centrum Silver Men Tablet] prednisoLONE ACETATE 1% OPHTH 1 drop RIGHT EYE PERALTA 03/27/21 09/12/23 History [Pred Forte 1%] Clopidogrel [Plavix] 75 mg PO DAILY #30 tab 05/25/21 09/12/23 Rx hydrALAZINE HCL [Apresoline] 50 mg PO BID tab 12/28/21 09/12/23 Rx ALPRAZolam [Xanax] 0.25 mg PO DAILY PRN 08/27/22 09/12/23 History Docusate [Colace] 100 mg PO W/BRKFST 08/27/22 09/12/23 History Isosorbide Mononitrate ER [Imdur] 30 mg PO DAILY 08/27/22 09/12/23 History Pantoprazole [Protonix] 40 mg PO DAILY PRN 08/27/22 09/12/23 History Sennosides-Docusate Sodium 1 tab PO HS 08/27/22 09/12/23 History [Senokot-S] Tamsulosin HCl [Flomax] 0.4 mg PO DAILY 08/27/22 09/12/23 History calcitrioL 0.25 mcg PO Q14D 08/27/22 09/12/23 History Albuterol Sulfate [Albuterol 2 puff PO RT-Q4H PRN 09/12/23 09/12/23 History Sulfate Hfa] Ammonium Lactate Cream [Lac-Hydrin 1 applic TOPICAL BID 09/12/23 09/12/23 History 12% Cream] Calcium Acetate [Phoslo] 1,334 mg PO W/BRKFST 09/12/23 09/12/23 History Calcium Acetate [Phoslo] 2,001 mg PO W/SUPPER 09/12/23 09/12/23 History Calcium Acetate [Phoslo] 667 mg PO DAILY PRN 09/12/23 09/12/23 History EPINEPHrine (Auto Inject) [Epipen] 0.3 mg IM ONCE PRN 09/12/23 09/12/23 History Furosemide [Lasix] 40 mg PO BID@0900,1600 09/12/23 09/12/23 History Iron 28mg Tablet 1 tab PO DAILY@1700 09/12/23 09/12/23 History Lactulose [Constulose] 10 gm PO BID PRN 09/12/23 09/12/23 History Petrolatum, White [Aquaphor] 1 applic TOPICAL DAILY 09/12/23 09/12/23 History QUEtiapine [SEROquel] 50 mg PO HS 09/12/23 09/12/23 History Sodium Bicarbonate Tab 650 mg PO BID-W/MEALS 09/12/23 09/12/23 History cloNIDine HCL [Catapres] 0.1 mg PO BID-W/MEALS PRN 09/12/23 09/12/23 History lisinopriL [Zestril] 5 mg PO BID 09/12/23 09/12/23 History Allergies Allergy/AdvReac Type Severity Reaction Status Date / Time bee venom protein (honey bee) Allergy Anaphylaxis Verified 09/12/23 15:56 cephalexin Allergy Rash/Hives Verified 09/12/23 15:56 clindamycin Allergy Rash/Hives Verified 09/12/23 15:56 sulfamethoxazole Allergy Unknown Verified 09/12/23 15:56 [From Bactrim] trimethoprim [From Bactrim] Allergy Unknown Verified 09/12/23 15:56 Physical Exam Vitals: Vital Signs Temp Pulse Resp BP Pulse Ox 09/12/23 18:43 98.8 F 93 18 109/68 94 L 09/12/23 16:16 90 188 H 104/52 92 L 09/12/23 14:23 95 16 100/37 95 09/12/23 12:59 97.9 F 100 18 105/53 96 Intake and Output 09/12/23 09/12/23 09/12/23 06:59 14:59 22:59 Other: Weight 75.296 kg Results CBC & Chem 7: 09/12/23 13:23 09/12/23 13:23 Labs: Abnormal Lab Results - Last 24 Hours (Table) 09/12/23 09/12/23 09/12/23 Range/Units 13:23 13:23 13:23 RBC 4.20 L (4.30-5.90) m/uL Hgb 12.9 L (13.0-17.5) gm/dL Sodium 132 L (137-145) mmol/L Chloride 92 L (98-107) mmol/L BUN 88 H (9-20) mg/dL Creatinine 6.91 H (0.66-1.25) mg/dL Glucose 184 H (74-99) mg/dL Plasma Lactic Acid Karlos 2.7 H* (0.7-2.0) mmol/L Calcium 7.2 L (8.4-10.2) mg/dL Alkaline Phosphatase 129 H (38-126) U/L Total Protein 5.5 L (6.3-8.2) g/dL Albumin 2.9 L (3.5-5.0) g/dL
[2023-09-13] MEDS: CALCIUM ACETATE 667 MG TAB PO SCH ×2 (08:04→17:19)
[2023-09-13] MEDS: FUROSEMIDE 40 MG TAB PO SCH (08:04)
[2023-09-13] MEDS: TAMSULOSIN 0.4 MG CAP.ER.24H PO SCH (08:04)
[2023-09-13] MEDS: SERTRALINE 100 MG TAB PO SCH (08:04)
[2023-09-13] MEDS: DOCUSATE 100 MG CAP PO SCH (08:04)
[2023-09-13] MEDS: ISOSORBIDE MONONITRATE ER 30 MG TAB.ER.24H PO SCH (08:05)
[2023-09-13] MEDS: SODIUM BICARBONATE TAB 650 MG TAB PO SCH (08:05)
[2023-09-13] MEDS: allopurinoL 100 MG TAB PO SCH (08:05)
[2023-09-13] MEDS: GLIMEPIRIDE 1 MG TAB PO SCH (08:18)
[2023-09-13 11:17] LABS: Glucose,Whole Blood 138 mg/dL (70-110)
--- NOTE | 2023-09-13 11:33 | P.NPCON ---
History of Present Illness - Reason for Consult end stage renal disease - History of Present Illness patient is an 88-year-old male with history of end-stage renal disease maintained on peritoneal dialysis. He also has an underlying umbilicus hernia. He shouldn't is admitted to the hospital with complaints of nausea and vomiting and abdominal discomfort. He has not been able to maintain oral intake. CT of the abdomen shows dilated bowel loops in the umbilicus hernia. General surgery is on consult. Patient tolerated his peritoneal dialysis exchange fairly well last night. He scheduled for another exchange at known. Surgical evaluation is pending. Patient will need to be switched to hemodialysis if there are plans for surgical intervention. Review of Systems as per HPI Past Medical History Past Medical History: Coronary Artery Disease (CAD), Cancer, COPD, Diabetes Mellitus, GERD/Reflux, GI Bleed, Hearing Disorder / Deafness, Hyperlipidemia, Hypertension, Osteoarthritis (OA), Prostate Disorder, Renal Disease, Respiratory Disorder Additional Past Medical History / Comment(s): prostate cancer (radiation tx), BPH., hx of GI bleed., chronic kidney disease, anemia, constipation., PVD with hx of venous ulcers & wounds- currently has wound on right lower leg., [place], hx of fall with fx left hip (11/2021)-uses wheeled walker., left eye almost blind, pulmonary fibrosis, hx of aortic stenosis with TAVR(04/2021) History of Any Multi-Drug Resistant Organisms: None Reported Past Surgical History: Heart Catheterization, Orthopedic Surgery, Tonsillectomy Additional Past Surgical History / Comment(s): laser eye surgery, left hip fx surgery (11/2021). , thumb surgery., heart cath 03/2021. TAVR (04/2021), Past Anesthesia/Blood Transfusion Reactions: No Reported Reaction Past Psychological History: Anxiety, Bipolar, Depression Smoking Status: Former smoker - Past Family History Mother Family Medical History: Diabetes Mellitus Additional Family Medical History / Comment(s): "heart problems" Father Family Medical History: Liver Disease Additional Family Medical History / Comment(s): alcohol & due to liver issues Medications and Allergies Home Medications Medication Instructions Recorded Confirmed Type Lovastatin [Mevacor] 40 mg PO HS 12/02/14 09/12/23 History allopurinoL [Zyloprim] 100 mg PO DAILY 12/02/14 09/12/23 History Glimepiride [Amaryl] 1 mg PO AC-BRKFST 11/13/17 09/12/23 History Ergocalciferol (Vitamin D2) 1,250 mcg PO PERALTA 10/05/20 09/12/23 History [Drisdol (50,000 Iu)] Sertraline HCl [Zoloft] 150 mg PO DAILY 10/05/20 09/12/23 History Aspirin 81 mg PO HS #0 10/07/20 09/12/23 Rx Mv-Min/Folic/K1/Lycopen/Lutein 1 tab PO DAILY@1700 03/27/21 09/12/23 History [Centrum Silver Men Tablet] prednisoLONE ACETATE 1% OPHTH 1 drop RIGHT EYE PERALTA 03/27/21 09/12/23 History [Pred Forte 1%] Clopidogrel [Plavix] 75 mg PO DAILY #30 tab 05/25/21 09/12/23 Rx hydrALAZINE HCL [Apresoline] 50 mg PO BID tab 12/28/21 09/12/23 Rx ALPRAZolam [Xanax] 0.25 mg PO DAILY PRN 08/27/22 09/12/23 History Docusate [Colace] 100 mg PO W/BRKFST 08/27/22 09/12/23 History Isosorbide Mononitrate ER [Imdur] 30 mg PO DAILY 08/27/22 09/12/23 History Pantoprazole [Protonix] 40 mg PO DAILY PRN 08/27/22 09/12/23 History Sennosides-Docusate Sodium 1 tab PO HS 08/27/22 09/12/23 History [Senokot-S] Tamsulosin HCl [Flomax] 0.4 mg PO DAILY 08/27/22 09/12/23 History calcitrioL 0.25 mcg PO Q14D 08/27/22 09/12/23 History Albuterol Sulfate [Albuterol 2 puff PO RT-Q4H PRN 09/12/23 09/12/23 History Sulfate Hfa] Ammonium Lactate Cream [Lac-Hydrin 1 applic TOPICAL BID 09/12/23 09/12/23 History 12% Cream] Calcium Acetate [Phoslo] 1,334 mg PO W/BRKFST 09/12/23 09/12/23 History Calcium Acetate [Phoslo] 2,001 mg PO W/SUPPER 09/12/23 09/12/23 History Calcium Acetate [Phoslo] 667 mg PO DAILY PRN 09/12/23 09/12/23 History EPINEPHrine (Auto Inject) [Epipen] 0.3 mg IM ONCE PRN 09/12/23 09/12/23 History Furosemide [Lasix] 40 mg PO BID@0900,1600 09/12/23 09/12/23 History Iron 28mg Tablet 1 tab PO DAILY@1700 09/12/23 09/12/23 History Lactulose [Constulose] 10 gm PO BID PRN 09/12/23 09/12/23 History Petrolatum, White [Aquaphor] 1 applic TOPICAL DAILY 09/12/23 09/12/23 History QUEtiapine [SEROquel] 50 mg PO HS 09/12/23 09/12/23 History Sodium Bicarbonate Tab 650 mg PO BID-W/MEALS 09/12/23 09/12/23 History cloNIDine HCL [Catapres] 0.1 mg PO BID-W/MEALS PRN 09/12/23 09/12/23 History lisinopriL [Zestril] 5 mg PO BID 09/12/23 09/12/23 History Allergies Allergy/AdvReac Type Severity Reaction Status Date / Time bee venom protein (honey bee) Allergy Anaphylaxis Verified 09/12/23 15:56 cephalexin Allergy Rash/Hives Verified 09/12/23 15:56 clindamycin Allergy Rash/Hives Verified 09/12/23 15:56 sulfamethoxazole Allergy Unknown Verified 09/12/23 15:56 [From Bactrim] trimethoprim [From Bactrim] Allergy Unknown Verified 09/12/23 15:56 Physical Exam Vitals: Vital Signs Temp Pulse Pulse Pulse Resp BP BP 09/13/23 08:04 16 09/13/23 07:39 97.5 F L 94 16 111/62 09/13/23 06:52 97.6 F 81 18 101/57 09/13/23 02:18 97.8 F 81 16 86/47 09/12/23 20:00 98.0 F 93 14 132/65 09/12/23 18:43 98.8 F 93 18 109/68 09/12/23 16:16 90 188 H 104/52 09/12/23 14:23 95 16 100/37 09/12/23 12:59 97.9 F 100 18 105/53 Pulse Ox 09/13/23 08:04 09/13/23 07:39 96 09/13/23 06:52 94 L 09/13/23 02:18 93 L 09/12/23 20:00 94 L 09/12/23 18:43 94 L 09/12/23 16:16 92 L 09/12/23 14:23 95 09/12/23 12:59 96 Intake and Output 09/12/23 09/13/23 09/13/23 22:59 06:59 14:59 Output Total 2 Balance -2 Output: Stool 2 Other: Voiding Method CAPD CAPD Weight 75.296 kg patient is comfortable awake not in any acute distress Examination of the heart S1 and S2 Examination of the lungs shows good air entry bilaterally Abdomen is soft with abdominal hernia noted in the umbilicus area. Nontender. 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 End-stage renal disease maintained on peritoneal dialysis. Patient will need to switch to hemodialysis if there are plans for surgical intervention. Awaiting surgical evaluation 2. Small bowel obstruction 3. CK D mineral bone disorder 4. Aortic stenosis status post TAVR Plan: continue with PD for now. Awaiting surgical evaluation. Send PD fluid for Gram stain and cell count at the next exchange. Add parameters for antihypertensive medications as blood pressure has been low. Thank you for the consultation. We will continue to follow the patient with you during his hospitalization.
--- NOTE | 2023-09-13 11:42 | P.GSCN ---
History of Present Illness Consult date: 09/13/23 History of present illness: CHIEF COMPLAINT: Nausea and vomiting HISTORY OF PRESENT ILLNESS: This is a 88-year-old male with a known history of umbilical hernia for several years. He presents the hospital with complaints of nausea and vomiting x 4 days. Emesis was dark in color. Patient reports that his umbilical hernia was bulged out and has been reduced. Last night he started to have bowel movements. He had 3 BMs he is having flatus. His upper abdomen discomfort has improved. CT scan abdomen pelvis reports small bowel obstruction secondary to incarcerated hernia umbilical region. Strangulation is not excluded as there is surrounding fluid. Dilated loops of bowel measuring up to 4.1 cm. Abdominal surgeries include peritoneal dialysis catheter placement. History of TAVR. PAST MEDICAL HISTORY: See below PAST SURGICAL HISTORY: See below MEDICATIONS: See below ALLERGIES: See below SOCIAL HISTORY: No illicit drug use. REVIEW OF SYSTEMS: CONSTITUTIONAL: Denies fever or chills. HEENT: Denies blurred vision, vision changes, or eye pain. Denies hemoptysis CARDIOVASCULAR: Denies chest pain or pressure. RESPIRATORY: No shortness of breath. GASTROINTESTINAL: See HPI for pertinent findings HEMATOLOGIC: Denies bleeding disorders. GENITOURINARY: Denies any blood in urine or increased urinary frequency. SKIN: Denies pruitis. Denies rash. PHYSICAL EXAM: VITAL SIGNS: Reviewed GENERAL: Well-developed in no acute distress. HEENT: No sclera icterus. Extraocular movements grossly intact. Moist buccal mucosa. Head is atraumatic, normocephalic. No nasal drainage. ABDOMEN: Soft. nondistended. Mild discomfort with palpation to the upper abdomen. Incisional hernia reduced. Hernia located midline incision above the umbilicus. Mild discomfort with palpation. NEUROLOGIC: Alert and oriented. Cranial nerves II through XII grossly intact. LABORATORY DATA: WBC 8.7 HGB 12.9 plt 305 INR 1.1 Na 132 K 4.0 cr 6.91 Lactic acid 2.7 down to 1.4 IMAGING: CT scan abdomen pelvis reports small bowel obstruction secondary to incarcerated hernia umbilical region. Strangulation is not excluded as there is surrounding fluid. Dilated loops of bowel measuring up to 4.1 cm. Scattered air-fluid level seen. ASSESSMENT: 1. Small bowel obstruction possibly secondary to incarcerated hernia in the umbilical region. Hernia currently reduced. Patient having bowel movements. PLAN: -Keep n.p.o. until seen by surgeon -Okay to resume peritoneal dialysis -Continue supportive care Physician Assistant Reading Teacher note has been reviewed by physician. Signing provider agrees with the documented findings, assessment, and plan of care. I have personally seen and examined the patient, reviewed the CLOTH OPENER HAND /PAs history, exam and MDM and agree with the assessment and plan as written. Based on total visit time, I have performed more than 50% of the visit. As above: CAT scan reviewed. Certainly the CAT scan suggest bowel obstruction related to the hernia however the hernia is quite easily reducible. There may be some adhesions present related to the hernia sac leading to a transition point however this is not well-visualized on the CAT scan. He has moved his bowels several times. He denies nausea or vomiting. It may be that the patient's bowel obstruction was corrected after reducing the patient's hernia. Patient and I and his family have discussed previously the option of hernia repair with conversion to hemodialysis and he was not interested in doing so. Will discuss further with his family. For now may initiate clear liquids. Monitor for symptoms of nausea or vomiting. Monitor bowel function. Will follow closely. Past Medical History Past Medical History: Coronary Artery Disease (CAD), Cancer, COPD, Diabetes Mellitus, GERD/Reflux, GI Bleed, Hearing Disorder / Deafness, Hyperlipidemia, Hypertension, Osteoarthritis (OA), Prostate Disorder, Renal Disease, Respiratory Disorder Additional Past Medical History / Comment(s): prostate cancer (radiation tx), BPH., hx of GI bleed., chronic kidney disease, anemia, constipation., PVD with hx of venous ulcers & wounds- currently has wound on right lower leg., [place], hx of fall with fx left hip (11/2021)-uses wheeled walker., left eye almost blind, pulmonary fibrosis, hx of aortic stenosis with TAVR(04/2021) History of Any Multi-Drug Resistant Organisms: None Reported Past Surgical History: Heart Catheterization, Orthopedic Surgery, Tonsillectomy Additional Past Surgical History / Comment(s): laser eye surgery, left hip fx surgery (11/2021). , thumb surgery., heart cath 03/2021. TAVR (04/2021), Past Anesthesia/Blood Transfusion Reactions: No Reported Reaction Past Psychological History: Anxiety, Bipolar, Depression Smoking Status: Former smoker - Past Family History Mother Family Medical History: Diabetes Mellitus Additional Family Medical History / Comment(s): "heart problems" Father Family Medical History: Liver Disease Additional Family Medical History / Comment(s): alcohol & due to liver issues Medications and Allergies Home Medications Medication Instructions Recorded Confirmed Type Lovastatin [Mevacor] 40 mg PO HS 12/02/14 09/12/23 History allopurinoL [Zyloprim] 100 mg PO DAILY 12/02/14 09/12/23 History Glimepiride [Amaryl] 1 mg PO AC-BRKFST 11/13/17 09/12/23 History Ergocalciferol (Vitamin D2) 1,250 mcg PO PERALTA 10/05/20 09/12/23 History [Drisdol (50,000 Iu)] Sertraline HCl [Zoloft] 150 mg PO DAILY 10/05/20 09/12/23 History Aspirin 81 mg PO HS #0 10/07/20 09/12/23 Rx Mv-Min/Folic/K1/Lycopen/Lutein 1 tab PO DAILY@1700 03/27/21 09/12/23 History [Centrum Silver Men Tablet] prednisoLONE ACETATE 1% OPHTH 1 drop RIGHT EYE PERALTA 03/27/21 09/12/23 History [Pred Forte 1%] Clopidogrel [Plavix] 75 mg PO DAILY #30 tab 05/25/21 09/12/23 Rx hydrALAZINE HCL [Apresoline] 50 mg PO BID tab 12/28/21 09/12/23 Rx ALPRAZolam [Xanax] 0.25 mg PO DAILY PRN 08/27/22 09/12/23 History Docusate [Colace] 100 mg PO W/BRKFST 08/27/22 09/12/23 History Isosorbide Mononitrate ER [Imdur] 30 mg PO DAILY 08/27/22 09/12/23 History Pantoprazole [Protonix] 40 mg PO DAILY PRN 08/27/22 09/12/23 History Sennosides-Docusate Sodium 1 tab PO HS 08/27/22 09/12/23 History [Senokot-S] Tamsulosin HCl [Flomax] 0.4 mg PO DAILY 08/27/22 09/12/23 History calcitrioL 0.25 mcg PO Q14D 08/27/22 09/12/23 History Albuterol Sulfate [Albuterol 2 puff PO RT-Q4H PRN 09/12/23 09/12/23 History Sulfate Hfa] Ammonium Lactate Cream [Lac-Hydrin 1 applic TOPICAL BID 09/12/23 09/12/23 History 12% Cream] Calcium Acetate [Phoslo] 1,334 mg PO W/BRKFST 09/12/23 09/12/23 History Calcium Acetate [Phoslo] 2,001 mg PO W/SUPPER 09/12/23 09/12/23 History Calcium Acetate [Phoslo] 667 mg PO DAILY PRN 09/12/23 09/12/23 History EPINEPHrine (Auto Inject) [Epipen] 0.3 mg IM ONCE PRN 09/12/23 09/12/23 History Furosemide [Lasix] 40 mg PO BID@0900,1600 09/12/23 09/12/23 History Iron 28mg Tablet 1 tab PO DAILY@1700 09/12/23 09/12/23 History Lactulose [Constulose] 10 gm PO BID PRN 09/12/23 09/12/23 History Petrolatum, White [Aquaphor] 1 applic TOPICAL DAILY 09/12/23 09/12/23 History QUEtiapine [SEROquel] 50 mg PO HS 09/12/23 09/12/23 History Sodium Bicarbonate Tab 650 mg PO BID-W/MEALS 09/12/23 09/12/23 History cloNIDine HCL [Catapres] 0.1 mg PO BID-W/MEALS PRN 09/12/23 09/12/23 History lisinopriL [Zestril] 5 mg PO BID 09/12/23 09/12/23 History Allergies Allergy/AdvReac Type Severity Reaction Status Date / Time bee venom protein (honey bee) Allergy Anaphylaxis Verified 09/12/23 15:56 cephalexin Allergy Rash/Hives Verified 09/12/23 15:56 clindamycin Allergy Rash/Hives Verified 09/12/23 15:56 sulfamethoxazole Allergy Unknown Verified 09/12/23 15:56 [From Bactrim] trimethoprim [From Bactrim] Allergy Unknown Verified 09/12/23 15:56 Surgical - Exam Vital Signs Temp Pulse Resp BP Pulse Ox 97.9 F 100 18 105/53 96 09/12/23 12:59 05/16/24 12:59 09/12/23 12:59 09/12/23 12:59 09/12/23 12:59 Results - Labs 09/12/23 13:23 09/12/23 13:23 Abnormal Lab Results - Last 24 Hours (Table) 09/12/23 09/12/23 09/12/23 Range/Units 13:23 13:23 13:23 RBC 4.20 L (4.30-5.90) m/uL Hgb 12.9 L (13.0-17.5) gm/dL Sodium 132 L (137-145) mmol/L Chloride 92 L (98-107) mmol/L BUN 88 H (9-20) mg/dL Creatinine 6.91 H (0.66-1.25) mg/dL Glucose 184 H (74-99) mg/dL POC Glucose (mg/dL) (70-110) mg/dL Plasma Lactic Acid Karlos 2.7 H* (0.7-2.0) mmol/L Calcium 7.2 L (8.4-10.2) mg/dL Alkaline Phosphatase 129 H (38-126) U/L Total Protein 5.5 L (6.3-8.2) g/dL Albumin 2.9 L (3.5-5.0) g/dL 09/13/23 Range/Units 06:52 RBC (4.30-5.90) m/uL Hgb (13.0-17.5) gm/dL Sodium (137-145) mmol/L Chloride (98-107) mmol/L BUN (9-20) mg/dL Creatinine (0.66-1.25) mg/dL Glucose (74-99) mg/dL POC Glucose (mg/dL) 126 H (70-110) mg/dL Plasma Lactic Acid Karlos (0.7-2.0) mmol/L Calcium (8.4-10.2) mg/dL Alkaline Phosphatase (38-126) U/L Total Protein (6.3-8.2) g/dL Albumin (3.5-5.0) g/dL Diabetes panel 09/12/23 Range/Units 13:23 Sodium 132 L (137-145) mmol/L Potassium 4.0 (3.5-5.1) mmol/L Chloride 92 L (98-107) mmol/L Carbon Dioxide 25 (22-30) mmol/L BUN 88 H (9-20) mg/dL Creatinine 6.91 H (0.66-1.25) mg/dL Glucose 184 H (74-99) mg/dL Calcium 7.2 L (8.4-10.2) mg/dL AST 25 (17-59) U/L ALT 18 (4-49) U/L Alkaline Phosphatase 129 H (38-126) U/L Total Protein 5.5 L (6.3-8.2) g/dL Albumin 2.9 L (3.5-5.0) g/dL Calcium panel 09/12/23 Range/Units 13:23 Calcium 7.2 L (8.4-10.2) mg/dL Albumin 2.9 L (3.5-5.0) g/dL Pituitary panel 09/12/23 Range/Units 13:23 Sodium 132 L (137-145) mmol/L Potassium 4.0 (3.5-5.1) mmol/L Chloride 92 L (98-107) mmol/L Carbon Dioxide 25 (22-30) mmol/L BUN 88 H (9-20) mg/dL Creatinine 6.91 H (0.66-1.25) mg/dL Glucose 184 H (74-99) mg/dL Calcium 7.2 L (8.4-10.2) mg/dL Adrenal panel 09/12/23 Range/Units 13:23 Sodium 132 L (137-145) mmol/L Potassium 4.0 (3.5-5.1) mmol/L Chloride 92 L (98-107) mmol/L Carbon Dioxide 25 (22-30) mmol/L BUN 88 H (9-20) mg/dL Creatinine 6.91 H (0.66-1.25) mg/dL Glucose 184 H (74-99) mg/dL Calcium 7.2 L (8.4-10.2) mg/dL Total Bilirubin 0.6 (0.2-1.3) mg/dL AST 25 (17-59) U/L ALT 18 (4-49) U/L Alkaline Phosphatase 129 H (38-126) U/L Total Protein 5.5 L (6.3-8.2) g/dL Albumin 2.9 L (3.5-5.0) g/dL
[2023-09-13 16:18] LABS: Glucose,Whole Blood 121 mg/dL (70-110)
[2023-09-13] MEDS: FERROUS SULFATE 325 MG TAB PO SCH (17:19)
[2023-09-13] MEDS: MULTIVITAMINS, THERA 1 EACH TAB PO SCH (17:19)
[2023-09-13 20:21] LABS: Glucose,Whole Blood 115 mg/dL (70-110)
[2023-09-14 05:57] LABS: Glucose,Whole Blood 68 mg/dL (70-110)
[2023-09-14 06:21] LABS: Glucose,Whole Blood 76 mg/dL (70-110)
[2023-09-14] MEDS ORDERED: cloNIDine HCL 0.1 MG TAB PO PRN (07:47)
--- NOTE | 2023-09-14 07:48 | P.PN ---
Subjective Progress Note Date: 09/13/23 HISTORY OF PRESENT ILLNESS: 88-year-old office patient with active medical history of coronary artery disease, COPD, type 2 diabetes, severe GERD, chronic anemia, hypertension, hyp erlipidemia, history of pulmonary fibrosis, history of aortic stenosis with TAVR back in 2021, history of PAD, chronic kidney disease with end-stage kidney disease on PD with seen nephrology on more regular basis also had chronic history of PVD with venous ulcer and wound on both legs. Chronic edema and anasarca. He presented to the emergency department at [facility] today with abdominal discomfort with intractable nausea and vomiting for the last 4 days not able to stop not able to eat or drink has been having persistent symptoms. His vomiting bile and darker secretion some of it sometimes undigested food. He denies any difficulty in breathing. Still doing his PD on time without any difficulty but has been slightly bit more painful and discomfort. Workup in the ER shows normal white blood cell with hemoglobin of 12.9, his lactic acid of 2.7 and dropped down to 1.4 after treatment. Kidney function with bun of 88 creatinine of 6.91 as a typical for end-stage renal disease. Suspicion for bowel obstruction ended up having CAT scan of the abdomen and pelvis which shows small bowel obstruction secondary to incarcerated hernia in the umbilical region with strangulation is not excluded as there is surrounding fluid dilated loop of bowel measure up to 4.1 cm with scattered air-fluid level seen. Apparently Dr. Sanchez was called with the current symptoms he believes he can fix his umbilical hernia and release part of the obstruction at this point. Patient will be kept n.p.o. admit to the hospital hydrated consult nephrology have him continue his PD dialysis and time till the procedure is done. 09/13/2023: He is feeling slightly better, not throwing up anymore at this point apparently general surgery has seen patient will decide on further management whether any surgery or not in the meanwhile allow him to continue resume peritoneal dialysis. Patient remain NPO. Nephrology also had seen patient and still the surgery decision is made patient can be continued on PD to send PD fluid for Gram stain and culture his blood pressure remain little bit low continue supportive care on it. Otherwise blood sugars are running slightly bit low specially while he is n.p.o. we might readjust his medication his vitals beside the blood pressure being slightly bit low sometimes has been good including oxygenation up to 96% on 2 L. REVIEW OF SYSTEMS: CONSTITUTIONAL: Well-developed no acute respiratory distress. EYES: No icterus sclerae, no conjunctivitis. EARS, NOSE, MOUTH, THROAT, and FACE: No sore throat, lymphadenopathy, carotid bruits or deformity. RESPIRATORY: Positive slight shortness of breath no cough or wheezes. CARDIOVASCULAR: Positive PND orthopnea palpitation no angina. GASTROINTESTINAL: Significant abdominal discomfort with distention with hyper bowel with positive bowel sounds slight tenderness and discomfort in the mid abdominal region area with slight ascites typical for his PD. GENITOURINARY: Negative for Hematuria or UTI, no kidney stones. INTEGUMENT/BREAST: Negative for any muscular injury with mild osteoarthritis.. HEMATOLOGIC/LYMPHATIC: Negative for bleed or purpura. MUSCULOSKELTAL: Negative for Myalgia or arthralgia. NEURLOGICAL: No LOC, Sz or syncope, blurred vision dizziness or abnormality.. BEHAVIORAL/PSYCH: Negative. ENDOCRINE: Negative. PHYSICAL EXAMINATION: General Appearance: Alert, cooperative, no distress, appears stated age. Neck HEENT: Supple, no lymphadenopathy, no thyroid enlargement, no carotid bruits. Lungs: Decreased breath sound bilaterally with fine rhonchi positive mild expiratory wheezes. Chest Wall: Decreased expansion with deep inspiration no tenderness and no deformity was found on exam, no costochondral pain or discomfort. Heart: Regular rate and rhythm, S1, S2 normal, no murmur, rub or gallop. Back: Symmetric, no curvature, ROM normal, no CVA tenderness. Abdomen: Soft, slight tenderness in the mid abdominal region area in the right upper quadrant area with hyper bowel sound and slight ascites as well with significant tenderness around the umbilical area. Extremities: Extremities normal, atraumatic, no cyanosis or edema. Pulses: 2+ and symmetric. Skin: Skin color, texture, tugor normal, no rashes or lesions. Neurologic: Alert oriented x3 cranial nerves II through XII intact, no motor deficit, no abnormal balance or gait. ASSESSMENT AND PLAN: _Severe abdominal pain secondary to obstruction from incarcerated hernia in the umbilical area causing small bowel strangulation with quite distention up to 4.1 cm dilated loop of bowel, continue supportive care still waiting for general surgery to make a decision whether surgery is needed or not. _Intractable nausea and vomiting, continue hydration. Symptoms seems to be better. _End-stage renal disease on peritoneal dialysis nephrology decided to continue PD dialysis for now if patient ended up having surgery might need to be transferred into hemodialysis 4. Time. _Atherosclerotic heart disease with advanced cardiac disease post multiple OK still seeing cardiology on regular basis has been on medical management currently. _Aortic stenosis post TAVR has been doing well since. Unstable. _Ischemic heart disease with cardiomyopathy, remain on heart failure medication but watching for hypotension. _Type 2 diabetes: While he is n.p.o. he is more hypoglycemic may be his oral hypoglycemic agent that glimepiride should be held for now. _Hypertension: Remain on clonidine 0.1 mg twice a day along with lisinopril 5 mg twice a day continue isosorbide. Will reduce his clonidine for better control blood pressure. _BPH: With no sign of obstruction still on Flomax patient does not make much urine. _Chronic iron deficiency anemia remain on iron along with Procrit. _COPD: Continue DuoNeb continue supportive oxygen. _Hyperlipidemia: Will resume Mevacor at 40 mg daily. _Hyperuricemia: With no gout flareup lately still on allopurinol 100 mg daily. _Chronic depression anxiety attacks remain on Zoloft 150 mg daily along with Xanax 0.25 mg twice a day as needed and Seroquel 50 mg at bedtime. _Severe GERD/GI prophylaxis: Continue pantoprazole. _DVT prophylaxis: Early mobilization along with knee-high ANGELA hose if needed will use heparin subcutaneous Prognosis: Fair. Discussion still waiting for general surgery to make decision on the next or whether surgery is needed in the meanwhile continue PD dialysis till that final decision is done. Objective - Vital Signs Vital signs: Vital Signs Temp 97.6 F 09/13/23 06:52 Pulse 81 09/13/23 06:52 Resp 18 09/13/23 06:52 BP 101/57 09/13/23 06:52 Pulse Ox 94 L 09/13/23 06:52 FiO2 Intake & Output 09/12/23 09/13/23 09/13/23 18:59 06:59 18:59 Output Total 2 Balance -2 Weight 75.296 kg 75.296 kg Output: Stool 2 Other: Voiding Method CAPD - Labs CBC & Chem 7: 09/12/23 13:23 09/12/23 13:23 Labs: Abnormal Lab Results - Last 24 Hours (Table) 09/12/23 09/12/23 09/12/23 Range/Units 13:23 13:23 13:23 RBC 4.20 L (4.30-5.90) m/uL Hgb 12.9 L (13.0-17.5) gm/dL Sodium 132 L (137-145) mmol/L Chloride 92 L (98-107) mmol/L BUN 88 H (9-20) mg/dL Creatinine 6.91 H (0.66-1.25) mg/dL Glucose 184 H (74-99) mg/dL POC Glucose (mg/dL) (70-110) mg/dL Plasma Lactic Acid Karlos 2.7 H* (0.7-2.0) mmol/L Calcium 7.2 L (8.4-10.2) mg/dL Alkaline Phosphatase 129 H (38-126) U/L Total Protein 5.5 L (6.3-8.2) g/dL Albumin 2.9 L (3.5-5.0) g/dL 09/13/23 Range/Units 06:52 RBC (4.30-5.90) m/uL Hgb (13.0-17.5) gm/dL Sodium (137-145) mmol/L Chloride (98-107) mmol/L BUN (9-20) mg/dL Creatinine (0.66-1.25) mg/dL Glucose (74-99) mg/dL POC Glucose (mg/dL) 126 H (70-110) mg/dL Plasma Lactic Acid Karlos (0.7-2.0) mmol/L Calcium (8.4-10.2) mg/dL Alkaline Phosphatase (38-126) U/L Total Protein (6.3-8.2) g/dL Albumin (3.5-5.0) g/dL
[2023-09-14 11:09] LABS: Glucose,Whole Blood 80 mg/dL (70-110)
--- NOTE | 2023-09-14 11:15 | P.PN ---
Progress Note - Text Progress Note Date: 09/14/23 CHIEF COMPLAINT: SBO HISTORY OF PRESENT ILLNESS: Passing gas and having bowel movements PHYSICAL EXAM: VITAL SIGNS: Reviewed. GENERAL: Well-developed in no acute distress. ABDOMEN: Soft. mildly distended. NT NEUROLOGIC: Alert and oriented. Cranial nerves II through XII grossly intact. ASSESSMENT: 1. SBO- resolving PLAN: -start CLD -Nausea Control -Will follow
--- NOTE | 2023-09-14 11:32 | P.PN ---
Subjective patient is seen for follow-up for end-stage renal disease. Tolerating CAPD. Blood pressure is borderline. no significant complaints today. Patient has had bowel movement Objective - Vital Signs Vital signs: Vital Signs Temp 98.1 F 09/14/23 07:34 Pulse 84 09/14/23 07:34 Resp 15 09/14/23 07:34 BP 100/58 09/14/23 07:34 Pulse Ox 96 09/14/23 07:34 FiO2 Intake & Output 09/13/23 09/14/23 09/14/23 18:59 06:59 18:59 Other: Voiding Method CAPD CAPD # Voids 0 0 - Exam patient is comfortable awake not in any acute distress Examination of the heart S1 and S2 Examination of the lungs shows good air entry bilaterally Abdomen is soft with abdominal hernia noted in the umbilicus area. Nontender. Examination lower extremity shows no significant edema PHYSICIAN/OPHTHALMOLOGIST exam grossly intact - Labs CBC & Chem 7: 09/12/23 13:23 09/12/23 13:23 Labs: Abnormal Lab Results - Last 24 Hours (Table) 09/13/23 09/13/23 09/14/23 Range/Units 16:17 20:19 05:50 POC Glucose (mg/dL) 121 H 115 H 68 L (70-110) mg/dL Microbiology - Last 24 Hours (Table) 09/12/23 15:40 Blood Culture - Preliminary Blood 09/12/23 15:30 Blood Culture - Preliminary Blood Assessment and Plan Assessment: 1. End-stage renal disease maintained on peritoneal dialysis. 2. Small bowel obstruction with no plans for surgical intervention at this time. 3. CK D mineral bone disorder 4. Aortic stenosis status post TAVR Plan: continue with PD for now. Send PD fluid for Gram stain and cell count at the next exchange.
[2023-09-14 13:17] LABS: Glucose,Whole Blood 73 mg/dL (70-110)
[2023-09-14 13:39] LABS: Basophils % (A) 0 %; Eosinophils % (A) 0 %; HCT 34.2 % (39.0-53.0); HGB 10.9 gm/dL (13.0-17.5); Lymphocytes % (A) 10 %; MCH 30.6 pg (25.0-35.0); MCHC 31.8 g/dL (31.0-37.0); MCV 96.4 fL (80.0-100.0); Mean Platelet Volume 8.3; Monocytes # (A) 0.7 k/uL (0-1.0); Monocytes % (A) 7 %; Neutrophils # (A) 8.8 k/uL (1.3-7.7); Neutrophils % (A) 82 %; Platelet Count 222 k/uL (150-450); RBC 3.55 m/uL (4.30-5.90); WBC 10.8 k/uL (3.8-10.6)
[2023-09-14] MEDS: MIDODRINE 5 MG TAB PO STA (13:41)
[2023-09-14 14:05] LABS: African American GFR (CKD) 8 (>60 ml/min/1.73 sqM); Anion Gap 14 mmol/L; Blood Urea Nitrogen 94 mg/dL (9-20); Calcium 6.6 mg/dL (8.4-10.2); Carbon Dioxide 26 mmol/L (22-30); Chloride 94 mmol/L (98-107); Glucose 75 mg/dL (74-99); Non-African American GFR(CKD) 7 (>60 ml/min/1.73 sqM); Potassium 3.3 mmol/L (3.5-5.1); Sodium 134 mmol/L (137-145)
[2023-09-14] MEDS: SODIUM CHLORIDE 0.9% 1,000 ML IV SCH (14:17)
[2023-09-14] MEDS: SODIUM CHLORIDE 0.9% 500 ML 500 ML IV ONE ×2 (14:17)
--- NOTE | 2023-09-14 15:02 | XR ---
EXAMINATION TYPE: XR abdomen 2V DATE OF EXAM: 09/14/2023 7:38 AM CLINICAL INDICATION:Male, 88 years old with history of fu sbo; [facility] COMPARISON: CT 09/12/2023 TECHNIQUE: Supine and upright views of the abdomen were obtained. FINDINGS: Gaseous distention of multiple small bowel loops redemonstrated, appears slightly increased compared to the prior CT with some loops measuring up to 5.4 cm diameter. No gross pneumoperitoneum is identified however small amounts of subdiaphragmatic free air would be difficult to exclude from t his exam. There is some gas and stool in the colon. Catheter is again seen coiling over the right pel vis. Left hip arthroplasty. Radiodensities over the prostate bed likely from brachytherapy. Degenerat [place] changes without evidence of an acute bony abnormality. Partially seen chest shows a portion of TAVR. IMPRESSION: Increased gaseous distention of multiple small bowel loops compared to the prior CT, again consistent with small bowel obstruction. This was shown to be due to possibly strangulated umbilical region her sanjiv. If not already addressed, surgical consultation is advised.
[2023-09-14] MEDS: MIDODRINE 5 MG TAB PO ONE (18:02)
[2023-09-14 18:07] LABS: Glucose,Whole Blood 91 mg/dL (70-110)
--- NOTE | 2023-09-14 20:49 | P.PN ---
Subjective Progress Note Date: 09/14/23 HISTORY OF PRESENT ILLNESS: 88-year-old office patient with active medical history of coronary artery disease, COPD, type 2 diabetes, severe GERD, chronic anemia, hypertension, hyp erlipidemia, history of pulmonary fibrosis, history of aortic stenosis with TAVR back in 2021, history of PAD, chronic kidney disease with end-stage kidney disease on PD with seen nephrology on more regular basis also had chronic history of PVD with venous ulcer and wound on both legs. Chronic edema and anasarca. He presented to the emergency department at [facility] today with abdominal discomfort with intractable nausea and vomiting for the last 4 days not able to stop not able to eat or drink has been having persistent symptoms. His vomiting bile and darker secretion some of it sometimes undigested food. He denies any difficulty in breathing. Still doing his PD on time without any difficulty but has been slightly bit more painful and discomfort. Workup in the ER shows normal white blood cell with hemoglobin of 12.9, his lactic acid of 2.7 and dropped down to 1.4 after treatment. Kidney function with bun of 88 creatinine of 6.91 as a typical for end-stage renal disease. Suspicion for bowel obstruction ended up having CAT scan of the abdomen and pelvis which shows small bowel obstruction secondary to incarcerated hernia in the umbilical region with strangulation is not excluded as there is surrounding fluid dilated loop of bowel measure up to 4.1 cm with scattered air-fluid level seen. Apparently Dr. Sanchez was called with the current symptoms he believes he can fix his umbilical hernia and release part of the obstruction at this point. Patient will be kept n.p.o. admit to the hospital hydrated consult nephrology have him continue his PD dialysis and time till the procedure is done. 09/13/2023: He is feeling slightly better, not throwing up anymore at this point apparently general surgery has seen patient will decide on further management whether any surgery or not in the meanwhile allow him to continue resume peritoneal dialysis. Patient remain NPO. Nephrology also had seen patient and still the surgery decision is made patient can be continued on PD to send PD fluid for Gram stain and culture his blood pressure remain little bit low continue supportive care on it. Otherwise blood sugars are running slightly bit low specially while he is n.p.o. we might readjust his medication his vitals beside the blood pressure being slightly bit low sometimes has been good including oxygenation up to 96% on 2 L. 09/14/2023: Still having small bowel obstruction which has not been resolved not having any nausea or vomiting still holding diet at this point till he is evaluated again by general surgery. Had flat abdominal x-ray today result compatible with increase gaseous distention of multiple small bowel loops compared with the prior CAT scan again consistent with small bowel obstruction and this was shown to be due to possible strangulating umbilical region hernia. I am not clear again what she will hold off from doing surgery patient remain to do CAPD dialysis and tolerating it well but is not able to eat or drink. Blood pressure and vitals are marginal, had episode of hypotension, Earlier had to call a team was evaluated and is doing slightly better. REVIEW OF SYSTEMS: CONSTITUTIONAL: Well-developed no acute respiratory distress. EYES: No icterus sclerae, no conjunctivitis. EARS, NOSE, MOUTH, THROAT, and FACE: No sore throat, lymphadenopathy, carotid bruits or deformity. RESPIRATORY: Positive slight shortness of breath no cough or wheezes. CARDIOVASCULAR: Positive PND orthopnea palpitation no angina. GASTROINTESTINAL: Significant abdominal discomfort with distention with hyper bowel with positive bowel sounds slight tenderness and discomfort in the mid abdominal region area with slight ascites typical for his PD. GENITOURINARY: Negative for Hematuria or UTI, no kidney stones. INTEGUMENT/BREAST: Negative for any muscular injury with mild osteoarthritis.. HEMATOLOGIC/LYMPHATIC: Negative for bleed or purpura. MUSCULOSKELTAL: Negative for Myalgia or arthralgia. NEURLOGICAL: No LOC, Sz or syncope, blurred vision dizziness or abnormality.. BEHAVIORAL/PSYCH: Negative. ENDOCRINE: Negative. PHYSICAL EXAMINATION: General Appearance: Alert, cooperative, no distress, appears stated age. Neck HEENT: Supple, no lymphadenopathy, no thyroid enlargement, no carotid bruits. Lungs: Decreased breath sound bilaterally with fine rhonchi positive mild expiratory wheezes. Chest Wall: Decreased expansion with deep inspiration no tenderness and no deformity was found on exam, no costochondral pain or discomfort. Heart: Regular rate and rhythm, S1, S2 normal, no murmur, rub or gallop. Back: Symmetric, no curvature, ROM normal, no CVA tenderness. Abdomen: Soft, slight tenderness in the mid abdominal region area in the right upper quadrant area with hyper bowel sound and slight ascites as well with significant tenderness around the umbilical area. Extremities: Extremities normal, atraumatic, no cyanosis or edema. Pulses: 2+ and symmetric. Skin: Skin color, texture, tugor normal, no rashes or lesions. Neurologic: Alert oriented x3 cranial nerves II through XII intact, no motor deficit, no abnormal balance or gait. ASSESSMENT AND PLAN: _Severe abdominal pain secondary to obstruction from incarcerated hernia in the umbilical area causing small bowel strangulation with quite distention up to 4.1 cm dilated loop of bowel, continue supportive care still waiting for general surgery to make a decision whether surgery is needed or not. _Intractable nausea and vomiting, continue hydration. Symptoms seems to be better. _End-stage renal disease on peritoneal dialysis nephrology decided to continue PD dialysis for now if patient ended up having surgery might need to be transferred into hemodialysis. _Atherosclerotic heart disease with advanced cardiac disease post multiple VT still seeing cardiology on regular basis has been on medical management currently. _Aortic stenosis post TAVR has been doing well since. Unstable. _Ischemic heart disease with cardiomyopathy, remain on heart failure medication but watching for hypotension. _Type 2 diabetes: While he is n.p.o. he is more hypoglycemic may be his oral hypoglycemic agent that glimepiride should be held for now. _Hypertension: Remain on clonidine 0.1 mg twice a day along with lisinopril 5 mg twice a day continue isosorbide. Will reduce his clonidine for better control blood pressure. _BPH: With no sign of obstruction still on Flomax patient does not make much urine. _Chronic iron deficiency anemia remain on iron along with Procrit. _COPD: Continue DuoNeb continue supportive oxygen. _Hyperlipidemia: Will resume Mevacor at 40 mg daily. _Hyperuricemia: With no gout flareup lately still on allopurinol 100 mg daily. _Chronic depression anxiety attacks remain on Zoloft 150 mg daily along with Xanax 0.25 mg twice a day as needed and Seroquel 50 mg at bedtime. _Severe GERD/GI prophylaxis: Continue pantoprazole. _DVT prophylaxis: Early mobilization along with knee-high ANGELA hose if needed will use heparin subcutaneous Prognosis: Poor Discussion general surgery has not made any decision for intervention so far he still waiting for the final in the meanwhile is still n.p.o. we will continue PD dialysis for now till final decision is made. Blood pressure being low patient will be hydrated increase IV hydration if needed will use midodrine as well. Objective - Vital Signs Vital signs: Vital Signs Temp 98.1 F 09/14/23 07:34 Pulse 84 09/14/23 07:34 Resp 15 09/14/23 07:34 BP 100/58 09/14/23 07:34 Pulse Ox 96 09/14/23 07:34 FiO2 Intake & Output 09/13/23 09/14/23 09/14/23 18:59 06:59 18:59 Other: Voiding Method CAPD CAPD # Voids 0 0 - Labs CBC & Chem 7: 09/14/23 13:16 09/14/23 13:16 Labs: Abnormal Lab Results - Last 24 Hours (Table) 09/13/23 09/13/23 09/13/23 Range/Units 11:15 16:17 20:19 POC Glucose (mg/dL) 138 H 121 H 115 H (70-110) mg/dL 09/14/23 Range/Units 05:50 POC Glucose (mg/dL) 68 L (70-110) mg/dL Microbiology - Last 24 Hours (Table) 09/12/23 15:40 Blood Culture - Preliminary Blood 09/12/23 15:30 Blood Culture - Preliminary Blood
[2023-09-14 20:52] LABS: Glucose,Whole Blood 118 mg/dL (70-110)
[2023-09-14 22:38] LABS: Appearance,BF Clear (Clear)
[2023-09-15 06:18] LABS: Glucose,Whole Blood 65 mg/dL (70-110)
[2023-09-15 06:42] LABS: Glucose,Whole Blood 65 mg/dL (70-110)
[2023-09-15] MEDS: DEXTROSE 50% SYRINGE 50 ML IVP ONE (06:45)
[2023-09-15 08:09] LABS: Basophils % (A) 0 %; Eosinophils # (A) 0.2 k/uL (0-0.7); Eosinophils % (A) 1 %; HCT 33.9 % (39.0-53.0); HGB 10.7 gm/dL (13.0-17.5); Lymphocytes # (A) 0.9 k/uL (1.0-4.8); Lymphocytes % (A) 7 %; MCH 30.3 pg (25.0-35.0); MCHC 31.5 g/dL (31.0-37.0); MCV 96.3 fL (80.0-100.0); Mean Platelet Volume 8.6; Monocytes # (A) 0.7 k/uL (0-1.0); Monocytes % (A) 5 %; Neutrophils # (A) 11.8 k/uL (1.3-7.7); Neutrophils % (A) 86 %; Platelet Count 236 k/uL (150-450); RBC 3.52 m/uL (4.30-5.90); WBC 13.7 k/uL (3.8-10.6)
[2023-09-15 08:24] LABS: ALT 21 U/L (4-49); AST 29 U/L (17-59); African American GFR (CKD) 9 (>60 ml/min/1.73 sqM); Albumin 2.1 g/dL (3.5-5.0); Alkaline Phosphatase 156 U/L (38-126); Anion Gap 11 mmol/L; Blood Urea Nitrogen 87 mg/dL (9-20); Calcium 6.7 mg/dL (8.4-10.2); Carbon Dioxide 25 mmol/L (22-30); Chloride 96 mmol/L (98-107); Glucose 223 mg/dL (74-99); Non-African American GFR(CKD) 7 (>60 ml/min/1.73 sqM); Potassium 3.4 mmol/L (3.5-5.1); Sodium 132 mmol/L (137-145); Total Bilirubin 0.6 mg/dL (0.2-1.3); Total Protein 4.4 g/dL (6.3-8.2)
[2023-09-15 08:30] LABS: NT-Pro-B-Type Natriuretic Pept 9960 pg/mL
[2023-09-15 08:37] LABS: Glucose,Whole Blood 207 mg/dL (70-110)
[2023-09-15] MEDS: ERGOCALCIFEROL 1,250 MCG (50,000 IU) CAPSULE PO SCH (08:42)
--- NOTE | 2023-09-15 10:46 | P.PN ---
Subjective patient is seen for follow-up for end-stage renal disease. Tolerating CAPD. Blood pressure was low yesterday and patient is started on IV fluids. He is also maintained on midodrine. no significant complaints today. Patient has had bowel movement Objective - Vital Signs Vital signs: Vital Signs Temp 97.4 F L 09/15/23 08:00 Pulse 67 09/15/23 08:00 Resp 20 09/15/23 08:00 BP 116/65 09/15/23 08:00 Pulse Ox 93 L 09/15/23 08:00 FiO2 Intake & Output 09/14/23 09/15/23 09/15/23 18:59 06:59 18:59 Intake Total 780 150 Balance 780 150 Weight 84.5 kg Intake: Oral 780 150 Other: Voiding Method CAPD CAPD CAPD External Catheter # Voids 0 - Exam patient is comfortable awake not in any acute distress Examination of the heart S1 and S2 Examination of the lungs shows good air entry bilaterally Abdomen is soft with abdominal hernia noted in the umbilicus area. Nontender. 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 TECHNICIAN X RAY exam grossly intact - Labs CBC & Chem 7: 09/15/23 07:54 09/15/23 07:54 Labs: Abnormal Lab Results - Last 24 Hours (Table) 09/14/23 09/14/23 09/14/23 Range/Units 13:16 13:16 20:51 WBC 10.8 H (3.8-10.6) k/uL RBC 3.55 L (4.30-5.90) m/uL Hgb 10.9 L (13.0-17.5) gm/dL Hct 34.2 L (39.0-53.0) % Neutrophils # 8.8 H (1.3-7.7) k/uL Lymphocytes # (1.0-4.8) k/uL Sodium 134 L (137-145) mmol/L Potassium 3.3 L (3.5-5.1) mmol/L Chloride 94 L (98-107) mmol/L BUN 94 H (9-20) mg/dL Creatinine 6.95 H (0.66-1.25) mg/dL Glucose (74-99) mg/dL POC Glucose (mg/dL) 118 H (70-110) mg/dL Calcium 6.6 L (8.4-10.2) mg/dL Alkaline Phosphatase (38-126) U/L Troponin I (0.000-0.034) ng/mL Total Protein (6.3-8.2) g/dL Albumin (3.5-5.0) g/dL 09/15/23 09/15/23 09/15/23 Range/Units 06:16 06:40 07:54 WBC 13.7 H (3.8-10.6) k/uL RBC 3.52 L (4.30-5.90) m/uL Hgb 10.7 L (13.0-17.5) gm/dL Hct 33.9 L (39.0-53.0) % Neutrophils # 11.8 H (1.3-7.7) k/uL Lymphocytes # 0.9 L (1.0-4.8) k/uL Sodium (137-145) mmol/L Potassium (3.5-5.1) mmol/L Chloride (98-107) mmol/L BUN (9-20) mg/dL Creatinine (0.66-1.25) mg/dL Glucose (74-99) mg/dL POC Glucose (mg/dL) 65 L 65 L (70-110) mg/dL Calcium (8.4-10.2) mg/dL Alkaline Phosphatase (38-126) U/L Troponin I (0.000-0.034) ng/mL Total Protein (6.3-8.2) g/dL Albumin (3.5-5.0) g/dL 09/15/23 09/15/23 09/15/23 Range/Units 07:54 07:54 08:34 WBC (3.8-10.6) k/uL RBC (4.30-5.90) m/uL Hgb (13.0-17.5) gm/dL Hct (39.0-53.0) % Neutrophils # (1.3-7.7) k/uL Lymphocytes # (1.0-4.8) k/uL Sodium 132 L (137-145) mmol/L Potassium 3.4 L (3.5-5.1) mmol/L Chloride 96 L (98-107) mmol/L BUN 87 H (9-20) mg/dL Creatinine 6.20 H (0.66-1.25) mg/dL Glucose 223 H (74-99) mg/dL POC Glucose (mg/dL) 207 H (70-110) mg/dL Calcium 6.7 L (8.4-10.2) mg/dL Alkaline Phosphatase 156 H (38-126) U/L Troponin I 0.350 H* (0.000-0.034) ng/mL Total Protein 4.4 L (6.3-8.2) g/dL Albumin 2.1 L (3.5-5.0) g/dL Microbiology - Last 24 Hours (Table) 09/12/23 15:40 Blood Culture - Preliminary Blood 09/12/23 15:30 Blood Culture - Preliminary Blood Assessment and Plan Assessment: 1. End-stage renal disease maintained on peritoneal dialysis. 2. Small bowel obstruction with umbilical hernia, now reduced with no plans for surgical intervention at this time. 3. CK D mineral bone disorder 4. Aortic stenosis status post TAVR Plan: continue with PD for now. Continue with midodrine DC lisinopril Continue IV fluids.
--- NOTE | 2023-09-15 10:57 | P.PN ---
Subjective Progress Note Date: 09/15/23 HISTORY OF PRESENT ILLNESS: 88-year-old office patient with active medical history of coronary artery disease, COPD, type 2 diabetes, severe GERD, chronic anemia, hypertension, hyp erlipidemia, history of pulmonary fibrosis, history of aortic stenosis with TAVR back in 2021, history of PAD, chronic kidney disease with end-stage kidney disease on PD with seen nephrology on more regular basis also had chronic history of PVD with venous ulcer and wound on both legs. Chronic edema and anasarca. He presented to the emergency department at [facility] today with abdominal discomfort with intractable nausea and vomiting for the last 4 days not able to stop not able to eat or drink has been having persistent symptoms. His vomiting bile and darker secretion some of it sometimes undigested food. He denies any difficulty in breathing. Still doing his PD on time without any difficulty but has been slightly bit more painful and discomfort. Workup in the ER shows normal white blood cell with hemoglobin of 12.9, his lactic acid of 2.7 and dropped down to 1.4 after treatment. Kidney function with bun of 88 creatinine of 6.91 as a typical for end-stage renal disease. Suspicion for bowel obstruction ended up having CAT scan of the abdomen and pelvis which shows small bowel obstruction secondary to incarcerated hernia in the umbilical region with strangulation is not excluded as there is surrounding fluid dilated loop of bowel measure up to 4.1 cm with scattered air-fluid level seen. Apparently Dr. Sanchez was called with the current symptoms he believes he can fix his umbilical hernia and release part of the obstruction at this point. Patient will be kept n.p.o. admit to the hospital hydrated consult nephrology have him continue his PD dialysis and time till the procedure is done. 09/13/2023: He is feeling slightly better, not throwing up anymore at this point apparently general surgery has seen patient will decide on further management whether any surgery or not in the meanwhile allow him to continue resume peritoneal dialysis. Patient remain NPO. Nephrology also had seen patient and still the surgery decision is made patient can be continued on PD to send PD fluid for Gram stain and culture his blood pressure remain little bit low continue supportive care on it. Otherwise blood sugars are running slightly bit low specially while he is n.p.o. we might readjust his medication his vitals beside the blood pressure being slightly bit low sometimes has been good including oxygenation up to 96% on 2 L. 09/14/2023: Still having small bowel obstruction which has not been resolved not having any nausea or vomiting still holding diet at this point till he is evaluated again by general surgery. Had flat abdominal x-ray today result compatible with increase gaseous distention of multiple small bowel loops compared with the prior CAT scan again consistent with small bowel obstruction and this was shown to be due to possible strangulating umbilical region hernia. I am not clear again what she will hold off from doing surgery patient remain to do CAPD dialysis and tolerating it well but is not able to eat or drink. Blood pressure and vitals are marginal, had episode of hypotension, Earlier had to call a team was evaluated and is doing slightly better. 09/15/2023: Will continue peritoneal dialysis patient had quite a bit change yesterday consistent with decreased responsiveness and slightly with worsening abdominal pain but is slightly better today his PD fluid was sent for analysis for peritonitis. He was started on clear liquid diet but patient is not able to tolerate it well. Patient was seen by surgical coverage yesterday and still no plan for intervention or surgery. Abdominal x-ray came with the same findings still showing quite good obstruction with strangulated umbilical region hernia. He is in A-fib with rapid ventricular response yesterday pulse rate was up to 126 bpm his pulse since then down in the 80s and 90s. He is to my knowledge has A-fib and has been seeing cardiology regularly will consult cardiology repeat another EKG today. Dr Monge seen patient this morning he is quite bit distended there is a another CAT scan ordered for tomorrow patient be kept n.p.o. and prepare for finding out if we have to do surgery tomorrow. I spoke with the in detail at the time was going on and with to daughter will be talking to Dr. Monge to make a decision on other management because patient probably will end up on hemodialysis not PD dialysis anymore which might change their life and he might still end up in a senior living rehab initially. REVIEW OF SYSTEMS: CONSTITUTIONAL: Well-developed no acute respiratory distress. EYES: No icterus sclerae, no conjunctivitis. EARS, NOSE, MOUTH, THROAT, and FACE: No sore throat, lymphadenopathy, carotid bruits or deformity. RESPIRATORY: Positive slight shortness of breath no cough or wheezes. CARDIOVASCULAR: Positive PND orthopnea palpitation no angina. GASTROINTESTINAL: Significant abdominal discomfort with distention with hyper bowel with positive bowel sounds slight tenderness and discomfort in the mid abdominal region area with slight ascites typical for his PD. GENITOURINARY: Negative for Hematuria or UTI, no kidney stones. INTEGUMENT/BREAST: Negative for any muscular injury with mild osteoarthritis.. HEMATOLOGIC/LYMPHATIC: Negative for bleed or purpura. MUSCULOSKELTAL: Negative for Myalgia or arthralgia. NEURLOGICAL: No LOC, Sz or syncope, blurred vision dizziness or abnormality.. BEHAVIORAL/PSYCH: Negative. ENDOCRINE: Negative. PHYSICAL EXAMINATION: General Appearance: Alert, cooperative, no distress, appears stated age. Neck HEENT: Supple, no lymphadenopathy, no thyroid enlargement, no carotid bruits. Lungs: Decreased breath sound bilaterally with fine rhonchi positive mild expiratory wheezes. Chest Wall: Decreased expansion with deep inspiration no tenderness and no deformity was found on exam, no costochondral pain or discomfort. Heart: Regular rate and rhythm, S1, S2 normal, no murmur, rub or gallop. Back: Symmetric, no curvature, ROM normal, no CVA tenderness. Abdomen: Soft, slight tenderness in the mid abdominal region area in the right upper quadrant area with hyper bowel sound and slight ascites as well with s ignificant tenderness around the umbilical area. Extremities: Extremities normal, atraumatic, no cyanosis or edema. Pulses: 2+ and symmetric. Skin: Skin color, texture, tugor normal, no rashes or lesions. Neurologic: Alert oriented x3 cranial nerves II through XII intact, no motor deficit, no abnormal balance or gait. ASSESSMENT AND PLAN: _Severe abdominal pain secondary to obstruction from incarcerated hernia in the umbilical area causing small bowel strangulation with quite distention up to 4.1 cm dilated loop of bowel, continue supportive care still waiting for general surgery to make a decision whether surgery is needed or not. _Intractable nausea and vomiting, continue hydration. Symptoms seems to be better. _End-stage renal disease on peritoneal dialysis nephrology decided to continue PD dialysis for now if patient ended up having surgery might need to be transferred into hemodialysis. _New onset of A-fib with rapid ventricular response: Pulse rate is down already about starting on beta-angel and ended up having severe bradycardia will consult cardiology repeat another EKG watch when he had his last echocardiogram also watch for any component related to increase his BNP or troponin. _Atherosclerotic heart disease with advanced cardiac disease post multiple [place] still seeing cardiology will consult cardiology patient is not having any ang inal chest pain. _Aortic stenosis post TAVR has been doing well since. Unstable. _Ischemic heart disease with cardiomyopathy, remain on heart failure medication but watching for hypotension. _Type 2 diabetes: He is still running slightly below on Blood sugar is off glimepiride from yesterday but may be the effect still up to 24 hours which is today should not have any hypoglycemia from you on would lower the use of insulin is much as possible with the sliding scales at this point. The patient not going for surgery should probably be on diet today. _Hypertension: Despite the fact being on the clonidine and lisinopril along with isosorbide mononitrate he is running slightly bit low on blood pressure quite using midodrine specially around his PD time. _BPH: With no sign of obstruction still on Flomax patient does not make much urine. _Chronic iron deficiency anemia remain on iron along with Procrit. _COPD: Continue DuoNeb continue supportive oxygen. _Hyperlipidemia: Will resume Mevacor at 40 mg daily. _Hyperuricemia: With no gout flareup lately still on allopurinol 100 mg daily. _Chronic depression anxiety attacks remain on Zoloft 150 mg daily along with Xanax 0.25 mg twice a day as needed and Seroquel 50 mg at bedtime. _Severe GERD/GI prophylaxis: Continue pantoprazole. _DVT prophylaxis: Early mobilization along with knee-high ANGELA hose if needed will use heparin subcutaneous Prognosis: Poor Discussion patient had an event with hypotension and tachycardia will be seen cardiology BNP and troponin will be done still doing PT for end-stage renal disease seeing cardiology today again on discussing the final result whether he needs surgery for his strangulated hernia or not. He will be going for another CAT scan tomorrow to make a final decision still have the? Whether he is able to maintain PD dialysis or any to move into hemodialysis. Objective - Vital Signs Vital signs: Vital Signs Temp 97.7 F 09/14/23 19:55 Pulse 89 09/15/23 05:33 Resp 18 09/15/23 05:33 BP 119/69 09/15/23 05:33 Pulse Ox 97 09/15/23 05:33 FiO2 Intake & Output 05/09/15/23 09/15/23 18:59 06:59 18:59 Intake Total 780 Balance 780 Weight 84.5 kg Intake: Oral 780 Other: Voiding Method CAPD CAPD # Voids 0 - Labs CBC & Chem 7: 09/15/23 07:54 09/15/23 07:54 Labs: Abnormal Lab Results - Last 24 Hours (Table) 09/14/23 09/14/23 09/14/23 Range/Units 13:16 13:16 20:51 WBC 10.8 H (3.8-10.6) k/uL RBC 3.55 L (4.30-5.90) m/uL Hgb 10.9 L (13.0-17.5) gm/dL Hct 34.2 L (39.0-53.0) % Neutrophils # 8.8 H (1.3-7.7) k/uL Sodium 134 L (137-145) mmol/L Potassium 3.3 L (3.5-5.1) mmol/L Chloride 94 L (98-107) mmol/L BUN 94 H (9-20) mg/dL Creatinine 6.95 H (0.66-1.25) mg/dL POC Glucose (mg/dL) 118 H (70-110) mg/dL Calcium 6.6 L (8.4-10.2) mg/dL 09/15/23 09/15/23 Range/Units 06:16 06:40 WBC (3.8-10.6) k/uL RBC (4.30-5.90) m/uL Hgb (13.0-17.5) gm/dL Hct (39.0-53.0) % Neutrophils # (1.3-7.7) k/uL Sodium (137-145) mmol/L Potassium (3.5-5.1) mmol/L Chloride (98-107) mmol/L BUN (9-20) mg/dL Creatinine (0.66-1.25) mg/dL POC Glucose (mg/dL) 65 L 65 L (70-110) mg/dL Calcium (8.4-10.2) mg/dL Microbiology - Last 24 Hours (Table) 09/12/23 15:40 Blood Culture - Preliminary Blood 09/12/23 15:30 Blood Culture - Preliminary Blood
--- NOTE | 2023-09-15 11:13 | P.PN ---
Subjective Progress Note Date: 09/15/23 Principal diagnosis: Small bowel obstruction Patient sitting up in the chair. On clear liquids. Appetite is low. Mild nausea. No vomiting. Yesterday's x-rays still show some small bowel dilation. No pain. Objective - Vital Signs Vital signs: Vital Signs Temp 97.4 F L 09/15/23 08:00 Pulse 67 09/15/23 08:00 Resp 20 09/15/23 08:00 BP 116/65 09/15/23 08:00 Pulse Ox 93 L 09/15/23 08:00 FiO2 Intake & Output 09/14/23 09/15/23 09/15/23 18:59 06:59 18:59 Intake Total 780 150 Balance 780 150 Weight 84.5 kg Intake: Oral 780 150 Other: Voiding Method CAPD CAPD CAPD External Catheter # Voids 0 - Exam Abdomen: Soft, distended, fluid from PD in place, hernia reducible, nontender - Labs CBC & Chem 7: 09/15/23 07:54 09/15/23 07:54 Labs: Abnormal Lab Results - Last 24 Hours (Table) 09/14/23 09/14/23 09/14/23 Range/Units 13:16 13:16 20:51 WBC 10.8 H (3.8-10.6) k/uL RBC 3.55 L (4.30-5.90) m/uL Hgb 10.9 L (13.0-17.5) gm/dL Hct 34.2 L (39.0-53.0) % Neutrophils # 8.8 H (1.3-7.7) k/uL Lymphocytes # (1.0-4.8) k/uL Sodium 134 L (137-145) mmol/L Potassium 3.3 L (3.5-5.1) mmol/L Chloride 94 L (98-107) mmol/L BUN 94 H (9-20) mg/dL Creatinine 6.95 H (0.66-1.25) mg/dL Glucose (74-99) mg/dL POC Glucose (mg/dL) 118 H (70-110) mg/dL Calcium 6.6 L (8.4-10.2) mg/dL Alkaline Phosphatase (38-126) U/L Troponin I (0.000-0.034) ng/mL Total Protein (6.3-8.2) g/dL Albumin (3.5-5.0) g/dL 09/15/23 09/15/23 09/15/23 Range/Units 06:16 06:40 07:54 WBC 13.7 H (3.8-10.6) k/uL RBC 3.52 L (4.30-5.90) m/uL Hgb 10.7 L (13.0-17.5) gm/dL Hct 33.9 L (39.0-53.0) % Neutrophils # 11.8 H (1.3-7.7) k/uL Lymphocytes # 0.9 L (1.0-4.8) k/uL Sodium (137-145) mmol/L Potassium (3.5-5.1) mmol/L Chloride (98-107) mmol/L BUN (9-20) mg/dL Creatinine (0.66-1.25) mg/dL Glucose (74-99) mg/dL POC Glucose (mg/dL) 65 L 65 L (70-110) mg/dL Calcium (8.4-10.2) mg/dL Alkaline Phosphatase (38-126) U/L Troponin I (0.000-0.034) ng/mL Total Protein (6.3-8.2) g/dL Albumin (3.5-5.0) g/dL 09/15/23 09/15/23 09/15/23 Range/Units 07:54 07:54 08:34 WBC (3.8-10.6) k/uL RBC (4.30-5.90) m/uL Hgb (13.0-17.5) gm/dL Hct (39.0-53.0) % Neutrophils # (1.3-7.7) k/uL Lymphocytes # (1.0-4.8) k/uL Sodium 132 L (137-145) mmol/L Potassium 3.4 L (3.5-5.1) mmol/L Chloride 96 L (98-107) mmol/L BUN 87 H (9-20) mg/dL Creatinine 6.20 H (0.66-1.25) mg/dL Glucose 223 H (74-99) mg/dL POC Glucose (mg/dL) 207 H (70-110) mg/dL Calcium 6.7 L (8.4-10.2) mg/dL Alkaline Phosphatase 156 H (38-126) U/L Troponin I 0.350 H* (0.000-0.034) ng/mL Total Protein 4.4 L (6.3-8.2) g/dL Albumin 2.1 L (3.5-5.0) g/dL Microbiology - Last 24 Hours (Table) 09/12/23 15:40 Blood Culture - Preliminary Blood 09/12/23 15:30 Blood Culture - Preliminary Blood Assessment and Plan (1) Small bowel obstruction Narrative/Plan: 88-year-old male with small bowel obstruction by recent CAT scan. Will check small bowel series tomorrow. Keep n.p.o. for now. Current Visit: Yes Status: Acute Code(s): K56.609 - UNSP INTESTNL OBST, UNSP TO PARTIAL VERSUS COMPLETE OBST SNOMED Code(s): 556058622
[2023-09-15 11:45] LABS: Glucose,Whole Blood 206 mg/dL (70-110)
[2023-09-15] MEDS: prednisoLONE ACETATE 1% OPHTH DROPS 5 ML BTL RIGHT EYE SCH (12:31)
[2023-09-15 16:32] LABS: Glucose,Whole Blood 234 mg/dL (70-110)
[2023-09-15] MEDS ORDERED: HEPARIN SODIUM 1,000 UN/ML (10ML VL) IV PRN (16:42)
--- NOTE | 2023-09-15 16:43 | P.CRDCN ---
History of Present Illness Consult date: 09/15/23 History of present illness: HISTORY OF PRESENTING ILLNESS 88-year-old with past medical history of CAD, COPD, type 2 diabetes, severe GERD, anemia, hypertension, dyslipidemia, pulmonary fibrosis, history of TAVR in 2021. History of PAD, CKD ESRD on peritoneal dialysis. He has chronic venous ulcer on bilateral lower extremity. Chronic edema and anasarca. He presented to the hospital because of abdominal discomfort, intractable nausea vomiting. EKG from yesterday shows atrial fibrillation with plan for septal AR, heart rate 120. Hb 10, creatinine 6.2, elevated trop due to poor renal clearance REVIEW OF SYSTEMS 14 point review of system is negative except what is mentioned above in HPI. PHYSICAL EXAMINATION Vital signs reviewed. BP 110/60, HR 80-90 sinsu PVCS Neck: no jugular venous distention. Lungs: Reduced air entry bilateral lung lafleur Heart: Irregularly irregular, systolic murmur. Abdomen: Distended abdomen Extremities: Chronic venous ulcer bilateral extremity. Chronic edema in bilateral lower extremity Neuro: Alert, oritented, no focal deficits. Detailed neuro exam was not performed. ASSESSMENT Severe abdominal pain due to obstruction from incarcerated hernia in the umbilicus area Nausea and vomiting New onset atrial fibrillation, currently sinus rhythm with PVCs elevated trop due to poor renal clearance ESRD on peritoneal dialysis, may need to switch to hemodialysis CAD with multiple PCI in the past S/p TAVR Ischemic cardiomyopathy Type II Diabetes Hypertension PLAN Patient is currently in sinus rhythm. Patient has a tendency of getting bradycardic. Patient is on clonidine for his hypertension. When beta-angel presented his heart rate dropped. Will give him a trial of metoprolol succinate 25 mg daily Continue aspirin, atorvastatin Patient is n.p.o. at this time. Start him on IV heparin drip, in case of any surgical procedure, hold IV heparin drip 4 hours prior to the procedure. update echo Nikita Newton MD, FACC, RPVI Thank you for allowing [facility] to participate in this patient's care. Feel free to reach out in case of any followup questions. Past Medical History Past Medical History: Coronary Artery Disease (CAD), Cancer, COPD, Diabetes Mellitus, GERD/Reflux, GI Bleed, Hearing Disorder / Deafness, Hyperlipidemia, Hypertension, Osteoarthritis (OA), Prostate Disorder, Renal Disease, Respiratory Disorder Additional Past Medical History / Comment(s): prostate cancer (radiation tx), BPH., hx of GI bleed., chronic kidney disease, anemia, constipation., PVD with hx of venous ulcers & wounds- currently has wound on right lower leg., [place], hx of fall with fx left hip (11/2021)-uses wheeled walker., left eye almost blind, pulmonary fibrosis, hx of aortic stenosis with TAVR(04/2021) History of Any Multi-Drug Resistant Organisms: None Reported Past Surgical History: Heart Catheterization, Orthopedic Surgery, Tonsillectomy Additional Past Surgical History / Comment(s): laser eye surgery, left hip fx surgery (11/2021). , thumb surgery., heart cath 03/2021. TAVR (04/2021), Past Anesthesia/Blood Transfusion Reactions: No Reported Reaction Past Psychological History: Anxiety, Bipolar, Depression Smoking Status: Former smoker - Past Family History Mother Family Medical History: Diabetes Mellitus Additional Family Medical History / Comment(s): "heart problems" Father Family Medical History: Liver Disease Additional Family Medical History / Comment(s): alcohol & due to liver issues Medications and Allergies Home Medications Medication Instructions Recorded Confirmed Type Lovastatin [Mevacor] 40 mg PO HS 12/02/14 09/12/23 History allopurinoL [Zyloprim] 100 mg PO DAILY 12/02/14 09/12/23 History Glimepiride [Amaryl] 1 mg PO AC-BRKFST 11/13/17 09/12/23 History Ergocalciferol (Vitamin D2) 1,250 mcg PO PERALTA 10/05/20 09/12/23 History [Drisdol (50,000 Iu)] Sertraline HCl [Zoloft] 150 mg PO DAILY 10/05/20 09/12/23 History Aspirin 81 mg PO HS #0 10/07/20 09/12/23 Rx Mv-Min/Folic/K1/Lycopen/Lutein 1 tab PO DAILY@1700 03/27/21 09/12/23 History [Centrum Silver Men Tablet] prednisoLONE ACETATE 1% OPHTH 1 drop RIGHT EYE PERALTA 03/27/21 09/12/23 History [Pred Forte 1%] Clopidogrel [Plavix] 75 mg PO DAILY #30 tab 05/25/21 09/12/23 Rx hydrALAZINE HCL [Apresoline] 50 mg PO BID tab 12/28/21 09/12/23 Rx ALPRAZolam [Xanax] 0.25 mg PO DAILY PRN 08/27/22 09/12/23 History Docusate [Colace] 100 mg PO W/BRKFST 08/27/22 09/12/23 History Isosorbide Mononitrate ER [Imdur] 30 mg PO DAILY 08/27/22 09/12/23 History Pantoprazole [Protonix] 40 mg PO DAILY PRN 08/27/22 09/12/23 History Sennosides-Docusate Sodium 1 tab PO HS 08/27/22 09/12/23 History [Senokot-S] Tamsulosin HCl [Flomax] 0.4 mg PO DAILY 08/27/22 09/12/23 History calcitrioL 0.25 mcg PO Q14D 08/27/22 09/12/23 History Albuterol Sulfate [Albuterol 2 puff PO RT-Q4H PRN 09/12/23 09/12/23 History Sulfate Hfa] Ammonium Lactate Cream [Lac-Hydrin 1 applic TOPICAL BID 09/12/23 09/12/23 History 12% Cream] Calcium Acetate [Phoslo] 1,334 mg PO W/BRKFST 09/12/23 09/12/23 History Calcium Acetate [Phoslo] 2,001 mg PO W/SUPPER 09/12/23 09/12/23 History Calcium Acetate [Phoslo] 667 mg PO DAILY PRN 09/12/23 09/12/23 History EPINEPHrine (Auto Inject) [Epipen] 0.3 mg IM ONCE PRN 09/12/23 09/12/23 History Furosemide [Lasix] 40 mg PO BID@0900,1600 09/12/23 09/12/23 History Iron 28mg Tablet 1 tab PO DAILY@1700 09/12/23 09/12/23 History Lactulose [Constulose] 10 gm PO BID PRN 09/12/23 09/12/23 History Petrolatum, White [Aquaphor] 1 applic TOPICAL DAILY 09/12/23 09/12/23 History QUEtiapine [SEROquel] 50 mg PO HS 09/12/23 09/12/23 History Sodium Bicarbonate Tab 650 mg PO BID-W/MEALS 09/12/23 09/12/23 History cloNIDine HCL [Catapres] 0.1 mg PO BID-W/MEALS PRN 09/12/23 09/12/23 History lisinopriL [Zestril] 5 mg PO BID 09/12/23 09/12/23 History Allergies Allergy/AdvReac Type Severity Reaction Status Date / Time bee venom protein (honey bee) Allergy Anaphylaxis Verified 09/12/23 15:56 cephalexin Allergy Rash/Hives Verified 09/12/23 15:56 clindamycin Allergy Rash/Hives Verified 09/12/23 15:56 sulfamethoxazole Allergy Unknown Verified 09/12/23 15:56 [From Bactrim] trimethoprim [From Bactrim] Allergy Unknown Verified 09/12/23 15:56 Physical Exam Vitals: Vital Signs Temp Pulse Pulse Pulse Resp BP BP 09/15/23 16:37 97.9 F 73 20 100/53 09/15/23 11:28 96.8 F L 60 20 119/60 09/15/23 08:00 97.4 F L 67 20 116/65 09/15/23 07:55 09/15/23 05:33 89 18 119/69 09/15/23 00:00 99 16 92/55 09/14/23 20:55 93 18 124/78 09/14/23 20:00 94 22 09/14/23 19:55 97.7 F 92 25 H 129/66 09/14/23 19:30 98 25 H 105/54 09/14/23 19:00 95 16 109/50 09/14/23 18:30 96 25 H 116/58 09/14/23 18:00 98.2 F 110 H 26 H 101/53 09/14/23 17:30 117 H 27 H 104/52 09/14/23 17:00 114 H 21 Pulse Ox 09/15/23 16:37 96 09/15/23 11:28 96 09/15/23 08:00 93 L 09/15/23 07:55 93 L 09/15/23 05:33 97 09/15/23 00:00 98 09/14/23 20:55 93 L 09/14/23 20:00 96 09/14/23 19:55 97 09/14/23 19:30 97 09/14/23 19:00 96 09/14/23 18:30 97 09/14/23 18:00 95 09/14/23 17:30 99 09/14/23 17:00 96 Intake and Output 09/15/23 09/15/23 09/15/23 06:59 14:59 22:59 Intake Total 240 150 900 Balance 240 150 900 Intake: Intake, IV Titration 900 Amount Sodium Chloride 0.9% 1, 900 000 ml @ 75 mls/hr IV . [id number] [facility] Rx#:[id number] Oral 240 150 Other: Voiding Method CAPD CAPD External Catheter # Voids 0 Weight 84.5 kg Results 09/15/23 07:54 09/15/23 07:54 Cardiac Enzymes 09/15/23 09/15/23 Range/Units 07:54 07:54 AST 29 (17-59) U/L Troponin I 0.350 H* (0.000-0.034) ng/mL CBC 09/15/23 Range/Units 07:54 WBC 13.7 H (3.8-10.6) k/uL RBC 3.52 L (4.30-5.90) m/uL Hgb 10.7 L (13.0-17.5) gm/dL Hct 33.9 L (39.0-53.0) % Plt Count 236 (150-450) k/uL Comprehensive Metabolic Panel 09/15/23 Range/Units 07:54 Sodium 132 L (137-145) mmol/L Potassium 3.4 L (3.5-5.1) mmol/L Chloride 96 L (98-107) mmol/L Carbon Dioxide 25 (22-30) mmol/L BUN 87 H (9-20) mg/dL Creatinine 6.20 H (0.66-1.25) mg/dL Glucose 223 H (74-99) mg/dL Calcium 6.7 L (8.4-10.2) mg/dL AST 29 (17-59) U/L ALT 21 (4-49) U/L Alkaline Phosphatase 156 H (38-126) U/L Total Protein 4.4 L (6.3-8.2) g/dL Albumin 2.1 L (3.5-5.0) g/dL Current Medications Generic Name Dose Route Start Last Admin Trade Name Freq PRN Reason Stop Dose Admin Albuterol Sulfate 2.5 mg 09/12/23 17:53 Albuterol Nebulized 2.5 Mg/3 Ml INHALATION RT-Q4H PRN Shortness Of Breath Allopurinol 100 mg 09/13/23 09:00 09/15/23 08:42 Allopurinol 100 Mg Tab PO 100 mg DAILY NESTOR Administration Alprazolam 0.25 mg 09/12/23 17:53 Alprazolam 0.25 Mg Tab PO DAILY PRN Anxiety Aspirin 81 mg 09/12/23 21:00 09/14/23 20:56 Aspirin 81 Mg PO 81 mg HS NESTOR Administration Atorvastatin Calcium 10 mg 09/12/23 21:00 09/14/23 20:56 Atorvastatin 10 Mg Tab PO 10 mg HS NESTOR Administration Calcitriol 0.25 mcg 09/28/23 09:00 Calcitriol 0.25 Mcg Cap PO Q14D NESTOR Calcium Acetate 667 mg 09/12/23 19:04 Calcium Acetate 667 Mg Tab PO DAILY PRN W/SNACK Calcium Acetate 1,334 mg 09/13/23 07:30 09/15/23 06:46 Calcium Acetate 667 Mg Tab PO 1,334 mg W/BRKFST [facility] Administration Calcium Acetate 2,001 mg 09/13/23 17:30 09/14/23 18:03 Calcium Acetate 667 Mg Tab PO 2,001 mg W/SUPPER [facility] Administration Clonidine 0.05 mg 09/14/23 07:47 Clonidine Hcl 0.1 Mg Tab PO BID-W/MEALS PRN SBP <125 Docusate Sodium 100 mg 09/13/23 07:30 09/15/23 06:46 Docusate 100 Mg Cap PO 100 mg W/BRKFST NESTOR Administration Ergocalciferol 1,250 mcg 09/15/23 09:00 09/15/23 08:42 Ergocalciferol 1,250 Mcg (50,000 Iu) Capsule PO 1,250 mcg PERALTA NESTOR Administration Ferrous Sulfate 325 mg 09/13/23 17:00 09/14/23 18:02 Ferrous Sulfate 325 Mg Tab PO 325 mg DAILY@1700 [facility] Administration Furosemide 40 mg 09/13/23 09:00 09/15/23 13:22 Furosemide 40 Mg Tab PO Not Given BID@0900,1600 [facility] Peritoneal Dialysis Solution 37.5 g in 2,500 mls @ 0 mls/hr 09/13/23 00:45 09/15/23 12:18 Delflex With 1.5% Dextrose (2,500 Ml) INTRAPERIT 37.5 mls/hr Q6HR NESTOR Administration Protocol As Directed Sodium Chloride 1,000 mls @ 75 mls/hr 09/14/23 13:45 09/15/23 12:32 Saline 0.9% IV 75 mls/hr .[id number] NESTOR Administration Insulin Aspart 0 unit 09/12/23 21:00 09/15/23 12:31 Insulin Aspart (Novolog) 100 Unit/Ml Vial SQ 2 unit ACHS NESTOR Administration Protocol Isosorbide Mononitrate 30 mg 09/13/23 09:00 09/15/23 08:41 Isosorbide Mononitrate Er 30 Mg Tab.Er.24h PO 30 mg DAILY NESTOR Administration Lactulose 10 gm 09/12/23 19:04 Lactulose 20 Gm/30 Ml Cup PO BID PRN Constipation Metoprolol Succinate 25 mg 09/15/23 16:00 Metoprolol Succinate (Er) 25 Mg Tab.Er.24h PO DAILY [facility] Multivitamins 1 each 09/13/23 17:00 09/14/23 18:03 Multivitamins, Thera 1 Each Tab PO 1 each DAILY@1700 NESTOR Administration Pantoprazole Sodium 40 mg 09/12/23 17:53 Pantoprazole 40 Mg Tablet PO DAILY PRN Heartburn Prednisolone Acetate 1 drops 09/15/23 09:00 09/15/23 12:31 Prednisolone Acetate 1% Ophth Drops 5 Ml Btl RIGHT EYE 1 drops PERALTA NESTOR Administration Quetiapine Fumarate 50 mg 09/12/23 21:00 09/14/23 20:56 Quetiapine 50 Mg Tab PO 50 mg HS NESTOR Administration Senna/Docusate Sodium 1 each 09/12/23 21:00 09/14/23 20:56 Sennosides-Docusate Sodium 1 Each Tab PO 1 each HS NESTOR Administration Sertraline HCl 150 mg 09/13/23 09:00 09/15/23 08:41 Sertraline 100 Mg Tab PO 150 mg DAILY NESTOR Administration Sodium Bicarbonate 650 mg 09/13/23 07:30 09/15/23 06:46 Sodium Bicarbonate Tab 650 Mg Tab PO 650 mg BID-W/MEALS NESTOR Administration Tamsulosin HCl 0.4 mg 09/13/23 09:00 09/15/23 08:42 Tamsulosin 0.4 Mg Cap.Er.24h PO 0.4 mg DAILY NESTOR Administration Intake and Output 09/15/23 09/15/23 09/15/23 06:59 14:59 22:59 Intake Total 240 150 900 Balance 240 150 900 Intake: Intake, IV Titration 900 Amount Sodium Chloride 0.9% 1, 900 000 ml @ 75 mls/hr IV . [id number] NESTOR Rx#:[id number] Oral 240 150 Other: Voiding Method CAPD CAPD External Catheter # Voids 0 Weight 84.5 kg 09/15/23 07:54 09/15/23 07:54
[2023-09-15] MEDS: HEPARIN SODIUM 1,000 UN/ML (10ML VL) IV ONE (16:56)
[2023-09-15] MEDS: HEPARIN SOD,PORK IN 0.45% NACL 25,000 UNIT in 0.45% NACL 1 250ML.BAG IV SCH (16:58)
[2023-09-15 17:38] LABS: Basophils % (A) 0 %; Eosinophils # (A) 0.1 k/uL (0-0.7); Eosinophils % (A) 1 %; HCT 33.8 % (39.0-53.0); HGB 10.6 gm/dL (13.0-17.5); Lymphocytes # (A) 0.7 k/uL (1.0-4.8); Lymphocytes % (A) 5 %; MCH 30.7 pg (25.0-35.0); MCHC 31.3 g/dL (31.0-37.0); MCV 98.1 fL (80.0-100.0); Mean Platelet Volume 8.2; Monocytes # (A) 0.7 k/uL (0-1.0); Monocytes % (A) 5 %; Neutrophils # (A) 11.8 k/uL (1.3-7.7); Neutrophils % (A) 89 %; Platelet Count 236 k/uL (150-450); RBC 3.45 m/uL (4.30-5.90); RDW 14.9 % (11.5-15.5); WBC 13.4 k/uL (3.8-10.6)
[2023-09-15 17:59] LABS: Prothrombin Time 19.8 sec (10.0-12.5)
[2023-09-15 18:14] LABS: Partial Thromboplastin Time >200.0 sec (22.0-30.0)
[2023-09-15] MEDS: METOPROLOL SUCCINATE (ER) 25 MG TAB.ER.24H PO SCH (19:07)
[2023-09-15 20:15] LABS: Glucose,Whole Blood 231 mg/dL (70-110)
[2023-09-16] MEDS: MIDODRINE 5 MG TAB PO SCH (00:12)
[2023-09-16 06:06] LABS: Glucose,Whole Blood 171 mg/dL (70-110)
--- NOTE | 2023-09-16 07:57 | P.PN ---
Subjective Progress Note Date: 09/16/23 HISTORY OF PRESENT ILLNESS: 88-year-old office patient with active medical history of coronary artery disease, COPD, type 2 diabetes, severe GERD, chronic anemia, hypertension, hyp erlipidemia, history of pulmonary fibrosis, history of aortic stenosis with TAVR back in 2021, history of PAD, chronic kidney disease with end-stage kidney disease on PD with seen nephrology on more regular basis also had chronic history of PVD with venous ulcer and wound on both legs. Chronic edema and anasarca. He presented to the emergency department at [facility] today with abdominal discomfort with intractable nausea and vomiting for the last 4 days not able to stop not able to eat or drink has been having persistent symptoms. His vomiting bile and darker secretion some of it sometimes undigested food. He denies any difficulty in breathing. Still doing his PD on time without any difficulty but has been slightly bit more painful and discomfort. Workup in the ER shows normal white blood cell with hemoglobin of 12.9, his lactic acid of 2.7 and dropped down to 1.4 after treatment. Kidney function with bun of 88 creatinine of 6.91 as a typical for end-stage renal disease. Suspicion for bowel obstruction ended up having CAT scan of the abdomen and pelvis which shows small bowel obstruction secondary to incarcerated hernia in the umbilical region with strangulation is not excluded as there is surrounding fluid dilated loop of bowel measure up to 4.1 cm with scattered air-fluid level seen. Apparently Dr. Sanchez was called with the current symptoms he believes he can fix his umbilical hernia and release part of the obstruction at this point. Patient will be kept n.p.o. admit to the hospital hydrated consult nephrology have him continue his PD dialysis and time till the procedure is done. 09/13/2023: He is feeling slightly better, not throwing up anymore at this point apparently general surgery has seen patient will decide on further management whether any surgery or not in the meanwhile allow him to continue resume peritoneal dialysis. Patient remain NPO. Nephrology also had seen patient and still the surgery decision is made patient can be continued on PD to send PD fluid for Gram stain and culture his blood pressure remain little bit low continue supportive care on it. Otherwise blood sugars are running slightly bit low specially while he is n.p.o. we might readjust his medication his vitals beside the blood pressure being slightly bit low sometimes has been good including oxygenation up to 96% on 2 L. 09/14/2023: Still having small bowel obstruction which has not been resolved not having any nausea or vomiting still holding diet at this point till he is evaluated again by general surgery. Had flat abdominal x-ray today result compatible with increase gaseous distention of multiple small bowel loops compared with the prior CAT scan again consistent with small bowel obstruction and this was shown to be due to possible strangulating umbilical region hernia. I am not clear again what she will hold off from doing surgery patient remain to do CAPD dialysis and tolerating it well but is not able to eat or drink. Blood pressure and vitals are marginal, had episode of hypotension, Earlier had to call a team was evaluated and is doing slightly better. 09/15/2023: Will continue peritoneal dialysis patient had quite a bit change yesterday consistent with decreased responsiveness and slightly with worsening abdominal pain but is slightly better today his PD fluid was sent for analysis for peritonitis. He was started on clear liquid diet but patient is not able to tolerate it well. Patient was seen by surgical coverage yesterday and still no plan for intervention or surgery. Abdominal x-ray came with the same findings still showing quite good obstruction with strangulated umbilical region hernia. He is in A-fib with rapid ventricular response yesterday pulse rate was up to 126 bpm his pulse since then down in the 80s and 90s. He is to my knowledge has A-fib and has been seeing cardiology regularly will consult cardiology repeat another EKG today. Dr Monge seen patient this morning he is quite bit distended there is a another CAT scan ordered for tomorrow patient be kept n.p.o. and prepare for finding out if we have to do surgery tomorrow. I spoke with the in detail at the time was going on and with to daughter will be talking to Dr. Monge to make a decision on other management because patient probably will end up on hemodialysis not PD dialysis anymore which might change their life and he might still end up in a prison rehab initially. 09/16/2023: He is feeling better than yesterday day before still have n.p.o. at this point till he is small bowel series done. He is not throwing up his distention has improved some. After his test will be seen About and decide whether we need to do surgical intervention for his incarcerated hernia he is to go without surgery. Still the biggest dilemma whether he is going to be able to maintain his PD dialysis or continue to go on hemodialysis. Patient is more alert awake and he is less symptomatic for sure today. REVIEW OF SYSTEMS: CONSTITUTIONAL: Well-developed no acute respiratory distress. EYES: No icterus sclerae, no conjunctivitis. EARS, NOSE, MOUTH, THROAT, and FACE: No sore throat, lymphadenopathy, carotid bruits or deformity. RESPIRATORY: Positive slight shortness of breath no cough or wheezes. CARDIOVASCULAR: Positive PND orthopnea palpitation no angina. GASTROINTESTINAL: Significant abdominal discomfort with distention with hyper bowel with positive bowel sounds slight tenderness and discomfort in the mid abdominal region area with slight ascites typical for his PD. GENITOURINARY: Negative for Hematuria or UTI, no kidney stones. INTEGUMENT/BREAST: Negative for any muscular injury with mild osteoarthritis.. HEMATOLOGIC/LYMPHATIC: Negative for bleed or purpura. MUSCULOSKELTAL: Negative for Myalgia or arthralgia. NEURLOGICAL: No LOC, Sz or syncope, blurred vision dizziness or abnormality.. BEHAVIORAL/PSYCH: Negative. ENDOCRINE: Negative. PHYSICAL EXAMINATION: General Appearance: Alert, cooperative, no distress, appears stated age. Neck HEENT: Supple, no lymphadenopathy, no thyroid enlargement, no carotid bruits. Lungs: Decreased breath sound bilaterally with fine rhonchi positive mild expiratory wheezes. Chest Wall: Decreased expansion with deep inspiration no tenderness and no deformity was found on exam, no costochondral pain or discomfort. Heart: Regular rate and rhythm, S1, S2 normal, no murmur, rub or gallop. Back: Symmetric, no curvature, ROM normal, no CVA tenderness. Abdomen: Soft, slight tenderness in the mid abdominal region area in the right upper quadrant area with hyper bowel sound and slight ascites as well with significant tenderness around the umbilical area. Extremities: Extremities normal, atraumatic, no cyanosis or edema. Pulses: 2+ and symmetric. Skin: Skin color, texture, tugor normal, no rashes or lesions. Neurologic: Alert oriented x3 cranial nerves II through XII intact, no motor deficit, no abnormal balance or gait. ASSESSMENT AND PLAN: _Severe abdominal pain secondary to obstruction from incarcerated hernia in the umbilical area causing small bowel strangulation with quite distention up to 4.1 cm dilated loop of bowel, he is doing slightly better he is going for another small bowel series today to see the loop of bowel whether he need to go for any surgery or not. He is less symptomatic doing very well. Continue hydration. Symptoms seems to be better. _End-stage renal disease on peritoneal dialysis nephrology decided to continue PD dialysis for now if patient ended up having surgery might need to be transferred into hemodialysis. _New onset of A-fib with rapid ventricular response: Seen cardiology was kept on heparin drip his pulse rates under better control. _Atherosclerotic heart disease with advanced cardiac disease post multiple TN still seeing cardiology will consult cardiology patient is not having any anginal chest pain. _Aortic stenosis post TAVR has been doing well since. Unstable. _Ischemic heart disease with cardiomyopathy, remain on heart failure medication but watching for hypotension. _Type 2 diabetes: He is still running slightly below on Blood sugar is off glimepiride from yesterday but may be the effect still up to 24 hours which is today should not have any hypoglycemia from you on would lower the use of insulin is much as possible with the sliding scales at this point. The patient not going for surgery should probably be on diet today. _Hypertension: Despite the fact being on the clonidine and lisinopril along with isosorbide mononitrate he is running slightly bit low on blood pressure quite using midodrine specially around his PD time. _BPH: With no sign of obstruction still on Flomax patient does not make much urine. _Chronic iron deficiency anemia remain on iron along with Procrit. _COPD: Continue DuoNeb continue supportive oxygen. _Hyperlipidemia: Will resume Mevacor at 40 mg daily. _Hyperuricemia: With no gout flareup lately still on allopurinol 100 mg daily. _Chronic depression anxiety attacks remain on Zoloft 150 mg daily along with Xanax 0.25 mg twice a day as needed and Seroquel 50 mg at bedtime. _Severe GERD/GI prophylaxis: Continue pantoprazole. _DVT prophylaxis: Early mobilization along with knee-high ANGELA hose if needed wi ll use heparin subcutaneous Prognosis: Fair Discussion will be going for small bowel series afterwards decide whether he need to go for surgical intervention to correct his incarcerated hernia or his able to continue PD dialysis and start feeding him and discharge when he is ready. Objective - Vital Signs Vital signs: Vital Signs Temp 97.9 F 09/16/23 02:04 Pulse 93 05/20/24 04:07 Resp 18 09/16/23 04:07 BP 101/60 09/16/23 04:07 Pulse Ox 97 09/16/23 04:07 FiO2 Intake & Output 09/15/23 09/15/23 09/16/23 06:59 18:59 06:59 Intake Total 780 1050 0 Output Total 50 Balance 780 1050 -50 Weight 84.5 kg 87 kg Intake: Intake, IV Titration 900 Amount Sodium Chloride 0.9% 1, 900 000 ml @ 75 mls/hr IV . [id number] [facility] Rx#:[id number] Oral 780 150 0 Output: Urine 50 Other: Voiding Method CAPD CAPD CAPD External Catheter External Catheter # Voids 0 - Labs CBC & Chem 7: 09/15/23 17:07 09/15/23 07:54 Labs: Abnormal Lab Results - Last 24 Hours (Table) 09/15/23 09/15/23 09/15/23 Range/Units 06:16 06:40 07:54 WBC 13.7 H (3.8-10.6) k/uL RBC 3.52 L (4.30-5.90) m/uL Hgb 10.7 L (13.0-17.5) gm/dL Hct 33.9 L (39.0-53.0) % Neutrophils # 11.8 H (1.3-7.7) k/uL Lymphocytes # 0.9 L (1.0-4.8) k/uL PT (10.0-12.5) sec INR (<1.2) APTT (22.0-30.0) sec Sodium (137-145) mmol/L Potassium (3.5-5.1) mmol/L Chloride (98-107) mmol/L BUN (9-20) mg/dL Creatinine (0.66-1.25) mg/dL Glucose (74-99) mg/dL POC Glucose (mg/dL) 65 L 65 L (70-110) mg/dL Calcium (8.4-10.2) mg/dL Alkaline Phosphatase (38-126) U/L Troponin I (0.000-0.034) ng/mL Total Protein (6.3-8.2) g/dL Albumin (3.5-5.0) g/dL 09/15/23 09/15/23 09/15/23 Range/Units 07:54 07:54 08:34 WBC (3.8-10.6) k/uL RBC (4.30-5.90) m/uL Hgb (13.0-17.5) gm/dL Hct (39.0-53.0) % Neutrophils # (1.3-7.7) k/uL Lymphocytes # (1.0-4.8) k/uL PT (10.0-12.5) sec INR (<1.2) APTT (22.0-30.0) sec Sodium 132 L (137-145) mmol/L Potassium 3.4 L (3.5-5.1) mmol/L Chloride 96 L (98-107) mmol/L BUN 87 H (9-20) mg/dL Creatinine 6.20 H (0.66-1.25) mg/dL Glucose 223 H (74-99) mg/dL POC Glucose (mg/dL) 207 H (70-110) mg/dL Calcium 6.7 L (8.4-10.2) mg/dL Alkaline Phosphatase 156 H (38-126) U/L Troponin I 0.350 H* (0.000-0.034) ng/mL Total Protein 4.4 L (6.3-8.2) g/dL Albumin 2.1 L (3.5-5.0) g/dL 09/15/23 09/15/23 09/15/23 Range/Units 11:44 16:28 17:07 WBC 13.4 H (3.8-10.6) k/uL RBC 3.45 L (4.30-5.90) m/uL Hgb 10.6 L (13.0-17.5) gm/dL Hct 33.8 L (39.0-53.0) % Neutrophils # 11.8 H (1.3-7.7) k/uL Lymphocytes # 0.7 L (1.0-4.8) k/uL PT (10.0-12.5) sec INR (<1.2) APTT (22.0-30.0) sec Sodium (137-145) mmol/L Potassium (3.5-5.1) mmol/L Chloride (98-107) mmol/L BUN (9-20) mg/dL Creatinine (0.66-1.25) mg/dL Glucose (74-99) mg/dL POC Glucose (mg/dL) 206 H 234 H (70-110) mg/dL Calcium (8.4-10.2) mg/dL Alkaline Phosphatase (38-126) U/L Troponin I (0.000-0.034) ng/mL Total Protein (6.3-8.2) g/dL Albumin (3.5-5.0) g/dL 09/15/23 09/15/23 09/15/23 Range/Units 17:07 20:14 22:48 WBC (3.8-10.6) k/uL RBC (4.30-5.90) m/uL Hgb (13.0-17.5) gm/dL Hct (39.0-53.0) % Neutrophils # (1.3-7.7) k/uL Lymphocytes # (1.0-4.8) k/uL PT 19.8 H (10.0-12.5) sec INR 2.0 H (<1.2) APTT >200.0 H* 56.3 H (22.0-30.0) sec Sodium (137-145) mmol/L Potassium (3.5-5.1) mmol/L Chloride (98-107) mmol/L BUN (9-20) mg/dL Creatinine (0.66-1.25) mg/dL Glucose (74-99) mg/dL POC Glucose (mg/dL) 231 H (70-110) mg/dL Calcium (8.4-10.2) mg/dL Alkaline Phosphatase (38-126) U/L Troponin I (0.000-0.034) ng/mL Total Protein (6.3-8.2) g/dL Albumin (3.5-5.0) g/dL Microbiology - Last 24 Hours (Table) 09/14/23 13:20 Body Fluid Culture - Preliminary Dialysate 09/12/23 15:40 Blood Culture - Preliminary Blood 09/12/23 15:30 Blood Culture - Preliminary Blood
--- NOTE | 2023-09-16 10:57 | FL ---
EXAMINATION TYPE: FL small bowel follow through DATE OF EXAM: 09/16/2023 10:48 AM COMPARISON: 09/12/2023 INDICATION: Patient age:Male; 88 years old; Reason for study: Gastroview, small bowel obstruction; TECHNIQUE: The procedure was explained and patient history elicited. All patient questions were ans wered prior to start of procedure. A cut off saw tender metal radiograph of the abdomen was also reviewed. The patient was asked to ingest liquid Gastrografin and incremental frontal abdominal radiographs were then taken until contrast was visualized in the cecum. Fluoroscopic time: 0 min Fluoroscopic images: 0 Radiographs taken: 6 DAP: None [id number] FINDINGS: The cut off saw tender metal abdominal radiograph demonstrates a normal bowel gas pattern without dilated loops of small or large bowel. There is no evidence of organomegaly or pneumoperitoneum. No abnormal calcifications . The visualized osseous structures are intact. Left hip arthroplasty changes. There is gastroesophag eal reflux. Aortic stent graft present. Evaluation limited due to patient body habitus. Contrast is seen extending from the duodenojejunal ju nction into the cecum after 90 minutes, which is within the expected time period. The small bowel fo llows normal distribution and contour without any evidence of extraluminal or intraluminal irregulari ty. There is no displacement of bowel loops or extraluminal extravasation of contrast material. Smal l bowel mucosal folds are felt to be within normal limits. IMPRESSION: 1. No evidence for bowel junction. 2. Large gastroesophageal reflux.
[2023-09-16 11:34] LABS: Glucose,Whole Blood 140 mg/dL (70-110)
--- NOTE | 2023-09-16 11:36 | P.PN ---
Subjective Patient is seen in follow-up for end-stage renal disease. Maintained on peritoneal dialysis. No problems with PD exchanges. Had a large bowel movement today. Vital signs are stable. General: No acute distress. HEENT: Head exam is unremarkable. LUNGS: No audible rhonchi or wheezes. HEART: Rate and Rhythm are regular. ABDOMEN: Generalized tenderness present. Distention noted. EXTREMITITES: No edema. Objective - Vital Signs Vital signs: Vital Signs Temp 97.8 F 09/16/23 08:10 Pulse 76 09/16/23 08:10 Resp 18 09/16/23 08:10 BP 106/66 09/16/23 08:10 Pulse Ox 95 09/16/23 08:21 FiO2 Intake & Output 09/15/23 09/16/23 09/16/23 18:59 06:59 18:59 Intake Total 1050 0 152.198 Output Total 50 Balance 1050 -50 152.198 Weight 87 kg Intake: Intake, IV Titration 900 152.198 Amount Heparin Sod,Pork in 0.45% 152.198 NaCl 25,000 unit In 0.45 % NaCl 1 250ml.bag @ 11. 85 UNITS/KG/HR 10.013 mls /hr IV .Q24H [facility] Rx#: [id number] Sodium Chloride 0.9% 1, 900 000 ml @ 75 mls/hr IV . [id number] [facility] Rx#:[id number] Oral 150 0 Output: Urine 50 Other: Voiding Method CAPD CAPD CAPD External Catheter External Catheter External Catheter - Labs CBC & Chem 7: 09/15/23 17:07 09/15/23 07:54 Labs: Abnormal Lab Results - Last 24 Hours (Table) 09/15/23 09/15/23 09/15/23 Range/Units 11:44 16:28 17:07 WBC 13.4 H (3.8-10.6) k/uL RBC 3.45 L (4.30-5.90) m/uL Hgb 10.6 L (13.0-17.5) gm/dL Hct 33.8 L (39.0-53.0) % Neutrophils # 11.8 H (1.3-7.7) k/uL Lymphocytes # 0.7 L (1.0-4.8) k/uL PT (10.0-12.5) sec INR (<1.2) APTT (22.0-30.0) sec POC Glucose (mg/dL) 206 H 234 H (70-110) mg/dL 09/15/23 09/15/23 09/15/23 Range/Units 17:07 20:14 22:48 WBC (3.8-10.6) k/uL RBC (4.30-5.90) m/uL Hgb (13.0-17.5) gm/dL Hct (39.0-53.0) % Neutrophils # (1.3-7.7) k/uL Lymphocytes # (1.0-4.8) k/uL PT 19.8 H (10.0-12.5) sec INR 2.0 H (<1.2) APTT >200.0 H* 56.3 H (22.0-30.0) sec POC Glucose (mg/dL) 231 H (70-110) mg/dL 09/16/23 Range/Units 06:05 WBC (3.8-10.6) k/uL RBC (4.30-5.90) m/uL Hgb (13.0-17.5) gm/dL Hct (39.0-53.0) % Neutrophils # (1.3-7.7) k/uL Lymphocytes # (1.0-4.8) k/uL PT (10.0-12.5) sec INR (<1.2) APTT (22.0-30.0) sec POC Glucose (mg/dL) 171 H (70-110) mg/dL Microbiology - Last 24 Hours (Table) 09/14/23 13:20 Gram Stain - Preliminary Dialysate Body Fluid Culture - Preliminary 09/12/23 15:40 Blood Culture - Preliminary Blood 09/12/23 15:30 Blood Culture - Preliminary Blood Assessment and Plan Plan: Assessment: 1. End-stage renal disease maintained on peritoneal dialysis. 2. Small bowel obstruction. Surgery following. 3. Chronic kidney disease mineral bone disease maintained on PhosLo and calcitriol. Currently NPO. 4. A-fib. Heart rate controlled. On IV heparin. Plan: Maintain current PD exchanges. Patient does not wish to do hemodialysis which would be needed if patient wants to go to rehab facility.
[2023-09-16 11:39] LABS: INR 1.4 (<1.2); Prothrombin Time 14.4 sec (10.0-12.5)
[2023-09-16 12:20] LABS: Basophils % (A) 0 %; Eosinophils # (A) 0.1 k/uL (0-0.7); Eosinophils % (A) 1 %; HCT 34.4 % (39.0-53.0); HGB 10.8 gm/dL (13.0-17.5); Lymphocytes # (A) 1.1 k/uL (1.0-4.8); Lymphocytes % (A) 9 %; MCH 30.7 pg (25.0-35.0); MCHC 31.4 g/dL (31.0-37.0); MCV 97.5 fL (80.0-100.0); Mean Platelet Volume 7.9; Monocytes # (A) 0.5 k/uL (0-1.0); Monocytes % (A) 4 %; Neutrophils # (A) 10.4 k/uL (1.3-7.7); Neutrophils % (A) 85 %; Platelet Count 287 k/uL (150-450); RBC 3.53 m/uL (4.30-5.90); RDW 14.7 % (11.5-15.5); WBC 12.3 k/uL (3.8-10.6)
--- NOTE | 2023-09-16 14:00 | P.PN ---
Subjective Progress Note Date: 09/16/23 HISTORY OF PRESENTING ILLNESS 88-year-old with past medical history of CAD, COPD, type 2 diabetes, severe GERD, anemia, hypertension, dyslipidemia, pulmonary fibrosis, history of TAVR in 2021. History of PAD, CKD ESRD on peritoneal dialysis. He has chronic venous ulcer on bilateral lower extremity. Chronic edema and anasarca. He presented to the hospital because of abdominal discomfort, intractable nausea vomiting. EKG from yesterday shows atrial fibrillation with plan for septal MO, heart rate 120. Hb 10, creatinine 6.2, elevated trop due to poor renal clearance 09/15 Patient underwent small bowel follow-through today. He is currently in sinus rhythm. Heart rate is controlled. Blood pressure 111/62, pulse ox 96% on 3 L nasal cannula. Repeat blood work reveals hemoglobin 10.8. INR 1.4. Stool for occult blood positive. He is currently on a heparin drip and has been started on Toprol XL. Echocardiogram is pending. PHYSICAL EXAMINATION Vital signs reviewed. BP 110/60, HR 80-90 sinsu PVCS Neck: no jugular venous distention. Lungs: Reduced air entry bilateral lung lafleur Heart: Irregularly irregular, systolic murmur. Abdomen: Distended abdomen Extremities: Chronic venous ulcer bilateral extremity. Chronic edema in bilateral lower extremity Neuro: Alert, oritented, no focal deficits. Detailed neuro exam was not performed. ASSESSMENT Severe abdominal pain due to obstruction from incarcerated hernia in the umbilicus area Nausea and vomiting New onset atrial fibrillation, currently sinus rhythm with PVCs elevated trop due to poor renal clearance ESRD on peritoneal dialysis, may need to switch to hemodialysis CAD with multiple PCI in the past S/p TAVR Ischemic cardiomyopathy Type II Diabetes Hypertension PLAN Patient is currently in sinus rhythm. Patient has a tendency of getting bradycardic. Patient is on clonidine for his hypertension. When beta-angel presented his heart rate dropped. Continue metoprolol succinate 25 mg daily Continue aspirin, atorvastatin Patient is n.p.o. at this time. Continue patient on IV heparin drip, in case of any surgical procedure, hold IV heparin drip 4 hours prior to the procedure. Plan to start NOAC following surgery or once cleared by general surgery. Obtained echocardiogram Nurse practitioner note has been reviewed, I agree with documented findings and plan of care. Patient was seen and examined. Objective - Vital Signs Vital signs: Vital Signs Temp 97.8 F 09/16/23 08:10 Pulse 67 09/16/23 11:20 Resp 20 09/16/23 11:20 BP 111/62 09/16/23 11:20 Pulse Ox 96 09/16/23 11:20 FiO2 Intake & Output 09/15/23 09/16/23 09/16/23 18:59 06:59 18:59 Intake Total 1050 0 152.198 Output Total 50 Balance 1050 -50 152.198 Weight 87 kg Intake: Intake, IV Titration 900 152.198 Amount Heparin Sod,Pork in 0.45% 152.198 NaCl 25,000 unit In 0.45 % NaCl 1 250ml.bag @ 11. 85 UNITS/KG/HR 10.013 mls /hr IV .Q24H [facility] Rx#: [id number] Sodium Chloride 0.9% 1, 900 000 ml @ 75 mls/hr IV . [id number] [facility] Rx#:[id number] Oral 150 0 Output: Urine 50 Other: Voiding Method CAPD CAPD CAPD External Catheter External Catheter External Catheter # Bowel Movements 1 - Labs CBC & Chem 7: 09/16/23 10:40 09/15/23 07:54 Labs: Abnormal Lab Results - Last 24 Hours (Table) 09/15/23 09/15/23 09/15/23 Range/Units 16:28 17:07 17:07 WBC 13.4 H (3.8-10.6) k/uL RBC 3.45 L (4.30-5.90) m/uL Hgb 10.6 L (13.0-17.5) gm/dL Hct 33.8 L (39.0-53.0) % Neutrophils # 11.8 H (1.3-7.7) k/uL Lymphocytes # 0.7 L (1.0-4.8) k/uL PT 19.8 H (10.0-12.5) sec INR 2.0 H (<1.2) APTT >200.0 H* (22.0-30.0) sec POC Glucose (mg/dL) 234 H (70-110) mg/dL 09/15/23 09/15/23 09/16/23 Range/Units 20:14 22:48 06:05 WBC (3.8-10.6) k/uL RBC (4.30-5.90) m/uL Hgb (13.0-17.5) gm/dL Hct (39.0-53.0) % Neutrophils # (1.3-7.7) k/uL Lymphocytes # (1.0-4.8) k/uL PT (10.0-12.5) sec INR (<1.2) APTT 56.3 H (22.0-30.0) sec POC Glucose (mg/dL) 231 H 171 H (70-110) mg/dL 09/16/23 09/16/23 09/16/23 Range/Units 10:40 10:40 11:33 WBC 12.3 H (3.8-10.6) k/uL RBC 3.53 L (4.30-5.90) m/uL Hgb 10.8 L (13.0-17.5) gm/dL Hct 34.4 L (39.0-53.0) % Neutrophils # 10.4 H (1.3-7.7) k/uL Lymphocytes # (1.0-4.8) k/uL PT 14.4 H (10.0-12.5) sec INR 1.4 H (<1.2) APTT (22.0-30.0) sec POC Glucose (mg/dL) 140 H (70-110) mg/dL Microbiology - Last 24 Hours (Table) 09/14/23 13:20 Gram Stain - Preliminary Dialysate Body Fluid Culture - Preliminary 09/12/23 15:40 Blood Culture - Preliminary Blood 09/12/23 15:30 Blood Culture - Preliminary Blood
[2023-09-16 16:59] LABS: Glucose,Whole Blood 208 mg/dL (70-110)
--- NOTE | 2023-09-16 19:42 | P.PN ---
Subjective Progress Note Date: 09/16/23 Principal diagnosis: Small bowel obstruction Patient had his small bowel series today. Results showed no evidence of bowel obstruction at this time. Patient having some bowel movements. Apparently was black in color. I was not able to visualize the actual stools. Does not have any pain currently. PD catheter still being utilized. Objective - Vital Signs Vital signs: Vital Signs Temp 99.8 F H 09/16/23 19:35 Pulse 86 09/16/23 19:35 Resp 18 09/16/23 19:35 BP 113/62 09/16/23 19:35 Pulse Ox 95 09/16/23 19:35 FiO2 Intake & Output 09/16/23 09/16/23 09/17/23 06:59 18:59 06:59 Intake Total 0 1052.198 Output Total 50 Balance -50 1052.198 Weight 87 kg Intake: Intake, IV Titration 1052.198 Amount Heparin Sod,Pork in 0.45% 152.198 NaCl 25,000 unit In 0.45 % NaCl 1 250ml.bag @ 11. 85 UNITS/KG/HR 10.013 mls /hr IV .Q24H [facility] Rx#: [id number] Sodium Chloride 0.9% 1, 900 000 ml @ 75 mls/hr IV . [id number] [facility] Rx#:[id number] Oral 0 Output: Urine 50 Other: Voiding Method CAPD CAPD External Catheter External Catheter # Bowel Movements 1 - Exam Abdomen soft, mild distention, nontender, hernia remains reducible - Labs CBC & Chem 7: 09/16/23 10:40 09/15/23 07:54 Labs: Abnormal Lab Results - Last 24 Hours (Table) 09/15/23 09/15/23 09/16/23 Range/Units 20:14 22:48 06:05 WBC (3.8-10.6) k/uL RBC (4.30-5.90) m/uL Hgb (13.0-17.5) gm/dL Hct (39.0-53.0) % Neutrophils # (1.3-7.7) k/uL PT (10.0-12.5) sec INR (<1.2) APTT 56.3 H (22.0-30.0) sec POC Glucose (mg/dL) 231 H 171 H (70-110) mg/dL 09/16/23 09/16/23 09/16/23 Range/Units 10:40 10:40 11:33 WBC 12.3 H (3.8-10.6) k/uL RBC 3.53 L (4.30-5.90) m/uL Hgb 10.8 L (13.0-17.5) gm/dL Hct 34.4 L (39.0-53.0) % Neutrophils # 10.4 H (1.3-7.7) k/uL PT 14.4 H (10.0-12.5) sec INR 1.4 H (<1.2) APTT (22.0-30.0) sec POC Glucose (mg/dL) 140 H (70-110) mg/dL 09/16/23 Range/Units 16:57 WBC (3.8-10.6) k/uL RBC (4.30-5.90) m/uL Hgb (13.0-17.5) gm/dL Hct (39.0-53.0) % Neutrophils # (1.3-7.7) k/uL PT (10.0-12.5) sec INR (<1.2) APTT (22.0-30.0) sec POC Glucose (mg/dL) 208 H (70-110) mg/dL Microbiology - Last 24 Hours (Table) 09/14/23 13:20 Gram Stain - Preliminary Dialysate Body Fluid Culture - Preliminary 09/12/23 15:40 Blood Culture - Preliminary Blood 09/12/23 15:30 Blood Culture - Preliminary Blood Assessment and Plan (1) Small bowel obstruction Narrative/Plan: Patient small bowel series today shows no evidence of obstruction. No plans for surgical intervention at this time. Await family decision regarding CODE STATUS. May resume diet. Current Visit: Yes Status: Acute Code(s): K56.609 - UNSP INTESTNL OBST, UNSP TO PARTIAL VERSUS COMPLETE OBST SNOMED Code(s): 246280641
[2023-09-16 20:36] LABS: Glucose,Whole Blood 146 mg/dL (70-110)
[2023-09-17 05:48] LABS: Glucose,Whole Blood 153 mg/dL (70-110)
--- NOTE | 2023-09-17 08:05 | P.PN ---
Subjective Progress Note Date: 09/17/23 HISTORY OF PRESENT ILLNESS: 88-year-old office patient with active medical history of coronary artery disease, COPD, type 2 diabetes, severe GERD, chronic anemia, hypertension, hyp erlipidemia, history of pulmonary fibrosis, history of aortic stenosis with TAVR back in 2021, history of PAD, chronic kidney disease with end-stage kidney disease on PD with seen nephrology on more regular basis also had chronic history of PVD with venous ulcer and wound on both legs. Chronic edema and anasarca. He presented to the emergency department at [facility] today with abdominal discomfort with intractable nausea and vomiting for the last 4 days not able to stop not able to eat or drink has been having persistent symptoms. His vomiting bile and darker secretion some of it sometimes undigested food. He denies any difficulty in breathing. Still doing his PD on time without any difficulty but has been slightly bit more painful and discomfort. Workup in the ER shows normal white blood cell with hemoglobin of 12.9, his lactic acid of 2.7 and dropped down to 1.4 after treatment. Kidney function with bun of 88 creatinine of 6.91 as a typical for end-stage renal disease. Suspicion for bowel obstruction ended up having CAT scan of the abdomen and pelvis which shows small bowel obstruction secondary to incarcerated hernia in the umbilical region with strangulation is not excluded as there is surrounding fluid dilated loop of bowel measure up to 4.1 cm with scattered air-fluid level seen. Apparently Dr. Sanchez was called with the current symptoms he believes he can fix his umbilical hernia and release part of the obstruction at this point. Patient will be kept n.p.o. admit to the hospital hydrated consult nephrology have him continue his PD dialysis and time till the procedure is done. 09/13/2023: He is feeling slightly better, not throwing up anymore at this point apparently general surgery has seen patient will decide on further management whether any surgery or not in the meanwhile allow him to continue resume peritoneal dialysis. Patient remain NPO. Nephrology also had seen patient and still the surgery decision is made patient can be continued on PD to send PD fluid for Gram stain and culture his blood pressure remain little bit low continue supportive care on it. Otherwise blood sugars are running slightly bit low specially while he is n.p.o. we might readjust his medication his vitals beside the blood pressure being slightly bit low sometimes has been good including oxygenation up to 96% on 2 L. 09/14/2023: Still having small bowel obstruction which has not been resolved not having any nausea or vomiting still holding diet at this point till he is evaluated again by general surgery. Had flat abdominal x-ray today result compatible with increase gaseous distention of multiple small bowel loops compared with the prior CAT scan again consistent with small bowel obstruction and this was shown to be due to possible strangulating umbilical region hernia. I am not clear again what she will hold off from doing surgery patient remain to do CAPD dialysis and tolerating it well but is not able to eat or drink. Blood pressure and vitals are marginal, had episode of hypotension, Earlier had to call a team was evaluated and is doing slightly better. 09/15/2023: Will continue peritoneal dialysis patient had quite a bit change yesterday consistent with decreased responsiveness and slightly with worsening abdominal pain but is slightly better today his PD fluid was sent for analysis for peritonitis. He was started on clear liquid diet but patient is not able to tolerate it well. Patient was seen by surgical coverage yesterday and still no plan for intervention or surgery. Abdominal x-ray came with the same findings still showing quite good obstruction with strangulated umbilical region hernia. He is in A-fib with rapid ventricular response yesterday pulse rate was up to 126 bpm his pulse since then down in the 80s and 90s. He is to my knowledge has A-fib and has been seeing cardiology regularly will consult cardiology repeat another EKG today. Dr Monge seen patient this morning he is quite bit distended there is a another CAT scan ordered for tomorrow patient be kept n.p.o. and prepare for finding out if we have to do surgery tomorrow. I spoke with the in detail at the time was going on and with to daughter will be talking to Dr. Monge to make a decision on other management because patient probably will end up on hemodialysis not PD dialysis anymore which might change their life and he might still end up in a snf rehab initially. 09/16/2023: He is feeling better than yesterday day before still have n.p.o. at this point till he is small bowel series done. He is not throwing up his distention has improved some. After his test will be seen About and decide whether we need to do surgical intervention for his incarcerated hernia he is to go without surgery. Still the biggest dilemma whether he is going to be able to maintain his PD dialysis or continue to go on hemodialysis. Patient is more alert awake and he is less symptomatic for sure today. 09/17/2023: Apparently after review is resolved with general surgery despite no s urgery needed at this point continue waiting for family decide what is CODE STATUS and how they can approach this before stopping feeding him. I had long discussion with the family yesterday and the decision at this point was most likely mechanical with the latter hospice to go to the hospice house without arrangement hopefully this can happen sometimes to the ER by tomorrow morning maximum. Based on it probably patient should have food for pleasure and should allow to eat or drink anything 1. Addressed with the family CODE STATUS patient will be changed to DO NOT RESUSCITATE and comfort care only. REVIEW OF SYSTEMS: CONSTITUTIONAL: Well-developed no acute respiratory distress. EYES: No icterus sclerae, no conjunctivitis. EARS, NOSE, MOUTH, THROAT, and FACE: No sore throat, lymphadenopathy, carotid bruits or deformity. RESPIRATORY: Positive slight shortness of breath no cough or wheezes. CARDIOVASCULAR: Positive PND orthopnea palpitation no angina. GASTROINTESTINAL: Significant abdominal discomfort with distention with hyper bowel with positive bowel sounds slight tenderness and discomfort in the mid abdominal region area with slight ascites typical for his PD. GENITOURINARY: Negative for Hematuria or UTI, no kidney stones. INTEGUMENT/BREAST: Negative for any muscular injury with mild osteoarthritis.. HEMATOLOGIC/LYMPHATIC: Negative for bleed or purpura. MUSCULOSKELTAL: Negative for Myalgia or arthralgia. NEURLOGICAL: No LOC, Sz or syncope, blurred vision dizziness or abnormality.. BEHAVIORAL/PSYCH: Negative. ENDOCRINE: Negative. PHYSICAL EXAMINATION: General Appearance: Alert, cooperative, no distress, appears stated age. Neck HEENT: Supple, no lymphadenopathy, no thyroid enlargement, no carotid bruits. Lungs: Decreased breath sound bilaterally with fine rhonchi positive mild expiratory wheezes. Chest Wall: Decreased expansion with deep inspiration no tenderness and no deformity was found on exam, no costochondral pain or discomfort. Heart: Regular rate and rhythm, S1, S2 normal, no murmur, rub or gallop. Back: Symmetric, no curvature, ROM normal, no CVA tenderness. Abdomen: Soft, slight tenderness in the mid abdominal region area in the right upper quadrant area with hyper bowel sound and slight ascites as well with significant tenderness around the umbilical area. Extremities: Extremities normal, atraumatic, no cyanosis or edema. Pulses: 2+ and symmetric. Skin: Skin color, texture, tugor normal, no rashes or lesions. Neurologic: Alert oriented x3 cranial nerves II through XII intact, no motor deficit, no abnormal balance or gait. ASSESSMENT AND PLAN: _Severe abdominal pain secondary to obstruction from incarcerated hernia in the umbilical area causing small bowel strangulation with quite distention up to 4.1 cm dilated loop of bowel, with the last incision with general surgery no surgery required at this point patient apparently on medical management only without having to switch to hemodialysis is not able to do any surgery and general surgery or not interested to do surgery at this point. _End-stage renal disease on peritoneal dialysis patient and family apparently against the idea of having him move into hemodialysis system possible patient wishes before not to be on hemodialysis at all even if become is a temporary for the next few weeks. _New onset of A-fib with rapid ventricular response: Seen cardiology was kept on heparin drip his pulse rates under better control. _Atherosclerotic heart disease with advanced cardiac disease post multiple IN still seeing cardiology will consult cardiology patient is not having any anginal chest pain. _Aortic stenosis post TAVR has been doing well since. Unstable. _Ischemic heart disease with cardiomyopathy, remain on heart failure medication but watching for hypotension. _Type 2 diabetes: He is still running slightly below on Blood sugar is off glimepiride from yesterday but may be the effect still up to 24 hours which is today should not have any hypoglycemia from you on would lower the use of insulin is much as possible with the sliding scales at this point. The patient not going for surgery should probably be on diet today. _Hypertension: Despite the fact being on the clonidine and lisinopril along with isosorbide mononitrate he is running slightly bit low on blood pressure quite using midodrine specially around his PD time. _BPH: With no sign of obstruction still on Flomax patient does not make much urine. _Chronic iron deficiency anemia remain on iron along with Procrit. _COPD: Continue DuoNeb continue supportive oxygen. _Hyperlipidemia: Will resume Mevacor at 40 mg daily. _Hyperuricemia: With no gout flareup lately still on allopurinol 100 mg daily. _Chronic depression anxiety attacks remain on Zoloft 150 mg daily along with Xanax 0.25 mg twice a day as needed and Seroquel 50 mg at bedtime. _Severe GERD/GI prophylaxis: Continue pantoprazole. _DVT prophylaxis: Early mobilization along with knee-high ANGELA hose if needed will use heparin subcutaneous Prognosis: Poor. Discussion Long discussion with the family and general surgery decision is not to do surgery patient will probably go and hospice with comfort care only. Objective - Vital Signs Vital signs: Vital Signs Temp 97.9 F 09/17/23 04:00 Pulse 64 09/17/23 04:00 Resp 17 09/17/23 04:00 BP 132/68 09/17/23 04:00 Pulse Ox 92 L 09/17/23 04:00 FiO2 Intake & Output 09/16/23 09/16/23 09/17/23 06:59 18:59 06:59 Intake Total 0 1052.198 0 Output Total 50 Balance -50 1052.198 0 Weight 87 kg Intake: Intake, IV Titration 1052.198 Amount Heparin Sod,Pork in 0.45% 152.198 NaCl 25,000 unit In 0.45 % NaCl 1 250ml.bag @ 11. 85 UNITS/KG/HR 10.013 mls /hr IV .Q24H [facility] Rx#: [id number] Sodium Chloride 0.9% 1, 900 000 ml @ 75 mls/hr IV . [id number] [facility] Rx#:[id number] Oral 0 0 Output: Urine 50 Other: Voiding Method CAPD CAPD CAPD External Catheter External Catheter External Catheter # Voids 1 # Bowel Movements 1 1 - Labs CBC & Chem 7: 09/16/23 10:40 09/15/23 07:54 Labs: Abnormal Lab Results - Last 24 Hours (Table) 09/16/23 09/16/23 09/16/23 Range/Units 10:40 10:40 11:33 WBC 12.3 H (3.8-10.6) k/uL RBC 3.53 L (4.30-5.90) m/uL Hgb 10.8 L (13.0-17.5) gm/dL Hct 34.4 L (39.0-53.0) % Neutrophils # 10.4 H (1.3-7.7) k/uL PT 14.4 H (10.0-12.5) sec INR 1.4 H (<1.2) POC Glucose (mg/dL) 140 H (70-110) mg/dL 09/16/23 09/16/23 09/17/23 Range/Units 16:57 20:34 05:47 WBC (3.8-10.6) k/uL RBC (4.30-5.90) m/uL Hgb (13.0-17.5) gm/dL Hct (39.0-53.0) % Neutrophils # (1.3-7.7) k/uL PT (10.0-12.5) sec INR (<1.2) POC Glucose (mg/dL) 208 H 146 H 153 H (70-110) mg/dL Microbiology - Last 24 Hours (Table) 09/14/23 13:20 Gram Stain - Preliminary Dialysate Body Fluid Culture - Preliminary
[2023-09-17 11:43] LABS: Glucose,Whole Blood 190 mg/dL (70-110)
--- NOTE | 2023-09-17 12:20 | P.PN ---
Subjective Patient is seen in follow-up for end-stage renal disease. Maintained on peritoneal dialysis. No problems with PD exchanges. Vital signs are stable. General: No acute distress. HEENT: Head exam is unremarkable. LUNGS: No audible rhonchi or wheezes. HEART: Rate and Rhythm are regular. ABDOMEN: Generalized tenderness present. Distention noted. EXTREMITITES: No edema. Objective - Vital Signs Vital signs: Vital Signs Temp 97.8 F 09/17/23 11:22 Pulse 68 09/17/23 12:13 Resp 17 09/17/23 08:50 BP 163/81 09/17/23 12:13 Pulse Ox 98 09/17/23 11:22 FiO2 Intake & Output 09/16/23 09/17/23 09/17/23 18:59 06:59 18:59 Intake Total 1052.198 0 Balance 1052.198 0 Weight 91.5 kg Intake: Intake, IV Titration 1052.198 Amount Heparin Sod,Pork in 0.45% 152.198 NaCl 25,000 unit In 0.45 % NaCl 1 250ml.bag @ 11. 85 UNITS/KG/HR 10.013 mls /hr IV .Q24H [facility] Rx#: [id number] Sodium Chloride 0.9% 1, 900 000 ml @ 75 mls/hr IV . [id number] [facility] Rx#:[id number] Oral 0 Other: Voiding Method CAPD CAPD CAPD External Catheter External Catheter External Catheter # Voids 1 # Bowel Movements 1 1 - Labs CBC & Chem 7: 09/16/23 10:40 09/15/23 07:54 Labs: Abnormal Lab Results - Last 24 Hours (Table) 09/16/23 09/16/23 09/16/23 Range/Units 10:40 16:57 20:34 WBC 12.3 H (3.8-10.6) k/uL RBC 3.53 L (4.30-5.90) m/uL Hgb 10.8 L (13.0-17.5) gm/dL Hct 34.4 L (39.0-53.0) % Neutrophils # 10.4 H (1.3-7.7) k/uL POC Glucose (mg/dL) 208 H 146 H (70-110) mg/dL 09/17/23 09/17/23 Range/Units 05:47 11:41 WBC (3.8-10.6) k/uL RBC (4.30-5.90) m/uL Hgb (13.0-17.5) gm/dL Hct (39.0-53.0) % Neutrophils # (1.3-7.7) k/uL POC Glucose (mg/dL) 153 H 190 H (70-110) mg/dL Microbiology - Last 24 Hours (Table) 09/14/23 13:20 Gram Stain - Preliminary Dialysate Body Fluid Culture - Preliminary Assessment and Plan Plan: Assessment: 1. End-stage renal disease maintained on peritoneal dialysis. 2. Small bowel obstruction. Surgery following. No surgery is planned at this time. 3. Chronic kidney disease mineral bone disease maintained on PhosLo and calcitriol. Currently NPO. 4. A-fib. Heart rate controlled. Plan: Maintain current PD exchanges. Patient does not wish to do hemodialysis which would be needed if patient wants to go to rehab facility. Follow-up echocardiogram. Hospice being considered.
--- NOTE | 2023-09-17 12:21 | P.PN ---
Subjective Progress Note Date: 09/17/23 HISTORY OF PRESENTING ILLNESS 88-year-old with past medical history of CAD, COPD, type 2 diabetes, severe GERD, anemia, hypertension, dyslipidemia, pulmonary fibrosis, history of TAVR in 2021. History of PAD, CKD ESRD on peritoneal dialysis. He has chronic venous ulcer on bilateral lower extremity. Chronic edema and anasarca. He presented to the hospital because of abdominal discomfort, intractable nausea vomiting. EKG from yesterday shows atrial fibrillation with plan for septal NH, heart rate 120. Hb 10, creatinine 6.2, elevated trop due to poor renal clearance 09/15 Patient underwent small bowel follow-through today. He is currently in sinus rhythm. Heart rate is controlled. Blood pressure 111/62, pulse ox 96% on 3 L nasal cannula. Repeat blood work reveals hemoglobin 10.8. INR 1.4. Stool for occult blood positive. He is currently on a heparin drip and has been started on Toprol XL. Echocardiogram is pending. 09/16 Patient is seen today in follow-up. Heparin drip was discontinued as of yesterday as patient had another stool that was alcohol positive and attending was contacted, Dr. Richmond. Heparin drip was discontinued and patient does not appear to be a good candidate for anticoagulation. Telemetry is a sinus rhythm. Blood pressure 133/74, heart rate 65, pulse ox 98% on 4 L nasal cannula. General surgery has no plan for surgical intervention as there was no bowel obstruction found on the small bowel follow-through completed yesterday. Echocardiogram has been obtained and report is pending. PHYSICAL EXAMINATION Vital signs reviewed. BP 110/60, HR 80-90 sinsu PVCS Neck: no jugular venous distention. Lungs: Reduced air entry bilateral lung lafleur Heart: Irregularly irregular, systolic murmur. Abdomen: Distended abdomen Extremities: Chronic venous ulcer bilateral extremity. Chronic edema in bilateral lower extremity Neuro: Alert, oritented, no focal deficits. Detailed neuro exam was not performed. ASSESSMENT Severe abdominal pain due to obstruction from incarcerated hernia in the umbilicus area Nausea and vomiting New onset atrial fibrillation, currently sinus rhythm with PVCs elevated trop due to poor renal clearance ESRD on peritoneal dialysis, may need to switch to hemodialysis CAD with multiple PCI in the past S/p TAVR Ischemic cardiomyopathy Type II Diabetes Hypertension PLAN Continue metoprolol succinate 25 mg daily Continue aspirin, atorvastatin Obtained echocardiogram report Patient has ongoing blood in stool, and thus, does not appear to be a good candidate for anticoagulation at this time. This can be reevaluated on an outpatient basis. Patient will follow-up with Dr. Lauri Kelley in 1 to 2 weeks following discharge. Nurse practitioner note has been reviewed, I agree with documented findings and plan of care. Patient was seen and examined. Objective - Vital Signs Vital signs: Vital Signs Temp 97.9 F 09/17/23 06:40 Pulse 80 09/17/23 06:40 Resp 17 09/17/23 06:40 BP 109/52 09/17/23 06:40 Pulse Ox 99 09/17/23 06:40 FiO2 Intake & Output 09/16/23 09/17/23 09/17/23 18:59 06:59 18:59 Intake Total 1052.198 0 Balance 1052.198 0 Weight 91.5 kg Intake: Intake, IV Titration 1052.198 Amount Heparin Sod,Pork in 0.45% 152.198 NaCl 25,000 unit In 0.45 % NaCl 1 250ml.bag @ 11. 85 UNITS/KG/HR 10.013 mls /hr IV .Q24H [facility] Rx#: [id number] Sodium Chloride 0.9% 1, 900 000 ml @ 75 mls/hr IV . [id number] [facility] Rx#:[id number] Oral 0 Other: Voiding Method CAPD CAPD External Catheter External Catheter # Voids 1 # Bowel Movements 1 1 - Labs CBC & Chem 7: 09/16/23 10:40 09/15/23 07:54 Labs: Abnormal Lab Results - Last 24 Hours (Table) 09/16/23 09/16/23 09/16/23 Range/Units 10:40 10:40 11:33 WBC 12.3 H (3.8-10.6) k/uL RBC 3.53 L (4.30-5.90) m/uL Hgb 10.8 L (13.0-17.5) gm/dL Hct 34.4 L (39.0-53.0) % Neutrophils # 10.4 H (1.3-7.7) k/uL PT 14.4 H (10.0-12.5) sec INR 1.4 H (<1.2) POC Glucose (mg/dL) 140 H (70-110) mg/dL 09/16/23 09/16/23 09/17/23 Range/Units 16:57 20:34 05:47 WBC (3.8-10.6) k/uL RBC (4.30-5.90) m/uL Hgb (13.0-17.5) gm/dL Hct (39.0-53.0) % Neutrophils # (1.3-7.7) k/uL PT (10.0-12.5) sec INR (<1.2) POC Glucose (mg/dL) 208 H 146 H 153 H (70-110) mg/dL Microbiology - Last 24 Hours (Table) 09/14/23 13:20 Gram Stain - Preliminary Dialysate Body Fluid Culture - Preliminary
[2023-09-17] MEDS: ONDANSETRON 4 MG/2 ML VIAL IVP PRN (13:06)
--- NOTE | 2023-09-17 13:23 | CA ---
Transthoracic Echo Report Name: Charles Ríos Age: 88 Gender: M : 1935 Exam Date: 09/16/2023 14:56 Exam Location: [place] [facility] Ht (in): 69 Wt (lb): 186 Ordering Physician: Nikita Newton MD [id number]) Attending/Referring Phys: Furnace Repair Mechanic Lori Pedersen RDCS Procedure CPT: Indications: afib Cardiac Hx: Technical Quality: Fair Contrast 1: Definity Total Dose (mL): 2 Contrast 2: Total Dose (mL): MEASUREMENTS (Male / Female) Normal Values 2D ECHO LV Diastolic Diameter PLAX 3.9 cm 4.2 - 5.9 / 3.9 - 5.3 cm LV Systolic Diameter PLAX 2.3 cm IVS Diastolic Thickness 1.5 cm 0.6 - 1.0 / 0.6 - 0.9 cm LVPW Diastolic Thickness 1.3 cm 0.6 - 1.0 / 0.6 - 0.9 cm LV Relative Wall Thickness 0.7 RV Internal Dim ED PLAX 2.6 cm LVOT Diameter 2.2 cm LA Systolic Diameter LX 4.7 cm 3.0 - 4.0 / 2.7 - 3.8 cm LV Diastolic Volume MOD BP 38.6 cm??? 67 - 155 / 56 - 104 cm??? LV Systolic Volume MOD BP 15.8 cm??? 22 - 58 / 19 - 49 cm??? LV Ejection Fraction MOD BP 59.0 % >= 55 % LV Diastolic Volume MOD 4C 40.3 cm??? LV Systolic Volume MOD 4C 11.3 cm??? LV Ejection Fraction MOD 4C 72.0 % LV Diastolic Length 4C 6.3 cm LV Systolic Length 4C 4.8 cm LV Diastolic Volume MOD 2C 36.0 cm??? LV Systolic Volume MOD 2C 19.4 cm??? LV Ejection Fraction MOD 2C 46.2 % LV Diastolic Length 2C 6.0 cm LV Systolic Length 2C 5.7 cm LA Volume 74.5 cm??? 18 - 58 / 22 - 52 cm??? LA Volume Index 36.5 cm???/m??? 16 - 28 cm???/m??? M-MODE Aortic Root Diameter MM 2.5 cm LA Systolic Diameter MM 5.1 cm LA Ao Ratio MM 2.1 DOPPLER AV Peak Velocity 207.8 cm/s AV Peak Gradient 17.3 mmHg AV Mean Velocity 134.8 cm/s AV Mean Gradient 8.6 mmHg AV Velocity Time Integral 44.8 cm MV Area PHT 2.2 cm??? Mitral E Point Velocity 86.4 cm/s Mitral A Point Velocity 117.1 cm/s Mitral E to A Ratio 0.7 MV Deceleration Time 346.7 ms TR Peak Velocity 272.6 cm/s TR Peak Gradient 29.7 mmHg FINDINGS Left Ventricle Left ventricular ejection fraction is estimated at 55-60 %. Moderately increased septal wall thickness. Normal left ventricular systolic function with no obvious regional wall motion abnormalities. Left ventricular cavity size normal. Right Ventricle Normal right ventricular size and function. Right ventricular systolic pressure within normal limits. Right Atrium Mild right atrial dilatation. Left Atrium Moderately increased left atrial diameter. Moderately increased left atrial volume. Mildly increased left atrial area. Mitral Valve Structurally normal mitral valve. Mild mitral regurgitation. Moderate mitral annular calcification. Aortic Valve Normally functioning bioprosthetic aortic valve without stenosis with a peak velocity of 2 m/s, peak gradient 17 mmHg, mean gradient 8mmHg. No paravalvular aortic regurgitation. Tricuspid Valve Structurally normal tricuspid valve. No tricuspid stenosis. Mild tricuspid regurgitation. Pulmonic Valve Structurally normal pulmonic valve. Trace pulmonic regurgitation. No pulmonic stenosis. Pericardium Pericardial effusion located posteriorly. Aorta Normal size aortic root and proximal ascending aorta. CONCLUSIONS Left ventricular ejection fraction 55-60% Moderate increased left ventricular wall thickness Moderately dilated left atrium Moderate mitral annular calcification Mild mitral regurgitation Normally functioning bioprosthetic aortic valve No paravalvular aortic regurgitation Mild tricuspid regurgitation Previewed by: Dr. Hamilton Jarrett DO (Electronically Signed) Final Date: 17 Sep 2023 13:23
[2023-09-17 13:38] LABS: African American GFR (CKD) 11 (>60 ml/min/1.73 sqM); Anion Gap 12 mmol/L; Blood Urea Nitrogen 94 mg/dL (9-20); Calcium 7.1 mg/dL (8.4-10.2); Carbon Dioxide 24 mmol/L (22-30); Chloride 99 mmol/L (98-107); Glucose 210 mg/dL (74-99); Magnesium 1.6 mg/dL (1.6-2.3); Non-African American GFR(CKD) 10 (>60 ml/min/1.73 sqM); Potassium 3.3 mmol/L (3.5-5.1); Sodium 135 mmol/L (137-145)
[2023-09-17 16:29] LABS: Glucose,Whole Blood 193 mg/dL (70-110)
--- NOTE | 2023-09-17 16:33 | P.PN ---
Subjective Progress Note Date: 09/17/23 CHIEF COMPLAINT: Small bowel obstruction HISTORY OF PRESENT ILLNESS: Patient denies any abdominal pain. He has been having bowel movements. Patient has been undergoing peritoneal dialysis. Family is making decision about [facility]. Afebrile. Cardiology discontinue anticoagulation yesterday due to blood in the stools. PHYSICAL EXAM: VITAL SIGNS: Reviewed. GENERAL: Well-developed in no acute distress. ABDOMEN: Soft. Nondistended. Nontender. Hernia remains reducible NEUROLOGIC: Alert and oriented. Cranial nerves II through XII grossly intact. ASSESSMENT: 1. Small bowel obstruction. Patient had completed small bowel series with no evidence of obstruction. PLAN: -No plans for surgical intervention -Awaiting family decision regarding hospice and comfort care Physician Pants Presser Automatic note has been reviewed by physician. Signing provider agrees with the documented findings, assessment, and plan of care. Objective - Vital Signs Vital signs: Vital Signs Temp 97.8 F 09/17/23 16:00 Pulse 82 09/17/23 16:00 Resp 18 09/17/23 16:00 BP 115/67 09/17/23 16:00 Pulse Ox 97 09/17/23 16:00 FiO2 Intake & Output 09/16/23 09/17/23 09/17/23 18:59 06:59 18:59 Intake Total 1052.198 0 Balance 1052.198 0 Weight 91.5 kg Intake: Intake, IV Titration 1052.198 Amount Heparin Sod,Pork in 0.45% 152.198 NaCl 25,000 unit In 0.45 % NaCl 1 250ml.bag @ 11. 85 UNITS/KG/HR 10.013 mls /hr IV .Q24H [facility] Rx#: [id number] Sodium Chloride 0.9% 1, 900 000 ml @ 75 mls/hr IV . [id number] [facility] Rx#:[id number] Oral 0 Other: Voiding Method CAPD CAPD CAPD External Catheter External Catheter External Catheter # Voids 1 # Bowel Movements 1 1 1 - Labs CBC & Chem 7: 09/16/23 10:40 09/17/23 12:58 Labs: Abnormal Lab Results - Last 24 Hours (Table) 09/16/23 09/16/23 09/17/23 Range/Units 16:57 20:34 05:47 Sodium (137-145) mmol/L Potassium (3.5-5.1) mmol/L BUN (9-20) mg/dL Creatinine (0.66-1.25) mg/dL Glucose (74-99) mg/dL POC Glucose (mg/dL) 208 H 146 H 153 H (70-110) mg/dL Calcium (8.4-10.2) mg/dL 09/17/23 09/17/23 09/17/23 Range/Units 11:41 12:58 16:27 Sodium 135 L (137-145) mmol/L Potassium 3.3 L (3.5-5.1) mmol/L BUN 94 H (9-20) mg/dL Creatinine 4.91 H (0.66-1.25) mg/dL Glucose 210 H (74-99) mg/dL POC Glucose (mg/dL) 190 H 193 H (70-110) mg/dL Calcium 7.1 L (8.4-10.2) mg/dL Microbiology - Last 24 Hours (Table) 09/14/23 13:20 Gram Stain - Preliminary Dialysate Body Fluid Culture - Preliminary
[2023-09-17] MEDS: POTASSIUM CHLORIDE ER 20 MEQ TAB.ER PO STA (17:10)
[2023-09-17] MEDS: MAGNESIUM SULFATE-D5W PMX 1 GM in DEXTROSE/WATER 1 100ML.BAG IVPB SCH (17:12)
[2023-09-17 20:02] LABS: Glucose,Whole Blood 214 mg/dL (70-110)
[2023-09-18 05:07] LABS: Glucose,Whole Blood 194 mg/dL (70-110)
--- NOTE | 2023-09-18 08:43 | P.PN ---
Subjective Progress Note Date: 09/18/23 HISTORY OF PRESENT ILLNESS: 88-year-old office patient with active medical history of coronary artery disease, COPD, type 2 diabetes, severe GERD, chronic anemia, hypertension, hyp erlipidemia, history of pulmonary fibrosis, history of aortic stenosis with TAVR back in 2021, history of PAD, chronic kidney disease with end-stage kidney disease on PD with seen nephrology on more regular basis also had chronic history of PVD with venous ulcer and wound on both legs. Chronic edema and anasarca. He presented to the emergency department at [facility] today with abdominal discomfort with intractable nausea and vomiting for the last 4 days not able to stop not able to eat or drink has been having persistent symptoms. His vomiting bile and darker secretion some of it sometimes undigested food. He denies any difficulty in breathing. Still doing his PD on time without any difficulty but has been slightly bit more painful and discomfort. Workup in the ER shows normal white blood cell with hemoglobin of 12.9, his lactic acid of 2.7 and dropped down to 1.4 after treatment. Kidney function with bun of 88 creatinine of 6.91 as a typical for end-stage renal disease. Suspicion for bowel obstruction ended up having CAT scan of the abdomen and pelvis which shows small bowel obstruction secondary to incarcerated hernia in the umbilical region with strangulation is not excluded as there is surrounding fluid dilated loop of bowel measure up to 4.1 cm with scattered air-fluid level seen. Apparently Dr. Sanchez was called with the current symptoms he believes he can fix his umbilical hernia and release part of the obstruction at this point. Patient will be kept n.p.o. admit to the hospital hydrated consult nephrology have him continue his PD dialysis and time till the procedure is done. 09/13/2023: He is feeling slightly better, not throwing up anymore at this point apparently general surgery has seen patient will decide on further management whether any surgery or not in the meanwhile allow him to continue resume peritoneal dialysis. Patient remain NPO. Nephrology also had seen patient and still the surgery decision is made patient can be continued on PD to send PD fluid for Gram stain and culture his blood pressure remain little bit low continue supportive care on it. Otherwise blood sugars are running slightly bit low specially while he is n.p.o. we might readjust his medication his vitals beside the blood pressure being slightly bit low sometimes has been good including oxygenation up to 96% on 2 L. 09/14/2023: Still having small bowel obstruction which has not been resolved not having any nausea or vomiting still holding diet at this point till he is evaluated again by general surgery. Had flat abdominal x-ray today result compatible with increase gaseous distention of multiple small bowel loops compared with the prior CAT scan again consistent with small bowel obstruction and this was shown to be due to possible strangulating umbilical region hernia. I am not clear again what she will hold off from doing surgery patient remain to do CAPD dialysis and tolerating it well but is not able to eat or drink. Blood pressure and vitals are marginal, had episode of hypotension, Earlier had to call a team was evaluated and is doing slightly better. 09/15/2023: Will continue peritoneal dialysis patient had quite a bit change yesterday consistent with decreased responsiveness and slightly with worsening abdominal pain but is slightly better today his PD fluid was sent for analysis for peritonitis. He was started on clear liquid diet but patient is not able to tolerate it well. Patient was seen by surgical coverage yesterday and still no plan for intervention or surgery. Abdominal x-ray came with the same findings still showing quite good obstruction with strangulated umbilical region hernia. He is in A-fib with rapid ventricular response yesterday pulse rate was up to 126 bpm his pulse since then down in the 80s and 90s. He is to my knowledge has A-fib and has been seeing cardiology regularly will consult cardiology repeat another EKG today. Dr Monge seen patient this morning he is quite bit distended there is a another CAT scan ordered for tomorrow patient be kept n.p.o. and prepare for finding out if we have to do surgery tomorrow. I spoke with the in detail at the time was going on and with to daughter will be talking to Dr. Monge to make a decision on other management because patient probably will end up on hemodialysis not PD dialysis anymore which might change their life and he might still end up in a long-term rehab initially. 09/16/2023: He is feeling better than yesterday day before still have n.p.o. at this point till he is small bowel series done. He is not throwing up his distention has improved some. After his test will be seen About and decide whether we need to do surgical intervention for his incarcerated hernia he is to go without surgery. Still the biggest dilemma whether he is going to be able to maintain his PD dialysis or continue to go on hemodialysis. Patient is more alert awake and he is less symptomatic for sure today. 09/17/2023: Apparently after review is resolved with general surgery despite no s urgery needed at this point continue waiting for family decide what is CODE STATUS and how they can approach this before stopping feeding him. I had long discussion with the family yesterday and the decision at this point was most likely mechanical with the latter hospice to go to the hospice house without arrangement hopefully this can happen sometimes to the ER by tomorrow morning maximum. Based on it probably patient should have food for pleasure and should allow to eat or drink anything 1. Addressed with the family CODE STATUS patient will be changed to DO NOT RESUSCITATE and comfort care only. 09/18/2023: Apparently family has met with hospice yesterday and they are working their deal with the finances and best place for hospice whether to go home or to the hospice house hopefully that decision will be finalized today. In the meanwhile review his small bowel CAD no reason to do any surgical intervention. Patient is extremely weak need rehab but cannot go to long-term rehab without having him to be converted to hemodialysis which patient does not want to do at this point. Patient still having slight sickness in the stomach with fullness pain discomfort nausea without vomiting he is to maintain COPD dialysis at this point no hemodialysis. And family decision is to do hospice and comfort care. REVIEW OF SYSTEMS: CONSTITUTIONAL: Well-developed no acute respiratory distress. EYES: No icterus sclerae, no conjunctivitis. EARS, NOSE, MOUTH, THROAT, and FACE: No sore throat, lymphadenopathy, carotid bruits or deformity. RESPIRATORY: Positive slight shortness of breath no cough or wheezes. CARDIOVASCULAR: Positive PND orthopnea palpitation no angina. GASTROINTESTINAL: Significant abdominal discomfort with distention with hyper bowel with positive bowel sounds slight tenderness and discomfort in the mid abdominal region area with slight ascites typical for his PD. GENITOURINARY: Negative for Hematuria or UTI, no kidney stones. INTEGUMENT/BREAST: Negative for any muscular injury with mild osteoarthritis.. HEMATOLOGIC/LYMPHATIC: Negative for bleed or purpura. MUSCULOSKELTAL: Negative for Myalgia or arthralgia. NEURLOGICAL: No LOC, Sz or syncope, blurred vision dizziness or abnormality.. BEHAVIORAL/PSYCH: Negative. ENDOCRINE: Negative. PHYSICAL EXAMINATION: General Appearance: Alert, cooperative, no distress, appears stated age. Neck HEENT: Supple, no lymphadenopathy, no thyroid enlargement, no carotid br uits. Lungs: Decreased breath sound bilaterally with fine rhonchi positive mild expiratory wheezes. Chest Wall: Decreased expansion with deep inspiration no tenderness and no deformity was found on exam, no costochondral pain or discomfort. Heart: Regular rate and rhythm, S1, S2 normal, no murmur, rub or gallop. Back: Symmetric, no curvature, ROM normal, no CVA tenderness. Abdomen: Soft, slight tenderness in the mid abdominal region area in the right upper quadrant area with hyper bowel sound and slight ascites as well with significant tenderness around the umbilical area. Extremities: Extremities normal, atraumatic, no cyanosis or edema. Pulses: 2+ and symmetric. Skin: Skin color, texture, tugor normal, no rashes or lesions. Neurologic: Alert oriented x3 cranial nerves II through XII intact, no motor deficit, no abnormal balance or gait. ASSESSMENT AND PLAN: _Severe abdominal pain secondary to obstruction from incarcerated hernia in the umbilical area causing small bowel strangulation with quite distention up to 4.1 cm dilated loop of bowel, with the last incision with general surgery no surgery required at this point patient apparently on medical management only without having to switch to hemodialysis is not able to do any surgery and general surg moira or not interested to do surgery at this point. _End-stage renal disease on peritoneal dialysis patient and family apparently against the idea of having him move into hemodialysis system possible patient wishes before not to be on hemodialysis at all even if become is a temporary for the next few weeks. _New onset of A-fib with rapid ventricular response: Seen cardiology was kept on heparin drip his pulse rates under better control. _Atherosclerotic heart disease with advanced cardiac disease post multiple NE still seeing cardiology will consult cardiology patient is not having any angin al chest pain. _Aortic stenosis post TAVR has been doing well since. Unstable. _Ischemic heart disease with cardiomyopathy, remain on heart failure medication but watching for hypotension. _Type 2 diabetes: He is still running slightly below on Blood sugar is off glimepiride from yesterday but may be the effect still up to 24 hours which is today should not have any hypoglycemia from you on would lower the use of insulin is much as possible with the sliding scales at this point. The patient not going for surgery should probably be on diet today. _Hypertension: Despite the fact being on the clonidine and lisinopril along with isosorbide mononitrate he is running slightly bit low on blood pressure quite using midodrine specially around his PD time. _BPH: With no sign of obstruction still on Flomax patient does not make much urine. _Chronic iron deficiency anemia remain on iron along with Procrit. _COPD: Continue DuoNeb continue supportive oxygen. _Hyperlipidemia: Will resume Mevacor at 40 mg daily. _Hyperuricemia: With no gout flareup lately still on allopurinol 100 mg daily. _Chronic depression anxiety attacks remain on Zoloft 150 mg daily along with Xanax 0.25 mg twice a day as needed and Seroquel 50 mg at bedtime. _Severe GERD/GI prophylaxis: Continue pantoprazole. _DVT prophylaxis: Early mobilization along with knee-high ANGELA hose if needed will use heparin subcutaneous Prognosis: Poor. Discussion Long discussion with the family and general surgery decision is not to do surgery patient will probably go and hospice with comfort care only. Apparently family has met with hospice yesterday Objective - Vital Signs Vital signs: Vital Signs Temp 98 F 09/18/23 00:52 Pulse 63 09/18/23 04:00 Resp 17 09/18/23 04:00 BP 119/70 09/18/23 04:00 Pulse Ox 97 09/18/23 04:00 FiO2 Intake & Output 09/17/23 09/17/23 09/18/23 06:59 18:59 06:59 Intake Total 0 Output Total 0 Balance 0 0 Weight 91.5 kg 92.5 kg Intake: Oral 0 Output: Urine 0 Other: Voiding Method CAPD CAPD CAPD External Catheter External Catheter External Catheter # Voids 1 # Bowel Movements 1 1 - Labs CBC & Chem 7: 09/16/23 10:40 09/17/23 12:58 Labs: Abnormal Lab Results - Last 24 Hours (Table) 09/17/23 09/17/23 09/17/23 Range/Units 11:41 12:58 16:27 Sodium 135 L (137-145) mmol/L Potassium 3.3 L (3.5-5.1) mmol/L BUN 94 H (9-20) mg/dL Creatinine 4.91 H (0.66-1.25) mg/dL Glucose 210 H (74-99) mg/dL POC Glucose (mg/dL) 190 H 193 H (70-110) mg/dL Calcium 7.1 L (8.4-10.2) mg/dL 09/17/23 09/18/23 Range/Units 20:01 05:06 Sodium (137-145) mmol/L Potassium (3.5-5.1) mmol/L BUN (9-20) mg/dL Creatinine (0.66-1.25) mg/dL Glucose (74-99) mg/dL POC Glucose (mg/dL) 214 H 194 H (70-110) mg/dL Calcium (8.4-10.2) mg/dL Microbiology - Last 24 Hours (Table) 09/12/23 15:40 Blood Culture - Final Blood 09/12/23 15:30 Blood Culture - Final Blood 09/14/23 13:20 Gram Stain - Preliminary Dialysate Body Fluid Culture - Preliminary
[2023-09-18] MEDS: ALBUTEROL NEBULIZED 2.5 MG/3 ML INHALATION PRN (09:33)
--- NOTE | 2023-09-18 11:16 | P.PN ---
Subjective Patient is seen in follow-up for end-stage renal disease. Maintained on peritoneal dialysis. No problems with PD exchanges. Vital signs are stable. General: No acute distress. HEENT: Head exam is unremarkable. On nasal cannula. LUNGS: No audible rhonchi or wheezes. HEART: Rate and Rhythm are regular. ABDOMEN: Distention noted. EXTREMITITES: No edema. Objective - Vital Signs Vital signs: Vital Signs Temp 97.4 F L 09/18/23 07:34 Pulse 75 09/18/23 07:34 Resp 15 09/18/23 07:34 BP 132/69 09/18/23 07:34 Pulse Ox 100 09/18/23 07:34 FiO2 Intake & Output 09/17/23 09/18/23 09/18/23 18:59 06:59 18:59 Output Total 0 Balance 0 Weight 92.5 kg Output: Urine 0 Other: Voiding Method CAPD CAPD CAPD External Catheter External Catheter External Catheter # Voids 1 # Bowel Movements 1 1 - Labs CBC & Chem 7: 09/16/23 10:40 09/17/23 12:58 Labs: Abnormal Lab Results - Last 24 Hours (Table) 09/17/23 09/17/23 09/17/23 Range/Units 11:41 12:58 16:27 Sodium 135 L (137-145) mmol/L Potassium 3.3 L (3.5-5.1) mmol/L BUN 94 H (9-20) mg/dL Creatinine 4.91 H (0.66-1.25) mg/dL Glucose 210 H (74-99) mg/dL POC Glucose (mg/dL) 190 H 193 H (70-110) mg/dL Calcium 7.1 L (8.4-10.2) mg/dL 09/17/23 09/18/23 Range/Units 20:01 05:06 Sodium (137-145) mmol/L Potassium (3.5-5.1) mmol/L BUN (9-20) mg/dL Creatinine (0.66-1.25) mg/dL Glucose (74-99) mg/dL POC Glucose (mg/dL) 214 H 194 H (70-110) mg/dL Calcium (8.4-10.2) mg/dL Microbiology - Last 24 Hours (Table) 09/12/23 15:40 Blood Culture - Final Blood 09/12/23 15:30 Blood Culture - Final Blood 09/14/23 13:20 Gram Stain - Preliminary Dialysate Body Fluid Culture - Preliminary Assessment and Plan Plan: Assessment: 1. End-stage renal disease maintained on peritoneal dialysis. 2. Small bowel obstruction. Surgery following. No surgery is planned at this time. 3. Chronic kidney disease mineral bone disease maintained on PhosLo and calcitriol. Currently NPO. 4. A-fib. Heart rate controlled. Plan: Maintain current PD exchanges. Preserved ejection fraction noted on echocardiogram. Patient does not wish to do hemodialysis which would be needed if patient wants to go to rehab facility. Awaits hospice.
--- NOTE | 2023-09-18 11:45 | P.DS ---
Providers Date of admission: 09/12/23 17:53 Attending physician: Buzz Richmond Consults: 09/12/23 17:51 Consult Physician Urgent Consulting Provider: Landen Monge Consult Reason/Comments: Small bowel obstruction Do you want consulting provider notified?: Yes Consult Physician Urgent Consulting Provider: Afua Nunn Consult Reason/Comments: Peritoneal dialysis Do you want consulting provider notified?: Yes 09/15/23 07:48 Consult Physician Routine Consulting Provider: Compa Alas Consult Reason/Comments: A Fib, CAD Do you want consulting provider notified?: Yes Primary care physician: [facility] Course: HISTORY OF PRESENT ILLNESS: 88-year-old office patient with active medical history of coronary artery disease, COPD, type 2 diabetes, severe GERD, chronic anemia, hypertension, hyperlipidemia, history of pulmonary fibrosis, history of aortic stenosis with TAVR back in 2021, history of PAD, chronic kidney disease with end-stage kidney disease on PD with seen nephrology on more regular basis also had chronic history of PVD with venous ulcer and wound on both legs. Chronic edema and anasarca. He presented to the emergency department at [facility] today with abdominal discomfort with intractable nausea and vomiting for the last 4 days not able to stop not able to eat or drink has been having persistent symptoms. His vomiting bile and darker secretion some of it sometimes undigested food. He denies any difficulty in breathing. Still doing his PD on time without any difficulty but has been slightly bit more painful and discomfort. Workup in the ER shows normal white blood cell with hemoglobin of 12.9, his lactic acid of 2.7 and dropped down to 1.4 after treatment. Kidney function with bun of 88 creatinine of 6.91 as a typical for end-stage renal disease. Suspicion for bowel obstruction ended up having CAT scan of the abdomen and pelvis which shows small bowel obstruction secondary to incarcerated hernia in the umbilical region with strangulation is not excluded as there is surrounding fluid dilated loop of bowel measure up to 4.1 cm with scattered air-fluid level seen. Apparently Dr. Sanchez was called with the current symptoms he believes he can fix his umbilical hernia and release part of the obstruction at this point. Patient will be kept n.p.o. admit to the hospital hydrated consult nephrology have him continue his PD dialysis and time till the procedure is done. 09/13/2023: He is feeling slightly better, not throwing up anymore at this point apparently general surgery has seen patient will decide on further management whether any surgery or not in the meanwhile allow him to continue resume peritoneal dialysis. Patient remain NPO. Nephrology also had seen patient and still the surgery decision is made patient can be continued on PD to send PD fluid for Gram stain and culture his blood pressure remain little bit low continue supportive care on it. Otherwise blood sugars are running slightly bit low specially while he is n.p.o. we might readjust his medication his vitals beside the blood pressure being slightly bit low sometimes has been good including oxygenation up to 96% on 2 L. 09/14/2023: Still having small bowel obstruction which has not been resolved not having any nausea or vomiting still holding diet at this point till he is e valuated again by general surgery. Had flat abdominal x-ray today result compatible with increase gaseous distention of multiple small bowel loops compared with the prior CAT scan again consistent with small bowel obstruction and this was shown to be due to possible strangulating umbilical region hernia. I am not clear again what she will hold off from doing surgery patient remain to do CAPD dialysis and tolerating it well but is not able to eat or drink. Blood pressure and vitals are marginal, had episode of hypotension, Earlier had to call a team was evaluated and is doing slightly better. 09/15/2023: Will continue peritoneal dialysis patient had quite a bit change yesterday consistent with decreased responsiveness and slightly with worsening abdominal pain but is slightly better today his PD fluid was sent for analysis for peritonitis. He was started on clear liquid diet but patient is not able to tolerate it well. Patient was seen by surgical coverage yesterday and still no plan for intervention or surgery. Abdominal x-ray came with the same findings still showing quite good obstruction with strangulated umbilical region hernia. He is in A-fib with rapid ventricular response yesterday pulse rate was up to 126 bpm his pulse since then down in the 80s and 90s. He is to my knowledge has A-fib and has been seeing cardiology regularly will consult cardiology repeat another EKG today. Dr Monge seen patient this morning he is quite bit distended there is a another CAT scan ordered for tomorrow patient be kept n.p.o. and prepare for finding out if we have to do surgery tomorrow. I spoke with the in detail at the time was going on and with to daughter will be talking to Dr. Monge to make a decision on other management because patient probably will end up on hemodialysis not PD dialysis anymore which might change their life and he might still end up in a [facility] initially. 09/16/2023: He is feeling better than yesterday day before still have n.p.o. at this point till he is small bowel series done. He is not throwing up his distention has improved some. After his test will be seen About and decide whether we need to do surgical intervention for his incarcerated hernia he is to go without surgery. Still the biggest dilemma whether he is going to be able to maintain his PD dialysis or continue to go on hemodialysis. Patient is more alert awake and he is less symptomatic for sure today. 09/17/2023: Apparently after review is resolved with general surgery despite no surgery needed at this point continue waiting for family decide what is CODE STATUS and how they can approach this before stopping feeding him. I had long discussion with the family yesterday and the decision at this point was most likely mechanical with the latter hospice to go to the hospice house without arrangement hopefully this can happen sometimes to the ER by tomorrow morning maximum. Based on it probably patient should have food for pleasure and should allow to eat or drink anything 1. Addressed with the family CODE STATUS patient will be changed to DO NOT RESUSCITATE and comfort care only. 09/18/2023: Apparently family has met with hospice yesterday and they are working their deal with the finances and best place for hospice whether to go home or to the hospice house hopefully that decision will be finalized today. In the meanwhile review his small bowel CAD no reason to do any surgical intervention. Patient is extremely weak need rehab but cannot go to [facility] without having him to be converted to hemodialysis which patient does not want to do at this point. Patient still having slight sickness in the stomach with fullness pain discomfort nausea without vomiting he is to maintain COPD dialysis at this point no hemodialysis. And family decision is to do hospice and comfort care. REVIEW OF SYSTEMS: CONSTITUTIONAL: Well-developed no acute respiratory distress. EYES: No icterus sclerae, no conjunctivitis. EARS, NOSE, MOUTH, THROAT, and FACE: No sore throat, lymphadenopathy, carotid bruits or deformity. RESPIRATORY: Positive slight shortness of breath no cough or wheezes. CARDIOVASCULAR: Positive PND orthopnea palpitation no angina. GASTROINTESTINAL: Significant abdominal discomfort with distention with hyper bowel with positive bowel sounds slight tenderness and discomfort in the mid abdominal region area with slight ascites typical for his PD. GENITOURINARY: Negative for Hematuria or UTI, no kidney stones. INTEGUMENT/BREAST: Negative for any muscular injury with mild osteoarthritis.. HEMATOLOGIC/LYMPHATIC: Negative for bleed or purpura. MUSCULOSKELTAL: Negative for Myalgia or arthralgia. NEURLOGICAL: No LOC, Sz or syncope, blurred vision dizziness or abnormality.. BEHAVIORAL/PSYCH: Negative. ENDOCRINE: Negative. PHYSICAL EXAMINATION: General Appearance: Alert, cooperative, no distress, appears stated age. Neck HEENT: Supple, no lymphadenopathy, no thyroid enlargement, no carotid bruits. Lungs: Decreased breath sound bilaterally with fine rhonchi positive mild expiratory wheezes. Chest Wall: Decreased expansion with deep inspiration no tenderness and no deformity was found on exam, no costochondral pain or discomfort. Heart: Regular rate and rhythm, S1, S2 normal, no murmur, rub or gallop. Back: Symmetric, no curvature, ROM normal, no CVA tenderness. Abdomen: Soft, slight tenderness in the mid abdominal region area in the right upper quadrant area with hyper bowel sound and slight ascites as well with significant tenderness around the umbilical area. Extremities: Extremities normal, atraumatic, no cyanosis or edema. Pulses: 2+ and symmetric. Skin: Skin color, texture, tugor normal, no rashes or lesions. Neurologic: Alert oriented x3 cranial nerves II through XII intact, no motor deficit, no abnormal balance or gait. ASSESSMENT AND PLAN: _Severe abdominal pain secondary to obstruction from incarcerated hernia in the umbilical area causing small bowel strangulation with quite distention up to 4.1 cm dilated loop of bowel, with the last incision with general surgery no surgery required at this point patient apparently on medical management only without having to switch to hemodialysis is not able to do any surgery and general surgery or not interested to do surgery at this point. _End-stage renal disease on peritoneal dialysis patient and family apparently against the idea of having him move into hemodialysis system possible patient wishes before not to be on hemodialysis at all even if become is a temporary for the next few weeks. _New onset of A-fib with rapid ventricular response: Seen cardiology was kept on heparin drip his pulse rates under better control. _Atherosclerotic heart disease with advanced cardiac disease post multiple [place] still seeing cardiology will consult cardiology patient is not having any anginal chest pain. _Aortic stenosis post TAVR has been doing well since. Unstable. _Ischemic heart disease with cardiomyopathy, remain on heart failure medication but watching for hypotension. _Type 2 diabetes: He is still running slightly below on Blood sugar is off glimepiride from yesterday but may be the effect still up to 24 hours which is today should not have any hypoglycemia from you on would lower the use of insulin is much as possible with the sliding scales at this point. The patient not going for surgery should probably be on diet today. _Hypertension: Despite the fact being on the clonidine and lisinopril along with isosorbide mononitrate he is running slightly bit low on blood pressure quite using midodrine specially around his PD time. _BPH: With no sign of obstruction still on Flomax patient does not make much urine. _Chronic iron deficiency anemia remain on iron along with Procrit. _COPD: Continue DuoNeb continue supportive oxygen. _Hyperlipidemia: Will resume Mevacor at 40 mg daily. _Hyperuricemia: With no gout flareup lately still on allopurinol 100 mg daily. _Chronic depression anxiety attacks remain on Zoloft 150 mg daily along with Xanax 0.25 mg twice a day as needed and Seroquel 50 mg at bedtime. _Severe GERD/GI prophylaxis: Continue pantoprazole. _DVT prophylaxis: Early mobilization along with knee-high ANGELA hose if needed will use heparin subcutaneous Prognosis: Poor. Discussion Long discussion with the family and general surgery decision is not to do surgery patient will probably go and hospice with comfort care only. Apparently family has met with hospice yesterday Counseling family in detail about end-of-life and transferring to comfort care and hospice was done on 09/16/2023 and 09/17/2023 and the final decision was to move patient into DO NOT RESUSCITATE and to start comfort care and hospice. Hospital course: Patient was admitted to the hospital on 09/12/2023 with severe abdominal pain found to have small bowel obstruction as band with large hernia internal causing bowel obstruction. The areas around umbilical site patient is on CAPD dialysis at this point neurosurgery took about 3 days to make a decision whether needs surgery or not and [id number] into the dilemma that if he does have surgery and need help need to be switched from PD dialysis into hemodialysis which patient has been against all along. Small bowel series finally was performed on 09/16/2023 and shows no reason to do any intervention. Patient continues to have significant pain, gastroparesis, nausea vomiting and feeling sick to his stomach not able to tolerate any intervention at this point. Also the biggest dilemma if patient goes to rehab or need to go anywhere he need to be converted from PD dialysis into hemodialysis which patient and family are against it at this point. Family finally made decision to have patient go into hospice care and comfort care no further intervention or any aggressive management is going to be done. They met with [facility] and decision probably to do either hospice at home or hospice in the hospice house [facility]. Patient be discharged today. Time spent on patient discharge was over 45 minutes. Plan - Discharge Summary Discharge Rx Participant: No New Discharge Prescriptions: New Metoprolol Succinate (ER) [Toprol XL] 25 mg PO DAILY #30 tab Continue allopurinoL [Zyloprim] 100 mg PO DAILY Lovastatin [Mevacor] 40 mg PO HS Glimepiride [Amaryl] 1 mg PO AC-BRKFST Ergocalciferol (Vitamin D2) [Drisdol (50,000 Iu)] 1,250 mcg PO PERALTA Sertraline HCl [Zoloft] 150 mg PO DAILY prednisoLONE ACETATE 1% OPHTH [Pred Forte 1%] 1 drop RIGHT EYE PERALTA ALPRAZolam [Xanax] 0.25 mg PO DAILY PRN PRN Reason: Anxiety Isosorbide Mononitrate ER [Imdur] 30 mg PO DAILY calcitrioL 0.25 mcg PO Q14D Petrolatum, White [Aquaphor] 1 applic TOPICAL DAILY cloNIDine HCL [Catapres] 0.1 mg PO BID-W/MEALS PRN PRN Reason: SBP <125 EPINEPHrine (Auto Inject) [Epipen] 0.3 mg IM ONCE PRN PRN Reason: Anaphylaxis Calcium Acetate [PhosLo] 667 mg PO DAILY PRN PRN Reason: W/SNACK Calcium Acetate [PhosLo] 2,001 mg PO W/SUPPER lisinopriL [Zestril] 5 mg PO BID Albuterol Sulfate [Albuterol Sulfate Hfa] 2 puff PO RT-Q4H PRN PRN Reason: Shortness Of Breath Aspirin 81 mg PO HS #0 Mv-Min/Folic/K1/Lycopen/Lutein [Centrum Silver Men Tablet] 1 tab PO DAILY@1700 Clopidogrel [Plavix] 75 mg PO DAILY #30 tab hydrALAZINE HCL [Apresoline] 50 mg PO BID tab Docusate [Colace] 100 mg PO W/BRKFST Tamsulosin HCl [Flomax] 0.4 mg PO DAILY Pantoprazole [Protonix] 40 mg PO DAILY PRN PRN Reason: Heartburn Sennosides-Docusate Sodium [Senokot-S] 1 tab PO HS Iron 28mg Tablet 1 tab PO DAILY@1700 QUEtiapine [SEROquel] 50 mg PO HS Ammonium Lactate Cream [Lac-Hydrin 12% Cream] 1 applic TOPICAL BID Sodium Bicarbonate Tab 650 mg PO BID-W/MEALS Furosemide [Lasix] 40 mg PO BID@0900,1600 Lactulose [Constulose] 10 gm PO BID PRN PRN Reason: Constipation Calcium Acetate [PhosLo] 1,334 mg PO W/BRKFST Discharge Medication List Lovastatin [Mevacor] 40 mg PO HS 12/02/14 [History] allopurinoL [Zyloprim] 100 mg PO DAILY 12/02/14 [History] Glimepiride [Amaryl] 1 mg PO AC-BRKFST 11/13/17 [History] Ergocalciferol (Vitamin D2) [Drisdol (50,000 Iu)] 1,250 mcg PO PERALTA 10/05/20 [History] Sertraline HCl [Zoloft] 150 mg PO DAILY 10/05/20 [History] Aspirin 81 mg PO HS #0 10/07/20 [Rx] Mv-Min/Folic/K1/Lycopen/Lutein [Centrum Silver Men Tablet] 1 tab PO DAILY@1700 03/27/21 [History] prednisoLONE ACETATE 1% OPHTH [Pred Forte 1%] 1 drop RIGHT EYE PERALTA 03/27/21 [History] Clopidogrel [Plavix] 75 mg PO DAILY #30 tab 05/25/21 [Rx] hydrALAZINE HCL [Apresoline] 50 mg PO BID tab 12/28/21 [Rx] ALPRAZolam [Xanax] 0.25 mg PO DAILY PRN 08/27/22 [History] Docusate [Colace] 100 mg PO W/BRKFST 08/27/22 [History] Isosorbide Mononitrate ER [Imdur] 30 mg PO DAILY 08/27/22 [History] Pantoprazole [Protonix] 40 mg PO DAILY PRN 08/27/22 [History] Sennosides-Docusate Sodium [Senokot-S] 1 tab PO HS 08/27/22 [History] Tamsulosin HCl [Flomax] 0.4 mg PO DAILY 08/27/22 [History] calcitrioL 0.25 mcg PO Q14D 08/27/22 [History] Albuterol Sulfate [Albuterol Sulfate Hfa] 2 puff PO RT-Q4H PRN 09/12/23 [History] Ammonium Lactate Cream [Lac-Hydrin 12% Cream] 1 applic TOPICAL BID 09/12/23 [History] Calcium Acetate [PhosLo] 1,334 mg PO W/BRKFST 09/12/23 [History] Calcium Acetate [PhosLo] 2,001 mg PO W/SUPPER 09/12/23 [History] Calcium Acetate [PhosLo] 667 mg PO DAILY PRN 09/12/23 [History] EPINEPHrine (Auto Inject) [Epipen] 0.3 mg IM ONCE PRN 09/12/23 [History] Furosemide [Lasix] 40 mg PO BID@0900,1600 09/12/23 [History] Iron 28mg Tablet 1 tab PO DAILY@1700 09/12/23 [History] Lactulose [Constulose] 10 gm PO BID PRN 09/12/23 [History] Petrolatum, White [Aquaphor] 1 applic TOPICAL DAILY 09/12/23 [History] QUEtiapine [SEROquel] 50 mg PO HS 09/12/23 [History] Sodium Bicarbonate Tab 650 mg PO BID-W/MEALS 09/12/23 [History] cloNIDine HCL [Catapres] 0.1 mg PO BID-W/MEALS PRN 09/12/23 [History] lisinopriL [Zestril] 5 mg PO BID 09/12/23 [History] Metoprolol Succinate (ER) [Toprol XL] 25 mg PO DAILY #30 tab 09/18/23 [Rx] Follow up Appointment(s)/Referral(s): Buzz Richmond MD [Primary Care Provider] - 1-2 days Discharge Disposition: HOME WITH HOSPICE
[2023-09-18 12:07] LABS: Glucose,Whole Blood 183 mg/dL (70-110)
--- NOTE | 2023-09-18 14:12 | P.PN ---
Subjective Progress Note Date: 09/18/23 HISTORY OF PRESENTING ILLNESS 88-year-old with past medical history of CAD, COPD, type 2 diabetes, severe GERD, anemia, hypertension, dyslipidemia, pulmonary fibrosis, history of TAVR in 2021. History of PAD, CKD ESRD on peritoneal dialysis. He has chronic venous ulcer on bilateral lower extremity. Chronic edema and anasarca. He presented to the hospital because of abdominal discomfort, intractable nausea vomiting. EKG from yesterday shows atrial fibrillation with plan for septal OK, heart rate 120. Hb 10, creatinine 6.2, elevated trop due to poor renal clearance 09/15 Patient underwent small bowel follow-through today. He is currently in sinus rhythm. Heart rate is controlled. Blood pressure 111/62, pulse ox 96% on 3 L nasal cannula. Repeat blood work reveals hemoglobin 10.8. INR 1.4. Stool for occult blood positive. He is currently on a heparin drip and has been started on Toprol XL. Echocardiogram is pending. 09/16 Patient is seen today in follow-up. Heparin drip was discontinued as of yesterday as patient had another stool that was alcohol positive and attending was contacted, Dr. Richmond. Heparin drip was discontinued and patient does not appear to be a good candidate for anticoagulation. Telemetry is a sinus rhythm. Blood pressure 133/74, heart rate 65, pulse ox 98% on 4 L nasal cannula. General surgery has no plan for surgical intervention as there was no bowel obstruction found on the small bowel follow-through completed yesterday. Echocardiogram has been obtained and report is pending. 09/17 Patient's family has met with hospice and they are waiting for some financial details to be worked out. Nausea and vomiting have resolved. Blood pressure 120/65, heart rate 77, pulse ox 99% on 4 L nasal cannula. No repeat blood work today. PHYSICAL EXAMINATION Vital signs reviewed. Neck: no jugular venous distention. Lungs: Reduced air entry bilateral lung lafleur Heart: Irregularly irregular, systolic murmur. Abdomen: Distended abdomen Extremities: Chronic venous ulcer bilateral extremity. Chronic edema in bilateral lower extremity Neuro: Alert, oritented, no focal deficits. Detailed neuro exam was not performed. ASSESSMENT Severe abdominal pain due to obstruction from incarcerated hernia in the umbilicus area, resolved Nausea and vomiting, resolved New onset atrial fibrillation, currently sinus rhythm with PVCs elevated trop due to poor renal clearance ESRD on peritoneal dialysis, may need to switch to hemodialysis CAD with multiple PCI in the past S/p TAVR Ischemic cardiomyopathy Type II Diabetes Hypertension PLAN Continue metoprolol succinate 25 mg daily Continue aspirin, atorvastatin Obtained echocardiogram report Patient has ongoing blood in stool, and thus, does not appear to be a good candidate for anticoagulation at this time. This can be reevaluated on an outpatient basis if patient does not end up under hospice care. Patient will follow-up with Dr. Lauri Kelley in 1 to 2 weeks following discharge. Cardiology will sign off this case and follow on an as-needed basis. Please reconsult for any new concerns. Nurse practitioner note has been reviewed, I agree with documented findings and plan of care. Patient was seen and examined. Objective - Vital Signs Vital signs: Vital Signs Temp 97.4 F L 09/18/23 07:34 Pulse 75 09/18/23 07:34 Resp 15 09/18/23 07:34 BP 132/69 09/18/23 07:34 Pulse Ox 100 09/18/23 07:34 FiO2 Intake & Output 09/17/23 09/18/23 09/18/23 18:59 06:59 18:59 Output Total 0 Balance 0 Weight 92.5 kg Output: Urine 0 Other: Voiding Method CAPD CAPD CAPD External Catheter External Catheter External Catheter # Voids 1 # Bowel Movements 1 1 - Labs CBC & Chem 7: 09/16/23 10:40 09/17/23 12:58 Labs: Abnormal Lab Results - Last 24 Hours (Table) 09/17/23 09/17/23 09/17/23 Range/Units 11:41 12:58 16:27 Sodium 135 L (137-145) mmol/L Potassium 3.3 L (3.5-5.1) mmol/L BUN 94 H (9-20) mg/dL Creatinine 4.91 H (0.66-1.25) mg/dL Glucose 210 H (74-99) mg/dL POC Glucose (mg/dL) 190 H 193 H (70-110) mg/dL Calcium 7.1 L (8.4-10.2) mg/dL 09/17/23 09/18/23 Range/Units 20:01 05:06 Sodium (137-145) mmol/L Potassium (3.5-5.1) mmol/L BUN (9-20) mg/dL Creatinine (0.66-1.25) mg/dL Glucose (74-99) mg/dL POC Glucose (mg/dL) 214 H 194 H (70-110) mg/dL Calcium (8.4-10.2) mg/dL Microbiology - Last 24 Hours (Table) 09/12/23 15:40 Blood Culture - Final Blood 09/12/23 15:30 Blood Culture - Final Blood 09/14/23 13:20 Gram Stain - Preliminary Dialysate Body Fluid Culture - Preliminary
[2023-09-18 16:59] LABS: Glucose,Whole Blood 226 mg/dL (70-110)
[2023-09-18 17:14] VITALS: BP 90/51; PULSE 72; RESP 17; TEMP 98.1
== END 2023-09-18 17:05 | disposition hospice, home (50) | DRG 393 ==
LOC: EC 12:55 → 4SSUR 17:53 → 2SICU 09-14 13:44 → 3SCARD 09-14 20:45
PROVIDERS: ADMIT Internal Medicine Geriatric Medicine; ATTEND Internal Medicine Geriatric Medicine
PROC: 3E1M39Z Irrigation of Peritoneal Cavity using Dialysate, Percutaneous Approach (ICD-10-PCS; principal; 2023-09-13)
DX: K42.0 Umbilical hernia with obstruction, without gangrene (principal); N18.6 End stage renal disease; I13.2 Hypertensive heart and chronic kidney disease with heart failure and with stage 5 chronic kidney disease, or end stage renal disease; I50.32 Chronic diastolic (congestive) heart failure; K92.1 Melena; E11.649 Type 2 diabetes mellitus with hypoglycemia without coma; E83.9 Disorder of mineral metabolism, unspecified; D63.1 Anemia in chronic kidney disease; I95.9 Hypotension, unspecified; E11.22 Type 2 diabetes mellitus with diabetic chronic kidney disease; E11.51 Type 2 diabetes mellitus with diabetic peripheral angiopathy without gangrene; E11.43 Type 2 diabetes mellitus with diabetic autonomic (poly)neuropathy; J84.10 Pulmonary fibrosis, unspecified; I48.91 Unspecified atrial fibrillation; J44.9 Chronic obstructive pulmonary disease, unspecified; D50.9 Iron deficiency anemia, unspecified; F31.9 Bipolar disorder, unspecified; Z99.2 Dependence on renal dialysis; Z95.2 Presence of prosthetic heart valve; Z51.5 Encounter for palliative care; Z66 Do not resuscitate; R00.1 Bradycardia, unspecified; K31.84 Gastroparesis; F41.8 Other specified anxiety disorders; I49.3 Ventricular premature depolarization; I25.5 Ischemic cardiomyopathy; E78.5 Hyperlipidemia, unspecified; K21.9 Gastro-esophageal reflux disease without esophagitis; M19.90 Unspecified osteoarthritis, unspecified site; N40.0 Benign prostatic hyperplasia without lower urinary tract symptoms; E79.0 Hyperuricemia without signs of inflammatory arthritis and tophaceous disease; I25.10 Atherosclerotic heart disease of native coronary artery without angina pectoris; H91.90 Unspecified hearing loss, unspecified ear; H54.7 Unspecified visual loss; I25.2 Old myocardial infarction; Z79.82 Long term (current) use of aspirin; Z79.02 Long term (current) use of antithrombotics/antiplatelets; Z79.84 Long term (current) use of oral hypoglycemic drugs; Z79.899 Other long term (current) drug therapy; Z87.891 Personal history of nicotine dependence; Z85.46 Personal history of malignant neoplasm of prostate; Z91.81 History of falling; Z88.1 Allergy status to other antibiotic agents; Z88.2 Allergy status to sulfonamides
CPT/HCPCS: 36415; 74019; 74176; 74250; 80048; 80053; 82272; 83605; 83690; 83735; 83880; 84484; 85025; 85610; 85730; 87040; 87070; 87205; 89050; 93005; 93306; 94760; 96361; 96374; 99285